=== PATIENT | female | born 1935 | race Caucasian/White ===

== ENCOUNTER 2019-06-29 07:46 | Emergency (ER) | payer MEDICARE, OTHER ==
--- NOTE | 2019-06-29 08:15 | ED Physician Documentation ---
PD HPI ABD PAIN - Stated complaint Stated Complaint: STOMACH PAINS - Chief complaint Chief Complaint: Abd Pain - History obtained from History obtained from: Patient - History of Present Illness Timing - onset: Last night Timing - details: Abrupt onset, Still present (but much lessened over the past few hours.) Quality: Aching, Fullness/distended, Pain Location: Periumbilical (she says she started with abd bloating, diffuse pain, but more intense centrally. Associated with nausea but no vomiting. She says her abd felt firm and hard. Started with diarrhea few hours later and is having less distension, but still cramping. Has had several bouts watery diarrhea without blood.) Radiation: No: Lower back, Left flank, Right flank Improved by: BM. No: Eating Worsened by: Eating, Palpation Associated symptoms: Nausea, Diarrhea, Loss of appetite. No: Fever, Vomiting, Melena, Hematochezia, Dysuria Similar symptoms before: Has not had sx before (remote c. diff caused diarrhea, but had not had abd pain/bloating like this with just the diarrhea. Has history of hernia mid abd, but no prior obstruction episodes. Did have feeling of bloating and diffuse pain with bowel perforation related to c. diff.) Review of Systems Constitutional: reports: Fatigue. denies: Fever, Chills, Myalgias Nose: denies: Rhinorrhea / runny nose, Congestion Throat: denies: Sore throat Respiratory: denies: Cough GI: reports: Abdominal Pain, Abdominal Swelling, Nausea, Diarrhea. denies: Vomiting, Constipation, Bloody / black stool : denies: Dysuria, Frequency Neurologic: denies: Near syncope, Altered mental status PD PAST MEDICAL HISTORY - Past Medical History Cardiovascular: Pulmonary embolism Endocrine/Autoimmune: Type 2 diabetes, HyPOthyroidism Musculoskeletal: Osteoarthritis, Gout Other Past Medical History: Vertigo. Raynauds. 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 Cardiovascular: Valve replacement HEENT: Tonsil/Adenoidectomy Derm: Skin cancer surgery - Present Medications Home Medications: Ambulatory Orders Medication Instructions Recorded Confirmed Acetaminophen with Codeine 1 each PO Q6H PRN #25 tablet 06/29/19 [Tylenol with Codeine #4 Tablet] Allopurinol 100 mg PO 06/29/19 Apixaban [Eliquis] 2.5 mg PO 06/29/19 Dapagliflozin Propanediol [Farxiga] 10 mg PO 06/29/19 Diphenoxylate/Atropine [Lomotil] 1 each PO QID PRN #12 tablet 06/29/19 Dulaglutide [Trulicity] 1.5 mg SQ 06/29/19 Gabapentin [Gralise] 600 mg PO 06/29/19 Glipizide [Glipizide ER] 5 mg PO 06/29/19 Hydrocodone/Acetaminophen 1 each PO 06/29/19 [Hydrocodone-Acetamin 5-325 mg] Levothyroxine [Synthroid] 125 mcg PO QDAC 06/29/19 06/29/19 Ondansetron Odt [Zofran] 4 mg TL Q6H PRN #10 tablet 06/29/19 Pantoprazole [Protonix] 40 mg PO 06/29/19 Rosuvastatin Calcium [Crestor] 40 mg PO 06/29/19 - Allergies Allergies/Adverse Reactions: Allergies Allergy/AdvReac Type Severity Reaction Status Date / Time oxycodone [From OxyContin] Allergy Unknown Verified 06/29/19 08:00 Penicillins Allergy Hives Verified 06/29/19 08:00 sulfamethoxazole Allergy Hives Verified 06/29/19 08:00 [From Bactrim] trimethoprim [From Bactrim] Allergy Hives Verified 06/29/19 08:00 vancomycin Allergy Anxiety Verified 06/29/19 08:00 clindamycin AdvReac Unknown Verified 06/29/19 08:00 doxycycline AdvReac Nausea Verified 06/29/19 08:00 - Social History Does the pt smoke?: No Smoking Status: Never smoker PD ED PE NORMAL - Vitals Vital signs reviewed: Yes - General General: Alert and oriented X 3, No acute distress, Well developed/nourished - HEENT HEENT: PERRL (nonicteric), Ears normal, Pharynx benign - Neck Neck: Supple, no meningeal sign, No adenopathy - Cardiac Cardiac: RRR, No murmur - Respiratory Respiratory: Clear bilaterally - Abdomen Abdomen: Non distended, No organomegaly, Other (tender central abd mostly with some percussion tenderness but no rebound. Left abd with broad ventral hernia that is reducible/soft. ). No: Normal bowel sounds (increased, diffuse) - Female Female : Deferred - Rectal Rectal: Deferred - Back Back: No CVA TTP - Derm Derm: Normal color - Extremities Extremities: No tenderness to palpate, Normal ROM s pain, No edema, No calf tenderness / cord - Neuro Neuro: Alert and oriented X 3, No motor deficit, Normal speech Results - Vitals Vitals: Vital Signs - 24 hr 06/29/19 06/29/19 06/29/19 07:54 09:57 12:04 Temperature 36 C L Heart Rate 93 84 85 Respiratory 20 13 14 Rate Blood Pressure 119/56 L 135/105 H 133/68 H O2 Saturation 96 94 95 Oxygen O2 Source Room air - Labs Labs: Microbiology 06/29/19 11:33 Campylobacter Antigen Assay - Final Stool Laboratory Tests 06/29/19 06/29/19 06/29/19 08:44 08:44 08:44 WBC 10.2 RBC 4.82 Hgb 13.5 Hct 41.8 MCV 86.7 MCH 28.0 MCHC 32.3 RDW 15.2 H Plt Count 150 MPV 9.7 Neut # (Auto) 7.4 H Lymph # (Auto) 1.6 [place] # (Auto) 0.9 Eos # (Auto) 0.2 Baso # (Auto) 0.0 Absolute Nucleated RBC 0.00 Nucleated RBC % 0.0 PT INR APTT Sodium 138 Potassium 4.2 Chloride 103 Carbon Dioxide 23 Anion Gap 12.0 BUN 30 H Creatinine 1.8 H Estimated GFR (MDRD) 27 L Glucose 199 H Lactic Acid 1.4 Calcium 9.6 Magnesium 1.9 Total Bilirubin 0.5 AST 19 ALT 16 Alkaline Phosphatase 104 Total Protein 7.0 Albumin 3.8 Globulin 3.2 Albumin/Globulin Ratio 1.2 Lipase 30 C. difficile Tox B Gene 06/29/19 06/29/19 08:44 11:33 WBC RBC Hgb Hct MCV MCH MCHC RDW Plt Count MPV Neut # (Auto) Lymph # (Auto) [place] # (Auto) Eos # (Auto) Baso # (Auto) Absolute Nucleated RBC Nucleated RBC % PT 12.8 H INR 1.1 APTT 37.6 H Sodium Potassium Chloride Carbon Dioxide Anion Gap BUN Creatinine Estimated GFR (MDRD) Glucose Lactic Acid Calcium Magnesium Total Bilirubin AST ALT Alkaline Phosphatase Total Protein Albumin Globulin Albumin/Globulin Ratio Lipase C. difficile Tox B Gene NEGATIVE - Rads (name of study) abd/pelvic CT Radiology: Prelim report reviewed (hernias noted without signs of incarceration nor obstruction. No free fluid nor free air. ), See rad report PD MEDICAL DECISION MAKING - ED course Complexity details: reviewed results, re-evaluated patient (improved enough and taking PO fluids. Feeling some pain still and given repeat dose meds. Shr is feeling able to try discharge, and I feel she is stable for discharge. ), considered differential (symptoms improved with IV fluids and meds. Symptoms concerning for SBO but with some improvement occurring, I think it might be resolving already and having pain from stretch of intestine/adhesions. Otherwise consider bacterial enteritis, ischemic enteritis, viral GE. ), d/w patient Departure - Departure Disposition: 01 Home, Self Care Clinical Impression: Partial small bowel obstruction Abdominal pain Qualifiers: Abdominal location: generalized Qualified Code(s): R10.84 - Generalized a bdominal pain Diarrhea Qualifiers: Diarrhea type: unspecified type Qualified Code(s): R19.7 - Diarrhea, unspecified Condition: Stable Record reviewed to determine appropriate education?: Yes Instructions: ED Abdominal Pain Adhesions Prescriptions: Acetaminophen with Codeine [Tylenol with Codeine #4 Tablet] 1 each PO Q6H PRN #25 tablet PRN Reason: Pain Diphenoxylate/Atropine [Lomotil] 1 each PO QID PRN #12 tablet PRN Reason: Diarrhea Ondansetron Odt [Zofran] 4 mg TL Q6H PRN #10 tablet PRN Reason: Nausea / Vomiting Comments: At this point I presume possibly a viral illness leading to the diarrhea and cramping. Your description of your abdomen being firm and distended last evening does suggest possibility of a partial obstruction that has improved. Your CT scan does not show any obstruction or other acute process at this time. Small frequent fluids and use ondansetron for nausea as needed. Soft diet today. Pain medicine if needed for pain. Lomotil for diarrhea. Recheck if not improved over the next day to 2 days. Return if worsening again. We will call you if the stool cultures shows a particular bacterial infection that would need treating. Discharge Date/Time: 06/29/19 12:56
[2019-06-29] MEDS ORDERED: SODIUM CHLORIDE 0.9% 1,000 ML IV ONE (08:34)
[2019-06-29] MEDS ORDERED: ONDANSETRON 4 MG/2 ML VIAL IVP STA ×2 (08:34→11:54)
[2019-06-29] MEDS ORDERED: HYDROmorphone 1 MG/ML CARPUJECT IVP STA ×2 (08:35→11:54)
[2019-06-29] MEDS ORDERED: DEXAMETHASONE 10 MG/ML VIAL IVP STA (08:48)
[2019-06-29] MEDS ORDERED: diphenhydrAMINE INJ 50 MG/ML VIAL IVP STA ×2 (08:48→11:15)
[2019-06-29] MEDS ORDERED: IOVERSOL 320 100 ML VIAL IVP ONE (08:49)
[2019-06-29] MEDS ORDERED: IOVERSOL 320 50 ML VIAL ONE ×2 (08:49→09:01)
[2019-06-29 08:55] LABS: BASOPHILS % (AUTO) 0.4 %; EOSINOPHILS # (AUTO) 0.2 10^3/uL (0.0-0.7); EOSINOPHILS % (AUTO) 2.2 %; HGB - HEMOGLOBIN 13.5 g/dL (12.0-16.0); LYMPHOCYTES # (AUTO) 1.6 10^3/uL (1.5-3.5); MEAN CORPUSCULAR HGB CONC 32.3 g/dL (32.0-36.0); MEAN CORPUSCULAR VOLUME 86.7 fL (81.0-99.0); MEAN PLATELET VOLUME 9.7 fL (7.9-10.8); MONOCYTES # (AUTO) 0.9 10^3/uL (0.0-1.0); MONOCYTES % (AUTO) 8.7 %; NEUTROPHILS # (AUTO) 7.4 10^3/uL (1.5-6.6); NEUTROPHILS % (AUTO) 72.2 %; PLT - PLATELET COUNT 150 10^3/uL (130-450); RED BLOOD COUNT 4.82 10^6/uL (4.20-5.40); RED CELL DISTRIBUTION WIDTH 15.2 % (12.0-15.0); WHITE BLOOD COUNT 10.2 x10^3/uL (4.8-10.8)
[2019-06-29 09:00] LABS: INR 1.1 (0.8-1.2); PT - PROTHROMBIN TIME 12.8 secs (9.9-12.6)
[2019-06-29 09:02] LABS: ALBUMIN 3.8 g/dL (3.2-5.5); ALBUMIN/GLOBULIN RATIO 1.2 (1.0-2.2); BILIRUBIN,TOTAL 0.5 mg/dL (0.2-1.0); CALCIUM 9.6 mg/dL (8.5-10.3); CREATININE 1.8 mg/dL (0.4-1.0); MAGNESIUM 1.9 mg/dL (1.7-2.8)
[2019-06-29 09:07] LABS: PARTIAL THROMBOPLASTIN TIME 37.6 secs (24.9-33.3)
--- NOTE | 2019-06-29 11:09 | CT Report ---
Reason: ABD PAIN AND DIARRHEA ? SBO Procedure Date: 06/29/2019 Accession Number: [id number] / [id number] Procedure: CT - Abdomen/Pelvis WO CPT Code: FULL RESULT: EXAM: CT ABDOMEN AND PELVIS EXAM DATE: 06/29/2019 10:40 AM. CLINICAL HISTORY: Abdominal pain and diarrhea. Question of small bowel obstruction. COMPARISONS: None. TECHNIQUE: Routine axial helical CT imaging was performed through the abdomen and pelvis without IV contrast. Reconstructions: Coronal and sagittal. In accordance with CT protocol optimization, one or more of the following dose reduction techniques were utilized for this exam: automated exposure control, adjustment of mA and/or KV based on patient size, or use of iterative reconstructive technique. FINDINGS: Lung Bases: Unremarkable. The liver, spleen, adrenal glands, kidneys, and pancreas appear within normal limits as seen on noncontrast exam. Gallbladder/Bile Ducts: Status post cholecystectomy. Peritoneal Cavity: The patient is status post colectomy with proximal end to side anastomosis which is traversed by contrast. There is a narrow necked right lower quadrant abdominal wall hernia, 1.7 cm width which contains bowel, apparently both bowel hermosillo protruding, not Singh's hernia despite small size and narrow neck with a minuscule amount of contrast seen within the herniated portion and contrast upstream and downstream thereof. Separately, there is a wide midline abdominal wall diastases containing bowel. Contrast is not seen at the distal rectal anastomosis with contrast gradually tapering a few feet proximally, potentially transit time related. Overall appearance of pelvic bowel loops is a configuration suggestive of presence of adhesions. A few prominent mesenteric lymph nodes are noted which do not meet size criteria. No free or free fluid. Pelvic Organs: Postsurgical changes are seen within the pelvis. The patient is status post hysterectomy. Vasculature: Atherosclerotic without abdominal aortic aneurysm. IVC filter is noted in place. Other: Lytic lesions in the L2 and L3 vertebral body demonstrate an appearance which somewhat favors a hemangioma type vascular lesion given persistent internal trabeculations and relatively well-defined border. IMPRESSION: No high-grade bowel obstruction. Narrow necked right lower quadrant abdominal wall hernia containing bowel. Suspect postsurgical adhesions in the pelvic region. RADIA
[2019-06-29] MEDS ORDERED: KETOROLAC 15 MG/ML VIAL IVP STA (11:54)
[2019-06-29 12:04] VITALS: BP 133/68
[2019-06-29] MEDS ORDERED: DIPHENOX/ATROPINE 2.5/0.025 MG TABLET PO STA (12:38)
[2019-06-29] MEDS ORDERED: IOVERSOL 320 50 ML VIAL PO ONE (16:05)
== END 2019-06-29 12:56 | disposition home or self-care (01) ==
LOC: ED 07:46
DX: K56.600 Partial intestinal obstruction, unspecified as to cause (principal); R10.84 Generalized abdominal pain; R19.7 Diarrhea, unspecified; E11.9 Type 2 diabetes mellitus without complications; Z79.84 Long term (current) use of oral hypoglycemic drugs
CPT/HCPCS: 36415; 74176; 80053; 83605; 83690; 83735; 85025; 85610; 85730; 87045; 87046; 87493; 96361; 96374; 96375; 96376; 99284; 99285; A9270; J1170; J1200

== ENCOUNTER 2019-07-02 10:32 | Inpatient (IN) | payer MEDICARE, OTHER ==
[2019-07-02] MEDS ORDERED: SODIUM CHLORIDE 0.9% 1,000 ML IV ONE (10:56)
[2019-07-02] MEDS ORDERED: HYDROmorphone 1 MG/ML CARPUJECT IVP STA (10:56)
[2019-07-02] MEDS ORDERED: ONDANSETRON 4 MG/2 ML VIAL IVP STA (10:56)
--- NOTE | 2019-07-02 11:00 | ED Physician Documentation ---
PD HPI ABD PAIN - Stated complaint Stated Complaint: ABD PX - Chief complaint Chief Complaint: Abd Pain - History obtained from History obtained from: Patient, Family - History of Present Illness Timing - onset: How many days ago (3) Timing - duration: Days (3) Timing - details: Still present (Getting worse) Location: Other (Right mid abdomen.) Radiation: Right flank Associated symptoms: Nausea, Diarrhea Recently seen: Emergency Dept (3 days ago.) - Additional information Additional information: The patient is an 84-year-old female who presents with abdominal pain that started 3 days ago and is worse today. The pain is mostly right-sided, with radiation to the right flank. She has associated watery diarrhea, numerous times over the past 24 hours. She reports nausea, without vomiting. She has had chills, but has not noticed fever. She denies dysuria or lightheadedness. Her past medical history is significant for colectomy for bowel rupture caused by C. difficile. She is also status post cholecystectomy and appendectomy. She is status post aortic valve replacement in November of this year. She has history of DVT and PE, and is status post IVC filter placement, and is currently on Eliquis. She is visiting here from [place], and has no local physician. Review of Systems Constitutional: reports: Chills, Fatigue Ears: denies: Tinnitus/ringing Nose: denies: Congestion Throat: denies: Sore throat Cardiac: denies: Chest pain / pressure Respiratory: denies: Dyspnea, Cough GI: reports: Abdominal Pain, Nausea, Diarrhea. 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 Cardiovascular: Valve replacement HEENT: Tonsil/Adenoidectomy Derm: Skin cancer surgery - Present Medications Home Medications: Ambulatory Orders Medication Instructions Recorded Confirmed Allopurinol 100 mg PO QPM 06/29/19 07/02/19 Apixaban [Eliquis] 2.5 mg PO DAILY 06/29/19 07/02/19 Dapagliflozin Propanediol [Farxiga] 10 mg PO DAILY 06/29/19 07/02/19 Dulaglutide [Trulicity] 1.5 mg SQ LUGO 06/29/19 07/02/19 Gabapentin [Gralise] 600 mg PO QID 06/29/19 07/02/19 Glipizide [Glipizide ER] 5 mg PO BID 06/29/19 07/02/19 Levothyroxine [Synthroid] 125 mcg PO QDAC 06/29/19 07/02/19 Pantoprazole [Protonix] 40 mg PO DAILY 06/29/19 07/02/19 Rosuvastatin Calcium [Crestor] 40 mg PO QPM 06/29/19 07/02/19 Acetaminophen with Codeine 1 tab PO DAILY PRN 07/02/19 07/02/19 [Tylenol with Codeine #4 Tablet] Diphenoxylate/Atropine [Lomotil] 1 tab PO QID PRN 07/02/19 07/02/19 - Allergies Allergies/Adverse Reactions: Allergies Allergy/AdvReac Type Severity Reaction Status Date / Time Penicillins Allergy Hives Verified 06/29/19 08:00 sulfamethoxazole Allergy Hives Verified 06/29/19 08:00 [From Bactrim] trimethoprim [From Bactrim] Allergy Hives Verified 06/29/19 08:00 vancomycin Allergy Anxiety Verified 06/29/19 08:00 oxycodone [From OxyContin] AdvReac Intermediate Hallucinati Verified 07/02/19 18:29 ons clindamycin AdvReac Unknown Verified 06/29/19 08:00 doxycycline AdvReac Nausea Verified 06/29/19 08:00 - Social History Does the pt smoke?: No Smoking Status: Never smoker PD ED PE NORMAL - Vitals Vital signs reviewed: Yes (Borderline systolic hypertension.) - General General: Alert and oriented X 3, Well developed/nourished, Other (Overweight.) - HEENT HEENT: Atraumatic, Other (Dry mucous membranes.). No: Pharynx benign - Neck Neck: Supple, no meningeal sign, No adenopathy - Cardiac Cardiac: RRR, Other (2/6 systolic murmur.) - Respiratory Respiratory: No respiratory distress, Clear bilaterally - Abdomen Abdomen: Soft, Other (Increased bowel tones. Tenderness to palpation across the upper abdomen, without rebound.) - Back Back: No CVA TTP - Derm Derm: No rash - Extremities Extremities: No edema, No calf tenderness / cord - Neuro Neuro: Alert and oriented X 3, No motor deficit, Normal speech Results - Vitals Vitals: Vital Signs - 24 hr 07/02/19 07/02/19 07/02/19 10:35 13:26 15:07 Temperature 36.6 C 36.9 C Heart Rate 98 84 78 Respiratory 18 20 14 Rate Blood Pressure 135/58 H 100/41 L 110/54 L O2 Saturation 98 96 98 Oxygen O2 Source Room air - Labs Labs: Laboratory Tests 07/02/19 07/02/19 07/02/19 10:40 11:45 11:45 WBC 9.8 RBC 4.23 Hgb 11.8 L Hct 37.8 MCV 89.4 MCH 27.9 MCHC 31.2 L RDW 15.4 H Plt Count 143 MPV 10.0 Neut # (Auto) 7.2 H Lymph # (Auto) 1.2 L [place] # (Auto) 0.9 Eos # (Auto) 0.4 Baso # (Auto) 0.0 Absolute Nucleated RBC 0.00 Nucleated RBC % 0.0 Sodium 139 Potassium 4.5 Chloride 105 Carbon Dioxide 21 Anion Gap 13.0 BUN 33 H Creatinine 2.1 H Estimated GFR (MDRD) 23 L Glucose 244 H Glycated Hemoglobin Estim Average Glucose Lactic Acid Calcium 8.9 Total Bilirubin 0.8 AST 31 ALT 21 Alkaline Phosphatase 103 Total Protein 6.4 L Albumin 3.4 Globulin 3.0 Albumin/Globulin Ratio 1.1 Lipase 22 Urine Color YELLOW Urine Clarity CLOUDY Urine pH 5.5 Ur Specific [place] 1.015 Urine Protein 30 H Urine Glucose (UA) >=1000 H Urine Ketones NEGATIVE Urine Occult Blood MODERATE H Urine Nitrite POSITIVE H Urine Bilirubin NEGATIVE Urine Urobilinogen 0.2 (NORMAL) Ur Leukocyte Esterase MODERATE H Urine RBC None Seen Urine WBC >25 H Urine WBC Clumps PRESENT Ur Squamous Epith Cells RARE Squamous Urine Bacteria Few Urine Casts 3-5 Fine Granular Ur Microscopic Review INDICATED Urine Culture Comments INDICATED 07/02/19 07/02/19 11:45 11:45 WBC RBC Hgb Hct MCV MCH MCHC RDW Plt Count MPV Neut # (Auto) Lymph # (Auto) [place] # (Auto) Eos # (Auto) Baso # (Auto) Absolute Nucleated RBC Nucleated RBC % Sodium Potassium Chloride Carbon Dioxide Anion Gap BUN Creatinine Estimated GFR (MDRD) Glucose Glycated Hemoglobin 8.5 H Estim Average Glucose 197 H Lactic Acid 2.3 H Calcium Total Bilirubin AST ALT Alkaline Phosphatase Total Protein Albumin Globulin Albumin/Globulin Ratio Lipase Urine Color Urine Clarity Urine pH Ur Specific [place] Urine Protein Urine Glucose (UA) Urine Ketones Urine Occult Blood Urine Nitrite Urine Bilirubin Urine Urobilinogen Ur Leukocyte Esterase Urine RBC Urine WBC Urine WBC Clumps Ur Squamous Epith Cells Urine Bacteria Urine Casts Ur Microscopic Review Urine Culture Comments - Rads (name of study) CT abd/pelvis Radiology: Prelim report reviewed, EMP read contemporaneously, See rad report (1) No urinary tract obstruction. Nonobstructing right renal stone. 2) Extensive postsurgical changes of bowel with diastatic anterior abdominal wall. Bowel herniates anteriorly through the diastases slightly more dilated and air- filled than on 06/29/2019. 3) Narrow neck right lower quadrant abdominal wall hernia containing bowel, question Singh hernia. 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 Given her right flank pain and tenderness, pyelonephritis is a consideration. In addition to urine culture, blood cultures are pending. CT scan of the abdomen and pelvis reveals no evidence of acute bowel obstruction or abscess. It does reveal ventral hernia, without incarceration. Treatment in the emergency department included administration of normal saline 1 L IV, Zofran 4 mg IV, dilaudid 1 mg IV, followed by fentanyl 50 mcg IV, Phenergan 12.5 mg IV, and ceftriaxone 1 g IV. I discussed her condition with Dr. Woodward, who accepts her for further evaluation and treatment. Departure - Departure Disposition: 66 [facility] DC/Xfer Clinical Impression: Lactic acid increased Urinary tract infection Qualifiers: Urinary tract infection type: acute cystitis Hematuria presence: without hematuria Qualified Code(s): N30.00 - Acute cystitis without hematuria Ventral hernia Qualifiers: Obstruction and gangrene presence: without obstruction or gangrene Qualified Co de(s): K43.9 - Ventral hernia without obstruction or gangrene Condition: Stable Discharge Date/Time: 07/02/19 16:36
[2019-07-02 11:01] LABS: BILIRUBIN,URINE NEGATIVE (NEGATIVE); GLUCOSE, URINE (UA) >=1000 mg/dL (NEGATIVE); KETONES,URINE (UA) NEGATIVE (NEGATIVE); LEUKOCYTE ESTERASE, URINE MODERATE (NEGATIVE); NITRITE,URINE POSITIVE (NEGATIVE); OCCULT BLOOD,URINE MODERATE (NEGATIVE); PH,URINE 5.5 PH (5.0-7.5); PROTEIN,URINE 30 mg/dL (NEGATIVE); UROBILINOGEN,URINE 0.2 (NORMAL) E.U./dL (NORMAL)
[2019-07-02] MEDS ORDERED: IOVERSOL 320 100 ML VIAL IVP ONE (11:11)
[2019-07-02 11:18] LABS: BACTERIA,URINE Few /HPF (None Seen); CLARITY,URINE CLOUDY (CLEAR); RBC,URINE None Seen /HPF (0-5); SQUAMOUS EPITHELIAL CELL,UR RARE Squamous (<= Few); WBC CLUMPS,URINE PRESENT
[2019-07-02 11:19] LABS: CASTS, URINE 3-5 Fine Granular /LPF
[2019-07-02 11:56] LABS: BASOPHILS % (AUTO) 0.4 %; EOSINOPHILS # (AUTO) 0.4 10^3/uL (0.0-0.7); EOSINOPHILS % (AUTO) 3.8 %; HGB - HEMOGLOBIN 11.8 g/dL (12.0-16.0); LYMPHOCYTES # (AUTO) 1.2 10^3/uL (1.5-3.5); LYMPHOCYTES % (AUTO) 12.7 %; MEAN CORPUSCULAR HEMOGLOBIN 27.9 pg (27.0-31.0); MEAN CORPUSCULAR HGB CONC 31.2 g/dL (32.0-36.0); MEAN CORPUSCULAR VOLUME 89.4 fL (81.0-99.0); MONOCYTES # (AUTO) 0.9 10^3/uL (0.0-1.0); MONOCYTES % (AUTO) 9.2 %; NEUTROPHILS # (AUTO) 7.2 10^3/uL (1.5-6.6); NEUTROPHILS % (AUTO) 73.5 %; PLT - PLATELET COUNT 143 10^3/uL (130-450); RED BLOOD COUNT 4.23 10^6/uL (4.20-5.40); RED CELL DISTRIBUTION WIDTH 15.4 % (12.0-15.0); WHITE BLOOD COUNT 9.8 x10^3/uL (4.8-10.8)
[2019-07-02 12:07] LABS: ALBUMIN 3.4 g/dL (3.2-5.5); ALBUMIN/GLOBULIN RATIO 1.1 (1.0-2.2); BILIRUBIN,TOTAL 0.8 mg/dL (0.2-1.0); CALCIUM 8.9 mg/dL (8.5-10.3); CREATININE 2.1 mg/dL (0.4-1.0); TOTAL PROTEIN 6.4 g/dL (6.7-8.2)
[2019-07-02] MEDS ORDERED: cefTRIAXone 1 GM in SODIUM CHLORIDE 0.9% MINIBAG 100 ML IV STA (12:09)
--- NOTE | 2019-07-02 13:45 | CT Report ---
Reason: increasing abdominal pain; S/P colectomy Procedure Date: 07/02/2019 Accession Number: [id number] / [id number] Procedure: CT - Abdomen/Pelvis WO CPT Code: FULL RESULT: EXAM: CT ABDOMEN AND PELVIS (CT KUB) EXAM DATE: 07/02/2019 12:29 PM. CLINICAL HISTORY: Increasing abdominal pain; S/P colectomy. COMPARISONS: ABDOMEN/PELVIS W/O 06/29/2019 10:30 AM. TECHNIQUE: Routine axial helical CT imaging was performed through the abdomen and pelvis without IV contrast. Reconstructions: Coronal and sagittal. In accordance with CT protocol optimization, one or more of the following dose reduction techniques were utilized for this exam: automated exposure control, adjustment of mA and/or KV based on patient size, or use of iterative reconstructive technique. FINDINGS: Lung Bases: Hypoventilatory change lung bases. Prosthetic aortic valve. Right Kidney/Ureter: 5 mm nonobstructing right inferior pole calculus No hydronephrosis, or hydroureter. No perinephric fat stranding. Left Kidney/Ureter: No stones, hydronephrosis, or hydroureter. No perinephric fat stranding. Other Solid Organs: Noncontrast images of the remaining solid organs are grossly unremarkable. Gallbladder/Bile Ducts: Status post cholecystectomy. Peritoneal Cavity: Status post colectomy with suture lines in the pelvis and left mid abdomen. Wide midline abdominal wall diastases containing slightly more distended air-filled bowel than on 06/29/2019. Narrow neck right lower quadrant abdominal wall hernia containing a loop of small bowel , 03/25. Potential second small hernia anterior abdominal wall , . No significant residual bowel contrast . No free fluid, free air or carin adenopathy. Pelvic Organs: No bladder stones or wall thickening. Post hysterectomy. Vasculature: IVC filter present. Atherosclerotic changes and a normal sized aorta. Other: Stable bony structures again noting advanced degenerative disk space narrowing L4-L5 and L5-S1 with associated endplate sclerosis more prominent at the more superior level. IMPRESSION: 1. No urinary tract obstruction. Nonobstructing right renal stone. 2. Extensive postsurgical changes of bowel with diastatic anterior abdominal wall. Bowel herniates anteriorly through the diastases slightly more dilatated and air-filled than on 06/29/2019. 3. Narrow neck right lower quadrant abdominal wall hernia containing bowel, question Singh hernia. 4. No residual bowel contrast from prior CT suggesting passage or dilution of previously administered oral contrast. 5. Other incidental findings as above. RADIA
[2019-07-02] MEDS ORDERED: fentaNYL 100 MCG/2 ML VIAL IVP STA (14:05)
[2019-07-02] MEDS ORDERED: PROMETHAZINE INJ 12.5 MG in SODIUM CHLORIDE 0.9% 50 ML IV STA (14:58)
[2019-07-02] MEDS ORDERED: ZOLPIDEM 5 MG TABLET PO PRN (15:09)
[2019-07-02] MEDS ORDERED: ONDANSETRON 4 MG/2 ML VIAL IVP PRN (15:09)
[2019-07-02] MEDS ORDERED: PROMETHAZINE 25 MG/1 ML VIAL IM PRN (15:09)
--- NOTE | 2019-07-02 15:44 | HISTORY & PHYSICAL EXAMINATION ---
Chief Complaint - Chief Complaint Chief Complaint: abdominal pain History of Present Illness - History of Present Illness HPI Comment/Other: Ms. collado is a 84-year-old female with a PMH significant for DM2, HLD, DVT and PE, and status post IVC filter placement, hypothyroidism, colon resection for bowel rupture caused by C. difficile, chronic diarrhea, status post aortic valve replacement on Eliquis, status post cholecystectomy and appendectomy, who presents ER complains of abdominal pain. Pt report her abdominal pain started 4 days ago and is worse today. The pain was mostly at right-sided, with pain radiation to the right flank and right back. She report since her colon resection, she continued to have chronic diarrhea. But now she had watery diarrhea, and had numerous times over the past 24 hours. she report chill but no fever. She reports nausea without vomiting. She had two daughter living in [facility]. she and her are visiting here from [place]. CT of abdemen reveals 1) no urinary tract obstruction, Nonobstructing right renal stone, 2) Extensive postsurgical changes of bowel with diastatic anterior abdominal wall. Bowel herniates anteriorly through the diastases slightly more dilated and air-filled than, 3) Narrow neck right lower quadrant abdominal wall hernia containing bowel, question Singh hernia, 4) No residual bowel contrast from prior CT suggesting passage or dilution of previously administered oral contrast. UA analysis found pt has positive UTI, lactic acid is 2.3. Pt was afebrile, normative BP. She denies chest pain, fever, shortness of breath, headache, dysuria, hematuia. pt was admitted for above medical reason for further evaluation and treatment. History - Past Medical History Cardiovascular: reports: Pulmonary embolism Endocrine/Autoimmune: reports: Type 2 diabetes, HyPOthyroidism GI: reports: C.difficile Musculoskeletal: reports: Osteoarthritis, Gout - Past Surgical History General: reports: Cholecystectomy, Appendectomy, Bowel surgery, Other Ortho: reports: Knee replacement, Arthroscopic surgery /RECYCLING SORTER: reports: Tubal ligation, Hysterectomy Cardiovascular: reports: Valve replacement HEENT: reports: Tonsil/Adenoidectomy Derm: reports: Skin cancer surgery - Family & Social History Family History: Mother: , Cancer, Father: , Cancer Family History Comment/Other: pt report both her parents from lung cancer because of life long time smoker. she is living at [place] and visiting her two daughter, both daughter is living in [facility]. Living arrangement: At home Living Situation: With spouse/s.o. Social History Notes: she denies cigarett smoking, alcohol and drug issue. - POLST POLST Status: Full Code Meds/Allgy - Home Medications Home Medications: Ambulatory Orders Medication Instructions Recorded Confirmed Acetaminophen with Codeine 1 each PO Q6H PRN #25 tablet 06/29/19 [Tylenol with Codeine #4 Tablet] Allopurinol 100 mg PO 06/29/19 Apixaban [Eliquis] 2.5 mg PO 06/29/19 Dapagliflozin Propanediol [Farxiga] 10 mg PO 06/29/19 Diphenoxylate/Atropine [Lomotil] 1 each PO QID PRN #12 tablet 06/29/19 Dulaglutide [Trulicity] 1.5 mg SQ 06/29/19 Gabapentin [Gralise] 600 mg PO 06/29/19 Glipizide [Glipizide ER] 5 mg PO 06/29/19 Hydrocodone/Acetaminophen 1 each PO 06/29/19 [Hydrocodone-Acetamin 5-325 mg] Levothyroxine [Synthroid] 125 mcg PO QDAC 06/29/19 06/29/19 Ondansetron Odt [Zofran] 4 mg TL Q6H PRN #10 tablet 06/29/19 Pantoprazole [Protonix] 40 mg PO 06/29/19 Rosuvastatin Calcium [Crestor] 40 mg PO 06/29/19 - Allergies Allergies/Adverse Reactions: Allergies Allergy/AdvReac Type Severity Reaction Status Date / Time oxycodone [From OxyContin] Allergy Unknown Verified 06/29/19 08:00 Penicillins Allergy Hives Verified 06/29/19 08:00 sulfamethoxazole Allergy Hives Verified 06/29/19 08:00 [From Bactrim] trimethoprim [From Bactrim] Allergy Hives Verified 06/29/19 08:00 vancomycin Allergy Anxiety Verified 06/29/19 08:00 clindamycin AdvReac Unknown Verified 06/29/19 08:00 doxycycline AdvReac Nausea Verified 06/29/19 08:00 Review of Systems - Constitutional Constitutional: reports: Fatigue, Chills. denies: Fever, Malaise, Weakness, Poor appetite, Diaphoresis, Night sweats - Eyes Eyes: denies: Pain, Irritation, Amaurosis, Blurred vision, Spots in vision, Field loss, Vision loss, Dipolpia - Ears, Nose & Throat Ears, Nose & Throat: denies: Ear pain, Hearing loss, Hearing aids, Vertigo, Nasal pain, Nasal discharge, Nosebleeds, Nasal obstruction, Nasal congestion, Postnasal drainage, Sore throat, Hoarseness, Mouth lesions, Bleeding gums - Cardiovascular Cariovascular: denies: Irregular heart rate, Palpitations, Chest pain, Edema, Lightheadedness, Syncope, Exertional dyspnea, Decr. exercise tolerance - Respiratory Respiratory: denies: Cough, Sputum production, Wheezing, Snoring, Hemoptysis, Orthopnea, SOB at rest, SOB with exertion - Gastrointestinal Gastrointestinal: reports: Abdominal pain, Diarrhea, Nausea. denies: Abdominal distention, Constipation, Change in bowel habits, Rectal bleeding, Black stools, Bloody stools, Vomiting, Bile emesis, Torey blood emesis, Coffee grounds emesis, Reflux/heartburn - Genitourinary Genitourinary: denies: Dysuria, Frequency, Urgency, Hematuria, Incontinence, Flank pain, Nocturia, Urethral discharge - Musculoskeletal Musculoskeletal: denies: Muscle pain, Back pain, Muscle aches, Stiffness, Limited range of motion, Muscle weakness, Gout, Joint pain - Integumentary Integumentary: denies: Rash, Pruritis, Lesions, Dryness, Lumps, Acne, Pigment changes, Nail changes - Neurological Neurological: denies: General weakness, Focal weakness, Headache, Dizziness, Numbness, Memory problems, Pre-existing deficit, Abnormal gait, Seizures, Incoordination, Slurred speech - Psychiatric Psychiatric: denies: Depression, Anxiety, Suicidal, Delusions, Hallucinations, Homicidal - Endocrine Endocrine: denies: Polyuria, Polydypsia, Polyphagia, Intolerance to cold - Hematologic/Lymphatic Hematologic/Lymphatic: denies: Anemia, Bruising, Petechiae, Blood clots, Lymphadenopathy, Bleeding tendencies Prior Level of Functionality: independent Exam - Vital Signs Reviewed Vital Signs: Yes Vital Signs: Vital Signs x48h Temp Pulse Resp BP Pulse Ox 07/02/19 13:26 36.9 C 84 20 100/41 L 96 07/02/19 10:35 36.6 C 98 18 135/58 H 98 - Physical Exam General Appearance: positive: No acute distress, Alert. negative: Lethargic Eyes Bilateral: positive: Normal inspection, PERRL. negative: No lid inflammation, Conjunctivae nml ENT: positive: ENT inspection nml, Pharynx nml, No signs of dehydration. negative: Purulent nasal drainage, Pharyngeal erythema, Oral lesions Neck: positive: Nml inspection, Thyroid nml, No JVD, Trachea midline. negative: Thyromegaly, Lymphadenopathy (R), Lymphadenopathy (L), Stiff neck, Swelling/bruising, Tracheal deviation Respiratory: positive: Chest non-tender, No respiratory distress, Breath sounds nml. negative: Wheezes, Rales, Rhonchi Cardiovascular: positive: Regular rate & rhythm, No murmur, No gallop. negative : Irregularly irregular, Extrasystoles, Tachycardia, Bradycardia, JVD present, Systolic murmur, Diastolic murmur Peripheral Pulses: positive: 2+ Abdomen: positive: Non-tender, No organomegaly, No distention, Abnml bowel sounds (hyperactive bowel sound). negative: Tenderness, Guarding, Rebound Back: positive: Nml inspection. negative: CVA tenderness (R), CVA tenderness (L) Skin: positive: Color nml, No rash, Warm, Dry. negative: Cyanosis, Diaphoresis, Pallor Extremities: positive: Non-tender, Full ROM, Nml appearance. negative: Calf tenderness, Joint swelling, Jorden's sign/cords Neurologic/Psychiatric: positive: Oriented x3, Motor nml, Sensation nml, Mood/affect nml. negative: Weakness, Sensory loss, Facial droop, Slurred/abnml speech, Depressed mood/affect Sepsis Event Note (H) - Evaluation Current Stage of Sepsis: Sepsis Possible source of Sepsis: positive: Genitourinary - Sepsis Criteria Sepsis Criteria: Recorded Heart Rate greater than 90 bpm, Metabolic: lactate > 2 mmol/L Conclusion/Plan - Problem List (1) Abdominal pain Conclusion/Plan: abdominal pain at right then radiation to flank and back. CT reveals no Urinary tract obstruction but reveals bowel herniates, question Singh hernia. Plan: consult with GI surgeon pain control Qualifiers: Abdominal location: generalized Qualified Code(s): R10.84 - Generalized abdominal pain (2) Sepsis Conclusion/Plan: UA reveals UTI and pyuria. pt also had elevated lactic acid treat with antibiotics Rocephin IVF of NS recheck Lactic acid, lab and vital monitor (3) Urinary tract infection Conclusion/Plan: UA reveals positive UTI, pyuria. treat with antibiotics Rocephin followup UA culture and sensitivity study Qualifiers: Urinary tract infection type: acute cystitis Hematuria presence: without hematuria Qualified Code(s): N30.00 - Acute cystitis without hematuria (4) Diarrhea Conclusion/Plan: acute on chronic diarrhea. Pt has hx of C.Diff. will check C.Diff and stool culture Qualifiers: Diarrhea type: unspecified type Qualified Code(s): R19.7 - Diarrhea, unspecified (5) DM2 (diabetes mellitus, type 2) Conclusion/Plan: pt has hx of DM, with medication control, but not on insulin yet. start on slide scale, ACHS, hypoglycemia protocol will check A1C (6) Hypothyroidism Conclusion/Plan: will check TSH, reconcile home meds after verified by pharmacy (7) History of aortic valve replacement Conclusion/Plan: pt has hx of aortic valve replacement. Pt is on Eliquis 2.5 mg daily. continue Eliquis 2.5 mg daily (8) Full code status Conclusion/Plan: pt request full code status - Lab Results Fish Bones: 07/02/19 11:45 07/02/19 11:45 Core Measures - Anticipated LOS I expect patient to be DC'd or transferred within 96 hours.: Yes - DVT/VTE - Prophylaxis VTE/DVT Device ordered at admit?: Yes VTE/DVT Prophylaxis med ordered at admit?: Yes
[2019-07-02 15:52] LABS: HB2 TOTAL 12.3 g/dL; HEMOGLOBIN A1C 0.85 g/dL; HEMOGLOBIN A1C % 8.5 % (4.6-6.2)
[2019-07-02] MEDS: SODIUM CHLORIDE FLUSH 0.9% 10 ML SYRINGE IVP SCH ×2 (17:09→23:42)
[2019-07-02] MEDS: SODIUM CHLORIDE 0.9% 1,000 ML IV SCH (17:10)
[2019-07-02] MEDS: INSULIN ASPART 300 UNIT/3 ML PEN SUBQ SCH ×2 (17:11→21:27)
[2019-07-02] MEDS ORDERED: TRANEXAMIC ACID 1,000 MG in SODIUM CHLORIDE 0.9% 100ML 100 ML IV STA (18:45)
--- NOTE | 2019-07-02 19:45 | CONSULTATION NOTE ---
Referring Provider Name of Referring Provider:: Ricky NORRIS Consult Date: 07/02/19 Chief Complaint - Chief Complaint Chief Complaint: abd pain and diarrhea History of Present Illness - Admitted From Admitted From:: ER - History Obtained From Records Reviewed: yes History obtained from: pt, records Exam Limitations: none - History of Present Illness HPI Comment/Other: 84 yo female with 3 day hx of intermittent sharp periumbilical pain radiating into her back associated with copious nonbloody watery diarrhea, "like ice tea", 12 or more times/day, with nausea but no vomiting, chills but no fever, and no prior recent similar episodes. She is visiting her daughter here on [facility] and no one else in the household has similar sx;she denies any unusual oral intake. 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 She reports gradual wt loss over the past few years. No melena, hematochezia or hematemesis. She was seen in the ER on 06/29 shortly after onset of sx where evaluation includes labs and CT abd/pelvis were non diagnostic; CT showed multiple ventral incisional hernias without evidence of obstruction, no free fluid or air. Stool studies were sent off including C. diff, enteric pathogens, and camplylobacter, all of which have come back negat melina. She was felt to be most likely suffering from an enterocolitis, either viral or bacterial, and sx treatment was advised. She has noted no improvement, or worsening over the past 3 days; she has been able to keep down fluids but the abd pains and diarrhea have persisted prompting her to return to the ER today and to be admitted. She reports that her last bm was this morning, and none for the past 8-10 hours. Her abdominal pains persist along with severe headache which began 3 days ago and has persisted. Repeat ABD/pelvic CT today shows essentially no change from 3 days ago; there are two hernias appreciated: a large periumbilical VIH with a wide neck, and small RLQ VIH with a narrow neck, both containing small bowel but with no evidence of obstruction or strangulation. 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) GEOTECHNICIAL PROPERTIES TECHNICIAN: reports: Endometriosis (s/p hysterectomy) : reports: Renal insuffiency (chronic) Musculoskeletal: reports: Osteoarthritis, Gout MRSA Hx?: Yes - Past Surgical History General: reports: Cholecystectomy, Appendectomy, Bowel surgery (partial colectomy ), Other Ortho: reports: Knee replacement, Arthroscopic surgery /GEOTECHNICIAL PROPERTIES TECHNICIAN: reports: Tubal ligation, Hysterectomy Cardiovascular: reports: Valve replacement (porcine AVR) HEENT: reports: Tonsil/Adenoidectomy Derm: reports: Skin cancer surgery - Family & Social History Family History: Mother: , Cancer, Father: , Cancer Family History Comment/Other: pt report both her parents from lung cancer because of life long time smoker. she is living at [place] and visiting her two daughter, both daughter is living in [facility]. Living arrangement: At home Living Situation: With spouse/s.o. Social History Notes: she denies cigarett smoking, alcohol and drug issue. - Substance History Use: Uses substance without health or social issues: NONE - POLST POLST Status: Full Code Meds/Allgy - Home Medications Home Medications: Ambulatory Orders Medication Instructions Recorded Confirmed Allopurinol 100 mg PO QPM 06/29/19 07/02/19 Apixaban [Eliquis] 2.5 mg PO DAILY 06/29/19 07/02/19 Dapagliflozin Propanediol [Farxiga] 10 mg PO DAILY 06/29/19 07/02/19 Dulaglutide [Trulicity] 1.5 mg SQ LUGO 06/29/19 07/02/19 Gabapentin [Gralise] 600 mg PO QID 06/29/19 07/02/19 Glipizide [Glipizide ER] 5 mg PO BID 06/29/19 07/02/19 Levothyroxine [Synthroid] 125 mcg PO QDAC 06/29/19 07/02/19 Pantoprazole [Protonix] 40 mg PO DAILY 06/29/19 07/02/19 Rosuvastatin Calcium [Crestor] 40 mg PO QPM 06/29/19 07/02/19 Acetaminophen with Codeine 1 tab PO DAILY PRN 07/02/19 07/02/19 [Tylenol with Codeine #4 Tablet] Diphenoxylate/Atropine [Lomotil] 1 tab PO QID PRN 07/02/19 07/02/19 - Allergies Allergies/Adverse Reactions: Allergies Allergy/AdvReac Type Severity Reaction Status Date / Time Penicillins Allergy Hives Verified 06/29/19 08:00 sulfamethoxazole Allergy Hives Verified 06/29/19 08:00 [From Bactrim] trimethoprim [From Bactrim] Allergy Hives Verified 06/29/19 08:00 vancomycin Allergy Anxiety Verified 06/29/19 08:00 oxycodone [From OxyContin] AdvReac Intermediate Hallucinati Verified 07/02/19 18:29 ons clindamycin AdvReac Unknown Verified 06/29/19 08:00 doxycycline AdvReac Nausea Verified 06/29/19 08:00 Review of Systems - Constitutional Constitutional: reports: Chills, Malaise, Weakness, Poor appetite, Diaphoresis, Weight loss - Cardiovascular Cariovascular: reports: Exertional dyspnea - Respiratory Respiratory: reports: SOB with exertion - Gastrointestinal Gastrointestinal: reports: Abdominal pain, Diarrhea, Change in bowel habits, Nausea, Poor appetite. denies: Constipation, Rectal bleeding, Black stools, Bloody stools, Vomiting, Bile emesis, Torey blood emesis, Coffee grounds emesis - Genitourinary Genitourinary: reports: Other (cloudy urine past few days). denies: Dysuria, Frequency, Urgency, Hematuria - Neurological Neurological: reports: Headache - Hematologic/Lymphatic Hematologic/Lymphatic: reports: Blood clots. denies: Bleeding tendencies - All Other Systems All Other Systems: reports: Reviewed and negative (or covered in HPI/PMH) Exam - Vital Signs Reviewed Vital Signs: Yes Vital Signs: Vital Signs x48h Temp Pulse Pulse Resp BP BP Pulse Ox 07/02/19 17:25 37.1 C 80 20 97 07/02/19 16:59 37.1 C 79 20 122/43 L 96 07/02/19 15:07 78 14 110/54 L 98 07/02/19 13:26 36.9 C 84 20 100/41 L 96 - Physical Exam General Appearance: positive: No acute distress, Alert Eyes Bilateral: positive: Normal inspection, Conjunctivae nml, No scleral icterus ENT: positive: ENT inspection nml, Pharynx nml, No signs of dehydration Neck: positive: Nml inspection, Thyroid nml, No JVD, Trachea midline. negative: Thyromegaly, Lymphadenopathy (R), Lymphadenopathy (L) Respiratory: positive: Chest non-tender, No respiratory distress, Breath sounds nml. negative: Wheezes, Rales, Rhonchi Cardiovascular: positive: Regular rate & rhythm, No murmur, No gallop Abdomen: positive: Non-tender, No organomegaly, No distention, Abnml bowel sounds (hyperactive), Other (marked truncal obesity; large wide midline surgical scar; palpable large VIH in periumbilical region with fascial defect approx 8-10 cm diameter; reducible, tender; no other abd wall hernias appreciated but obesity limits accuracy of examination.). negative: Guarding, Rebound, Hepatomegaly, Splenomegaly, Mass Skin: positive: Color nml, No rash, Warm, Dry. negative: Cyanosis Extremities: positive: Non-tender, No pedal edema. negative: Calf tenderness Neurologic/Psychiatric: positive: Oriented x3 Conclusion/Plan - Diagnosis Diagnosis: Abdominal pain and nonbloody diarrhea; findings most consistent with infectious enterocolitis, viral or bacterial; no evidence of bowel obstruction, incarcerated hernia, surgical abdomen at present. She has multiple ventral incisional hernias, which do not appear to be the cause of the patients sx. - Plan Plan: Agree with plans for admission, hydration, IVF, observation. I would be very cautious about instituting antibiotic therapy given her hx of C diff infection; certainly would add a probiotic. Given her multiple medical comorbidities she is a very poor surgical candidate, and surgery should only be considered as a last resort. Thanks for asking me to see this patient. - Lab Results Fish Bones: 07/02/19 11:45 07/02/19 11:45 Other Lab Results: lactate slightly elevated today at 2.4; UA shows greater than 25 WBC, positive nitrite and leukocyte esterase; nl lft's and lipase; A1C 8.7 - Diagnostic Imaging Results Diagnostic Imaging Results: positive: Final report reviewed, Read independently Diagnostic Imaging Results Comments: See HPI
[2019-07-02] MEDS ORDERED: ZINC OXIDE 20% OINT 30 GM TUBE TOP PRN (20:50)
[2019-07-02] MEDS ORDERED: FAMOTIDINE 20 MG TABLET PO SCH (21:00)
[2019-07-02] MEDS ORDERED: GABAPENTIN 400 MG CAPSULE PO SCH (21:00)
[2019-07-02] MEDS: GABAPENTIN 100 MG CAPSULE PO SCH (21:28)
[2019-07-02] MEDS: HYDROcod/ACETAM 5/325 MG TABLET PO PRN (21:28)
[2019-07-02] MEDS: LACTOBACILLUS RHAMNOSUS GG CAPSULE PO SCH (21:28)
[2019-07-02] MEDS: MORPHINE 2 MG/ML CARPUJECT IVP PRN (23:45)
[2019-07-03] MEDS: ACETAMINOPHEN 325 MG TABLET PO PRN ×2 (00:59→17:52)
[2019-07-03] MEDS ORDERED: CYCLOBENZAPRINE 10 MG TABLET PO STA (02:08)
[2019-07-03] MEDS: SODIUM CHLORIDE 0.9% 1,000 ML IV SCH ×2 (03:06→14:50)
[2019-07-03 05:07] LABS: CALCIUM 8.2 mg/dL (8.5-10.3); MAGNESIUM 1.8 mg/dL (1.7-2.8)
[2019-07-03 05:25] LABS: BASOPHILS # (AUTO) 0.1 10^3/uL (0.0-0.1); BASOPHILS % (AUTO) 0.7 %; EOSINOPHILS # (AUTO) 0.3 10^3/uL (0.0-0.7); EOSINOPHILS % (AUTO) 4.5 %; LYMPHOCYTES # (AUTO) 1.8 10^3/uL (1.5-3.5); MEAN CORPUSCULAR HEMOGLOBIN 28.2 pg (27.0-31.0); MEAN CORPUSCULAR HGB CONC 30.4 g/dL (32.0-36.0); MEAN CORPUSCULAR VOLUME 92.7 fL (81.0-99.0); MONOCYTES # (AUTO) 0.9 10^3/uL (0.0-1.0); MONOCYTES % (AUTO) 12.2 %; NEUTROPHILS # (AUTO) 4.5 10^3/uL (1.5-6.6); NEUTROPHILS % (AUTO) 59.2 %; PLT - PLATELET COUNT 126 10^3/uL (130-450); RED BLOOD COUNT 3.55 10^6/uL (4.20-5.40); RED CELL DISTRIBUTION WIDTH 15.4 % (12.0-15.0); WHITE BLOOD COUNT 7.6 x10^3/uL (4.8-10.8)
[2019-07-03] MEDS: GABAPENTIN 100 MG CAPSULE PO SCH ×2 (06:32→13:50)
[2019-07-03] MEDS: PANTOPRAZOLE 40 MG TABLET PO SCH (06:32)
[2019-07-03] MEDS: INSULIN ASPART 300 UNIT/3 ML PEN SUBQ SCH ×4 (08:18→21:37)
[2019-07-03] MEDS: LACTOBACILLUS RHAMNOSUS GG CAPSULE PO SCH (08:18)
[2019-07-03] MEDS: SODIUM CHLORIDE FLUSH 0.9% 10 ML SYRINGE IVP SCH ×2 (08:20→16:50)
[2019-07-03] MEDS: POLYETHYLENE GLYCOL 3350 17 GM PACKET PO SCH (08:20)
[2019-07-03] MEDS ORDERED: LEVOTHYROXINE 125 MCG TABLET PO SCH (09:00)
[2019-07-03] MEDS ORDERED: APIXABAN 2.5 MG TABLET PO SCH (09:00)
[2019-07-03] MEDS ORDERED: cefTRIAXone 1 GM VIAL IVP SCH (09:00)
[2019-07-03] MEDS ORDERED: AZTREONAM 1 GM in SODIUM CHLORIDE 0.9% MINIBAG 100 ML IV SCH ×2 (09:00→19:00)
[2019-07-03] MEDS: INSULIN GLARGINE 300 UNIT/3 ML PEN SUBQ SCH (12:00)
[2019-07-03] MEDS: MORPHINE 2 MG/ML CARPUJECT IVP PRN ×2 (13:10→16:50)
--- NOTE | 2019-07-03 13:27 | PROVIDER PROGRESS NOTE ---
Subjective - Prog Note Date Prog Note Date: 07/03/19 Prog Note Time: 13:24 - Subjective Pt reports feeling: Improved Subjective: Alcira complains of a headache on the top and back of her head, full body aches, and left chest pain. She denies chest pressure, blurred vision, confusion, dizziness, shortness of breath, diaphoresis, a new rash or bleeding. Current Medications - Current Medications Current Medications: Active Medications: Acetaminophen (Tylenol) 650 mg PO Q4HR PRN Hydrocodone Bitart/Acetaminophen ([place] 5/325) 1 tab PO Q4HR PRN Apixaban (Eliquis) 2.5 mg PO BID YANIRA Gabapentin (Neurontin) 300 mg PO QID YANIRA Cefepime 2GM IV Q8H yanira Insulin Aspart (Novolog) 1 - 9 unit SUBQ 0800,1200,1700,2100 AYNIRA; Protocol Insulin Glargine (Lantus Solostar) 5 unit SUBQ QDBREAKFAST [facility] Lactobacillus Rhamnosus (Culturelle) 1 cap PO BID YANIRA Levothyroxine Sodium (Synthroid) 100 mcg PO QDAC [facility] Morphine Sulfate (Morphine (Carpuject)) 2 mg IVP Q2HR PRN Multi-Ingredient Ointment (Zinc Oxide) 1 applic TOP PRN PRN Ondansetron HCl (Zofran Inj) 4 mg IVP Q6HR PRN Pantoprazole Sodium (Protonix) 40 mg PO QDAC [facility] Polyethylene Glycol (Miralax) 17 gm PO DAILY YANIRA Promethazine HCl (Phenergan Inj) 25 mg IM Q6HR PRN HOME meds: Allopurinol 100 mg PO QPM 06/29/19 Apixaban [Eliquis] 2.5 mg PO DAILY 06/29/19 Dapagliflozin Propanediol [Farxiga] 10 mg PO DAILY 06/29/19 Dulaglutide [Trulicity] 1.5 mg SQ LUGO 06/29/19 Gabapentin [Gralise] 600 mg PO QID 06/29/19 Glipizide [Glipizide ER] 5 mg PO BID 06/29/19 Levothyroxine [Synthroid] 125 mcg PO QDAC 06/29/19 Pantoprazole [Protonix] 40 mg PO DAILY 06/29/19 Rosuvastatin Calcium [Crestor] 40 mg PO QPM 06/29/19 Acetaminophen with Codeine [Tylenol with Codeine #4 Tablet] 1 tab PO DAILY PRN 07/02/19 Diphenoxylate/Atropine [Lomotil] 1 tab PO QID PRN 07/02/19 Objective - Vital Signs/Intake & Output Reviewed Vital Signs: Yes Vital Signs: Vital Signs x48h Temp Pulse Resp BP Pulse Ox 07/03/19 11:28 36.9 C 79 16 137/51 H 98 07/03/19 07:59 36.7 C 75 16 132/49 H 94 Intake & Output: Intake & Output 06/30/19 07/01/19 07/02/19 07/03/19 23:59 23:59 23:59 23:59 Intake Total 2328.333 2226.667 Output Total 250 Balance 2078.333 2226.667 - Objective General Appearance: positive: Alert, Moderate distress, Anxious Eyes Bilateral: positive: No lid inflammation Eyes: OU Conjunctivae pale ENT: positive: Pharynx nml, No signs of dehydration Neck: positive: Thyroid nml, No JVD, Trachea midline Respiratory: positive: Chest non-tender, No respiratory distress, Breath sounds nml Cardiovascular: positive: Regular rate & rhythm, No gallop, Systolic murmur, Decreased pulse(s) Peripheral Pulses: 1+ Radial (R), 1+ Radial (L) Abdomen: positive: Tenderness, Guarding, Hepatomegaly, Abnml bowel sounds Back: positive: Nml inspection Skin: positive: Color nml, No rash, Warm, Dry Extremities: positive: Non-tender, Nml appearance, No pedal edema Neurologic/Psychiatric: positive: Oriented x3, CN's nml (2-12), Motor nml, Sensation nml, Sensory loss, Depressed mood/affect Reflexes: Bicep (R): 3+, Bicep (L): 2+ - Lab Results Fish Bones: 07/03/19 04:45 07/03/19 04:45 Other Labs: Lab Results x24hrs 07/03/19 07/03/19 07/03/19 Range/Units 11:15 07:36 04:45 WBC (4.8-10.8) x10^3/uL RBC (4.20-5.40) 10^6/uL Hgb (12.0-16.0) g/dL Hct (37.0-47.0) % MCV (81.0-99.0) fL MCH (27.0-31.0) pg MCHC (32.0-36.0) g/dL RDW (12.0-15.0) % Plt Count (130-450) 10^3/uL MPV (7.9-10.8) fL Neut # (Auto) (1.5-6.6) 10^3/uL Lymph # (Auto) (1.5-3.5) 10^3/uL [place] # (Auto) (0.0-1.0) 10^3/uL Eos # (Auto) (0.0-0.7) 10^3/uL Baso # (Auto) (0.0-0.1) 10^3/uL Absolute Nucleated RBC x10^3/uL Nucleated RBC % /100WBC Sodium 141 (135-145) mmol/L Potassium 3.7 (3.5-5.0) mmol/L Chloride 113 H (101-111) mmol/L Carbon Dioxide 21 (21-32) mmol/L Anion Gap 7.0 (6-13) BUN 25 H (6-20) mg/dL Creatinine 2.0 H (0.4-1.0) mg/dL Estimated GFR (MDRD) 24 L (>89) Glucose 141 H (70-100) mg/dL POC Whole Bld Glucose 195 H 114 H (70 - 100) mg/dL Glycated Hemoglobin (4.6-6.2) % Estim Average Glucose (70-100) Calcium 8.2 L (8.5-10.3) mg/dL Magnesium 1.8 (1.7-2.8) mg/dL TSH (0.34-5.60) uIU/mL 07/03/19 07/03/19 07/02/19 Range/Units 04:45 04:45 21:07 WBC 7.6 (4.8-10.8) x10^3/uL RBC 3.55 L (4.20-5.40) 10^6/uL Hgb 10.0 L (12.0-16.0) g/dL Hct 32.9 L (37.0-47.0) % MCV 92.7 (81.0-99.0) fL MCH 28.2 (27.0-31.0) pg MCHC 30.4 L (32.0-36.0) g/dL RDW 15.4 H (12.0-15.0) % Plt Count 126 L (130-450) 10^3/uL MPV 10.0 (7.9-10.8) fL Neut # (Auto) 4.5 (1.5-6.6) 10^3/uL Lymph # (Auto) 1.8 (1.5-3.5) 10^3/uL [place] # (Auto) 0.9 (0.0-1.0) 10^3/uL Eos # (Auto) 0.3 (0.0-0.7) 10^3/uL Baso # (Auto) 0.1 (0.0-0.1) 10^3/uL Absolute Nucleated RBC 0.00 x10^3/uL Nucleated RBC % 0.0 /100WBC Sodium (135-145) mmol/L Potassium (3.5-5.0) mmol/L Chloride (101-111) mmol/L Carbon Dioxide (21-32) mmol/L Anion Gap (6-13) BUN (6-20) mg/dL Creatinine (0.4-1.0) mg/dL Estimated GFR (MDRD) (>89) Glucose (70-100) mg/dL POC Whole Bld Glucose 135 H (70 - 100) mg/dL Glycated Hemoglobin (4.6-6.2) % Estim Average Glucose (70-100) Calcium (8.5-10.3) mg/dL Magnesium (1.7-2.8) mg/dL TSH < 0.08 L (0.34-5.60) uIU/mL 07/02/19 07/02/19 Range/Units 16:51 11:45 WBC (4.8-10.8) x10^3/uL RBC (4.20-5.40) 10^6/uL Hgb (12.0-16.0) g/dL Hct (37.0-47.0) % MCV (81.0-99.0) fL MCH (27.0-31.0) pg MCHC (32.0-36.0) g/dL RDW (12.0-15.0) % Plt Count (130-450) 10^3/uL MPV (7.9-10.8) fL Neut # (Auto) (1.5-6.6) 10^3/uL Lymph # (Auto) (1.5-3.5) 10^3/uL [place] # (Auto) (0.0-1.0) 10^3/uL Eos # (Auto) (0.0-0.7) 10^3/uL Baso # (Auto) (0.0-0.1) 10^3/uL Absolute Nucleated RBC x10^3/uL Nucleated RBC % /100WBC Sodium (135-145) mmol/L Potassium (3.5-5.0) mmol/L Chloride (101-111) mmol/L Carbon Dioxide (21-32) mmol/L Anion Gap (6-13) BUN (6-20) mg/dL Creatinine (0.4-1.0) mg/dL Estimated GFR (MDRD) (>89) Glucose (70-100) mg/dL POC Whole Bld Glucose 94 (70 - 100) mg/dL Glycated Hemoglobin 8.5 H (4.6-6.2) % Estim Average Glucose 197 H (70-100) Calcium (8.5-10.3) mg/dL Magnesium (1.7-2.8) mg/dL TSH (0.34-5.60) uIU/mL - Diagnostic Imaging Diagnostic Imaging Results: positive: Final report reviewed Diagnostic Imaging Comments: EXAM: CT ABDOMEN AND PELVIS (CT KUB) EXAM DATE: 07/02/2019 12:29 PM IMPRESSION: 1. No urinary tract obstruction. Nonobstructing right renal stone. 2. Extensive postsurgical changes of bowel with diastatic anterior abdominal wall. Bowel herniates anteriorly through the diastases slightly more dilatated and air-filled than on 06/29/2019. 3. Narrow neck right lower quadrant abdominal wall hernia containing bowel, question Singh hernia. 4. No residual bowel contrast from prior CT suggesting passage or dilution of previously administered oral contrast. 5. Other incidental findings as above. ABX Reporting Has patient been on IV antibiotics over the past 48 hours?: Yes Sepsis Event Note (H) - Evaluation Current Stage of Sepsis: Ruled out Assessment/Plan - Problem List (1) Sepsis Impression: -Considered to be ruled out/resolved -Elevated lactic acid at the time of admission was likely due to her chronic anti-diabetic home medications -No charted fevers, no WBC count, no hypotension on admission Plan: continue to monitor, routine labs, holding DM meds, treat infection Pyelonephritis -Right flank and back pain -+ diarrhea, nausea, body aches -UTI based on urinalysis, final urine culture shows beta hemolytic strep B -Started on Aztreonam, now changed to Cefepime Plan: continue antibiotic, insert indwelling cornell for urinary retention, I/O Right renal stone -Noted on abdominal CT, patient has been informed -No prior history of kidney stones -Patient complains of ongoing flank pain, N/V/diarrhea on admission -Exquisitely tender on exam in the right low back, flank region -Urinary retention as an exacerbating factor Plan: continue to treat acute infection, no Flomax at this time due to underlying CKD, maintain indwelling cornell Urinary retention -Patient admits to a full feeling today after urinating -Inaccurate I/Os, also patient does not make it into the measuring hat -Cornell ordered, and after insertion, clear yellow urine (large amounts) were appreciated Plan: Continue indwelling cornell, evaluate for removal after 1-2 days of IV antibiotics Acute kidney injury superimposed on CKD stage 3 -Baseline creatinine is unknown, 1.8 on 06/29 -Since admission, creatinine has had little improvement, now 2.0 -Poor urine output, 1 voids, no volume -Requesting an indwelling cornell for more accurate I/Os Plan: Routine labs, continue IV hydration, avoid nephrotoxins, avoid NSAIDs, avoid hypotension, cornell cath for accurate I/Os Abdominal pain -Right lower quadrant that radiates to the flank, back -Right renal stone and Singh hernia is shown on CT -Surgery has signed off since her hernia has stable Plan: Monitor for improvement, continue to treat acute infection Chest pain -Risk factors are; age, post-menopausal age, female, DM type 2, and hyperlipidemia -Described as sub-sternal in the left chest, non-radiating -No associated symptoms including; SOB, diaphoresis, dizziness, confusion, jaw/shoulder pain, no N/T to extremities, no blurred vision Plan: Continue ACS work up with EKG, chest x-ray and troponin x2, telemetry, echo, senior wind energy consultant technologist will come in Saturday Headache -Noted to be severe, which started 3 days prior to admission -Primarily at the posterior (occipital region) -Otherwise neuro-intact and not concerning for acute stroke Plan: Continue to monitor, IV morphine if needed, frequent nursing care Infectious enterocolitis -Abdominal pain and non-bloody diarrhea; findings most consistent with infectious enterocolitis, viral or bacterial; no evidence of bowel obstruction, incarcerated hernia, surgical abdomen at present -Complicating factor of a history of multiple ventral incisional hernias, which do not appear to be the cause of the patients current symptoms -History of C diff, testing was cancelled as she will likely test + for chronic colonization Plan: Continue with symptom management, IV fluids, add Florastor, and monitor for improvement. Monitor for fevers, WBC count, increased abdominal pain and lack of improvement, contact surgery if needed, for now they have signed off Ventral hernia -Abdominal CT shows multiple ventral hernias without evidence of obstruction, no free fluid or air. -Repeat ABD/pelvic CT shows essentially no change from 3 days ago; there are two hernias appreciated: a large periumbilical VIH with a wide neck, and small RLQ VIH with a narrow neck, both containing small bowel but with no evidence of obstruction or strangulation. 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 -Surgery has signed off Plan: Continue to monitor, routine labs, continue home med Hypothyroidism -TSH was low at 0.08 -Home dose of Synthroid is 125 mcg, now adjusted to 100 mcg daily Plan: continue Synthroid daily @ 100 mcg, adjust home medication list Gout -Patient takes allopurinol at home, continues here -Complains of whole body aches, including joint pain on exam Plan: Continue to monitor, and home med Glaucoma -Patient admits to recent surgical eye procedures as to why her Eliquis dose was reduced, although later states maybe it was due to her CKD -Poor overall vision for several years, worse in right eye, no eye gtts -Likely caused by longstanding DM Plan: Continue to monitor Chronic anticoagulation -History of pulmonary emboli, and aortic valve replacement (tissue) -Eliquis is under-dosed as it should be BID, patient claims just daily Plan; continue home dosing, encourage patient for BID dosing, monitor for S/S of PE or TIA DM2 (diabetes mellitus type 2) -Patient takes Glipizide ER, dapagliflozin, and Trulicity at home -Hemoglobin A1C is found to be 8.5% on this hospital stay -Blood sugars today have ranged from 94-195 -Patient is eating well -Refused her Lantus, holding home meds Plan: Continue BS checks, offer Lantus, SSI, and encourage meals History of aortic valve replacement -Status post TAVR in November 2018 in the state of [place] -No known complications -Having chest pain, but suspected from acute illness, work up is pending Plan: Continue CP work up, monitor on telemetry
[2019-07-03] MEDS ORDERED: DIPHENOX/ATROPINE 2.5/0.025 MG TABLET PO PRN (13:59)
[2019-07-03] MEDS ORDERED: CEFEPIME 2 GM in SODIUM CHLORIDE 0.9% MINIBAG 100 ML IV SCH (14:00)
--- NOTE | 2019-07-03 16:04 | XRAY Report ---
Reason: chest pain Procedure Date: 07/03/2019 Accession Number: [id number] / [id number] Procedure: XR - Chest 1 View X-Ray CPT Code: 33087 FULL RESULT: EXAM: CHEST RADIOGRAPHY EXAM DATE: 07/03/2019 03:51 PM. CLINICAL HISTORY: Chest pain. COMPARISON: None. TECHNIQUE: 1 view. FINDINGS: Lungs/Pleura: Bilateral small pleural effusions left likely greater than right. No pneumothorax. Lung bases demonstrate hazy opacification, likely component of compressive atelectasis. No lobar consolidation. Mediastinum: Prominent size of the cardiomediastinal silhouette is possibly a result of AP technique. Post TAVR changes as well as a tortuous aorta with calcified arch are noted. Other: None. IMPRESSION: Small pleural effusions and likely post TAVR changes. RADIA
[2019-07-03] MEDS ORDERED: VANCOMYCIN 125 MG CAPSULE PO SCH (17:00)
[2019-07-03] MEDS ORDERED: GABAPENTIN 300 MG CAPSULE PO SCH (17:00)
[2019-07-03] MEDS: GABAPENTIN 300 MG CAPSULE PO SCH ×2 (17:02→21:35)
[2019-07-03] MEDS: MAGNESIUM OXIDE 400 MG TABLET PO SCH (17:02)
[2019-07-03] MEDS: SACCHAROMYCES BOULARDII 250 MG CAPSULE PO SCH (17:03)
[2019-07-03] MEDS: HYDROcod/ACETAM 5/325 MG TABLET PO PRN (20:17)
[2019-07-03] MEDS: NYSTATIN POWDER 15 GM TOP SCH (20:21)
[2019-07-03] MEDS: ALLOPURINOL 100 MG TABLET PO SCH (20:21)
[2019-07-03] MEDS: APIXABAN 2.5 MG TABLET PO SCH (21:36)
[2019-07-04] MEDS: MORPHINE 2 MG/ML CARPUJECT IVP PRN ×3 (00:13→22:02)
[2019-07-04] MEDS: HYDROcod/ACETAM 5/325 MG TABLET PO PRN ×4 (01:21→22:53)
[2019-07-04] MEDS: SODIUM CHLORIDE 0.9% 1,000 ML IV SCH ×2 (02:18→14:17)
[2019-07-04] MEDS: SODIUM CHLORIDE FLUSH 0.9% 10 ML SYRINGE IVP SCH ×3 (03:34→16:37)
[2019-07-04 05:34] LABS: BASOPHILS % (AUTO) 0.5 %; EOSINOPHILS # (AUTO) 0.4 10^3/uL (0.0-0.7); EOSINOPHILS % (AUTO) 5.7 %; HGB - HEMOGLOBIN 9.9 g/dL (12.0-16.0); LYMPHOCYTES # (AUTO) 1.5 10^3/uL (1.5-3.5); LYMPHOCYTES % (AUTO) 25.2 %; MEAN CORPUSCULAR HEMOGLOBIN 26.8 pg (27.0-31.0); MEAN CORPUSCULAR HGB CONC 30.4 g/dL (32.0-36.0); MEAN CORPUSCULAR VOLUME 88.3 fL (81.0-99.0); MEAN PLATELET VOLUME 9.5 fL (7.9-10.8); MONOCYTES # (AUTO) 0.6 10^3/uL (0.0-1.0); NEUTROPHILS # (AUTO) 3.6 10^3/uL (1.5-6.6); NEUTROPHILS % (AUTO) 58.1 %; PLT - PLATELET COUNT 125 10^3/uL (130-450); RED BLOOD COUNT 3.69 10^6/uL (4.20-5.40); RED CELL DISTRIBUTION WIDTH 15.1 % (12.0-15.0); WHITE BLOOD COUNT 6.1 x10^3/uL (4.8-10.8)
[2019-07-04 05:37] LABS: CALCIUM 7.9 mg/dL (8.5-10.3); CREATININE 1.7 mg/dL (0.4-1.0); URIC ACID 4.1 mg/dL (2.6-7.2)
[2019-07-04] MEDS: PANTOPRAZOLE 40 MG TABLET PO SCH (06:08)
[2019-07-04] MEDS: LEVOTHYROXINE 100 MCG TABLET PO SCH (06:08)
[2019-07-04] MEDS: CYCLOBENZAPRINE 10 MG TABLET PO PRN ×4 (06:42→22:52)
[2019-07-04] MEDS ORDERED: LEVOTHYROXINE 125 MCG TABLET PO SCH (07:00)
--- NOTE | 2019-07-04 08:01 | PROVIDER PROGRESS NOTE ---
Subjective - Prog Note Date Prog Note Date: 07/04/19 Prog Note Time: 07:55 - Subjective Pt reports feeling: Improved Subjective: Alcira has had overall improvement, but still has right low back pain, and had become itchy from the Cefepime which was given yesterday after no improvement for her UTI/sepsis. She has not hand any further chest pain, and results of her echo were explained to both her and her who was at the bedside. Current Medications - Current Medications Current Medications: Active Medications: Acetaminophen (Tylenol) 650 mg PO Q4HR PRN Hydrocodone Bitart/Acetaminophen (Ransom 5/325) 1 tab PO Q4HR PRN Apixaban (Eliquis) 2.5 mg PO BID JUNE Gabapentin (Neurontin) 300 mg PO QID JUNE Meropenem 500mg IV Q8H Insulin Aspart (Novolog) 1 - 9 unit SUBQ 0800,1200,1700,2100 JUNE; Protocol Insulin Glargine (Lantus Solostar) 5 unit SUBQ QDBREAKFAST JUNE Lactobacillus Rhamnosus (Culturelle) 1 cap PO BID JUNE Levothyroxine Sodium (Synthroid) 100 mcg PO QDAC JUNE Morphine Sulfate (Morphine (Carpuject) 2 mg IVP Q2HR PRN Multi-Ingredient Ointment (Zinc Oxide) 1 applic TOP PRN PRN Ondansetron HCl (Zofran Inj) 4 mg IVP Q6HR PRN Pantoprazole Sodium (Protonix) 40 mg PO QDAC JUNE Polyethylene Glycol (Miralax) 17 gm PO DAILY JUNE Promethazine HCl (Phenergan Inj) 25 mg IM Q6HR PRN HOME meds: Allopurinol 100 mg PO QPM 06/29/19 Apixaban [Eliquis] 2.5 mg PO DAILY 06/29/19 Dapagliflozin Propanediol [Farxiga] 10 mg PO DAILY 06/29/19 Dulaglutide [Trulicity] 1.5 mg SQ LUGO 06/29/19 Gabapentin [Gralise] 600 mg PO QID 06/29/19 Glipizide [Glipizide ER] 5 mg PO BID 06/29/19 Levothyroxine [Synthroid] 125 mcg PO QDAC 06/29/19 Pantoprazole [Protonix] 40 mg PO DAILY 06/29/19 Rosuvastatin Calcium [Crestor] 40 mg PO QPM 06/29/19 Acetaminophen with Codeine [Tylenol with Codeine #4 Tablet] 1 tab PO DAILY PRN 07/02/19 Diphenoxylate/Atropine [Lomotil] 1 tab PO QID PRN 07/02/19 Objective - Vital Signs/Intake & Output Reviewed Vital Signs: Yes Vital Signs: Vital Signs x48h Temp Pulse Resp BP Pulse Ox 07/04/19 07:54 36.7 C 75 16 151/69 H 97 07/04/19 00:01 36.8 C 75 16 129/57 L 97 Intake & Output: Intake & Output 07/01/19 07/02/19 07/03/19 07/04/19 23:59 23:59 23:59 23:59 Intake Total 2328.333 2706.667 1283.332 Output Total 250 1350 750 Balance 2078.333 1356.667 533.332 - Objective General Appearance: positive: No acute distress, Alert Eyes Bilateral: positive: PERRL Eyes: OU Conjunctivae pale ENT: positive: Pharynx nml, No signs of dehydration Neck: positive: Thyroid nml, No JVD, Trachea midline, Stiff neck Respiratory: positive: Chest non-tender, No respiratory distress, Breath sounds nml Cardiovascular: positive: Regular rate & rhythm, No gallop, Systolic murmur Peripheral Pulses: 1+ Radial (R), 1+ Radial (L) Abdomen: positive: Non-tender, Nml bowel sounds, Hepatomegaly, Other (obese, soft) Back: positive: Nml inspection, CVA tenderness (R) Skin: positive: Color nml, No rash, Warm, Dry, Other (yeasty folds) Extremities: positive: Non-tender, Pedal edema, Joint swelling Neurologic/Psychiatric: positive: Oriented x3, CN's nml (2-12), Motor nml, Sensation nml, Mood/affect nml Reflexes: Bicep (R): 3+, Bicep (L): 3+ - Lab Results Fish Bones: 07/04/19 05:10 07/04/19 05:10 Other Labs: Lab Results x24hrs 07/04/19 07/04/19 07/04/19 Range/Units 07:42 05:10 05:10 WBC (4.8-10.8) x10^3/uL RBC (4.20-5.40) 10^6/uL Hgb (12.0-16.0) g/dL Hct (37.0-47.0) % MCV (81.0-99.0) fL MCH (27.0-31.0) pg MCHC (32.0-36.0) g/dL RDW (12.0-15.0) % Plt Count (130-450) 10^3/uL MPV (7.9-10.8) fL Neut # (Auto) (1.5-6.6) 10^3/uL Lymph # (Auto) (1.5-3.5) 10^3/uL Becker # (Auto) (0.0-1.0) 10^3/uL Eos # (Auto) (0.0-0.7) 10^3/uL Baso # (Auto) (0.0-0.1) 10^3/uL Absolute Nucleated RBC x10^3/uL Nucleated RBC % /100WBC Sodium 137 (135-145) mmol/L Potassium 3.5 (3.5-5.0) mmol/L Chloride 111 (101-111) mmol/L Carbon Dioxide 21 (21-32) mmol/L Anion Gap 5.0 L (6-13) BUN 20 (6-20) mg/dL Creatinine 1.7 H (0.4-1.0) mg/dL Estimated GFR (MDRD) 29 L (>89) Glucose 208 H (70-100) mg/dL POC Whole Bld Glucose 155 H (70 - 100) mg/dL Lactic Acid 0.7 (0.5-2.2) mmol/L Uric Acid 4.1 (2.6-7.2) mg/dL Calcium 7.9 L (8.5-10.3) mg/dL Total Creatine Kinase 16 L (22-269) IU/L Troponin I High Sens (2.3-14.8) pg/mL C-Reactive Protein (0-1.0) mg/dL 07/04/19 07/03/19 07/03/19 Range/Units 05:10 20:49 16:57 WBC 6.1 (4.8-10.8) x10^3/uL RBC 3.69 L (4.20-5.40) 10^6/uL Hgb 9.9 L (12.0-16.0) g/dL Hct 32.6 L (37.0-47.0) % MCV 88.3 (81.0-99.0) fL MCH 26.8 L (27.0-31.0) pg MCHC 30.4 L (32.0-36.0) g/dL RDW 15.1 H (12.0-15.0) % Plt Count 125 L (130-450) 10^3/uL MPV 9.5 (7.9-10.8) fL Neut # (Auto) 3.6 (1.5-6.6) 10^3/uL Lymph # (Auto) 1.5 (1.5-3.5) 10^3/uL Becker # (Auto) 0.6 (0.0-1.0) 10^3/uL Eos # (Auto) 0.4 (0.0-0.7) 10^3/uL Baso # (Auto) 0.0 (0.0-0.1) 10^3/uL Absolute Nucleated RBC 0.00 x10^3/uL Nucleated RBC % 0.0 /100WBC Sodium (135-145) mmol/L Potassium (3.5-5.0) mmol/L Chloride (101-111) mmol/L Carbon Dioxide (21-32) mmol/L Anion Gap (6-13) BUN (6-20) mg/dL Creatinine (0.4-1.0) mg/dL Estimated GFR (MDRD) (>89) Glucose (70-100) mg/dL POC Whole Bld Glucose 211 H 142 H (70 - 100) mg/dL Lactic Acid (0.5-2.2) mmol/L Uric Acid (2.6-7.2) mg/dL Calcium (8.5-10.3) mg/dL Total Creatine Kinase (22-269) IU/L Troponin I High Sens (2.3-14.8) pg/mL C-Reactive Protein (0-1.0) mg/dL 07/03/19 07/03/19 07/03/19 Range/Units 15:40 15:40 15:40 WBC (4.8-10.8) x10^3/uL RBC (4.20-5.40) 10^6/uL Hgb (12.0-16.0) g/dL Hct (37.0-47.0) % MCV (81.0-99.0) fL MCH (27.0-31.0) pg MCHC (32.0-36.0) g/dL RDW (12.0-15.0) % Plt Count (130-450) 10^3/uL MPV (7.9-10.8) fL Neut # (Auto) (1.5-6.6) 10^3/uL Lymph # (Auto) (1.5-3.5) 10^3/uL Becker # (Auto) (0.0-1.0) 10^3/uL Eos # (Auto) (0.0-0.7) 10^3/uL Baso # (Auto) (0.0-0.1) 10^3/uL Absolute Nucleated RBC x10^3/uL Nucleated RBC % /100WBC Sodium (135-145) mmol/L Potassium (3.5-5.0) mmol/L Chloride (101-111) mmol/L Carbon Dioxide (21-32) mmol/L Anion Gap (6-13) BUN (6-20) mg/dL Creatinine (0.4-1.0) mg/dL Estimated GFR (MDRD) (>89) Glucose (70-100) mg/dL POC Whole Bld Glucose (70 - 100) mg/dL Lactic Acid 0.7 (0.5-2.2) mmol/L Uric Acid (2.6-7.2) mg/dL Calcium (8.5-10.3) mg/dL Total Creatine Kinase 18 L (22-269) IU/L Troponin I High Sens (2.3-14.8) pg/mL C-Reactive Protein 3.9 H (0-1.0) mg/dL 07/03/19 07/03/19 07/03/19 Range/Units 15:40 11:15 07:36 WBC (4.8-10.8) x10^3/uL RBC (4.20-5.40) 10^6/uL Hgb (12.0-16.0) g/dL Hct (37.0-47.0) % MCV (81.0-99.0) fL MCH (27.0-31.0) pg MCHC (32.0-36.0) g/dL RDW (12.0-15.0) % Plt Count (130-450) 10^3/uL MPV (7.9-10.8) fL Neut # (Auto) (1.5-6.6) 10^3/uL Lymph # (Auto) (1.5-3.5) 10^3/uL Becker # (Auto) (0.0-1.0) 10^3/uL Eos # (Auto) (0.0-0.7) 10^3/uL Baso # (Auto) (0.0-0.1) 10^3/uL Absolute Nucleated RBC x10^3/uL Nucleated RBC % /100WBC Sodium (135-145) mmol/L Potassium (3.5-5.0) mmol/L Chloride (101-111) mmol/L Carbon Dioxide (21-32) mmol/L Anion Gap (6-13) BUN (6-20) mg/dL Creatinine (0.4-1.0) mg/dL Estimated GFR (MDRD) (>89) Glucose (70-100) mg/dL POC Whole Bld Glucose 195 H 114 H (70 - 100) mg/dL Lactic Acid (0.5-2.2) mmol/L Uric Acid (2.6-7.2) mg/dL Calcium (8.5-10.3) mg/dL Total Creatine Kinase (22-269) IU/L Troponin I High Sens 9.3 (2.3-14.8) pg/mL C-Reactive Protein (0-1.0) mg/dL ABX Reporting Has patient been on IV antibiotics over the past 48 hours?: Yes Sepsis Event Note (H) - Evaluation Current Stage of Sepsis: Ruled out Assessment/Plan - Problem List (1) Sepsis Impression: -Considered to be ruled out/resolved -Elevated lactic acid at the time of admission was likely due to her chronic anti-diabetic home medications -No charted fevers, no WBC count, no hypotension on admission Plan: continue to monitor, routine labs, holding DM meds, treat infection E coli (ESBL) Pyelonephritis -Right flank and back pain -+ diarrhea, nausea, body aches -UTI based on urinalysis, final urine culture shows beta hemolytic strep B -Started on Aztreonam, then changed to Cefepime- caused itching -Now changed to Meropenem based on sensitivities Plan: continue antibiotic, insert indwelling cornell for urinary retention, I/O, contact isolation for ESBL Right renal stone -Noted on abdominal CT, patient has been informed -No prior history of kidney stones -Patient complains of ongoing flank pain, N/V/diarrhea on admission -Exquisitely tender on exam in the right low back, flank region- improved today -Urinary retention as an exacerbating factor Plan: continue to treat acute infection, no Flomax at this time due to underlying CKD, maintain indwelling cornell Urinary retention -Cornell ordered, and after insertion, clear yellow urine (large amounts) were appreciated -Likely cornell will be removed tomorrow to ensure good voiding prior to discharge Plan: Continue indwelling cornell, evaluate for removal tomorrow Acute kidney injury superimposed on CKD stage 3 -Baseline creatinine is unknown, 1.8 on 06/29 -Since admission, creatinine has had little improvement, now 1.7 -Indwelling cornell was placed for urinary retention Plan: Routine labs, avoid nephrotoxins, avoid NSAIDs, avoid hypotension, cornell cath for accurate I/Os Abdominal pain-IMPROVED -Right lower quadrant that radiates to the flank, back -Right renal stone and Singh hernia is shown on CT -Surgery has signed off since her hernia has stable -Heating pad has offered some improvement Plan: Monitor for improvement, continue to treat acute infection Chest pain- RESOLVED -Risk factors are; age, post-menopausal age, female, DM type 2, and hyperlipidemia -Described as sub-sternal in the left chest, non-radiating -No associated symptoms including; SOB, diaphoresis, dizziness, confusion, jaw/shoulder pain, no N/T to extremities, no blurred vision Plan: Continue ACS work up with EKG, chest x-ray and troponin x2, telemetry, echo, production line technician technologist will come in Saturday Headache-IMPROVED -Noted to be severe, which started 3 days prior to admission -Primarily at the posterior (occipital region), improved today -Otherwise neuro-intact and not concerning for acute stroke Plan: Continue to monitor, IV morphine if needed, frequent nursing care Infectious colitis, enteritis and gastroenteritis -Abdominal pain and non-bloody diarrhea; findings most consistent with infectious enterocolitis, viral or bacterial; no evidence of bowel obstruction, incarcerated hernia, surgical abdomen at present -Complicating factor of a history of multiple ventral incisional hernias, which do not appear to be the cause of the patients current symptoms -History of C diff, testing was cancelled as she will likely test + for chronic colonization Plan: Continue with symptom management, IV fluids, add Florastor, and monitor for improvement. Monitor for fevers, WBC count, increased abdominal pain and lack of improvement, contact surgery if needed, for now they have signed off Ventral hernia-CHRONIC -Abdominal CT shows multiple ventral hernias without evidence of obstruction, no free fluid or air. -Repeat ABD/pelvic CT shows essentially no change from 3 days ago; there are two hernias appreciated: a large periumbilical VIH with a wide neck, and small RLQ VIH with a narrow neck, both containing small bowel but with no evidence of obstruction or strangulation. 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 -Surgery has signed off Plan: Continue to monitor, routine labs, continue home med, continue prophylactic vanco PO BID doses for up to 1 week past antibiotics Hypothyroidism -TSH was low at 0.08 -Home dose of Synthroid is 125 mcg, now adjusted to 100 mcg daily Plan: continue Synthroid daily @ 100 mcg, adjust home medication list Gout-CHRONIC -Patient takes allopurinol at home, continues here -Complains of whole body aches, including joint pain on exam Plan: Continue to monitor, and home med Glaucoma-CHRONIC -Patient admits to recent surgical eye procedures as to why her Eliquis dose was reduced -Poor overall vision for several years -Likely caused by longstanding DM Plan: Continue to monitor, allow home eye drops Chronic anticoagulation -History of pulmonary emboli, and aortic valve replacement (tissue) -Continues on Eliquis BID Plan; continue BID dosing, monitor for side effects DM2 (diabetes mellitus type 2) -Patient takes Glipizide ER, dapagliflozin, and Trulicity at home -Hemoglobin A1C is found to be 8.5% on this hospital stay -Blood sugars today have ranged from 155-191 -Patient is eating well -Continues on Lantus, holding home meds Plan: Continue BS checks, offer Lantus, SSI, and encourage meals Pulmonary hypertension -Shown on echo from 07/03 in which there was a RVSP at rest calculated at 57 mmHg -Exam findings of enlarged abdominal girth, chronic BLE edema also appreciated -Patient has a history of pulmonary emboli- now with an IVC filter -Denies any tobacco dependence or ZIYAD, although may have decreased airway clearance given her body habitus Plan: Continue to monitor, stop IVFs, consider spironolactone if indicated prior to discharge HFpEF Diastolic dysfunction -Shown on echo from 07/03 with a grade II diastolic dysfunction -Also with mild concentric left ventricular hypertrophy Plan: Avoid calcium channel blockers, ideal treatment with a beta [place], stop telemetry History of aortic valve replacement -Status post [place]AVR in November 2018 in the state of [place] -Echo during this stay shows no problems, well-functioning -No known complications -No further chest pain, but suspected from acute illness -No changes in EKG, negative troponin, resolved CP today Plan: Continue to monitor VS, stop telemetry
[2019-07-04] MEDS: INSULIN ASPART 300 UNIT/3 ML PEN SUBQ SCH ×4 (08:14→20:48)
[2019-07-04] MEDS: INSULIN GLARGINE 300 UNIT/3 ML PEN SUBQ SCH (08:16)
[2019-07-04] MEDS: SACCHAROMYCES BOULARDII 250 MG CAPSULE PO SCH ×2 (08:20→16:38)
[2019-07-04] MEDS: diphenhydrAMINE 25 MG CAPSULE PO PRN (08:21)
[2019-07-04] MEDS: APIXABAN 2.5 MG TABLET PO SCH ×2 (08:21→20:47)
[2019-07-04] MEDS: MAGNESIUM OXIDE 400 MG TABLET PO SCH ×2 (08:21→16:38)
[2019-07-04] MEDS: GABAPENTIN 300 MG CAPSULE PO SCH ×4 (08:21→20:47)
[2019-07-04] MEDS: NYSTATIN POWDER 15 GM TOP SCH ×2 (08:21→20:35)
[2019-07-04] MEDS: POLYETHYLENE GLYCOL 3350 17 GM PACKET PO SCH (08:22)
[2019-07-04] MEDS: MEROPENEM 500 MG in SODIUM CHLORIDE 0.9% MINIBAG 100 ML IV SCH ×2 (09:44→16:37)
[2019-07-04] MEDS: ALLOPURINOL 100 MG TABLET PO SCH (20:34)
[2019-07-04] MEDS: LATANOPROST 0.005% OPHTH DROPS LEFTEYE SCH (20:43)
[2019-07-04] MEDS: ACETAMINOPHEN 325 MG TABLET PO PRN (22:01)
[2019-07-04] MEDS: SODIUM CHLORIDE FLUSH 0.9% 10 ML SYRINGE IVP PRN (22:02)
[2019-07-05] MEDS: MEROPENEM 500 MG in SODIUM CHLORIDE 0.9% MINIBAG 100 ML IV SCH ×3 (01:09→17:31)
[2019-07-05] MEDS: SODIUM CHLORIDE FLUSH 0.9% 10 ML SYRINGE IVP SCH ×3 (01:09→17:21)
[2019-07-05] MEDS: PANTOPRAZOLE 40 MG TABLET PO SCH (05:53)
[2019-07-05] MEDS: LEVOTHYROXINE 100 MCG TABLET PO SCH (05:53)
[2019-07-05] MEDS: HYDROcod/ACETAM 5/325 MG TABLET PO PRN ×4 (05:54→23:44)
[2019-07-05] MEDS: INSULIN ASPART 300 UNIT/3 ML PEN SUBQ SCH ×5 (07:47→21:11)
[2019-07-05] MEDS: SACCHAROMYCES BOULARDII 250 MG CAPSULE PO SCH ×2 (08:19→17:20)
[2019-07-05] MEDS: MAGNESIUM OXIDE 400 MG TABLET PO SCH ×2 (08:19→17:20)
[2019-07-05] MEDS: GABAPENTIN 300 MG CAPSULE PO SCH ×4 (08:19→21:31)
[2019-07-05] MEDS: APIXABAN 2.5 MG TABLET PO SCH ×2 (08:19→21:31)
[2019-07-05] MEDS: NYSTATIN POWDER 15 GM TOP SCH ×2 (08:19→21:09)
[2019-07-05] MEDS: CYCLOBENZAPRINE 10 MG TABLET PO PRN ×3 (08:20→23:43)
[2019-07-05] MEDS: POLYETHYLENE GLYCOL 3350 17 GM PACKET PO SCH (08:22)
[2019-07-05] MEDS: INSULIN GLARGINE 300 UNIT/3 ML PEN SUBQ SCH (08:22)
--- NOTE | 2019-07-05 15:46 | PROVIDER PROGRESS NOTE ---
Subjective - Prog Note Date Prog Note Date: 07/05/19 Prog Note Time: 15:46 - Subjective Pt reports feeling: Improved Subjective: Alcira feels improved each day and states that her back pain has also improved. She states that her sleep could be better than it has been and is agreeable to getting up to the chair more often. She is happy to be getting her cornell out today. Her is at the bedside and states that he has been having diarrhea, so encouraged to go home. Current Medications - Current Medications Current Medications: Active Medications: Acetaminophen (Tylenol) 650 mg PO Q4HR PRN Hydrocodone Bitart/Acetaminophen ([place] 5/325) 1 tab PO Q4HR PRN Apixaban (Eliquis) 2.5 mg PO BID JUNE Gabapentin (Neurontin) 300 mg PO QID JUNE Meropenem IV Insulin Aspart (Novolog) 1 - 9 unit SUBQ 0800,1200,1700,2100 JUNE; Protocol Aspart SQ meal time insulin 5 units TID with meals Insulin Glargine (Lantus Solostar) 8 unit SUBQ QDBREAKFAST JUNE Lactobacillus Rhamnosus (Culturelle) 1 cap PO BID JUNE Levothyroxine Sodium (Synthroid) 100 mcg PO QDAC JUNE Morphine Sulfate (Morphine (Carpuject) 2 mg IVP Q2HR PRN Multi-Ingredient Ointment (Zinc Oxide) 1 applic TOP PRN PRN Ondansetron HCl (Zofran Inj) 4 mg IVP Q6HR PRN Pantoprazole Sodium (Protonix) 40 mg PO QDAC [facility] Polyethylene Glycol (Miralax) 17 gm PO DAILY JUNE Promethazine HCl (Phenergan Inj) 25 mg IM Q6HR PRN HOME meds: Allopurinol 100 mg PO QPM 06/29/19 Apixaban [Eliquis] 2.5 mg PO DAILY 06/29/19 Dapagliflozin Propanediol [Farxiga] 10 mg PO DAILY 06/29/19 Dulaglutide [Trulicity] 1.5 mg SQ LUGO 06/29/19 Gabapentin [Gralise] 600 mg PO QID 06/29/19 Glipizide [Glipizide ER] 5 mg PO BID 06/29/19 Levothyroxine [Synthroid] 125 mcg PO QDAC 06/29/19 Pantoprazole [Protonix] 40 mg PO DAILY 06/29/19 Rosuvastatin Calcium [Crestor] 40 mg PO QPM 06/29/19 Acetaminophen with Codeine [Tylenol with Codeine #4 Tablet] 1 tab PO DAILY PRN 07/02/19 Diphenoxylate/Atropine [Lomotil] 1 tab PO QID PRN 07/02/19 Objective - Vital Signs/Intake & Output Reviewed Vital Signs: Yes Vital Signs: Vital Signs x48h Temp Pulse Resp BP Pulse Ox 07/05/19 15:36 37.0 C 75 16 151/64 H 98 Intake & Output: Intake & Output 07/02/19 07/03/19 07/04/19 07/05/19 23:59 23:59 23:59 23:59 Intake Total 2328.333 2706.667 4297.607 1590 Output Total 250 1350 2650 3050 Balance 2078.333 7425.535 4775.607 -1460 - Objective General Appearance: positive: No acute distress, Alert Eyes Bilateral: positive: PERRL, No lid inflammation ENT: positive: Pharynx nml, No signs of dehydration Neck: positive: Thyroid nml, No JVD, Trachea midline, Stiff neck Respiratory: positive: Chest non-tender, No respiratory distress, Other (diminished) Cardiovascular: positive: Regular rate & rhythm, No gallop, Systolic murmur, Decreased pulse(s) Peripheral Pulses: 1+ Radial (R), 1+ Radial (L) Abdomen: positive: Non-tender, Nml bowel sounds, Hepatomegaly, Other (obese) Back: positive: Nml inspection Skin: positive: No rash, Warm, Dry, Other (yeasty folds-pannis) Extremities: positive: Non-tender, Pedal edema, Joint swelling Neurologic/Psychiatric: positive: Oriented x3, CN's nml (2-12), Motor nml, Sensation nml, Mood/affect nml, Weakness, Sensory loss, Depressed mood/affect Reflexes: Bicep (R): 3+, Bicep (L): 3+ - Lab Results Fish Bones: 07/04/19 05:10 07/04/19 05:10 Other Labs: Lab Results x24hrs 07/05/19 07/05/19 07/04/19 Range/Units 11:33 07:39 20:47 POC Whole Bld Glucose 201 H 126 H 212 H (70 - 100) mg/dL 07/04/19 Range/Units 16:45 POC Whole Bld Glucose 139 H (70 - 100) mg/dL ABX Reporting Has patient been on IV antibiotics over the past 48 hours?: Yes Assessment/Plan - Problem List (1) Sepsis Impression: -Considered to be ruled out/resolved -Elevated lactic acid at the time of admission was likely due to her chronic anti-diabetic home medications -No charted fevers, no WBC count, no hypotension on admission, afebrile overnight Plan: continue to monitor, routine labs, holding DM meds, treat infection E coli (ESBL) Pyelonephritis -Right flank and back pain -+ diarrhea, nausea, body aches -UTI based on urinalysis, final urine culture shows beta hemolytic strep B- final culture grew ESBL -Started on Aztreonam, then changed to Cefepime- caused itching -Now changed to Meropenem based on sensitivities Plan: continue antibiotic, ok to remove cornell per nursing, I/O, contact isolation for ESBL Right renal stone -Noted on abdominal CT, patient has been informed -No prior history of kidney stones -Patient complains of ongoing flank pain, N/V/diarrhea on admission- improved each day -Exquisitely tender on exam in the right low back, flank region- improved again today -Urinary retention as an exacerbating factor - Flomax is the drug of choice to help treat kidney stones, but contraindicated for this patient Plan: continue to treat acute infection, no Flomax at this time due to underlying CKD Urinary retention -Cornell ordered, and after insertion, clear yellow urine (large amounts) were appreciated -Likely cornell will be removed tomorrow to ensure good voiding prior to discharge Plan: Ok to remove indwelling cornell per nursing, I/Os Acute kidney injury superimposed on CKD stage 3 -Baseline creatinine is unknown, 1.8 on 06/29 -Since admission, creatinine has had little improvement, now 1.7 -Indwelling cornell was placed for urinary retention Plan: Routine labs, avoid nephrotoxins, avoid NSAIDs, avoid hypotension, I/Os Abdominal pain-IMPROVED -Right lower quadrant that radiates to the flank, back -Right renal stone and Singh hernia is shown on CT -Surgery has signed off since her hernia has stable -Heating pad has offered some improvement Plan: Monitor for improvement, continue to treat acute infection Chest pain- RESOLVED -Risk factors are; age, post-menopausal age, female, DM type 2, and hyperlipidemia -Described as sub-sternal in the left chest, non-radiating -No associated symptoms including; SOB, diaphoresis, dizziness, confusion, jaw/shoulder pain, no N/T to extremities, no blurred vision Plan: Continue ACS work up with EKG, chest x-ray and troponin x2, telemetry Headache-IMPROVED -Noted to be severe, which started 3 days prior to admission -Primarily at the posterior (occipital region), improved today -Otherwise neuro-intact and not concerning for acute stroke Plan: Continue to monitor, IV morphine if needed, frequent nursing care Infectious colitis, enteritis and gastroenteritis -Abdominal pain and non-bloody diarrhea; findings most consistent with infectious enterocolitis, viral or bacterial; no evidence of bowel obstruction, incarcerated hernia, surgical abdomen at present -Complicating factor of a history of multiple ventral incisional hernias, which do not appear to be the cause of the patients current symptoms -History of C diff, testing was cancelled as she will likely test + for chronic colonization Plan: Continue with symptom management, IV fluids, add Florastor, and monitor for improvement. Monitor for fevers, WBC count, increased abdominal pain and lack of improvement, contact surgery if needed, for now they have signed off Ventral hernia-CHRONIC -Abdominal CT shows multiple ventral hernias without evidence of obstruction, no free fluid or air. -Repeat ABD/pelvic CT shows essentially no change from 3 days ago; there are two hernias appreciated: a large periumbilical VIH with a wide neck, and small RLQ VIH with a narrow neck, both containing small bowel but with no evidence of obstruction or strangulation. 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 -Surgery has signed off Plan: Continue to monitor, routine labs, continue Florastor Hypothyroidism -TSH was low at 0.08 -Home dose of Synthroid is 125 mcg, now adjusted to 100 mcg daily Plan: continue Synthroid daily @ 100 mcg, adjust home medication list Gout-CHRONIC -Patient takes allopurinol at home, continues here -Complains of whole body aches, including joint pain on exam Plan: Continue to monitor, and home med Glaucoma-CHRONIC -Patient admits to recent surgical eye procedures as to why her Eliquis dose was reduced -Poor overall vision for several years -Likely caused by longstanding DM Plan: Continue to monitor, allow home eye drops Chronic anticoagulation -History of pulmonary emboli, and aortic valve replacement (tissue) -Continues on Eliquis BID Plan; continue BID dosing, monitor for side effects DM2 (diabetes mellitus type 2) -Patient takes Glipizide ER, dapagliflozin, and Trulicity at home -Hemoglobin A1C is found to be 8.5% on this hospital stay -Blood sugars today have ranged from 126-201 -Patient is eating well -Continues on Lantus, holding home meds - Added scheduled Aspart for daytime blood sugars that are high Plan: Continue BS checks, offer Lantus, SSI, and encourage meals Pulmonary hypertension -Shown on echo from 07/03 in which there was a RVSP at rest calculated at 57 mmHg -Exam findings of enlarged abdominal girth, chronic BLE edema also appreciated -Patient has a history of pulmonary emboli- now with an IVC filter -Denies any tobacco dependence or ZIYAD, although may have decreased airway clearance given her body habitus Plan: Continue to monitor, stop IVFs, consider spironolactone if indicated prior to discharge HFpEF Diastolic dysfunction -Shown on echo from 07/03 with a grade II diastolic dysfunction -Also with mild concentric left ventricular hypertrophy Plan: Avoid calcium channel blockers, ideal treatment with a beta [place], stop telemetry History of aortic valve replacement -Status post [place]AVR in November 2018 in the [place] of [place] -Echo during this stay shows no problems, well-functioning -No known complications -No further chest pain, but suspected from acute illness -No changes in EKG, negative troponin, resolved CP today Plan: Continue to monitor VS, stop telemetry
[2019-07-05] MEDS: ALLOPURINOL 100 MG TABLET PO SCH (21:09)
[2019-07-05] MEDS: LATANOPROST 0.005% OPHTH DROPS LEFTEYE SCH (21:10)
[2019-07-05] MEDS: BENZOCAINE/MENTHOL LOZENGE MM PRN (21:59)
[2019-07-06] MEDS: BENZOCAINE/MENTHOL LOZENGE MM PRN ×3 (00:49→21:15)
[2019-07-06] MEDS: MEROPENEM 500 MG in SODIUM CHLORIDE 0.9% MINIBAG 100 ML IV SCH ×3 (00:50→17:22)
[2019-07-06] MEDS: SODIUM CHLORIDE FLUSH 0.9% 10 ML SYRINGE IVP SCH ×4 (00:50→17:21)
[2019-07-06] MEDS: PANTOPRAZOLE 40 MG TABLET PO SCH (06:05)
[2019-07-06] MEDS: LEVOTHYROXINE 100 MCG TABLET PO SCH (06:05)
[2019-07-06] MEDS: INSULIN ASPART 300 UNIT/3 ML PEN SUBQ SCH ×5 (07:45→21:16)
[2019-07-06 08:03] LABS: BASOPHILS # (AUTO) 0.1 10^3/uL (0.0-0.1); BASOPHILS % (AUTO) 0.8 %; EOSINOPHILS # (AUTO) 0.4 10^3/uL (0.0-0.7); EOSINOPHILS % (AUTO) 6.2 %; HGB - HEMOGLOBIN 12.1 g/dL (12.0-16.0); LYMPHOCYTES # (AUTO) 1.7 10^3/uL (1.5-3.5); LYMPHOCYTES % (AUTO) 26.3 %; MEAN CORPUSCULAR HEMOGLOBIN 27.8 pg (27.0-31.0); MEAN CORPUSCULAR HGB CONC 32.4 g/dL (32.0-36.0); MEAN CORPUSCULAR VOLUME 85.6 fL (81.0-99.0); MEAN PLATELET VOLUME 8.9 fL (7.9-10.8); MONOCYTES # (AUTO) 0.7 10^3/uL (0.0-1.0); MONOCYTES % (AUTO) 9.9 %; NEUTROPHILS # (AUTO) 3.7 10^3/uL (1.5-6.6); PLT - PLATELET COUNT 147 10^3/uL (130-450); RED BLOOD COUNT 4.36 10^6/uL (4.20-5.40); WHITE BLOOD COUNT 6.6 x10^3/uL (4.8-10.8)
[2019-07-06 08:17] LABS: ALBUMIN 2.9 g/dL (3.2-5.5); BILIRUBIN,TOTAL 0.5 mg/dL (0.2-1.0); CALCIUM 8.4 mg/dL (8.5-10.3); CREATININE 1.3 mg/dL (0.4-1.0); MAGNESIUM 1.7 mg/dL (1.7-2.8); TOTAL PROTEIN 5.9 g/dL (6.7-8.2)
[2019-07-06] MEDS: POLYETHYLENE GLYCOL 3350 17 GM PACKET PO SCH (08:24)
[2019-07-06] MEDS: INSULIN GLARGINE 300 UNIT/3 ML PEN SUBQ SCH (08:30)
[2019-07-06] MEDS: NYSTATIN POWDER 15 GM TOP SCH ×2 (08:45→21:13)
[2019-07-06] MEDS: SACCHAROMYCES BOULARDII 250 MG CAPSULE PO SCH ×2 (08:45→17:20)
[2019-07-06] MEDS: MAGNESIUM OXIDE 400 MG TABLET PO SCH ×2 (08:45→17:20)
[2019-07-06] MEDS: FAMOTIDINE 20 MG TABLET PO SCH (08:45)
[2019-07-06] MEDS: GABAPENTIN 300 MG CAPSULE PO SCH ×4 (08:45→21:15)
[2019-07-06] MEDS: APIXABAN 2.5 MG TABLET PO SCH ×2 (08:45→21:15)
[2019-07-06] MEDS ORDERED: POTASSIUM CHLORIDE 20 MEQ TABLET PO SCH (08:50)
[2019-07-06] MEDS ORDERED: MAGNESIUM SULFATE 2 GRAM 2 GM/50 ML BAG IV ONE (09:00)
[2019-07-06] MEDS: HYDROcod/ACETAM 5/325 MG TABLET PO PRN (09:48)
[2019-07-06] MEDS: CYCLOBENZAPRINE 10 MG TABLET PO PRN ×2 (09:48→21:53)
[2019-07-06] MEDS ORDERED: SODIUM CHLORIDE FLUSH 0.9% 10 ML SYRINGE IVP PRN ×2 (10:01→11:27)
--- NOTE | 2019-07-06 10:06 | PROVIDER PROGRESS NOTE ---
Subjective - Prog Note Date Prog Note Date: 07/06/19 Prog Note Time: 10:02 - Subjective Pt reports feeling: No change Subjective: Alcira complains of a sore throat that started yesterday along with body aches and increased bilateral knee pain. She denies chest pain, shortness of breath, nausea, vomiting, abdominal pain, or a new rash. She continues to have intermittent headaches and believes that she is urinating well. She is worried about her who has been brought to our ED this morning for body aches, and a sore throat similar to what she is having, except he is also having diarrhea. Current Medications - Current Medications Current Medications: Active Medications: Acetaminophen (Tylenol) 650 mg PO Q4HR PRN Hydrocodone Bitart/Acetaminophen ([place] 5/325) 1 tab PO Q4HR PRN Apixaban (Eliquis) 2.5 mg PO BID JUNE Gabapentin (Neurontin) 300 mg PO QID JUNE Meropenem IV 500 mg Q8H Insulin Aspart (Novolog) 1 - 9 unit SUBQ 0800,1200,1700,2100 JUNE Lactobacillus Rhamnosus (Culturelle) 1 cap PO BID JUNE Levothyroxine Sodium (Synthroid) 100 mcg PO QDAC JUNE Morphine Sulfate (Morphine (Carpuject) 2 mg IVP Q2HR PRN Multi-Ingredient Ointment (Zinc Oxide) 1 applic TOP PRN PRN Ondansetron HCl (Zofran Inj) 4 mg IVP Q6HR PRN Pantoprazole Sodium (Protonix) 40 mg PO QDAC JUNE Polyethylene Glycol (Miralax) 17 gm PO DAILY JUNE Promethazine HCl (Phenergan Inj) 25 mg IM Q6HR PRN HOME meds: Allopurinol 100 mg PO QPM 06/29/19 Apixaban [Eliquis] 2.5 mg PO DAILY 06/29/19 Dapagliflozin Propanediol [Farxiga] 10 mg PO DAILY 06/29/19 Dulaglutide [Trulicity] 1.5 mg SQ LUGO 06/29/19 Gabapentin [Gralise] 600 mg PO QID 06/29/19 Glipizide [Glipizide ER] 5 mg PO BID 06/29/19 Levothyroxine [Synthroid] 125 mcg PO QDAC 06/29/19 Pantoprazole [Protonix] 40 mg PO DAILY 06/29/19 Rosuvastatin Calcium [Crestor] 40 mg PO QPM 06/29/19 Acetaminophen with Codeine [Tylenol with Codeine #4 Tablet] 1 tab PO DAILY PRN 07/02/19 Diphenoxylate/Atropine [Lomotil] 1 tab PO QID PRN 07/02/19 Objective - Vital Signs/Intake & Output Reviewed Vital Signs: Yes Vital Signs: Vital Signs x48h Temp Pulse Resp BP Pulse Ox 07/06/19 07:35 36.5 C 79 17 139/63 H 94 Intake & Output: Intake & Output 07/03/19 07/04/19 07/05/19 07/06/19 23:59 23:59 23:59 23:59 Intake Total 2706.667 4297.607 1690 460 Output Total 1350 2650 3401 1925 Balance 0276.401 0810.606 -8260 -1803 - Objective General Appearance: positive: Alert, Mild distress, Anxious Eyes Bilateral: positive: PERRL Eyes: OU Conjunctivae pale ENT: positive: Pharynx nml, No signs of dehydration Neck: positive: Thyroid nml, No JVD, Trachea midline, Stiff neck Respiratory: positive: Chest non-tender, No respiratory distress, Breath sounds nml Cardiovascular: positive: Regular rate & rhythm, No gallop, Systolic murmur, Decreased pulse(s) Peripheral Pulses: 1+ Radial (R), 1+ Radial (L) Abdomen: positive: Non-tender, Nml bowel sounds, Hepatomegaly Back: positive: Nml inspection Skin: positive: Color nml, No rash, Warm, Dry Extremities: positive: Non-tender, Pedal edema, Joint swelling (bilateral knees) Neurologic/Psychiatric: positive: Oriented x3, CN's nml (2-12), Motor nml, Sensation nml, Weakness, Depressed mood/affect Reflexes: Bicep (R): 3+, Bicep (L): 3+ - Lab Results Fish Bones: 07/06/19 07:54 07/06/19 07:33 Other Labs: Lab Results x24hrs 07/06/19 07/06/19 07/06/19 Range/Units 07:54 07:36 07:33 WBC 6.6 (4.8-10.8) x10^3/uL RBC 4.36 (4.20-5.40) 10^6/uL Hgb 12.1 (12.0-16.0) g/dL Hct 37.3 (37.0-47.0) % MCV 85.6 (81.0-99.0) fL MCH 27.8 (27.0-31.0) pg MCHC 32.4 (32.0-36.0) g/dL RDW 15.0 (12.0-15.0) % Plt Count 147 (130-450) 10^3/uL MPV 8.9 (7.9-10.8) fL Neut # (Auto) 3.7 (1.5-6.6) 10^3/uL Lymph # (Auto) 1.7 (1.5-3.5) 10^3/uL [place] # (Auto) 0.7 (0.0-1.0) 10^3/uL Eos # (Auto) 0.4 (0.0-0.7) 10^3/uL Baso # (Auto) 0.1 (0.0-0.1) 10^3/uL Absolute Nucleated RBC 0.00 x10^3/uL Nucleated RBC % 0.0 /100WBC Sodium 141 (135-145) mmol/L Potassium 3.1 L (3.5-5.0) mmol/L Chloride 105 (101-111) mmol/L Carbon Dioxide 28 (21-32) mmol/L Anion Gap 8.0 (6-13) BUN 17 (6-20) mg/dL Creatinine 1.3 H (0.4-1.0) mg/dL Estimated GFR (MDRD) 39 L (>89) Glucose 122 H (70-100) mg/dL POC Whole Bld Glucose 103 H (70 - 100) mg/dL Calcium 8.4 L (8.5-10.3) mg/dL Magnesium 1.7 (1.7-2.8) mg/dL Total Bilirubin 0.5 (0.2-1.0) mg/dL AST 18 (10-42) IU/L ALT 14 (10-60) IU/L Alkaline Phosphatase 90 (42-121) IU/L Total Protein 5.9 L (6.7-8.2) g/dL Albumin 2.9 L (3.2-5.5) g/dL Globulin 3.0 (2.1-4.2) g/dL Albumin/Globulin Ratio 1.0 (1.0-2.2) 07/05/19 07/05/19 07/05/19 Range/Units 20:34 16:27 11:33 WBC (4.8-10.8) x10^3/uL RBC (4.20-5.40) 10^6/uL Hgb (12.0-16.0) g/dL Hct (37.0-47.0) % MCV (81.0-99.0) fL MCH (27.0-31.0) pg MCHC (32.0-36.0) g/dL RDW (12.0-15.0) % Plt Count (130-450) 10^3/uL MPV (7.9-10.8) fL Neut # (Auto) (1.5-6.6) 10^3/uL Lymph # (Auto) (1.5-3.5) 10^3/uL [place] # (Auto) (0.0-1.0) 10^3/uL Eos # (Auto) (0.0-0.7) 10^3/uL Baso # (Auto) (0.0-0.1) 10^3/uL Absolute Nucleated RBC x10^3/uL Nucleated RBC % /100WBC Sodium (135-145) mmol/L Potassium (3.5-5.0) mmol/L Chloride (101-111) mmol/L Carbon Dioxide (21-32) mmol/L Anion Gap (6-13) BUN (6-20) mg/dL Creatinine (0.4-1.0) mg/dL Estimated GFR (MDRD) (>89) Glucose (70-100) mg/dL POC Whole Bld Glucose 134 H 211 H 201 H (70 - 100) mg/dL Calcium (8.5-10.3) mg/dL Magnesium (1.7-2.8) mg/dL Total Bilirubin (0.2-1.0) mg/dL AST (10-42) IU/L ALT (10-60) IU/L Alkaline Phosphatase (42-121) IU/L Total Protein (6.7-8.2) g/dL Albumin (3.2-5.5) g/dL Globulin (2.1-4.2) g/dL Albumin/Globulin Ratio (1.0-2.2) ABX Reporting Has patient been on IV antibiotics over the past 48 hours?: Yes Sepsis Event Note (H) - Evaluation Current Stage of Sepsis: Resolved Assessment/Plan - Problem List (1) Sepsis Impression: -Considered to be ruled out/resolved -Elevated lactic acid at the time of admission was likely due to her chronic anti-diabetic home medications -No charted fevers, no WBC count, no hypotension on admission, afebrile overnight - Now with a sore throat, no cough, body aches and intermittent headaches Plan: continue to monitor, routine labs, holding DM meds, treat infection E coli (ESBL) Pyelonephritis -Right flank and back pain -+ diarrhea, nausea, body aches -UTI based on urinalysis, final urine culture shows beta hemolytic strep B- final culture grew ESBL -Started on Aztreonam, then changed to Cefepime- caused itching -Now changed to Meropenem based on sensitivities - Will need 10-14 days of IV treatment based on this infection having involved the kidney (right) - Orders to place a PICC line per anesthesia today - Needs SNF for prolonged IV treatments, verses home infusions Plan: continue antibiotic, I/O, contact isolation for ESBL Right renal stone -Noted on abdominal CT, patient has been informed -No prior history of kidney stones -Patient complains of ongoing flank pain, N/V/diarrhea on admission- improved each day -Exquisitely tender on exam in the right low back, flank region- improved again today -Urinary retention as an exacerbating factor - Flomax is the drug of choice to help treat kidney stones, but contraindicated for this patient Plan: continue to treat acute infection, no Flomax at this time due to underlying CKD Urinary retention -Cornell ordered, and after insertion, clear yellow urine (large amounts) were appreciated -Likely cornell will be removed tomorrow to ensure good voiding prior to discharge - Bladder scans ordered to evaluate for retention given body aches and headaches - Cornell was taken out 07/05, patient claims that she is urinating well Plan: Ok to remove indwelling cornell per nursing, I/Os Acute kidney injury superimposed on CKD stage 3 -Baseline creatinine is unknown, 1.8 on 06/29 -Since admission, creatinine has had little improvement, now 1.3 -Indwelling cornell was placed for urinary retention Plan: Routine labs, avoid nephrotoxins, avoid NSAIDs, avoid hypotension, I/Os Abdominal pain-RESOLVED -Right lower quadrant that radiates to the flank, back -Right renal stone and Singh hernia is shown on CT -Surgery has signed off since her hernia has stable -Heating pad has offered some improvement Plan: Monitor for improvement, continue to treat acute infection Chest pain- RESOLVED -Risk factors are; age, post-menopausal age, female, DM type 2, and hyperlipidemia -Described as sub-sternal in the left chest, non-radiating -No associated symptoms including; SOB, diaphoresis, dizziness, confusion, jaw/shoulder pain, no N/T to extremities, no blurred vision Plan: Continue ACS work up with EKG, chest x-ray and troponin x2, telemetry Headache-INTERMITTENT -Noted to be severe, which started 3 days prior to admission -Primarily at the posterior (occipital region), improved today -Otherwise neuro-intact and not concerning for acute stroke Plan: Continue to monitor, IV morphine if needed, frequent nursing care Infectious colitis, enteritis and gastroenteritis -Abdominal pain and non-bloody diarrhea; findings most consistent with infectious enterocolitis, viral or bacterial; no evidence of bowel obstruction, incarcerated hernia, surgical abdomen at present -Complicating factor of a history of multiple ventral incisional hernias, which do not appear to be the cause of the patients current symptoms -History of C diff, testing was cancelled as she will likely test + for chronic colonization Plan: Continue with symptom management, IV fluids, add Florastor, and monitor for improvement. Monitor for fevers, WBC count, increased abdominal pain and lack of improvement, contact surgery if needed, for now they have signed off Ventral hernia-CHRONIC -Abdominal CT shows multiple ventral hernias without evidence of obstruction, no free fluid or air. -Repeat ABD/pelvic CT shows essentially no change from 3 days ago; there are two hernias appreciated: a large periumbilical VIH with a wide neck, and small RLQ VIH with a narrow neck, both containing small bowel but with no evidence of obstruction or strangulation. 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 -Surgery has signed off Plan: Continue to monitor, routine labs, continue Florastor Hypothyroidism -TSH was low at 0.08 -Home dose of Synthroid is 125 mcg, now adjusted to 100 mcg daily Plan: continue Synthroid daily @ 100 mcg, adjust home medication list Gout-CHRONIC -Patient takes allopurinol at home, continues here -Complains of whole body aches, including joint pain (primarily knees) on exam Plan: Continue to monitor, and home med Glaucoma-CHRONIC -Patient admits to recent surgical eye procedures as to why her Eliquis dose was reduced -Poor overall vision for several years -Likely caused by longstanding DM Plan: Continue to monitor, allow home eye drops Chronic anticoagulation -History of pulmonary emboli, and aortic valve replacement (tissue) -Continues on Eliquis BID Plan; continue BID dosing, monitor for side effects DM2 (diabetes mellitus type 2) -Patient takes Glipizide ER, dapagliflozin, and Trulicity at home -Hemoglobin A1C is found to be 8.5% on this hospital stay -Blood sugars today have ranged from 103-134 -Patient is eating well -Continues on Lantus, holding home meds - Added scheduled Aspart for daytime blood sugars that are high- now stopped - Lantus stopped for low early AM sugars Plan: Continue BS checks, SSI, and encourage meals Pulmonary hypertension -Shown on echo from 07/03 in which there was a RVSP at rest calculated at 57 mmHg -Exam findings of enlarged abdominal girth, chronic BLE edema also appreciated -Patient has a history of pulmonary emboli- now with an IVC filter -Denies any tobacco dependence or ZIYAD, although may have decreased airway clearance given her body habitus Plan: Continue to monitor, consider spironolactone if indicated prior to discharge HFpEF Diastolic dysfunction -Shown on echo from 07/03 with a grade II diastolic dysfunction -Also with mild concentric left ventricular hypertrophy Plan: Avoid calcium channel blockers, ideal treatment with a beta [place] History of aortic valve replacement -Status post [place]AVR in November 2018 [place] of [place] -Echo during this stay shows no problems, well-functioning -No known complications -No further chest pain, but suspected from acute illness -No changes in EKG, negative troponin, resolved CP Plan: Continue to monitor VS
[2019-07-06] MEDS: MORPHINE 2 MG/ML CARPUJECT IVP PRN ×2 (10:29→17:45)
--- NOTE | 2019-07-06 11:22 | ANESTHESIA PROCEDURE NOTE ---
Diagnosis: Right pyelonephritis ESBL Procedure: Placement of PICC line Consent for Procedure(s) Verified and Reviewed: Yes Height and Weight: Height 5 ft 2 in Weight (kg) 81.5 kg Body Mass Index 31.1 Vital Signs: Temp Pulse Resp BP Pulse Ox 36.5 C 79 17 139/63 H 94 07/06/19 07:35 07/06/19 07:35 07/06/19 07:35 07/06/19 07:35 07/06/19 07:35 Allergies Penicillins Allergy (Severe, Verified 07/03/19 15:05) Hives vancomycin Allergy (Severe, Verified 07/03/19 15:05) chest pain anxiety sulfamethoxazole [From Bactrim] Allergy (Verified 06/29/19 08:00) Hives trimethoprim [From Bactrim] Allergy (Verified 06/29/19 08:00) Hives oxycodone [From OxyContin] Adverse Reaction (Intermediate, Verified 07/02/19 18:29) Hallucinations per patient reaction was "psychosis" - hallucinations aspartame Adverse Reaction (Verified 07/03/19 11:30) Diarrhea cefepime Adverse Reaction (Verified 07/05/19 16:13) Itching clindamycin Adverse Reaction (Verified 06/29/19 08:00) Unknown doxycycline Adverse Reaction (Verified 07/03/19 11:30) Nausea saccharin Adverse Reaction (Verified 07/03/19 11:30) Diarrhea stevioside [From Stevia] Adverse Reaction (Verified 07/03/19 11:30) Diarrhea sucralose Adverse Reaction (Verified 07/03/19 11:30) Diarrhea Requesting Provider: Collette Flores. Procedure Start Time: 10:32 [place]. Procedure Stop Time: 11:10 Procedure Notes: After informed consent obtained, Patient's left arm was prepped with chlorohexadine. Timeout procedure completed. Full sterile gown, gloves drape and mask used. Left arm skin was localized with 5ml of 1% lidocaine. The left basilic vein was accessed under ultrasound guidance with a 20G needle. Wire advanced with ease. A Sheath was placed over the wire and wire was removed. A 5FR dual lumen PICC was trimmed to 43cm and inserted. Teleflex wire guidance indicated the tip towards the heart and placement was confirmed with p-wave. Catheter was placed at 0cm at the skin and secured with stat lock and opsite. Both ports aspirated blood and flushed with ease. Patient tolerated the procedure well.
[2019-07-06] MEDS: SODIUM CHLORIDE FLUSH 0.9% 10 ML SYRINGE IVP PRN ×2 (12:54→17:46)
[2019-07-06] MEDS ORDERED: ZINC OXIDE 20% OINT 30 GM TUBE TOP PRN (15:22)
[2019-07-06] MEDS: LATANOPROST 0.005% OPHTH DROPS LEFTEYE SCH (21:13)
[2019-07-06] MEDS: ALLOPURINOL 100 MG TABLET PO SCH (21:15)
[2019-07-06] MEDS: diphenhydrAMINE 25 MG CAPSULE PO PRN (21:53)
[2019-07-06] MEDS: ACETAMINOPHEN 325 MG TABLET PO PRN (22:01)
[2019-07-07] MEDS: HYDROcod/ACETAM 5/325 MG TABLET PO PRN ×3 (00:13→12:30)
[2019-07-07] MEDS: BENZOCAINE/MENTHOL LOZENGE MM PRN ×2 (00:13→09:15)
[2019-07-07] MEDS: MEROPENEM 500 MG in SODIUM CHLORIDE 0.9% MINIBAG 100 ML IV SCH ×3 (00:26→17:03)
[2019-07-07] MEDS: SODIUM CHLORIDE FLUSH 0.9% 10 ML SYRINGE IVP PRN (00:27)
[2019-07-07] MEDS: SODIUM CHLORIDE FLUSH 0.9% 10 ML SYRINGE IVP SCH ×2 (00:27→09:00)
[2019-07-07] MEDS: LEVOTHYROXINE 100 MCG TABLET PO SCH (06:01)
[2019-07-07 08:24] LABS: BASOPHILS # (AUTO) 0.1 10^3/uL (0.0-0.1); EOSINOPHILS # (AUTO) 0.4 10^3/uL (0.0-0.7); MEAN CORPUSCULAR VOLUME 88.2 fL (81.0-99.0); NEUTROPHILS # (AUTO) 3.8 10^3/uL (1.5-6.6); RED CELL DISTRIBUTION WIDTH 15.6 % (12.0-15.0)
[2019-07-07] MEDS: INSULIN ASPART 300 UNIT/3 ML PEN SUBQ SCH ×4 (08:25→21:39)
[2019-07-07 08:38] LABS: CALCIUM 8.5 mg/dL (8.5-10.3); CREATININE 1.1 mg/dL (0.4-1.0)
[2019-07-07] MEDS: SACCHAROMYCES BOULARDII 250 MG CAPSULE PO SCH ×2 (08:59→17:17)
[2019-07-07] MEDS: MAGNESIUM OXIDE 400 MG TABLET PO SCH ×2 (08:59→17:01)
[2019-07-07] MEDS: FAMOTIDINE 20 MG TABLET PO SCH (08:59)
[2019-07-07] MEDS: APIXABAN 2.5 MG TABLET PO SCH ×2 (08:59→21:32)
[2019-07-07] MEDS: GABAPENTIN 300 MG CAPSULE PO SCH ×4 (08:59→21:32)
[2019-07-07] MEDS: POLYETHYLENE GLYCOL 3350 17 GM PACKET PO SCH ×2 (09:00→09:29)
[2019-07-07] MEDS: NYSTATIN POWDER 15 GM TOP SCH ×2 (09:01→21:39)
[2019-07-07] MEDS: BENZOCAINE/MENTHOL LOZENGE MM SCH ×5 (09:30→21:31)
[2019-07-07 09:44] LABS: BASOPHILS % (AUTO) 0.9 %; EOSINOPHILS % (AUTO) 6.1 %; LYMPHOCYTES # (AUTO) 1.9 10^3/uL (1.5-3.5); LYMPHOCYTES % (AUTO) 28.3 %; MEAN CORPUSCULAR HEMOGLOBIN 27.9 pg (27.0-31.0); MEAN CORPUSCULAR HGB CONC 31.6 g/dL (32.0-36.0); MEAN PLATELET VOLUME 9.2 fL (7.9-10.8); MONOCYTES # (AUTO) 0.5 10^3/uL (0.0-1.0); NEUTROPHILS % (AUTO) 56.1 %; PLT - PLATELET COUNT 151 10^3/uL (130-450); RED BLOOD COUNT 4.66 10^6/uL (4.20-5.40); WHITE BLOOD COUNT 6.7 x10^3/uL (4.8-10.8)
--- NOTE | 2019-07-07 12:18 | PROVIDER PROGRESS NOTE ---
Subjective - Subjective Pt reports feeling: No change Subjective: pt complains of very nausea today, and still has a sore throat that started two days ago, along with body aches and increased bilateral knee pain. discussed with pt about d/c plan, and discussed with pt about benefit and risk of insulin usage at the home. But pt refused to start insulin at home. Current Medications - Current Medications Current Medications: Active Medications Acetaminophen (Tylenol) 650 mg PO Q4HR PRN PRN Reason: Pain 1 to 4 Last Admin: 07/06/19 22:01 Dose: 650 mg Hydrocodone Bitart/Acetaminophen ([place] 5/325) 1 tab PO Q4HR PRN PRN Reason: PAIN Last Admin: 07/07/19 05:13 Dose: 1 tab Allopurinol (Zyloprim) 100 mg PO QPM [facility] Last Admin: 07/06/19 21:15 Dose: 100 mg Apixaban (Eliquis) 2.5 mg PO BID [facility] Last Admin: 07/07/19 08:59 Dose: 2.5 mg Cyclobenzaprine HCl (Flexeril) 5 mg PO TID PRN PRN Reason: Spasms Last Admin: 07/06/19 21:53 Dose: 5 mg Diphenhydramine HCl (Benadryl) 25 mg PO Q6HR PRN PRN Reason: Allergy Symptoms Last Admin: 07/06/19 21:53 Dose: 25 mg Diphenoxylate HCl/Atropine (Lomotil) 1 tab PO QID PRN PRN Reason: Diarrhea Famotidine (Pepcid) 20 mg PO DAILY [facility] Last Admin: 07/07/19 08:59 Dose: 20 mg Gabapentin (Neurontin) 300 mg PO QID [facility] Last Admin: 07/07/19 08:59 Dose: 300 mg Meropenem 500 mg/ Sodium (Chloride) 100 mls @ 200 mls/hr IV Q8H [facility] Last Infusion: 07/07/19 09:30 Dose: Infused Insulin Aspart (Novolog) 3 - 11 unit SUBQ 0800,1200,1700,2100 [facility]; Protocol Last Admin: 07/07/19 11:54 Dose: 5 unit Levothyroxine Sodium (Synthroid) 100 mcg PO QDAC [facility] Last Admin: 07/07/19 06:01 Dose: 100 mcg Magnesium Oxide (Mag Ox) 400 mg PO BIDWM [facility] Last Admin: 07/07/19 08:59 Dose: 400 mg Morphine Sulfate (Morphine (Carpuject)) 2 mg IVP Q2HR PRN PRN Reason: Pain 8 to 10 Last Admin: 07/06/19 17:45 Dose: 2 mg Multi-Ingredient Ointment (Zinc Oxide) 1 applic TOP PRN PRN PRN Reason: Skin Care Nystatin (Nystop) 1 applic TOP BID [facility] Last Admin: 07/07/19 09:01 Dose: 1 applic Ondansetron HCl (Zofran Inj) 4 mg IVP Q6HR PRN PRN Reason: Nausea / Vomiting Latanoprost 0.005% (Ophth Drops) 1 each LEFTEYE QPM [facility] Last Admin: 07/06/19 21:13 Dose: 1 each Polyethylene Glycol (Miralax) 17 gm PO DAILY [facility] Last Admin: 07/07/19 09:29 Dose: Not Given Promethazine HCl (Phenergan Inj) 25 mg IM Q6HR PRN PRN Reason: Nausea / Vomiting Saccharomyces Boulardii (Florastor) 250 mg PO BIDWM [facility] Last Admin: 07/07/19 08:59 Dose: 250 mg Sodium Chloride (Normal Saline Flush 0.9%) 10 ml IVP PRN PRN PRN Reason: NEEDED PER PROVIDER ORDERS Sodium Chloride (Normal Saline Flush 0.9%) 20 ml IVP PRN PRN PRN Reason: After TPN or Blood Draw Sodium Chloride (Normal Saline Flush 0.9%) 10 ml IVP PRN PRN PRN Reason: NEEDED PER PROVIDER ORDERS Throat Lozenges (Cepacol) 1 lozenge MM Q3HR [facility] Stop: 07/08/19 09:00 Last Admin: 07/07/19 11:54 Dose: 1 lozenge Allopurinol 100 mg PO QPM 06/29/19 Apixaban [Eliquis] 2.5 mg PO DAILY 06/29/19 Dapagliflozin Propanediol [Farxiga] 10 mg PO DAILY 06/29/19 Dulaglutide [Trulicity] 1.5 mg SQ LUGO 06/29/19 Gabapentin [Gralise] 1,200 mg PO TID 06/29/19 Glipizide [Glipizide ER] 5 mg PO QID 06/29/19 Levothyroxine [Synthroid] 125 mcg PO QDAC 06/29/19 Pantoprazole [Protonix] 40 mg PO QDAC 06/29/19 Rosuvastatin Calcium [Crestor] 40 mg PO QPM 06/29/19 Acetaminophen with Codeine [Tylenol with Codeine #4 Tablet] 1 tab PO DAILY PRN 07/02/19 Diphenoxylate/Atropine [Lomotil] 1 tab PO QID PRN 07/02/19 Latanoprost 0.005% Ophth Drops [Xalatan Ophth Drops] 1 drops LEFTEYE QPM 07/04/19 Objective - Vital Signs/Intake & Output Vital Signs: Vital Signs x48h Temp Pulse Resp BP Pulse Ox 07/07/19 09:40 36.6 C 76 16 140/70 H 99 Intake & Output: Intake & Output 07/04/19 07/05/19 07/06/19 07/07/19 23:59 23:59 23:59 23:59 Intake Total 4297.607 1690 1660 1020 Output Total 2650 3401 2725 2050 Balance 1647.607 -1711 -1065 -1030 - Objective General Appearance: positive: No acute distress, Alert. negative: Lethargic Eyes Bilateral: positive: Normal inspection, PERRL, No lid inflammation, Conjunctivae nml ENT: positive: ENT inspection nml, Pharynx nml, No signs of dehydration. negative: Purulent nasal drainage, Pharyngeal erythema, Oral lesions Neck: positive: Nml inspection, Thyroid nml, No JVD, Trachea midline. negative: Thyromegaly, Lymphadenopathy (R), Lymphadenopathy (L), Stiff neck, Swelling/bruising, Tracheal deviation Respiratory: positive: Chest non-tender, No respiratory distress, Breath sounds nml. negative: Wheezes, Rales, Rhonchi Cardiovascular: positive: Regular rate & rhythm, No murmur, No gallop. negative: Irregularly irregular, Extrasystoles, Tachycardia, Bradycardia, JVD present, Systolic murmur, Diastolic murmur Peripheral Pulses: 2+ Radial (R), 2+ Radial (L), 2+ Dorsalis pedis (R), 2+ Dorsalis pedis (L) Abdomen: positive: Non-tender, No organomegaly, Nml bowel sounds, No distention. negative: Tenderness, Guarding, Rebound Back: positive: Nml inspection. negative: CVA tenderness (R), CVA tenderness (L) Skin: positive: Color nml, No rash, Warm, Dry. negative: Cyanosis, Diaphoresis, Pallor Extremities: positive: Non-tender, Full ROM, Nml appearance. negative: Calf tenderness, Joint swelling, Jorden's sign/cords Neurologic/Psychiatric: positive: Oriented x3, Motor nml, Sensation nml, Mood/affect nml. negative: Weakness, Sensory loss, Facial droop, Slurred/abnml speech, Depressed mood/affect - Lab Results Fish Bones: 07/07/19 08:16 07/07/19 08:16 Other Labs: Lab Results x24hrs 07/07/19 07/07/19 07/07/19 Range/Units 11:23 08:16 08:16 WBC 6.7 (4.8-10.8) x10^3/uL RBC 4.66 (4.20-5.40) 10^6/uL Hgb 13.0 (12.0-16.0) g/dL Hct 41.1 (37.0-47.0) % MCV 88.2 (81.0-99.0) fL MCH 27.9 (27.0-31.0) pg MCHC 31.6 L (32.0-36.0) g/dL RDW 15.6 H (12.0-15.0) % Plt Count 151 (130-450) 10^3/uL MPV 9.2 (7.9-10.8) fL Neut # (Auto) 3.8 (1.5-6.6) 10^3/uL Lymph # (Auto) 1.9 (1.5-3.5) 10^3/uL [place] # (Auto) 0.5 (0.0-1.0) 10^3/uL Eos # (Auto) 0.4 (0.0-0.7) 10^3/uL Baso # (Auto) 0.1 (0.0-0.1) 10^3/uL Absolute Nucleated RBC 0.00 x10^3/uL Nucleated RBC % 0.0 /100WBC Sodium 139 (135-145) mmol/L Potassium 3.5 (3.5-5.0) mmol/L Chloride 103 (101-111) mmol/L Carbon Dioxide 27 (21-32) mmol/L Anion Gap 9.0 (6-13) BUN 18 (6-20) mg/dL Creatinine 1.1 H (0.4-1.0) mg/dL Estimated GFR (MDRD) 48 L (>89) Glucose 147 H (70-100) mg/dL POC Whole Bld Glucose 221 H (70 - 100) mg/dL Calcium 8.5 (8.5-10.3) mg/dL Free T4 (0.58-1.64) ng/dL 07/07/19 07/07/19 07/06/19 Range/Units 08:16 07:48 20:47 WBC (4.8-10.8) x10^3/uL RBC (4.20-5.40) 10^6/uL Hgb (12.0-16.0) g/dL Hct (37.0-47.0) % MCV (81.0-99.0) fL MCH (27.0-31.0) pg MCHC (32.0-36.0) g/dL RDW (12.0-15.0) % Plt Count (130-450) 10^3/uL MPV (7.9-10.8) fL Neut # (Auto) (1.5-6.6) 10^3/uL Lymph # (Auto) (1.5-3.5) 10^3/uL [place] # (Auto) (0.0-1.0) 10^3/uL Eos # (Auto) (0.0-0.7) 10^3/uL Baso # (Auto) (0.0-0.1) 10^3/uL Absolute Nucleated RBC x10^3/uL Nucleated RBC % /100WBC Sodium (135-145) mmol/L Potassium (3.5-5.0) mmol/L Chloride (101-111) mmol/L Carbon Dioxide (21-32) mmol/L Anion Gap (6-13) BUN (6-20) mg/dL Creatinine (0.4-1.0) mg/dL Estimated GFR (MDRD) (>89) Glucose (70-100) mg/dL POC Whole Bld Glucose 130 H 150 H (70 - 100) mg/dL Calcium (8.5-10.3) mg/dL Free T4 1.12 (0.58-1.64) ng/dL 07/06/19 Range/Units 17:01 WBC (4.8-10.8) x10^3/uL RBC (4.20-5.40) 10^6/uL Hgb (12.0-16.0) g/dL Hct (37.0-47.0) % MCV (81.0-99.0) fL MCH (27.0-31.0) pg MCHC (32.0-36.0) g/dL RDW (12.0-15.0) % Plt Count (130-450) 10^3/uL MPV (7.9-10.8) fL Neut # (Auto) (1.5-6.6) 10^3/uL Lymph # (Auto) (1.5-3.5) 10^3/uL [place] # (Auto) (0.0-1.0) 10^3/uL Eos # (Auto) (0.0-0.7) 10^3/uL Baso # (Auto) (0.0-0.1) 10^3/uL Absolute Nucleated RBC x10^3/uL Nucleated RBC % /100WBC Sodium (135-145) mmol/L Potassium (3.5-5.0) mmol/L Chloride (101-111) mmol/L Carbon Dioxide (21-32) mmol/L Anion Gap (6-13) BUN (6-20) mg/dL Creatinine (0.4-1.0) mg/dL Estimated GFR (MDRD) (>89) Glucose (70-100) mg/dL POC Whole Bld Glucose 172 H (70 - 100) mg/dL Calcium (8.5-10.3) mg/dL Free T4 (0.58-1.64) ng/dL ABX Reporting Has patient been on IV antibiotics over the past 48 hours?: Yes Sepsis Event Note (H) - Evaluation Current Stage of Sepsis: Resolved Possible source of Sepsis: positive: Genitourinary - Sepsis Criteria Sepsis Criteria: Recorded Heart Rate greater than 90 bpm, Metabolic: lactate > 2 mmol/L Assessment/Plan - Problem List (1) Sepsis Impression: stable after treatment. It was likely caused by ESBL UTI infection. blood culture was negative. UA culture revealed ESBL infection. pt agreed to have home infusion of two weeks antibiotics meropenem. social welfare clerk is arranging home infusion for pt throat sore pt had throat score for three days. It was likely caused by virus infection. pt had PRN Q2H Cepacol but pt was given only 2-3 times per day, now scheduled Cepacol continue hydration and pain control for pt E coli (ESBL) Pyelonephritis discussed with pt about the care plan. pt had PICC now, pt like to have home infusion for continuing IV of antibiotics meropenem for her ESBL UTI Right renal stone stable, no complaints. Urinary retention resolved. pt can urinate normally. Acute kidney injury superimposed on CKD stage 3 significantly improved and stable. Creatinine is 1.1 today continue hydration, lab monitor Abdominal pain-RESOLVED hernia was concerned before. now pt has no abdominal pain. surgeon was signed off Chest pain- RESOLVED Headache-resolved no complaint today, resolved Ventral hernia-CHRONIC stable, surgeon was signed off Diarrhea-IMPROVED chronic, and improved. Continue to monitor, routine labs, continue Florastor Hypothyroidism TSH was low at 0.08. Home dose of Synthroid was 125 mcg, now adjusted to 100 mcg daily Plan: continue Synthroid daily at 100 mcg, followup PCP continue manage after d/c Gout-CHRONIC stable Glaucoma-CHRONIC stable. Chronic anticoagulation stable, continue Eliquis DM2 (diabetes mellitus type 2) -stable. pt refused starting insulin at her home. will resume her home DM2 three meds and followup her PCP management continue slide scale at hospital Pulmonary hypertension -Shown on echo from 07/03 in which there was a RVSP at rest calculated at 57 mmHg stable, followup PCP management as d/c a beta [place] History of aortic valve replacement Stable, status post [place]AVR in November 2018 in the state of [place], continue Eliquis (2) Urinary tract infection Qualifiers: Urinary tract infection type: acute cystitis Hematuria presence: without hematuria Qualified Code(s): N30.00 - Acute cystitis without hematuria (3) Diarrhea Qualifiers: Diarrhea type: unspecified type Qualified Code(s): R19.7 - Diarrhea, unspecified
[2019-07-07] MEDS: CYCLOBENZAPRINE 10 MG TABLET PO PRN (12:30)
[2019-07-07] MEDS: ALLOPURINOL 100 MG TABLET PO SCH (21:31)
[2019-07-07] MEDS: MORPHINE 2 MG/ML CARPUJECT IVP PRN (21:32)
[2019-07-07] MEDS: LATANOPROST 0.005% OPHTH DROPS LEFTEYE SCH (21:39)
[2019-07-08] MEDS: SODIUM CHLORIDE FLUSH 0.9% 10 ML SYRINGE IVP PRN ×2 (00:12→04:59)
[2019-07-08] MEDS: BENZOCAINE/MENTHOL LOZENGE MM SCH ×3 (00:12→08:49)
[2019-07-08] MEDS: HYDROcod/ACETAM 5/325 MG TABLET PO PRN ×2 (00:12→08:53)
[2019-07-08] MEDS: MEROPENEM 500 MG in SODIUM CHLORIDE 0.9% MINIBAG 100 ML IV SCH ×2 (00:13→08:48)
[2019-07-08] MEDS: LEVOTHYROXINE 100 MCG TABLET PO SCH (04:58)
[2019-07-08 05:22] LABS: BASOPHILS % (AUTO) 0.6 %; EOSINOPHILS # (AUTO) 0.4 10^3/uL (0.0-0.7); EOSINOPHILS % (AUTO) 5.5 %; HGB - HEMOGLOBIN 10.8 g/dL (12.0-16.0); LYMPHOCYTES # (AUTO) 1.8 10^3/uL (1.5-3.5); LYMPHOCYTES % (AUTO) 26.8 %; MEAN CORPUSCULAR HEMOGLOBIN 27.3 pg (27.0-31.0); MEAN CORPUSCULAR HGB CONC 31.3 g/dL (32.0-36.0); MEAN CORPUSCULAR VOLUME 87.1 fL (81.0-99.0); MEAN PLATELET VOLUME 9.1 fL (7.9-10.8); MONOCYTES # (AUTO) 0.7 10^3/uL (0.0-1.0); MONOCYTES % (AUTO) 10.3 %; NEUTROPHILS # (AUTO) 3.8 10^3/uL (1.5-6.6); NEUTROPHILS % (AUTO) 55.8 %; PLT - PLATELET COUNT 122 10^3/uL (130-450); RED BLOOD COUNT 3.96 10^6/uL (4.20-5.40); RED CELL DISTRIBUTION WIDTH 15.2 % (12.0-15.0); WHITE BLOOD COUNT 6.9 x10^3/uL (4.8-10.8)
[2019-07-08] MEDS: CYCLOBENZAPRINE 10 MG TABLET PO PRN (05:26)
[2019-07-08 05:32] LABS: CALCIUM 8.3 mg/dL (8.5-10.3)
[2019-07-08] MEDS: POLYETHYLENE GLYCOL 3350 17 GM PACKET PO SCH (07:23)
[2019-07-08] MEDS: INSULIN ASPART 300 UNIT/3 ML PEN SUBQ SCH ×2 (08:05→12:12)
[2019-07-08] MEDS: APIXABAN 2.5 MG TABLET PO SCH (08:48)
[2019-07-08] MEDS: GABAPENTIN 300 MG CAPSULE PO SCH ×2 (08:48→12:12)
[2019-07-08] MEDS: SACCHAROMYCES BOULARDII 250 MG CAPSULE PO SCH (08:48)
[2019-07-08] MEDS: FAMOTIDINE 20 MG TABLET PO SCH (08:48)
[2019-07-08] MEDS: NYSTATIN POWDER 15 GM TOP SCH (08:49)
[2019-07-08] MEDS: MAGNESIUM OXIDE 400 MG TABLET PO SCH (08:49)
[2019-07-08 08:50] VITALS: BP 155/60
--- NOTE | 2019-07-08 10:17 | Discharge Plan ---
Discharge Plan Problem Reviewed?: Yes Disposition: 06 Home Health Service Condition: Poor Prescriptions: Levothyroxine [Synthroid] 100 mcg PO QDAC #15 tablet Meropenem [Merrem] 500 mg IV Q8H #30 vial Saccharomyces Boulardii [Florastor] 250 mg PO BID #20 capsule Diet: Diabetic Activity Restrictions: Activity as Tolerated Shower Restrictions: No (fall precaution) Instruction Topics: Meropenem injection, ED Hypothyroidism, Levothyroxine tablets Health Concerns: ESBL UTI infection, hypothyroidism, diabetes Plan of Treatment: You were found to have ESBL UTI infection. Home infusion of Meropenem is arranged for you to finish the treatment course. You were found to have significant lower TSH, but has normal Free T4. Your Levothyroxine dosage is slight reduced now, from 125 mcg to 100 mcg. Please followup your PCP continue management. Your A1C was 8.5 and had glucose 244 at the admission. You do not want initiate insulin therapy, and want keep your home diabetes treatment regimen, please followup your PCP continue management. Care Goals: stabilization and improvement of your medical conditions Assessment: assessment as the above. Additional Instructions or Follow Up instructions: you may followup your PCP in one week, continue infusion antibiotics treatment for your UTI. Should your symptoms return or worsen, you may present ER or call 911 for help. No Smoking: If you smoke, Please STOP! Call for help.
--- NOTE | 2019-07-08 10:42 | DISCHARGE SUMMARY ---
"Discharge Summary Discharge Date: 07/08/19 Discharging Provider: ARCHER Condition at Discharge: Poor Discharge Disposition: Home Health Service Discharge Facility Name: home - DIAGNOSES Admission Diagnoses: (1) Abdominal pain (2) Sepsis (3) Urinary tract infection (4) Diarrhea (5) DM2 (diabetes mellitus, type 2) (6) Hypothyroidism (7) History of aortic valve replacement Discharge Diagnoses with Status of Each Condition: Sepsis resolved throat sore resolved E coli (ESBL) and beta hemolytic strep Group B UTI pt had PICC now, home infusion of meropenem, total 2 weeks Right renal stone stable, no complaints. Urinary retention resolved. pt is prescribed Flomax Acute kidney injury superimposed on CKD stage 3 resolved and stable Abdominal pain stable, no more pain Chest pain resolved Headache resolved Ventral hernia stable Diarrhea improved and stable Hypothyroidism TSH was low at 0.08. Home dose of Synthroid was adjusted to 100 mcg daily Gout stable Glaucoma stable. Chronic anticoagulation stable, continue Eliquis DM2 (diabetes mellitus type 2) stable. pt refused initiating insulin therapy at her home. Pulmonary hypertension stable History of aortic valve replacement Stable, continue Eliquis - HPI History of Present Illness: Ms. collado is a 84-year-old female with a PMH significant for DM2, HLD, DVT and PE, and status post IVC filter placement, hypothyroidism, colon resection for bowel rupture caused by C. difficile, chronic diarrhea, status post aortic valve replacement on Eliquis, status post cholecystectomy and appendectomy, who presents ER complains of abdominal pain. Pt report her abdominal pain started 4 days ago and is worse today. The pain was mostly at right-sided, with pain radiation to the right flank and right back. She report since her colon resection, she continued to have chronic diarrhea. But now she had watery diarrhea, and had numerous times over the past 24 hours. she report chill but no fever. She reports nausea without vomiting. She had two daughter living in [facility]. she and her are visiting here from [place]. CT of [facility] reveals 1) no urinary tract obstruction, Nonobstructing right renal stone, 2) Extensive postsurgical changes of bowel with diastatic anterior abdominal wall. Bowel herniates anteriorly through the diastases slightly more dilated and air-filled than, 3) Narrow neck right lower quadrant abdominal wall hernia containing bowel, question Singh hernia, 4) No residual bowel contrast from prior CT suggesting passage or dilution of previously administered oral contrast. UA analysis found pt has positive UTI, lactic acid is 2.3. Pt was afebrile, normative BP. She denies chest pain, fever, shortness of breath, headache, dysuria, hematuia. pt was admitted for above medical reason for further evaluation and treatment. - CONSULTS | PROCEDURES Consultations: Dr. Darek Laguerre Procedures: no procedure required. - HOSPITAL COURSE Hospital Course: pt was admitted for abdominal pain. pt was found to have ventral hernia and UTI. Dr. Darek Laguerre was consulted for abdominal pain and hernia. Then pt's abdominal pain was resolved. No procedure was required per surgeon's recommendation. ESBL E coli and beta hemolytic strep Group B was found in pt's UA culture. According pt's UA sensitivity study, Meropenem was selected for pt's treatment, and two weeks IV infusion was required. pt had PICC, and home infusion was arranged for pt. pt also developed urinary retention, pt was treated with Flomax, then pt's urinary retention was resolved. pt was prescribed FLomax. pt also was found to have significant lower TSH but with normal Free T4. pt's home levothyroxine dosage was reduced to 100mcg daily and advised to followup her PCP. pt's other symptoms headache, chest pain, throat sore were resolved after treatment. the detail hospital course is as the below Sepsis resolved. pt was treated with Meropenem. after treatment, was hemodynamic stable. pt was prescribed meropenem for infusion with PICC IV for total two weeks. throat sore resolved E coli (ESBL) and beta hemolytic strep Group B UTI pt had PICC now, home infusion of meropenem, total 2 weeks. ESBL E coli and beta hemolytic strep Group B was found in pt's UA culture. Right renal stone stable, no complaints. Urinary retention resolved. pt is prescribed Flomax. Nurse did bladder scan which showed about 50 ml urine at bladder. Acute kidney injury superimposed on CKD stage 3 resolved and stable Abdominal pain stable, no more pain Chest pain resolved Headache resolved Ventral hernia stable Diarrhea improved and stable Hypothyroidism TSH was low at 0.08. Home dose of Synthroid was adjusted to 100 mcg daily, followup PCP continue management Gout stable Glaucoma stable. Chronic anticoagulation stable, continue Eliquis DM2 (diabetes mellitus type 2) stable. pt refused initiating insulin therapy at her home. Pulmonary hypertension stable History of aortic valve replacement Stable, continue Eliquis - ALLERGIES Allergies/Adverse Reactions: Allergies Allergy/AdvReac Type Severity Reaction Status Date / Time Penicillins Allergy Severe Hives Verified 07/03/19 15:05 vancomycin Allergy Severe chest pain Verified 07/03/19 15:05 sulfamethoxazole Allergy Hives Verified 06/29/19 08:00 [From Bactrim] trimethoprim [From Bactrim] Allergy Hives Verified 06/29/19 08:00 oxycodone [From OxyContin] AdvReac Intermediate Hallucinati Verified 07/02/19 18:29 ons aspartame AdvReac Diarrhea Verified 07/03/19 11:30 cefepime AdvReac Itching Verified 07/05/19 16:13 clindamycin AdvReac Unknown Verified 06/29/19 08:00 doxycycline AdvReac Nausea Verified 07/03/19 11:30 saccharin AdvReac Diarrhea Verified 07/03/19 11:30 stevioside [From Stevia] AdvReac Diarrhea Verified 07/03/19 11:30 sucralose AdvReac Diarrhea Verified 07/03/19 11:30 - MEDICATIONS Home Medications: Ambulatory Orders Medication Instructions Recorded Confirmed Allopurinol 100 mg PO QPM 06/29/19 07/02/19 Apixaban [Eliquis] 2.5 mg PO DAILY 06/29/19 07/02/19 Dapagliflozin Propanediol [Farxiga] 10 mg PO DAILY 06/29/19 07/02/19 Dulaglutide [Trulicity] 1.5 mg SQ LUGO 06/29/19 07/02/19 Gabapentin [Gralise] 1,200 mg PO TID 06/29/19 07/03/19 Glipizide [Glipizide ER] 5 mg PO QID 06/29/19 07/03/19 Pantoprazole [Protonix] 40 mg PO QDAC 06/29/19 07/03/19 Rosuvastatin Calcium [Crestor] 40 mg PO QPM 06/29/19 07/02/19 Acetaminophen with Codeine 1 tab PO DAILY PRN 07/02/19 07/02/19 [Tylenol with Codeine #4 Tablet] Diphenoxylate/Atropine [Lomotil] 1 tab PO QID PRN 07/02/19 07/02/19 Latanoprost 0.005% Ophth Drops 1 drops LEFTEYE QPM 07/04/19 07/04/19 [Xalatan Ophth Drops] HYDROcod/ACETAM 5/325 [[place] 5/325] 1 ea PO Q6H PRN #15 tablet 07/08/19 Levothyroxine [Synthroid] 100 mcg PO QDAC #15 tablet 07/08/19 Meropenem [Merrem] 500 mg IV Q8H #30 vial 07/08/19 Saccharomyces Boulardii [Florastor] 250 mg PO BID #20 capsule 07/08/19 Tamsulosin HCl [Flomax] 0.4 mg PO DAILY #15 cap.er.24h 07/08/19 - PHYSICAL EXAM AT DISCHARGE General Appearance: positive: No acute distress, Alert. negative: Lethargic Eyes Bilateral: positive: Normal inspection, PERRL, No lid inflammation, Conjunctivae nml, No scleral icterus ENT: positive: ENT inspection nml, Pharynx nml, No signs of dehydration. negative: Purulent nasal drainage, Pharyngeal erythema, Oral lesions Neck: positive: Nml inspection, Thyroid nml, No JVD, Trachea midline. negative: Thyromegaly, Lymphadenopathy (R), Lymphadenopathy (L), Stiff neck, Swelling/bruising, Tracheal deviation Respiratory: positive: Chest non-tender, No respiratory distress, Breath sounds nml. negative: Wheezes, Rales, Rhonchi Cardiovascular: positive: Regular rate & rhythm, No murmur, No gallop. negati ve: Irregularly irregular, Extrasystoles, Tachycardia, Bradycardia, JVD present, Systolic murmur, Diastolic murmur Peripheral Pulses: positive: 2+ Abdomen: positive: Non-tender, No organomegaly, Nml bowel sounds, No distention. negative: Tenderness, Guarding, Rebound Back: positive: Nml inspection. negative: CVA tenderness (R), CVA tenderness (L) Skin: positive: Color nml, No rash, Warm, Dry. negative: Cyanosis, Diaphoresis, Pallor Extremities: positive: Non-tender, Full ROM, Nml appearance. negative: Calf tenderness, Joint swelling, Jorden's sign/cords Neurologic/Psychiatric: positive: Oriented x3, Motor nml, Sensation nml, Mood/affect nml. negative: Weakness, Sensory loss, Facial droop, Slurred/abnml speech, Depressed mood/affect - LABS Result Diagrams: 07/08/19 05:00 07/08/19 05:00 - SEPSIS Current Stage of Sepsis: Resolved Possible source of Sepsis: Genitourinary Sepsis Criteria: Recorded Heart Rate greater than 90 bpm, Metabolic: lactate > 2 mmol/L - FOLLOW UP Follow Up: You were found to have ESBL UTI infection. Home infusion of Meropenem is arranged for you to finish the treatment course. You were found to have significant lower TSH, but has normal Free T4. Your Levothyroxine dosage is slight reduced now, from 125 mcg to 100 mcg. Please followup your PCP continue management. Your A1C was 8.5 and had glucose 244 at the admission. You do not want initiate insulin therapy, and want keep your home diabetes treatment regimen, please followup your PCP continue management. you may followup your PCP in one week, continue infusion antibiotics treatment for your UTI. Should your symptoms return or worsen, you may present ER or call 911 for help. - TIME SPENT Time Spent in Discharge (Minutes): 60"
[2019-07-08] MEDS ORDERED: TAMSULOSIN 0.4 MG CAPSULE PO SCH (11:41)
== END 2019-07-08 13:49 | disposition home health service (06) | DRG 690 ==
LOC: ED 10:32 → MS2 15:09
PROVIDERS: ADMIT Nurse Practitioner Gerontology; ATTEND Nurse Practitioner Gerontology
PROC: 02HV33Z Insertion of Infusion Device into Superior Vena Cava, Percutaneous Approach (ICD-10-PCS; principal; 2019-07-06)
DX: N30.00 Acute cystitis without hematuria (principal); K43.9 Ventral hernia without obstruction or gangrene; R79.89 Other specified abnormal findings of blood chemistry; E11.9 Type 2 diabetes mellitus without complications; N17.9 Acute kidney failure, unspecified; A09 Infectious gastroenteritis and colitis, unspecified; Z95.2 Presence of prosthetic heart valve; I50.30 Unspecified diastolic (congestive) heart failure; N20.0 Calculus of kidney; B96.20 Unspecified Escherichia coli [E. coli] as the cause of diseases classified elsewhere; B95.1 Streptococcus, group B, as the cause of diseases classified elsewhere; Z90.710 Acquired absence of both cervix and uterus; E11.22 Type 2 diabetes mellitus with diabetic chronic kidney disease; N18.3 Chronic kidney disease, stage 3 (moderate); E03.9 Hypothyroidism, unspecified; J02.9 Acute pharyngitis, unspecified; R33.9 Retention of urine, unspecified; R07.2 Precordial pain; R51 Headache; K43.2 Incisional hernia without obstruction or gangrene; M10.9 Gout, unspecified; H40.9 Unspecified glaucoma; I27.20 Pulmonary hypertension, unspecified; E78.5 Hyperlipidemia, unspecified; E66.9 Obesity, unspecified; L29.9 Pruritus, unspecified; T36.1X5A Adverse effect of cephalosporins and other beta-lactam antibiotics, initial encounter; Y92.230 Patient room in hospital as the place of occurrence of the external cause; Z16.12 Extended spectrum beta lactamase (ESBL) resistance; Z79.899 Other long term (current) drug therapy; Z86.718 Personal history of other venous thrombosis and embolism; Z86.711 Personal history of pulmonary embolism; Z95.828 Presence of other vascular implants and grafts; Z90.49 Acquired absence of other specified parts of digestive tract; Z86.19 Personal history of other infectious and parasitic diseases; Z79.01 Long term (current) use of anticoagulants; Z79.84 Long term (current) use of oral hypoglycemic drugs; Z86.14 Personal history of Methicillin resistant Staphylococcus aureus infection; Z95.3 Presence of xenogenic heart valve; Z68.31 Body mass index [BMI] 31.0-31.9, adult; Z78.0 Asymptomatic menopausal state
CPT/HCPCS: 36415; 71045; 74176; 80048; 80053; 81001; 82550; 83036; 83605; 83690; 83735; 84439; 84443; 84484; 84550; 85025; 86140; 87040; 87045; 87046; 87077; 87086; 87181; 93005; 93306; 96361; 96365; 96375; 99284; 99285; A9270; C1751; J1170; J1815; J2185; J3490; 81003

== ENCOUNTER 2019-07-13 13:58 | Emergency (ER) | payer MEDICARE ==
[2019-07-13] MEDS ORDERED: SODIUM CHLORIDE 0.9% 1,000 ML IV ONE ×2 (17:22)
[2019-07-13 17:23] LABS: BASOPHILS # (AUTO) 0.1 10^3/uL (0.0-0.1); BASOPHILS % (AUTO) 0.5 %; EOSINOPHILS # (AUTO) 0.5 10^3/uL (0.0-0.7); EOSINOPHILS % (AUTO) 4.9 %; HGB - HEMOGLOBIN 11.9 g/dL (12.0-16.0); LYMPHOCYTES # (AUTO) 1.5 10^3/uL (1.5-3.5); LYMPHOCYTES % (AUTO) 15.8 %; MEAN CORPUSCULAR HEMOGLOBIN 26.9 pg (27.0-31.0); MEAN CORPUSCULAR HGB CONC 31.2 g/dL (32.0-36.0); MEAN CORPUSCULAR VOLUME 86.2 fL (81.0-99.0); MONOCYTES # (AUTO) 0.7 10^3/uL (0.0-1.0); MONOCYTES % (AUTO) 6.9 %; NEUTROPHILS # (AUTO) 6.8 10^3/uL (1.5-6.6); NEUTROPHILS % (AUTO) 71.5 %; PLT - PLATELET COUNT 142 10^3/uL (130-450); RED BLOOD COUNT 4.43 10^6/uL (4.20-5.40); RED CELL DISTRIBUTION WIDTH 14.5 % (12.0-15.0); WHITE BLOOD COUNT 9.5 x10^3/uL (4.8-10.8)
[2019-07-13 17:37] LABS: ALBUMIN 3.3 g/dL (3.2-5.5); ALBUMIN/GLOBULIN RATIO 1.1 (1.0-2.2); BILIRUBIN,TOTAL 0.7 mg/dL (0.2-1.0); CALCIUM 9.1 mg/dL (8.5-10.3); CREATININE 0.8 mg/dL (0.4-1.0); TOTAL PROTEIN 6.4 g/dL (6.7-8.2)
--- NOTE | 2019-07-13 17:40 | ED Physician Documentation ---
History of Present Illness - Stated complaint Stated Complaint: BODY ACHES/FEMALE - Chief complaint Chief Complaint: General - History obtained from History obtained from: Patient, Family - History of Present Illness Timing: How many days ago Pain level max: 0 Pain level now: 0 - Additonal information Additional information: 84-year-old female presents to the emergency department stating that she just does not feel well. She states she is on home infusions via PICC line for sepsis. Has chronic diarrhea, but states that is worse than usual. She states that she feels tired and weak. Feels like she is still having fevers. No vomiting. Occasional nausea. Intermittent headaches as well. She is being treated with meropenem for urosepsis. Review of Systems Ten Systems: 10 systems reviewed and negative Constitutional: reports: Fever (subjective), Chills Eyes: denies: Decreased vision Ears: denies: Ear pain Nose: denies: Rhinorrhea / runny nose, Congestion Cardiac: denies: Chest pain / pressure, Palpitations Respiratory: denies: Cough GI: reports: Abdominal Pain (chronic), Nausea. denies: Vomiting, Diarrhea Skin: denies: Rash Musculoskeletal: denies: Neck pain, Back pain Neurologic: reports: Generalized weakness, Headache (intermittent). denies: Focal weakness, Numbness, Confused, Altered mental status PD PAST MEDICAL HISTORY - Past Medical History Past Medical History: Yes Cardiovascular: Pulmonary embolism, Valve disorder Neuro: Headaches Endocrine/Autoimmune: Type 2 diabetes, HyPOthyroidism GI: C.difficile [employer]: Endometriosis : Renal insuffiency Musculoskeletal: Osteoarthritis, Gout - Past Surgical History Past Surgical History: Yes General: Cholecystectomy, Appendectomy, Bowel surgery, Other Ortho: Knee replacement, Arthroscopic surgery /[employer] ESC[employer]IVER: Tubal ligation, Hysterectomy Cardiovascular: Valve replacement HEENT: Tonsil/Adenoidectomy Derm: Skin cancer surgery - Present Medications Home Medications: Ambulatory Orders Medication Instructions Recorded Confirmed Allopurinol 100 mg PO QPM 06/29/19 07/02/19 Apixaban [Eliquis] 2.5 mg PO DAILY 06/29/19 07/02/19 Dapagliflozin Propanediol [Farxiga] 10 mg PO DAILY 06/29/19 07/02/19 Dulaglutide [Trulicity] 1.5 mg SQ LUGO 06/29/19 07/02/19 Gabapentin [Gralise] 1,200 mg PO TID 06/29/19 07/03/19 Glipizide [Glipizide ER] 5 mg PO QID 06/29/19 07/03/19 Pantoprazole [Protonix] 40 mg PO QDAC 06/29/19 07/03/19 Rosuvastatin Calcium [Crestor] 40 mg PO QPM 06/29/19 07/02/19 Acetaminophen with Codeine 1 tab PO DAILY PRN 07/02/19 07/02/19 [Tylenol with Codeine #4 Tablet] Diphenoxylate/Atropine [Lomotil] 1 tab PO QID PRN 07/02/19 07/02/19 Latanoprost 0.005% Ophth Drops 1 drops LEFTEYE QPM 07/04/19 07/04/19 [Xalatan Ophth Drops] HYDROcod/ACETAM 5/325 [[place] 5/325] 1 ea PO Q6H PRN #15 tablet 07/08/19 Levothyroxine [Synthroid] 100 mcg PO QDAC #15 tablet 07/08/19 Meropenem [Merrem] 500 mg IV Q8H #30 vial 07/08/19 Saccharomyces Boulardii [Florastor] 250 mg PO BID #20 capsule 07/08/19 Tamsulosin HCl [Flomax] 0.4 mg PO DAILY #15 cap.er.24h 07/08/19 - Allergies Allergies/Adverse Reactions: Allergies Allergy/AdvReac Type Severity Reaction Status Date / Time Penicillins Allergy Severe Hives Verified 07/03/19 15:05 vancomycin Allergy Severe chest pain Verified 07/03/19 15:05 sulfamethoxazole Allergy Hives Verified 06/29/19 08:00 [From Bactrim] trimethoprim [From Bactrim] Allergy Hives Verified 06/29/19 08:00 oxycodone [From OxyContin] AdvReac Intermediate Hallucinati Verified 07/02/19 18:29 ons aspartame AdvReac Diarrhea Verified 07/03/19 11:30 cefepime AdvReac Itching Verified 07/05/19 16:13 clindamycin AdvReac Unknown Verified 06/29/19 08:00 doxycycline AdvReac Nausea Verified 07/03/19 11:30 saccharin AdvReac Diarrhea Verified 07/03/19 11:30 stevioside [From Stevia] AdvReac Diarrhea Verified 07/03/19 11:30 sucralose AdvReac Diarrhea Verified 07/03/19 11:30 - Social History Does the pt smoke?: No Smoking Status: Never smoker Does the pt drink ETOH?: No Does the pt have substance abuse?: No - POLST POLST Status: Full Code PD ED PE NORMAL - Vitals Vital signs reviewed: Yes - General General: Alert and oriented X 3, No acute distress - HEENT HEENT: PERRL, Other (dry lips) - Neck Neck: Supple, no meningeal sign - Cardiac Cardiac: RRR, Strong equal pulses - Respiratory Respiratory: No respiratory distress, Clear bilaterally - Abdomen Abdomen: Soft, Non tender, Non distended - Back Back: No CVA TTP, No spinal TTP - Derm Derm: Warm and dry - Extremities Extremities: No calf tenderness / cord - Neuro Neuro: Alert and oriented X 3 - Psych Psych: Normal mood, Normal affect Results - Vitals Vitals: Vital Signs - 24 hr 07/13/19 07/13/19 07/13/19 14:08 17:00 19:00 Temperature 37 C Heart Rate 77 76 77 Respiratory 18 153 H 18 Rate Blood Pressure 161/70 H 180/78 H 195/82 H O2 Saturation 97 94 95 07/13/19 07/13/19 21:00 22:41 Temperature 36.6 C Heart Rate 85 82 Respiratory 23 25 H Rate Blood Pressure 165/90 H 167/92 H O2 Saturation 98 96 Oxygen O2 Source Room air - Labs Labs: Laboratory Tests 07/13/19 07/13/19 07/13/19 17:14 17:14 17:14 WBC 9.5 RBC 4.43 Hgb 11.9 L Hct 38.2 MCV 86.2 MCH 26.9 L MCHC 31.2 L RDW 14.5 Plt Count 142 MPV 10.0 Neut # (Auto) 6.8 H Lymph # (Auto) 1.5 [place] # (Auto) 0.7 Eos # (Auto) 0.5 Baso # (Auto) 0.1 Absolute Nucleated RBC 0.00 Nucleated RBC % 0.0 Sodium 136 Potassium 4.1 Chloride 100 L Carbon Dioxide 27 Anion Gap 9.0 BUN 20 Creatinine 0.8 Estimated GFR (MDRD) 69 L Glucose 136 H Lactic Acid 1.2 Calcium 9.1 Phosphorus Magnesium Total Bilirubin 0.7 AST 31 ALT 20 Alkaline Phosphatase 98 Total Protein 6.4 L Albumin 3.3 Globulin 3.1 Albumin/Globulin Ratio 1.1 Lipase 28 TSH Free T4 Urine Color Urine Clarity Urine pH Ur Specific [place] Urine Protein Urine Glucose (UA) Urine Ketones Urine Occult Blood Urine Nitrite Urine Bilirubin Urine Urobilinogen Ur Leukocyte Esterase Urine RBC Urine WBC Ur Squamous Epith Cells Urine Bacteria Ur Microscopic Review Urine Culture Comments 07/13/19 07/13/19 07/13/19 17:14 18:16 19:21 WBC RBC Hgb Hct MCV MCH MCHC RDW Plt Count MPV Neut # (Auto) Lymph # (Auto) [place] # (Auto) Eos # (Auto) Baso # (Auto) Absolute Nucleated RBC Nucleated RBC % Sodium Potassium Chloride Carbon Dioxide Anion Gap BUN Creatinine Estimated GFR (MDRD) Glucose Lactic Acid Calcium Phosphorus 3.1 Magnesium 1.7 Total Bilirubin AST ALT Alkaline Phosphatase Total Protein Albumin Globulin Albumin/Globulin Ratio Lipase TSH 0.28 L Free T4 1.07 Urine Color YELLOW Urine Clarity CLEAR Urine pH 7.5 Ur Specific [place] 1.010 Urine Protein 30 H Urine Glucose (UA) 500 H Urine Ketones NEGATIVE Urine Occult Blood TRACE-INTA Urine Nitrite NEGATIVE Urine Bilirubin NEGATIVE Urine Urobilinogen 0.2 (NORMAL) Ur Leukocyte Esterase TRACE H Urine RBC 0-5 Urine WBC 11-25 H Ur Squamous Epith Cells FEW Squamous Urine Bacteria None Seen Ur Microscopic Review INDICATED Urine Culture Comments INDICATED 07/13/19 23:42 WBC 9.4 RBC 4.20 Hgb 11.7 L Hct 35.8 L MCV 85.2 MCH 27.9 MCHC 32.7 RDW 14.5 Plt Count 128 L MPV 9.7 Neut # (Auto) 6.7 H Lymph # (Auto) 1.5 [place] # (Auto) 0.6 Eos # (Auto) 0.5 Baso # (Auto) 0.1 Absolute Nucleated RBC 0.00 Nucleated RBC % 0.0 Sodium Potassium Chloride Carbon Dioxide Anion Gap BUN Creatinine Estimated GFR (MDRD) Glucose Lactic Acid Calcium Phosphorus Magnesium Total Bilirubin AST ALT Alkaline Phosphatase Total Protein Albumin Globulin Albumin/Globulin Ratio Lipase TSH Free T4 Urine Color Urine Clarity Urine pH Ur Specific [place] Urine Protein Urine Glucose (UA) Urine Ketones Urine Occult Blood Urine Nitrite Urine Bilirubin Urine Urobilinogen Ur Leukocyte Esterase Urine RBC Urine WBC Ur Squamous Epith Cells Urine Bacteria Ur Microscopic Review Urine Culture Comments - Rads (name of study) CT abd/pelvis Radiology: Prelim report reviewed, EMP read contemporaneously, See rad report (No acute abnormalities) PD MEDICAL DECISION MAKING - ED course Complexity details: reviewed results, re-evaluated patient, considered differential, d/w patient, d/w family, d/w custom decorating consultant ED course: 84-year-old female presents to the emergency department with vague symptoms. No acute laboratory abnormalities or CT scan abnormalities. Given IV fluids, pain medication and labs repeated. No significant changes. I consulted Dr. Briggs, the hospitalist who came and evaluated the patient as well. We are concerned that she may become more ill, but there is no indication for hospitalization at this time. Therefore she would like to go home with her at this time and they will return if she worsens. She has been on IV antibiotics for over 10 days now, therefore we will stop the meropenem, this was discussed with Dr. Briggs as well. We will see if this is contributing to her symptoms. Patient and family counseled regarding signs and symptoms for which I believe and urgent re-evaluation would be necessary. Patient with good understanding of and agreement to plan and is comfortable going home at this time This document was made in part using voice recognition software. While efforts a re made to proofread this document, sound alike and grammatical errors may occur. Departure - Departure Disposition: 01 Home, Self Care Clinical Impression: Dehydration, Medication side effect Condition: Good Instructions: ED Dehydration Follow-Up: Bright Evans MD [Primary Care Provider] - Within 3 Days Comments: The cause of your symptoms is unclear today, but may be related to the meropenem. We will have you stop this at home. Return if you worsen.
[2019-07-13 18:36] LABS: BILIRUBIN,URINE NEGATIVE (NEGATIVE); GLUCOSE, URINE (UA) 500 mg/dL (NEGATIVE); KETONES,URINE (UA) NEGATIVE (NEGATIVE); LEUKOCYTE ESTERASE, URINE TRACE (NEGATIVE); NITRITE,URINE NEGATIVE (NEGATIVE); OCCULT BLOOD,URINE TRACE-INTA (NEGATIVE); PH,URINE 7.5 PH (5.0-7.5); PROTEIN,URINE 30 mg/dL (NEGATIVE); UROBILINOGEN,URINE 0.2 (NORMAL) E.U./dL (NORMAL)
[2019-07-13 18:52] LABS: CLARITY,URINE CLEAR (CLEAR)
[2019-07-13 19:02] LABS: RBC,URINE 0-5 /HPF (0-5); SQUAMOUS EPITHELIAL CELL,UR FEW Squamous (<= Few)
[2019-07-13 19:03] LABS: BACTERIA,URINE None Seen /HPF (None Seen)
[2019-07-13] MEDS ORDERED: HYOSCYAMINE SL 0.125 MG TABLET SL STA (19:19)
[2019-07-13 19:56] LABS: THYROID STIMULATING HORMONE 0.28 uIU/mL (0.34-5.60)
[2019-07-13 19:58] LABS: FREE T4 (FREE THYROXINE) 1.07 ng/dL (0.58-1.64)
[2019-07-13] MEDS ORDERED: IOVERSOL 320 100 ML VIAL IVP ONE ×2 (20:51→21:44)
[2019-07-13] MEDS ORDERED: diphenhydrAMINE INJ 50 MG/ML VIAL IVP STA (20:56)
[2019-07-13] MEDS ORDERED: ONDANSETRON 4 MG/2 ML VIAL IVP STA (21:10)
--- NOTE | 2019-07-13 22:27 | CT Report ---
Reason: abd pain Procedure Date: 07/13/2019 Accession Number: [id number] / [id number] Procedure: CT - Abdomen/Pelvis W CPT Code: FULL RESULT: EXAM: CT ABDOMEN AND PELVIS EXAM DATE: 07/13/2019 09:41 PM. CLINICAL HISTORY: Abd pain. COMPARISONS: ABDOMEN/PELVIS W/O 07/02/2019 12:24 PM. TECHNIQUE: Routine helical CT imaging was performed through the abdomen and pelvis. IV contrast: OPTI 320 100ML. Enteric contrast: No. Reconstructions: Coronal and sagittal. In accordance with CT protocol optimization, one or more of the following dose reduction techniques were utilized for this exam: automated exposure control, adjustment of mA and/or KV based on patient size, or use of iterative reconstructive technique. FINDINGS: ABDOMEN: Lung Bases: Incompletely included lower lungs atelectasis /scarring. Heart size is within normal limits. 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 No basilar effusions. Liver: Unremarkable. Spleen: Unremarkable. Pancreas: Unremarkable aside from atrophy. Gallbladder/Bile Ducts: Mild biliary ductal dilatation can be seen status post cholecystectomy. Adrenal Glands: Unremarkable. Kidneys: No mass, calculi, or hydronephrosis. Peritoneum/Mesentery/Bowel: No free fluid, free air, or collection. Status post partial colectomy. No intestinal obstruction. Lymph nodes: No mesenteric, periportal, or retroperitoneal lymphadenopathy. Vasculature: Abdominal aorta is nonaneurysmal. Portal vein is patent. Hepatic veins are patent. IVC filter is present. PELVIS: Small amount of gas present within the bladder. Uterus is absent. No pelvic lymphadenopathy. Bones: No suspicious osseous lesions. Severe degenerative disk disease from L4-S1. Redemonstration of right lower anterior abdominal hernia containing an otherwise unremarkable loop of small bowel measuring 4.1 cm. Broad-based anterior abdominal wall hernia with diastasis of the musculature, containing otherwise unremarkable bowel. IMPRESSION: No acute abnormalities. No interval change in appearance of anterior abdominal wall hernias and diastasis of the abdominal wall. RADIA
[2019-07-13 22:31] LABS: MAGNESIUM 1.7 mg/dL (1.7-2.8); PHOSPHORUS 3.1 mg/dL (2.5-4.6)
[2019-07-13] MEDS ORDERED: fentaNYL 100 MCG/2 ML VIAL IVP STA ×2 (22:41→23:59)
[2019-07-13 23:50] LABS: BASOPHILS # (AUTO) 0.1 10^3/uL (0.0-0.1); BASOPHILS % (AUTO) 0.6 %; EOSINOPHILS # (AUTO) 0.5 10^3/uL (0.0-0.7); EOSINOPHILS % (AUTO) 5.2 %; HGB - HEMOGLOBIN 11.7 g/dL (12.0-16.0); LYMPHOCYTES # (AUTO) 1.5 10^3/uL (1.5-3.5); LYMPHOCYTES % (AUTO) 16.1 %; MEAN CORPUSCULAR HEMOGLOBIN 27.9 pg (27.0-31.0); MEAN CORPUSCULAR HGB CONC 32.7 g/dL (32.0-36.0); MEAN CORPUSCULAR VOLUME 85.2 fL (81.0-99.0); MEAN PLATELET VOLUME 9.7 fL (7.9-10.8); MONOCYTES # (AUTO) 0.6 10^3/uL (0.0-1.0); MONOCYTES % (AUTO) 6.7 %; NEUTROPHILS # (AUTO) 6.7 10^3/uL (1.5-6.6); PLT - PLATELET COUNT 128 10^3/uL (130-450); RED CELL DISTRIBUTION WIDTH 14.5 % (12.0-15.0); WHITE BLOOD COUNT 9.4 x10^3/uL (4.8-10.8)
--- NOTE | 2019-07-14 00:39 | CONSULTATION NOTE ---
Referring Provider Name of Referring Provider:: Dr. Dominic Cavazos Consult Date: 07/13/19 Chief Complaint - Chief Complaint Chief Complaint: I just don't feel well History of Present Illness - Admitted From Admitted From:: Home - History Obtained From Records Reviewed: Yes History obtained from: Patient, Spouse, ER Physician - History of Present Illness HPI Comment/Other: This is a pleasant 84 year old female with a past medical history significant for diabetes, hypothyroidism, and chronic diarrhea who presents from home with complaints of not feeling well. She was discharged on the 08 of July after being hospitalized for nearly a week for sepsis secondary to a UTI. Cultures grew ESBL E. Coli and she was discharged on Meropenem to complete a two week course. She reports she has not felt well since that initial hospitalization but that she felt OK over this past weekend. She states that yesterday she began to feel unwell and that her diarrhea was worse than usual. Her diarrhea woke her up a couple of times overnight. She does not report fevers or chills but complains of general malaise. She has been tolerating a diet without difficulty although she reports nausea and an episode of vomiting today. She has been able to ambulate without difficulties and reports no falls at home. She denies chest pain and dyspnea. She does complain of mild abdominal discomfort. In the ER, she was afebrile, hypertensive but without tachycardia. Labs were unremarkable as she had no leukocytosis, normal lactic acid and renal function was at baseline. Urinalysis revealed pyuria with WBC of 11-25 but no bacteria. A CT of the abdomen/pelvis was completed with IV contrast that did not show an acute process. 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 Living arrangement: At home Living Situation: With spouse/s.o. Social History Notes: She lives in [place] but visits [facility] frequently as she has family here. She denies smoking but does drink alcohol at times. - Substance History Use: Uses substance without health or social issues: NONE Meds/Allgy - Home Medications Home Medications: Ambulatory Orders Medication Instructions Recorded Confirmed Allopurinol 100 mg PO QPM 06/29/19 07/02/19 Apixaban [Eliquis] 2.5 mg PO DAILY 06/29/19 07/02/19 Dapagliflozin Propanediol [Farxiga] 10 mg PO DAILY 06/29/19 07/02/19 Dulaglutide [Trulicity] 1.5 mg SQ LUGO 06/29/19 07/02/19 Gabapentin [Gralise] 1,200 mg PO TID 06/29/19 07/03/19 Glipizide [Glipizide ER] 5 mg PO QID 06/29/19 07/03/19 Pantoprazole [Protonix] 40 mg PO QDAC 06/29/19 07/03/19 Rosuvastatin Calcium [Crestor] 40 mg PO QPM 06/29/19 07/02/19 Acetaminophen with Codeine 1 tab PO DAILY PRN 07/02/19 07/02/19 [Tylenol with Codeine #4 Tablet] Diphenoxylate/Atropine [Lomotil] 1 tab PO QID PRN 07/02/19 07/02/19 Latanoprost 0.005% Ophth Drops 1 drops LEFTEYE QPM 07/04/19 07/04/19 [Xalatan Ophth Drops] HYDROcod/ACETAM 5/325 [[place] 5/325] 1 ea PO Q6H PRN #15 tablet 07/08/19 Levothyroxine [Synthroid] 100 mcg PO QDAC #15 tablet 07/08/19 Meropenem [Merrem] 500 mg IV Q8H #30 vial 07/08/19 Saccharomyces Boulardii [Florastor] 250 mg PO BID #20 capsule 07/08/19 Tamsulosin HCl [Flomax] 0.4 mg PO DAILY #15 cap.er.24h 07/08/19 - Allergies Allergies/Adverse Reactions: Allergies Allergy/AdvReac Type Severity Reaction Status Date / Time Penicillins Allergy Severe Hives Verified 07/03/19 15:05 vancomycin Allergy Severe chest pain Verified 07/03/19 15:05 sulfamethoxazole Allergy Hives Verified 06/29/19 08:00 [From Bactrim] trimethoprim [From Bactrim] Allergy Hives Verified 06/29/19 08:00 oxycodone [From OxyContin] AdvReac Intermediate Hallucinati Verified 07/02/19 18:29 ons aspartame AdvReac Diarrhea Verified 07/03/19 11:30 cefepime AdvReac Itching Verified 07/05/19 16:13 clindamycin AdvReac Unknown Verified 06/29/19 08:00 doxycycline AdvReac Nausea Verified 07/03/19 11:30 saccharin AdvReac Diarrhea Verified 07/03/19 11:30 stevioside [From Stevia] AdvReac Diarrhea Verified 07/03/19 11:30 sucralose AdvReac Diarrhea Verified 07/03/19 11:30 Review of Systems - Constitutional Constitutional: reports: Fatigue, Weakness. denies: Fever, Chills, Poor appeti te - Cardiovascular Cariovascular: denies: Chest pain, Exertional dyspnea, Decr. exercise tolerance - Respiratory Respiratory: denies: Cough, SOB at rest, SOB with exertion - Gastrointestinal Gastrointestinal: reports: Abdominal pain, Diarrhea, Nausea, Vomiting. denies: Bloody stools - Genitourinary Genitourinary: denies: Dysuria, Frequency - Integumentary Integumentary: denies: Rash - Neurological Neurological: reports: General weakness, Headache - All Other Systems All Other Systems: reports: Reviewed and negative Exam - Vital Signs Reviewed Vital Signs: Yes Vital Signs: Vital Signs x48h Temp Pulse Resp BP Pulse Ox 07/14/19 00:00 86 17 166/86 H 94 07/13/19 22:41 36.6 C 82 25 H 167/92 H 96 07/13/19 21:00 85 23 165/90 H 98 07/13/19 19:00 77 18 195/82 H 95 07/13/19 17:00 76 153 H 180/78 H 94 - Physical Exam General Appearance: positive: Alert, Mild distress Eyes Bilateral: positive: Normal inspection ENT: positive: ENT inspection nml, Dry mucous membranes Neck: positive: Nml inspection Respiratory: positive: No respiratory distress, Breath sounds nml. negative: Wheezes, Rales, Rhonchi Cardiovascular: positive: Regular rate & rhythm, No murmur. negative: Tachycardia, Bradycardia, Systolic murmur, Diastolic murmur Abdomen: positive: No distention, Tenderness (Mild discomfort in right lower quadrant). negative: Guarding, Rebound Back: positive: CVA tenderness (R). negative: CVA tenderness (L) Skin: positive: No rash, Warm, Dry Extremities: positive: No pedal edema Neurologic/Psychiatric: positive: Oriented x3, Motor nml, Sensation nml. negative: Disoriented to person, Disoriented to place, Disoriented to time, Slurred/abnml speech Conclusion/Plan - Diagnosis Diagnosis: 1) Gastroenteritis. 2) History of ESBL E.Coli UTI - Plan Plan: She does appear to be in mild distress and does appear ill on examination but her labs and vitals are unremarkable. Her labs were repeated approximately 6 hours later without any decline. Her urinalysis still reveals pyuria but there is no longer bacteria. The CT of the abdomen/pelvis did not reveal an acute process and was unchanged compared to her prior CT. Blood cultures were drawn in the ER. Although she does appear ill, she does not meet admission criteria given her unremarkable hemodynamics and lab work. She has not had further diarrhea since arrival to the ER. She was able to tolerate PO without difficulty. The patient would like to go home given there is no indication for hospitalization. She has been on Meropenem for over a week now and I am concerned that this may be contributing to her symptoms of diarrhea and headache. Given that one week of treatment is sufficient for ESBL E. Coli UTI, I have recommended that her antibiotics be discontinued. Her PICC line may also be removed. I discussed with the patient and her spouse that if she develops a temperature of 100.4 Fahrenhei t or develops worsening symptoms and is unable to tolerate oral intake, she should immediately return to the ER. Both the patient and her spouse were agreeable to this plan and voiced understanding. - Lab Results Lab results reviewed: Yes Fish Bones: 07/13/19 23:42 07/13/19 17:14 - Diagnostic Imaging Results Diagnostic Imaging Results: positive: Final report reviewed
[2019-07-14 00:42] VITALS: BP 172/84
== END 2019-07-14 00:46 | disposition home or self-care (01) ==
LOC: ED 13:58
DX: E86.0 Dehydration (principal); K52.9 Noninfective gastroenteritis and colitis, unspecified; T36.1X5A Adverse effect of cephalosporins and other beta-lactam antibiotics, initial encounter; Z86.19 Personal history of other infectious and parasitic diseases; Z87.440 Personal history of urinary (tract) infections; E11.9 Type 2 diabetes mellitus without complications; Z79.84 Long term (current) use of oral hypoglycemic drugs; E03.9 Hypothyroidism, unspecified; Z86.711 Personal history of pulmonary embolism; Z79.01 Long term (current) use of anticoagulants
CPT/HCPCS: 36415; 74177; 81001; 83605; 83690; 83735; 84100; 84439; 87040; 87086; 96361; 96374; 96375; 96376; 99283; 99285; A9270; J1200; Q9967; 80048; 80053; 81003; 84443; 85025

== ENCOUNTER 2023-05-10 15:17 | Outpatient (CLI) | payer MEDICARE ==
--- NOTE | 2023-05-10 17:29 | XRAY Report ---
PROCEDURE: Chest 2 View X-Ray INDICATIONS: CHEST CONGESTION/COUGH TECHNIQUE: 2 views of the chest were acquired. COMPARISON: 07/03/2019 FINDINGS: Surgical changes and devices: Partially seen left humeral device. Aortic valve device. Lungs and pleura: No dense consolidation or pleural effusion. Mild chronic opacities in the lower joão ngs, seen previously, probably scarring. Mediastinum: Aortic calcifications. Cardiomediastinal contours are unchanged. Bones and chest wall: Right humeral deformity. Minimal wedging of multiple thoracic vertebral bodies , possibly degenerative. IMPRESSION: No acute radiographic abnormality. No new consolidation or pleural effusion compared to prior imaging . Reviewed by: Ousmane Mercado MD on 05/10/2023 5:28 PM PDT Approved by: Ousmane Mercado MD on 05/10/2023 5:28 PM PDT Station ID: [id number]
== END 2023-05-10 23:59 | disposition home or self-care (01) ==
LOC: DI.S 15:17
PROVIDERS: ATTEND Physician Assistant Medical
DX: R05.8 Other specified cough (principal); R06.02 Shortness of breath

== ENCOUNTER 2023-06-04 11:38 | Outpatient (CLI) | payer MEDICARE | END 2023-06-04 11:39 | disposition home or self-care (01) | LOC: LAB.S 11:38 | PROVIDERS: ATTEND Physician Assistant Medical | DX: E11.9 Type 2 diabetes mellitus without complications (principal); N39.0 Urinary tract infection, site not specified; R53.83 Other fatigue; E03.9 Hypothyroidism, unspecified; Z79.4 Long term (current) use of insulin | CPT/HCPCS: 36415; 80053; 80061; 82962; 83036; 83721; 84443; 85025 ==

== ENCOUNTER 2023-06-05 09:03 | Outpatient (CLI) | payer MEDICARE ==
[2023-06-04 15:59] LABS: CREATININE,URINE 49.6 mg/dL; MICROALBUM/CREATININE RATIO,UR 318.5 ug/mg (<30.0); MICROALBUMIN,URINE 15.8 mg/dL
== END 2023-06-05 09:04 | disposition home or self-care (01) ==
LOC: LAB.S 09:03
PROVIDERS: ATTEND Physician Assistant Medical
DX: N39.0 Urinary tract infection, site not specified (principal); E11.9 Type 2 diabetes mellitus without complications; Z79.4 Long term (current) use of insulin
CPT/HCPCS: 82043; 82570; 87077; 87086; 87181

== ENCOUNTER 2023-06-05 09:10 | Outpatient (CLI) | payer MEDICARE ==
[2023-06-05 14:54] LABS: BASOPHILS # (AUTO) 0.1 10^3/uL (0.0-0.1); BASOPHILS % (AUTO) 0.6 %; EOSINOPHILS # (AUTO) 0.3 10^3/uL (0.0-0.7); EOSINOPHILS % (AUTO) 4.1 %; HCT - HEMATOCRIT 36.8 % (37.0-47.0); HGB - HEMOGLOBIN 11.2 g/dL (12.0-16.0); LYMPHOCYTES # (AUTO) 1.6 10^3/uL (1.5-3.5); LYMPHOCYTES % (AUTO) 19.9 %; MEAN CORPUSCULAR HEMOGLOBIN 28.1 pg (27.0-31.0); MEAN CORPUSCULAR HGB CONC 30.4 g/dL (32.0-36.0); MEAN CORPUSCULAR VOLUME 92.5 fL (81.0-99.0); MEAN PLATELET VOLUME 10.2 fL (7.9-10.8); MONOCYTES # (AUTO) 0.6 10^3/uL (0.0-1.0); MONOCYTES % (AUTO) 8.1 %; NEUTROPHILS # (AUTO) 5.2 10^3/uL (1.5-6.6); NEUTROPHILS % (AUTO) 66.8 %; PLT - PLATELET COUNT 170 10^3/uL (130-450); RED BLOOD COUNT 3.98 10^6/uL (4.20-5.40); WHITE BLOOD COUNT 7.8 x10^3/uL (4.8-10.8)
[2023-06-05 15:33] LABS: ALBUMIN 3.5 g/dL (3.2-5.5); ALBUMIN/GLOBULIN RATIO 1.2 (1.0-2.2); ALKALINE PHOSPHATASE 102 IU/L (42-121); ALT ALANINE AMINOTRANSFERASE 8 IU/L (10-60); AST ASPARTATE AMINOTRANSFERASE 13 IU/L (10-42); BILIRUBIN,TOTAL 0.5 mg/dL (0.2-1.0); BUN - BLOOD UREA NITROGEN 22 mg/dL (6-20); CALCIUM 8.5 mg/dL (8.5-10.3); CARBON DIOXIDE - CO2 27 mmol/L (21-32); CHLORIDE 105 mmol/L (101-111); CHOL/HDL RATIO 2.7 (<4.4); CHOLESTEROL 126 mg/dL; CREATININE 1.6 mg/dL (0.6-1.3); GFR - MDRD 31 (>89); GLUCOSE 166 mg/dL (74-104); HDL CHOLESTEROL 46 mg/dL; LDL CHOLESTEROL,CALCULATED 50 mg/dL; LDL/HDL RATIO 1.1 (<4.4); POTASSIUM 3.8 mmol/L (3.5-4.5); SODIUM 139 mmol/L (135-145); TOTAL PROTEIN 6.4 g/dL (6.4-8.9); TRIGLYCERIDES 152 mg/dL (48-352); VLDL CHOLESTEROL 30 mg/dL
[2023-06-05 17:37] LABS: THYROID STIMULATING HORMONE 3.76 uIU/mL (0.34-5.60)
[2023-06-05 20:06] LABS: ESTIMATED AVERAGE GLUCOSE 192 mg/dL (70-100); HEMOGLOBIN A1c% 8.3 % (4.27-6.07)
== END 2023-06-05 09:11 | disposition home or self-care (01) ==
LOC: LAB.S 09:10
PROVIDERS: ATTEND Physician Assistant Medical
DX: N39.0 Urinary tract infection, site not specified (principal); E11.9 Type 2 diabetes mellitus without complications; R53.83 Other fatigue; Z79.4 Long term (current) use of insulin; E03.9 Hypothyroidism, unspecified
CPT/HCPCS: 36415; 80053; 80061; 82043; 82570; 83036; 83721; 84443; 85025; 87077; 87086; 87181

== ENCOUNTER 2023-07-11 11:51 | Outpatient (CLI) | payer MEDICARE | END 2023-07-11 11:52 | disposition EMS.NT | LOC: EMS 11:51 | DX: E11.649 Type 2 diabetes mellitus with hypoglycemia without coma (principal) ==

== ENCOUNTER 2023-07-12 08:00 | Outpatient (CLI) | payer MEDICARE | END 2023-07-12 23:59 | disposition home or self-care (01) | LOC: LAB.S 08:00 | PROVIDERS: ATTEND Registered Nurse | DX: R30.0 Dysuria (principal) | CPT/HCPCS: 87077; 87086; 87181 ==

== ENCOUNTER 2023-09-30 11:32 | Outpatient (CLI) | payer MEDICARE ==
[2023-09-30 15:38] LABS: BASOPHILS % (AUTO) 0.3 %; EOSINOPHILS # (AUTO) 0.2 10^3/uL (0.0-0.7); EOSINOPHILS % (AUTO) 1.7 %; HGB - HEMOGLOBIN 11.9 g/dL (12.0-16.0); LYMPHOCYTES % (AUTO) 22.7 %; MEAN CORPUSCULAR HEMOGLOBIN 28.4 pg (27.0-31.0); MEAN CORPUSCULAR HGB CONC 30.5 g/dL (32.0-36.0); MEAN CORPUSCULAR VOLUME 93.1 fL (81.0-99.0); MEAN PLATELET VOLUME 10.5 fL (7.9-10.8); MONOCYTES # (AUTO) 0.8 10^3/uL (0.0-1.0); MONOCYTES % (AUTO) 8.8 %; NEUTROPHILS # (AUTO) 5.7 10^3/uL (1.5-6.6); PLT - PLATELET COUNT 177 10^3/uL (130-450); RED BLOOD COUNT 4.19 10^6/uL (4.20-5.40); RED CELL DISTRIBUTION WIDTH 14.6 % (12.0-15.0); WHITE BLOOD COUNT 8.7 x10^3/uL (4.8-10.8)
[2023-09-30 16:07] LABS: CHOL/HDL RATIO 2.2 (<4.4); CHOLESTEROL 174 mg/dL; HDL CHOLESTEROL 78 mg/dL; LDL CHOLESTEROL,CALCULATED 74 mg/dL; LDL/HDL RATIO 0.9 (<4.4); TRIGLYCERIDES 109 mg/dL (48-352); VLDL CHOLESTEROL 22 mg/dL
[2023-09-30 16:27] LABS: THYROID STIMULATING HORMONE 0.86 uIU/mL (0.34-5.60)
== END 2023-09-30 11:33 | disposition home or self-care (01) ==
LOC: LAB.S 11:32
PROVIDERS: ATTEND Physician Assistant Medical
DX: E11.649 Type 2 diabetes mellitus with hypoglycemia without coma (principal); E03.9 Hypothyroidism, unspecified
CPT/HCPCS: 36415; 80061; 83721; 84443; 85025

== ENCOUNTER 2024-03-05 13:16 | Outpatient (CLI) | payer MEDICARE ==
[2024-03-05 19:40] LABS: BASOPHILS # (AUTO) 0.1 10^3/uL (0.0-0.1); BASOPHILS % (AUTO) 0.5 %; EOSINOPHILS # (AUTO) 0.2 10^3/uL (0.0-0.7); HCT - HEMATOCRIT 38.5 % (37.0-47.0); HGB - HEMOGLOBIN 11.3 g/dL (12.0-16.0); LYMPHOCYTES # (AUTO) 1.8 10^3/uL (1.5-3.5); LYMPHOCYTES % (AUTO) 15.4 %; MEAN CORPUSCULAR HEMOGLOBIN 28.2 pg (27.0-31.0); MEAN CORPUSCULAR HGB CONC 29.4 g/dL (32.0-36.0); MEAN PLATELET VOLUME 10.2 fL (7.9-10.8); MONOCYTES # (AUTO) 0.8 10^3/uL (0.0-1.0); MONOCYTES % (AUTO) 7.1 %; NEUTROPHILS # (AUTO) 8.8 10^3/uL (1.5-6.6); NEUTROPHILS % (AUTO) 74.7 %; PLT - PLATELET COUNT 182 10^3/uL (130-450); RED BLOOD COUNT 4.01 10^6/uL (4.20-5.40); RED CELL DISTRIBUTION WIDTH 14.6 % (12.0-15.0); WHITE BLOOD COUNT 11.7 x10^3/uL (4.8-10.8)
[2024-03-05 20:31] LABS: ALBUMIN 3.8 g/dL (3.2-5.5); ALBUMIN/GLOBULIN RATIO 1.4 (1.0-2.2); BILIRUBIN,TOTAL 0.5 mg/dL (0.2-1.0); CALCIUM 9.4 mg/dL (8.5-10.3); CREATININE 1.6 mg/dL (0.6-1.3); POTASSIUM 4.1 mmol/L (3.5-4.5); TOTAL PROTEIN 6.5 g/dL (6.4-8.9)
[2024-03-05 20:33] LABS: THYROID STIMULATING HORMONE 1.96 uIU/mL (0.34-5.60)
[2024-03-05 21:15] LABS: ESTIMATED AVERAGE GLUCOSE 148 mg/dL (70-100); HEMOGLOBIN A1c% 6.8 % (4.27-6.07)
== END 2024-03-05 13:17 | disposition home or self-care (01) ==
LOC: LAB.S 13:16
PROVIDERS: ATTEND Physician Assistant Medical
DX: E11.649 Type 2 diabetes mellitus with hypoglycemia without coma (principal); E03.9 Hypothyroidism, unspecified
CPT/HCPCS: 36415; 80053; 83036; 84443; 85025

== ENCOUNTER 2024-03-05 15:50 | Emergency (ER) | payer MEDICARE ==
--- NOTE | 2024-03-05 16:26 | ED Physician Documentation ---
PD HPI ABD PAIN - Stated complaint Stated Complaint: DIARRHEA - Chief complaint Chief Complaint: Abd Pain - History obtained from History obtained from: Patient - Additional information Additional information: Patient is an 88-year-old female with a history of perforated bowel due to past C. difficile infection Resulting in colectomy presenting for evaluation of diarrhea for the past 3 weeks.She states that she has had on and off issues with diarrhea in the past but that this is the longest that she has had this. She went to the walk-in clinic today. She reports they checked a hemoglobin and n oticed that it was lower than her usual at 8.4. I spoke with Dr. Bingham who examined the patient and he states that the stool was normal in color and not melena or carin blood and that it was faintly positive for blood on a Hemoccult.Patient states that she feels quite weak. She has been having 5-6 episodes of loose stools daily. She reports associated nausea. No fever, chest pain, difficulty breathing.Patient denies noticing bloody stools or black stools. She states that this morning her stool looked oatmeal colored. She is on Eliquis. Review of Systems Constitutional: denies: Fever Cardiac: denies: Chest pain / pressure Respiratory: denies: Dyspnea GI: reports: Abdominal Pain, Nausea, Vomiting, Diarrhea. denies: Bloody / black stool : denies: Dysuria PD PAST MEDICAL HISTORY - Past Medical History Cardiovascular: Pulmonary embolism, Valve disorder Neuro: Headaches Endocrine/Autoimmune: Type 2 diabetes, HyPOthyroidism GI: C.difficile ACADEMIC SUPPORT SPECIALIST: Endometriosis : Renal insuffiency Musculoskeletal: Osteoarthritis, Gout - Past Surgical History Past Surgical History: Yes General: Cholecystectomy, Appendectomy, Bowel surgery, Other Ortho: Knee replacement, Arthroscopic surgery /ACADEMIC SUPPORT SPECIALIST: Tubal ligation, Hysterectomy Cardiovascular: Valve replacement HEENT: Tonsil/Adenoidectomy Derm: Skin cancer surgery - Present Medications Home Medications: Ambulatory Orders Medication Instructions Recorded Confirmed Apixaban [Eliquis] 2.5 mg PO DAILY 06/29/19 03/05/24 Dapagliflozin Propanediol [Farxiga] 10 mg PO DAILY 06/29/19 03/05/24 Dulaglutide [Trulicity] 1.5 mg SQ LUGO 06/29/19 03/05/24 Gabapentin [Gralise] 1,200 mg PO TID 06/29/19 03/05/24 Glipizide [Glipizide ER] 5 mg PO QID 06/29/19 03/05/24 Pantoprazole [Protonix] 40 mg PO QDAC 06/29/19 03/05/24 Rosuvastatin Calcium [Crestor] 40 mg PO QPM 06/29/19 03/05/24 allopurinoL [Allopurinol] 100 mg PO QPM 06/29/19 03/05/24 Acetaminophen with Codeine 1 tab PO DAILY PRN 07/02/19 03/05/24 [Tylenol with Codeine #4 Tablet] Diphenoxylate/Atropine [Lomotil] 1 tab PO QID PRN 07/02/19 03/05/24 Latanoprost 0.005% Ophth Drops 1 drops LEFTEYE QPM 07/04/19 03/05/24 [Xalatan Ophth Drops] Levothyroxine [Synthroid] 100 mcg PO QDAC #15 tablet 07/08/19 03/05/24 Saccharomyces Boulardii [Florastor] 250 mg PO BID #20 capsule 07/08/19 03/05/24 Acetaminophen/Cod 300/30 [Tylenol 1 tab PO TID 03/05/24 03/05/24 #3] traZODone [Desyrel] 50 mg PO HS 03/05/24 03/05/24 - Allergies Allergies/Adverse Reactions: Allergies Allergy/AdvReac Type Severity Reaction Status Date / Time Penicillins Allergy Severe Hives Verified 03/05/24 16:00 vancomycin Allergy Severe chest pain Verified 03/05/24 16:00 sulfamethoxazole Allergy Hives Verified 03/05/24 16:00 [From Bactrim] trimethoprim [From Bactrim] Allergy Hives Verified 03/05/24 16:00 oxycodone [From OxyContin] AdvReac Intermediate Hallucinati Verified 03/05/24 16:00 ons aspartame AdvReac Diarrhea Verified 03/05/24 16:00 cefepime AdvReac Itching Verified 03/05/24 16:00 clindamycin AdvReac Unknown Verified 03/05/24 16:00 doxycycline AdvReac Nausea Verified 03/05/24 16:00 saccharin AdvReac Diarrhea Verified 03/05/24 16:00 stevioside [From Stevia] AdvReac Diarrhea Verified 03/05/24 16:00 sucralose AdvReac Diarrhea Verified 03/05/24 16:00 - Social History Does the pt smoke?: No Smoking Status: Never smoker Does the pt drink ETOH?: No Does the pt have substance abuse?: No - POLST POLST Status: Full Code PD ED PE NORMAL - General General: Alert and oriented X 3, No acute distress, Well developed/nourished - HEENT HEENT: Atraumatic, Moist mucous membranes, Pharynx benign - Neck Neck: Supple, no meningeal sign - Cardiac Cardiac: RRR, Strong equal pulses - Respiratory Respiratory: No respiratory distress, Clear bilaterally - Abdomen Abdomen: Normal bowel sounds, Soft, Non distended, Other (Mild lower abdominal tenderness, ventral wall hernia which is easily reducible, large abdominal incision which is well-healed) - Derm Derm: Warm and dry - Neuro Neuro: Normal speech Results - Vitals Vitals: Vital Signs - 24 hr 03/05/24 03/05/24 15:52 16:46 Temperature 36.3 C L Heart Rate 74 76 Respiratory 20 17 Rate Blood Pressure 161/66 H 150/69 H O2 Saturation 96 98 Oxygen O2 Source Room air - Labs Labs: Laboratory Tests 03/05/24 03/05/24 16:25 16:25 WBC 10.0 RBC 4.12 L Hgb 11.7 L Hct 38.7 MCV 93.9 MCH 28.4 MCHC 30.2 L RDW 14.6 Plt Count 170 MPV 9.5 Neut # (Auto) 7.3 H Lymph # (Auto) 1.5 [place] # (Auto) 0.9 Eos # (Auto) 0.2 Baso # (Auto) 0.0 Absolute Nucleated RBC 0.00 Nucleated RBC % 0.0 Sodium 136 Potassium 4.2 Chloride 107 Carbon Dioxide 21 Anion Gap 8.0 BUN 26 H Creatinine 1.6 H Estimated GFR (MDRD) 31 L Glucose 144 H Calcium 9.5 Total Bilirubin 0.4 AST 18 ALT 9 L Alkaline Phosphatase 113 Total Protein 6.8 Albumin 3.9 Globulin 2.9 Albumin/Globulin Ratio 1.3 Lipase 24 PD Medical Decision Making - ED course Complexity details: reviewed results, re-evaluated patient, d/w patient ED course: Patient is an 88-year-old female with a prior colectomy related to perforated bowel from C. difficile infection presenting with 3 weeks of diarrhea. Initially seen at the walk-in clinic with concerns for GI bleed as hemoglobin there was several grams lower than prior labs. However she denies any symptoms of a GI bleed such as melena or hematochezia and there was another of these noted on exam by physician who saw her. She does have lower abdominal tenderness. She has a easily reducible ventral wall hernia. CBC and chemistries were obtained and reviewed and hemoglobin is 11.7 which is similar to prior labs of 11.9 in September 2023. Creatinine is the same at 1.6. Patient was given IV fluids, Zofran. She reported having headache for the last 3 days. She does take Eliquis. She was given a small dose of IV fentanyl for abdominal pain. CT head and abdomen pelvis Were ordered. Patient signed out to Dr. Kaiser at shift change pending results of CT scans. Patient has not yet been able to give a stool sample. Departure - Departure Clinical Impression: Diarrhea Forms: PCP List
[2024-03-05] MEDS: SODIUM CHLORIDE 0.9% 1,000 ML IV STA (16:29)
[2024-03-05] MEDS: ONDANSETRON 4 MG/2 ML VIAL IVP STA (16:29)
[2024-03-05 16:39] LABS: BASOPHILS % (AUTO) 0.4 %; EOSINOPHILS # (AUTO) 0.2 10^3/uL (0.0-0.7); HCT - HEMATOCRIT 38.7 % (37.0-47.0); HGB - HEMOGLOBIN 11.7 g/dL (12.0-16.0); LYMPHOCYTES # (AUTO) 1.5 10^3/uL (1.5-3.5); LYMPHOCYTES % (AUTO) 14.9 %; MEAN CORPUSCULAR HEMOGLOBIN 28.4 pg (27.0-31.0); MEAN CORPUSCULAR HGB CONC 30.2 g/dL (32.0-36.0); MEAN CORPUSCULAR VOLUME 93.9 fL (81.0-99.0); MEAN PLATELET VOLUME 9.5 fL (7.9-10.8); MONOCYTES # (AUTO) 0.9 10^3/uL (0.0-1.0); MONOCYTES % (AUTO) 9.1 %; NEUTROPHILS # (AUTO) 7.3 10^3/uL (1.5-6.6); NEUTROPHILS % (AUTO) 73.3 %; PLT - PLATELET COUNT 170 10^3/uL (130-450); RED BLOOD COUNT 4.12 10^6/uL (4.20-5.40); RED CELL DISTRIBUTION WIDTH 14.6 % (12.0-15.0)
[2024-03-05 16:58] LABS: ALBUMIN 3.9 g/dL (3.2-5.5); ALBUMIN/GLOBULIN RATIO 1.3 (1.0-2.2); BILIRUBIN,TOTAL 0.4 mg/dL (0.2-1.0); CALCIUM 9.5 mg/dL (8.5-10.3); CREATININE 1.6 mg/dL (0.6-1.3); POTASSIUM 4.2 mmol/L (3.5-4.5); TOTAL PROTEIN 6.8 g/dL (6.4-8.9)
[2024-03-05] MEDS ORDERED: iohexoL-300 100 ML VIAL ONE (17:03)
[2024-03-05] MEDS: fentaNYL 100 MCG/2 ML VIAL IVP STA (17:06)
[2024-03-05] MEDS: iohexoL-300 100 ML VIAL IVP ONE (17:33)
--- NOTE | 2024-03-05 17:39 | CT Report ---
PROCEDURE: Head WO INDICATIONS: headache on eliquis TECHNIQUE: Noncontrast 4.5 mm thick angled axial sections acquired from the foramen magnum to the vertex. For r adiation dose reduction, the following was used: automated exposure control, adjustment of mA and/or kV according to patient size. COMPARISON: None FINDINGS: Image quality: Excellent. CSF spaces: Basal cisterns are patent. No extra-axial fluid collections. The ventricles are symmet linda in size and shape. 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 Benign-appear ing calcifications are noted in the region of bilateral basal ganglia. There is cerebral volume loss for age, with resultant ventricular and sulcal prominence. There are periventricular and deep white matter chronic small vessel ischemic changes. There is intracranial internal carotid artery atherosc lerosis. Skull and face: Calvarium and visualized facial bones appear intact, without suspicious lesions. Sinuses: Visualized sinuses and mastoids are clear. IMPRESSION: 1. No acute intracranial abnormality. 2. Age-related volume loss. 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 Benign-appearing calcification s in bilateral basal ganglia. Reviewed by: Joni Donaldson MD on 03/05/2024 5:38 PM PDT Approved by: Joni Donaldson MD on 03/05/2024 5:38 PM PDT Station ID: [id number]
--- NOTE | 2024-03-05 17:57 | CT Report ---
PROCEDURE: Abdomen/Pelvis W INDICATIONS: lower abd pain/diarrhea CONTRAST: Omni 300 100ml TECHNIQUE: After the administration of intravenous contrast, a CT scan of the abdomen and pelvis was performed. Images were recorded and evaluated at appropriate window settings. Reformats: coronal and sagittal. F or radiation dose reduction, the following was used: automated exposure control, adjustment of mA and /or kV according to patient size. COMPARISON: CT of abdomen and pelvis dated and 07/02/2019. FINDINGS: Image quality: Diagnostic. Lower chest: Bibasilar dependent atelectasis is seen. Heart size is enlarged, no pericardial effusion . Prosthetic aortic valve is seen. Liver: No solid mass. Gallbladder and biliary tree: Gallbladder is surgically absent. There is mild intrahepatic biliary du ctal dilatation and dilatation of common bile that unchanged from prior study. No gross choledocholit hiasis. Spleen: No splenomegaly. Pancreas: No pancreatic ductal dilation. Adrenals: No adrenal nodule. Kidneys and ureters: No hydronephrosis. No renal cystic lesion which requires follow up. No solid mas s. Stomach, bowel and peritoneum: There is no bowel obstruction. Postsurgical changes are noted in lower abdomen from prior partial colectomy. No abnormal bowel wall thickening or mesenteric fat stranding. No abscess collection. No free fluid of free air. Lymph nodes: No central or retroperitoneal adenopathy. Vessels: No infrarenal aortic aneurysm. IVC filter is seen. PELVIS Reproductive organs: There is prior hysterectomy.. Bladder: No abnormal wall thickening, accounting for underdistention. Pelvic lymph nodes: No pelvic adenopathy by size criteria. Bones: No aggressive osseous abnormality. Other: Moderate to large ventral hernia is seen containing multiple segments of small bowel loops. No evidence of incarceration. IMPRESSION: 1. Stable postsurgical changes in abdomen from prior partial colectomy. No bowel obstruction or abnor mal bowel wall thickening. Moderate size ventral hernia containing small bowel loops. No evidence of incarceration. No bowel obstruction. No free fluid. 2. Prior cholecystectomy. Mild chronic intrahepatic and extrahepatic biliary ductal dilatation unchan ged from prior studies. Reviewed by: Joni Donaldson MD on 03/05/2024 5:56 PM PDT Approved by: Joni Donaldson MD on 03/05/2024 5:56 PM PDT Station ID: [id number]
--- NOTE | 2024-03-05 19:25 | ED Physician Documentation ---
ED Addendum - Addendum Addendum: 03/05/24 19:26 Patient was signed out to me by Dr. Vásquez, please see her note for full H&P on this patient. She was signed out to me awaiting CT scans. CT scans did not show any acute abnormalities on the head CT or abdomen pelvis CT. Patient states that she only has diarrhea when she eats and drinks, therefore she ate and drink in the emergency department. Still did not have any diarrhea here. Unlikely that the C. difficile colitis with a normal CT and no diarrhea in the emergency department over a nearly 4-hour period. Patient will follow-up with her doctor for stool studies. She is well-appearing, nontoxic. Afebrile. Tolerating p.o. without difficulty. Abdomen is soft, nontender nondistended on serial exam. Patient counseled regarding signs and symptoms for which I believe and urgent re-evaluation would be necessary. Patient with good understanding of and agreement to plan and is comfortable going home at this time This document was made in part using voice recognition software. While efforts are made to proofread this document, sound alike and grammatical errors may occur. Departure - Departure Disposition: 01 Home, Self Care Clinical Impression: Diarrhea Qualifiers: Diarrhea type: unspecified type Qualified Code(s): R19.7 - Diarrhea, unspecified Condition: Good Instructions: ED Diet Vomiting Diarrhea Follow-Up: Preeti Hancock PA [Primary Care Provider] - Tomorrow Comments: As we were unable to collect a stool sample here today, I would recommend that you follow-up with your doctor tomorrow and request an order for a stool sample be sent to the lab. Please follow-up with your doctor for further care and return if you worsen. EXAM: [id number] CT/ABPEW ([id number]) PROCEDURE: Abdomen/Pelvis W INDICATIONS: lower abd pain/diarrhea CONTRAST: Omni 300 100ml TECHNIQUE: After the administration of intravenous contrast, a CT scan of the abdomen and pelvis was performed. Images were recorded and evaluated at appropriate window settings. Reformats: coronal and sagittal. For radiation dose reduction, the following was used: automated exposure control, adjustment of mA and/or kV according to patient size. COMPARISON: CT of abdomen and pelvis dated and 07/02/2019. FINDINGS: Image quality: Diagnostic. Lower chest: Bibasilar dependent atelectasis is seen. Heart size is enlarged, no pericardial effusion. Prosthetic aortic valve is seen. Liver: No solid mass. Gallbladder and biliary tree: Gallbladder is surgically absent. There is mild intrahepatic biliary ductal dilatation and dilatation of common bile that unchanged from prior study. No gross choledocholithiasis. Spleen: No splenomegaly. Pancreas: No pancreatic ductal dilation. Adrenals: No adrenal nodule. Kidneys and ureters: No hydronephrosis. No renal cystic lesion which requires follow up. No solid mass. Stomach, bowel and peritoneum: There is no bowel obstruction. Postsurgical changes are noted in lower abdomen from prior partial colectomy. No abnormal bowel wall thickening or mesenteric fat stranding. No abscess collection. No free fluid of free air. Lymph nodes: No central or retroperitoneal adenopathy. Vessels: No infrarenal aortic aneurysm. IVC filter is seen. PELVIS Reproductive organs: There is prior hysterectomy.. Bladder: No abnormal wall thickening, accounting for underdistention. Pelvic lymph nodes: No pelvic adenopathy by size criteria. Bones: No aggressive osseous abnormality. Other: Moderate to large ventral hernia is seen containing multiple segments of small bowel loops. No evidence of incarceration. IMPRESSION: 1. Stable postsurgical changes in abdomen from prior partial colectomy. No bowel obstruction or abnormal bowel wall thickening. Moderate size ventral hernia containing small bowel loops. No evidence of incarceration. No bowel obstruction. No free fluid. 2. Prior cholecystectomy. Mild chronic intrahepatic and extrahepatic biliary ductal dilatation unchanged from prior studies. EXAM: [id number] CT/HEADWO ([id number]) PROCEDURE: Head WO INDICATIONS: headache on eliquis TECHNIQUE: Noncontrast 4.5 mm thick angled axial sections acquired from the foramen magnum to the vertex. For radiation dose reduction, the following was used: automated exposure control, adjustment of mA and/or kV according to patient size. COMPARISON: None FINDINGS: Image quality: Excellent. CSF spaces: Basal cisterns are patent. No extra-axial fluid collections. The ventricles are symmetric in size and shape. 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 Benign- appearing calcifications are noted in the region of bilateral basal ganglia. There is cerebral v olume loss for age, with resultant ventricular and sulcal prominence. There are periventricular and deep white matter chronic small vessel ischemic changes. There is intracranial internal carotid artery atherosclerosis. Skull and face: Calvarium and visualized facial bones appear intact, without suspicious lesions. Sinuses: Visualized sinuses and mastoids are clear. IMPRESSION: 1. No acute intracranial abnormality. 2. Age-related volume loss. 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 Benign- appearing calcifications in bilateral basal ganglia. Forms: PCP List
[2024-03-05] MEDS: ACETAMINOPHEN/CODEINE 300 MG/30 MG TABLET PO STA (19:36)
[2024-03-05 19:58] VITALS: BP 95/64; O2SAT 98
== END 2024-03-05 19:52 | disposition home or self-care (01) ==
LOC: ED 15:50
DX: R19.7 Diarrhea, unspecified (principal); R10.30 Lower abdominal pain, unspecified; R11.0 Nausea; K43.9 Ventral hernia without obstruction or gangrene; E11.649 Type 2 diabetes mellitus with hypoglycemia without coma; E03.9 Hypothyroidism, unspecified
CPT/HCPCS: 36415; 70450; 74177; 80053; 83036; 83690; 84443; 85025; 96361; 96374; 96375; 99284; A9270; Q9967

== ENCOUNTER 2024-04-13 08:00 | Outpatient (CLI) | payer MEDICARE ==
--- NOTE | 2024-04-13 17:35 | XRAY Report ---
PROCEDURE: Chest 2V INDICATIONS: ACUTE BRONCHITIS TECHNIQUE: 2 views of the chest were acquired. COMPARISON: None. FINDINGS: Surgical changes and devices: Prosthetic aortic valve is seen. Postsurgical changes also noted in le ft proximal humerus. Lungs and pleura: Blunting of left costophrenic angle is noted suggestive of trace left pleural effu robbie. No definite focal infiltrate. No pneumothorax. Mediastinum: Mildly tortuous thoracic aorta with aortic arch calcification is seen. Heart size is en larged. Bones and chest wall: No suspicious bony lesions. Overlying soft tissues appear unremarkable. IMPRESSION: Trace left pleural effusion versus thickening. No focal infiltrate or pneumothorax. Reviewed by: Joni Donaldson MD on 04/13/2024 5:33 PM PDT Approved by: Joni Donaldson MD on 04/13/2024 5:33 PM PDT Station ID: [id number]
--- NOTE | 2024-04-14 08:38 | XRAY Report ---
PROCEDURE: Hand 3+V RT INDICATIONS: OSTEOARTHRITIS OF RIGHT HAND TECHNIQUE: 3 views of the hand(s) acquired. COMPARISON: None. FINDINGS: Bones: No fractures or dislocations. No suspicious bony lesions. [id number] arthritic changes with joint space narrowing and periarticular osteophytes. Periarticular bony erosion is present, mos t prominent at the fifth carpometacarpal joint. There is triangular fibrocartilage calcification. Gen eralized osteopenia. Soft tissues: No suspicious soft tissue calcifications or masses. IMPRESSION: 1. Periarticular bony erosion is present, suggesting inflammatory arthritis such as erosive OA. Recom mend clinical correlation. 2. Triangular fibrocartilage calcification. Reviewed by: Emelia Cruz MD on 04/14/2024 7:36 AM PHILIP Approved by: Emelia Cruz MD on 04/14/2024 7:36 AM PHILIP Station ID: [id number]
== END 2024-04-13 23:59 | disposition home or self-care (01) ==
LOC: DI.S 08:00
PROVIDERS: ATTEND Emergency Medicine
DX: J90 Pleural effusion, not elsewhere classified (principal); M19.041 Primary osteoarthritis, right hand; M85.841 Other specified disorders of bone density and structure, right hand; M25.841 Other specified joint disorders, right hand

== ENCOUNTER 2024-04-13 08:00 | Outpatient (CLI) | payer MEDICARE | END 2024-04-13 23:59 | disposition home or self-care (01) | LOC: LAB.S 08:00 | PROVIDERS: ATTEND Emergency Medicine | DX: R06.00 Dyspnea, unspecified (principal) ==

== ENCOUNTER 2024-04-23 08:20 | Outpatient (CLI) | payer MEDICARE ==
--- NOTE | 2024-04-23 15:52 | XRAY Report ---
PROCEDURE: Foot 3+V RT INDICATIONS: PAIN IN RIGHT HALLUX TECHNIQUE: 3 views of the foot were obtained. COMPARISON: None FINDINGS: Bones: Generalized decreased osseous mineralization present. First MTP joint space narrowing and mar ginal osteophytes Soft tissues: Unremarkable. No radiopaque foreign body. IMPRESSION: Moderate first MTP joint osteoarthritis Reviewed by: Jamar Arnold MD on 04/23/2024 2:51 PM AKDT Approved by: Jamar Arnold MD on 04/23/2024 2:51 PM AKDT Station ID: [id number]
== END 2024-04-23 08:21 | disposition home or self-care (01) ==
LOC: DI 08:20
PROVIDERS: ATTEND Emergency Medicine
DX: M19.071 Primary osteoarthritis, right ankle and foot (principal)

== ENCOUNTER 2024-04-29 16:19 | Emergency (ER) | payer MEDICARE ==
--- NOTE | 2024-04-29 16:55 | ED Physician Documentation ---
History of Present Illness - Stated complaint Stated Complaint: GOUT - Chief complaint Chief Complaint: General - History obtained from History obtained from: Patient - Additonal information Additional information: 89-year-old female with a history of gout and type 2 diabetes presents with a gout attack in her hands. She states she saw her PCP for this about 8 to 10 days ago and was started on colchicine which she has been taking, her last dose is today but she has not noted any improvement. She has pain in both hands but it is particularly bad in the right index finger. This feels similar to prior gout attacks for her. She has not had any injuries to these areas, no erythema, mild swelling. She does have underlying osteoarthritis in both hands but feels as though this is a gout attack. She is on allopurinol though she stopped taking this at the start of her attack per her PCP instructions. She is not a fever, no other areas of joint pain or swelling. She is on as needed Tylenol #4 for pain but has not had much relief with that. 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: Endometriosis : Renal insuffiency Musculoskeletal: Osteoarthritis, Gout - Past Surgical History Past Surgical History: Yes General: Cholecystectomy, Appendectomy, Bowel surgery, Other Ortho: Knee replacement, Arthroscopic surgery /EPOXY FABRICATION SUPERVISOR: Tubal ligation, Hysterectomy Cardiovascular: Valve replacement HEENT: Tonsil/Adenoidectomy Derm: Skin cancer surgery - Present Medications Home Medications: Ambulatory Orders Medication Instructions Recorded Confirmed Apixaban [Eliquis] 2.5 mg PO DAILY 06/29/19 03/05/24 Dapagliflozin Propanediol [Farxiga] 10 mg PO DAILY 06/29/19 03/05/24 Dulaglutide [Trulicity] 1.5 mg SQ LUGO 06/29/19 03/05/24 Gabapentin [Gralise] 1,200 mg PO TID 06/29/19 03/05/24 Glipizide [Glipizide ER] 5 mg PO QID 06/29/19 03/05/24 Pantoprazole [Protonix] 40 mg PO QDAC 06/29/19 03/05/24 Rosuvastatin Calcium [Crestor] 40 mg PO QPM 06/29/19 03/05/24 allopurinoL [Allopurinol] 100 mg PO QPM 06/29/19 03/05/24 Acetaminophen with Codeine 1 tab PO DAILY PRN 07/02/19 03/05/24 [Tylenol with Codeine #4 Tablet] Diphenoxylate/Atropine [Lomotil] 1 tab PO QID PRN 07/02/19 03/05/24 Latanoprost 0.005% Ophth Drops 1 drops LEFTEYE QPM 07/04/19 03/05/24 [Xalatan Ophth Drops] Levothyroxine [Synthroid] 100 mcg PO QDAC #15 tablet 07/08/19 03/05/24 Saccharomyces Boulardii [Florastor] 250 mg PO BID #20 capsule 07/08/19 03/05/24 Acetaminophen/Cod 300/30 [Tylenol 1 tab PO TID 03/05/24 03/05/24 #3] traZODone [Desyrel] 50 mg PO HS 03/05/24 03/05/24 predniSONE [Deltasone] 10 mg PO [id number] #42 tab 04/29/24 - Allergies Allergies/Adverse Reactions: Allergies Allergy/AdvReac Type Severity Reaction Status Date / Time Penicillins Allergy Severe Hives Verified 04/29/24 16:38 vancomycin Allergy Severe chest pain Verified 04/29/24 16:38 sulfamethoxazole Allergy Hives Verified 04/29/24 16:38 [From Bactrim] trimethoprim [From Bactrim] Allergy Hives Verified 04/29/24 16:38 oxycodone [From OxyContin] AdvReac Intermediate Hallucinati Verified 04/29/24 16:38 ons aspartame AdvReac Diarrhea Verified 04/29/24 16:38 cefepime AdvReac Itching Verified 04/29/24 16:38 clindamycin AdvReac Unknown Verified 04/29/24 16:38 doxycycline AdvReac Nausea Verified 04/29/24 16:38 saccharin AdvReac Diarrhea Verified 04/29/24 16:38 stevioside [From Stevia] AdvReac Diarrhea Verified 04/29/24 16:38 sucralose AdvReac Diarrhea Verified 04/29/24 16:38 - Social History Does the pt smoke?: No Smoking Status: Never smoker Does the pt drink ETOH?: No Does the pt have substance abuse?: No - Immunizations Immunizations are current?: Yes - POLST Patient has POLST: No POLST Status: Full Code PD ED PE NORMAL - Vitals Vital signs reviewed: Yes - General General: Alert and oriented X 3, No acute distress, Well developed/nourished - HEENT HEENT: Atraumatic, Moist mucous membranes - Derm Derm: Normal color, Warm and dry - Extremities Extremities: No: Other (Arthritic changes of this both hands with significant tenderness of the right mcp. no erythema, trace swelling, no other joint swelling) Results - Vitals Vitals: Vital Signs - 24 hr 04/29/24 16:32 Temperature 36.4 C L Heart Rate 79 Respiratory 20 Rate Blood Pressure 136/72 H O2 Saturation 99 Oxygen O2 Source Room air PD Medical Decision Making - ED course Complexity details: reviewed results, re-evaluated patient, d/w patient ED course: 89-year-old female who presents with L hand pain, right more so than left with particular pain at the right MCP joint. She is well-appearing though appears very uncomfortable when she moves or touches the right MCP. She has a history of gout. Colchicine has not been effective for her therefore we will try course of prednisone, 10-day taper. She was cautioned that this could increase her blood sugar and she will need to monitor this closely. Discussed gout diet and other supportive measures. Patient declined any adjustment in her chronic pain medication but will continue to take Tylenol No. 4 as needed. Departure - Departure Disposition: Home, Self Care Clinical Impression: Gout attack Qualifiers: Gout site: hand Gout etiology: unspecified cause Laterality: right Qualified Code(s): M10.9 - Gout, unspecified Condition: Good Instructions: ED Arthritis Gout, ED Diet Gout Prescriptions: predniSONE [Deltasone] 10 mg PO [id number] #42 tab Comments: Stop taking the colchicine and start taking the prednisone. You can also resume your allopurinol. As we discussed, this can make your blood sugar go up so you will want to monitor your blood sugar closely while you are on the prednisone. Please keep taking the pain medication, and you can take 3 times a day. If this is not effective, please return or follow-up with your primary doctor. Medication sent to [facility] Forms: PCP List
--- NOTE | 2024-04-29 17:40 | XRAY Report ---
PROCEDURE: Hand 3+V LT INDICATIONS: pain TECHNIQUE: 3 views of the hand(s) acquired. COMPARISON: None. FINDINGS: Bones: No fractures or dislocations. Mild degenerative changes of the first CMC joint. Mild diffuse interphalangeal joint degeneration. No suspicious bony lesions. Soft tissues: No suspicious soft tissue calcifications or masses. IMPRESSION: No acute bony abnormality. Mild degenerative changes of the hand. Reviewed by: Johnnie Murillo MD on 04/29/2024 5:39 PM PDT Approved by: Johnnie Murillo MD on 04/29/2024 5:39 PM PDT Station ID: [id number]
[2024-04-29 17:43] VITALS: BP 132/72; O2SAT 100
== END 2024-04-29 17:42 | disposition home or self-care (01) ==
LOC: ED 16:19
DX: M10.9 Gout, unspecified (principal); M19.042 Primary osteoarthritis, left hand; M19.041 Primary osteoarthritis, right hand; E11.9 Type 2 diabetes mellitus without complications; Z79.84 Long term (current) use of oral hypoglycemic drugs; Z79.85 Long-term (current) use of injectable non-insulin antidiabetic drugs
CPT/HCPCS: 99283

== ENCOUNTER 2024-05-05 12:38 | Outpatient (CLI) | payer MEDICARE | END 2024-05-05 12:39 | disposition home or self-care (01) | LOC: DI 12:38 | PROVIDERS: ATTEND Internal Medicine Cardiovascular Disease | DX: I34.0 Nonrheumatic mitral (valve) insufficiency (principal); I34.81 Nonrheumatic mitral (valve) annulus calcification; Z95.3 Presence of xenogenic heart valve | CPT/HCPCS: 93307 ==

== ENCOUNTER 2024-05-20 17:46 | Emergency (ER) | payer MEDICARE ==
--- NOTE | 2024-05-20 18:36 | ED Physician Documentation ---
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 About a week ago she was sitting in her chair and fell out of the chair. She ended up on the ground and was unconscious for quite some length of time, probably several hours she estimates. Initially did not feel any pain but now has some severe back pain and also neck pain. No headache per se. She has chronic left knee pain from an arthritic knee which is hurting more than usual. Today her knees were giving out on her and her caregiver told her she preferably should come in and get evaluated. She does take Tylenol No. 4 kind of chronically for musculoskeletal pains. 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: Endometriosis : Renal insuffiency Musculoskeletal: Osteoarthritis, Gout - Past Surgical History Past Surgical History: Yes General: Cholecystectomy, Appendectomy, Bowel surgery, Other Ortho: Knee replacement, Arthroscopic surgery /TAX MANAGER CPA: Tubal ligation, Hysterectomy Cardiovascular: Valve replacement HEENT: Tonsil/Adenoidectomy Derm: Skin cancer surgery - Present Medications Home Medications: Ambulatory Orders Medication Instructions Recorded Confirmed Apixaban [Eliquis] 2.5 mg PO DAILY 06/29/19 04/29/24 Dapagliflozin Propanediol [Farxiga] 10 mg PO DAILY 06/29/19 04/29/24 Dulaglutide [Trulicity] 1.5 mg SQ LGUO 06/29/19 04/29/24 Gabapentin [Gralise] 1,200 mg PO TID 06/29/19 04/29/24 Glipizide [Glipizide ER] 5 mg PO QID 06/29/19 04/29/24 Pantoprazole [Protonix] 40 mg PO QDAC 06/29/19 04/29/24 Rosuvastatin Calcium [Crestor] 40 mg PO QPM 06/29/19 04/29/24 allopurinoL [Allopurinol] 100 mg PO QPM 06/29/19 04/29/24 Diphenoxylate/Atropine [Lomotil] 1 tab PO QID PRN 07/02/19 04/29/24 Latanoprost 0.005% Ophth Drops 1 drops LEFTEYE QPM 07/04/19 04/29/24 [Xalatan Ophth Drops] Levothyroxine [Synthroid] 100 mcg PO QDAC #15 tablet 07/08/19 04/29/24 Saccharomyces Boulardii [Florastor] 250 mg PO BID #20 capsule 07/08/19 04/29/24 Acetaminophen/Cod 300/30 [Tylenol 1 tab PO TID 03/05/24 04/29/24 #3] traZODone [Desyrel] 50 mg PO HS 03/05/24 04/29/24 predniSONE [Deltasone] 10 mg PO [id number] #42 tab 04/29/24 HYDROmorphone [Dilaudid] 1 - 2 tab PO Q4H PRN #20 tablet 05/20/24 - Allergies Allergies/Adverse Reactions: Allergies Allergy/AdvReac Type Severity Reaction Status Date / Time Penicillins Allergy Severe Hives Verified 05/20/24 18:35 vancomycin Allergy Severe chest pain Verified 05/20/24 18:35 sulfamethoxazole Allergy Hives Verified 05/20/24 18:35 [From Bactrim] trimethoprim [From Bactrim] Allergy Hives Verified 05/20/24 18:35 oxycodone [From OxyContin] AdvReac Intermediate Hallucinati Verified 05/20/24 18:35 ons aspartame AdvReac Diarrhea Verified 05/20/24 18:35 cefepime AdvReac Itching Verified 05/20/24 18:35 clindamycin AdvReac Unknown Verified 05/20/24 18:35 doxycycline AdvReac Nausea Verified 05/20/24 18:35 saccharin AdvReac Diarrhea Verified 05/20/24 18:35 stevioside [From Stevia] AdvReac Diarrhea Verified 05/20/24 18:35 sucralose AdvReac Diarrhea Verified 05/20/24 18:35 - Social History Does the pt smoke?: No Smoking Status: Never smoker Does the pt drink ETOH?: No Does the pt have substance abuse?: No - Immunizations Immunizations are current?: Yes - POLST Patient has POLST: No POLST Status: Full Code PD ED PE NORMAL - Vitals Vital signs reviewed: Yes - General General: Alert and oriented X 3, No acute distress - HEENT HEENT: PERRL, EOMI - Cardiac Cardiac: RRR, No murmur - Respiratory Respiratory: No respiratory distress, Clear bilaterally - Abdomen Abdomen: Non tender - Back Back: Other (She is tender to the low C-spine, mid thoracic and low T spines.) - Derm Derm: Normal color, Warm and dry - Extremities Extremities: Other (The left knee is tender and swollen with what looks like probably a chronic arthritic deformity. No hip tenderness or limited range of motion of the hips on either side.) - Neuro Neuro: Alert and oriented X 3, Normal speech Results - Vitals Vitals: Vital Signs - 24 hr 05/20/24 05/20/24 17:50 20:27 Temperature 36.8 C Heart Rate 81 83 Respiratory 16 18 Rate Blood Pressure 119/60 153/78 H O2 Saturation 100 98 Oxygen O2 Source Room air - Rads (name of study) CT of the head and entirety of the spine: Relevant Findings:: Final report received (CT of the head and entirety of the spine: Chronic maxillary sinusitis. No intracranial injury. Multilevel generative changes in the cervical spine, thoracic spine, and lumbar spine without trauma), EMP independent interpretation of test Left knee x-ray demonstrates severe degenerative changes without obvious trauma. Relevant Findings:: Final report received, EMP independent interpretation of test PD Medical Decision Making - ED course ED course: She fell a week ago and has a lot of spinal pain and headache and she is anticoagulated. Relevant imaging was negative for acute findings. She was administered hydrocodone which was not very helpful and received a milligram of hydromorphone IM prior to discharge with a prescription for same. She is already somewhat narcotic tolerant. Departure - Departure Disposition: 01 Home, Self Care Clinical Impression: Anticoagulated Head injury Qualifiers: Encounter type: initial encounter Qualified Code(s): S09.90XA - Unspecified injury of head, initial encounter Neck injury Qualifiers: Encounter type: initial encounter Qualified Code(s): S19.9XXA - Unspecified injury of neck, initial encounter Back injury Qualifiers: Encounter type: initial encounter Qualified Code(s): S39.92XA - Unspecified injury of lower back, initial encounter Fall from chair Qualifiers: Encounter type: initial encounter Qualified Code(s): W07.XXXA - Fall from chair, initial encounter Condition: Good Instructions: ED Low Back Pain Injury, ED Head Injury Closed Follow-Up: Dorene Lisa MD [Primary Care Provider] - Prescriptions: HYDROmorphone [Dilaudid] 1 - 2 tab PO Q4H PRN #20 tablet PRN Reason: pain Comments: I sent your prescription electronically to the [facility] pharmacy at the corner of [address] [address] [address] [facility] here in [place] since they will have shorter weights we think then [facility] in [place] even though it is a little farther for you. Follow-up with Dr. Lisa, with consideration for referral to restart physical therapy for your multiple injuries. I am prescribing a short course of narcotic pain medication for you. These are potentially dangerous and addictive medications that should be used carefully. These medications may constipate you. Take an jjyi-khl-yahdsft stool softener (docusate) twice daily with plenty of water while taking these medications. If you go 24 hours without a bowel movement, take [id number] miralax, per package instructions. Do not drink or drive while taking these medications. If you received narcotic or sedating medications while in the emergency department, do not drive for 24 hours. Store this medication in a safe, secure place and out of reach of children. It is a violation of federal law to give or sell this medication to another person or to use in a manner other than prescribed. The ED will not refill narcotic prescriptions, including prescriptions lost or stolen. To dispose of unwanted medications: 1. [facility] provides a drop box for medication in pill form only (no liquids) 8:00 am to 4:30 p.m. Saturday-Saturday in the lobby of the [facility], [address] [place] [address]. Empty pills into ziplock bag before disposal. Call [phone] for information. 2.[employer] is a free service available to all [facility] residents. Go to [email or web address] Note that many narcotic pain relievers also contain Tylenol/acetaminophen. Please ensure that your total dose of acetaminophen from all sources does not exceed 3 g (3000 mg) per day. Forms: PCP List Discharge Date/Time: 05/20/24 20:35
[2024-05-20] MEDS: HYDROcod/ACETAM 5/325 MG TABLET PO STA (18:56)
--- NOTE | 2024-05-20 19:53 | CT Report ---
PROCEDURE: Head WO INDICATIONS: head/spine inj TECHNIQUE: Noncontrast 4.5 mm thick angled axial sections acquired from the foramen magnum to the vertex. For r adiation dose reduction, the following was used: automated exposure control, adjustment of mA and/or kV according to patient size. COMPARISON: 03/05/2024 FINDINGS: Image quality: Excellent. CSF spaces: Basal cisterns are patent. No extra-axial fluid collections. Ventricles are normal in size and shape. 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 No midline shift. No intracranial masses or hemorrhage. Age-related global volume loss and chronic microvascular ischemic changes. Intracranial atherosclerotic vascular calcifications. [place]child- white matter interface is normal. Skull and face: Calvarium and visualized facial bones are intact, without suspicious lesions. Bilate ral lens replacements. The orbits are otherwise normal in appearance. Sinuses: Chronic maxillary sinus with mild mucosal thickening. The mastoids are clear. IMPRESSION: No acute intracranial pathology. Reviewed by: Johnnie Murillo MD on 05/20/2024 7:51 PM PDT Approved by: Johnnie Murillo MD on 05/20/2024 7:51 PM PDT Station ID: [id number]
--- NOTE | 2024-05-20 19:55 | CT Report ---
PROCEDURE: Cervical Spine WO INDICATIONS: head/spine inj TECHNIQUE: Noncontrast 3 mm thick sections acquired from the skull base to the T4 level. Sagittal and coronal r eformats were then constructed. For radiation dose reduction, the following was used: automated exp osure control, adjustment of mA and/or kV according to patient size. COMPARISON: None. FINDINGS: Image quality: Excellent. Bones: No fractures or dislocations. Straightening of the normal cervical lordosis. Mild anterolisth esis of C4 on C5. Multilevel degenerative changes, most severe at C5-C6 and C6-C7. Visualized superi or ribs are intact. Soft tissues: Prevertebral soft tissues are normal in thickness. No paravertebral hematomas. No ap ical pneumothoraces. IMPRESSION: 1.No acute, displaced fracture or traumatic subluxation. 2.Multilevel degenerative changes of the cervical spine. Reviewed by: Johnnie Murillo MD on 05/20/2024 7:53 PM PDT Approved by: Johnnie Murillo MD on 05/20/2024 7:53 PM PDT Station ID: [id number]
--- NOTE | 2024-05-20 20:01 | CT Report ---
PROCEDURE: Thoracic Spine WO INDICATIONS: head/spine inj TECHNIQUE: Noncontrast 3 mm thick sections acquired through the region of interest in the thoracic spine. Sagit reynold and coronal reformats were then constructed. For radiation dose reduction, the following was used : automated exposure control, adjustment of mA and/or kV according to patient size. COMPARISON: None. FINDINGS: Image quality: Mild motion degradation. Bones: There is normal overall bony alignment. No acute vertebral body compression fractures. No s uspicious sclerotic or lytic bony lesions. Central spinal canal is of normal overall caliber. Multil evel degenerative changes of the thoracic spine. Mild dextrocurvature. Diffusely decreased osseous mi neralization. Sclerotic focus in T12, likely a bone island. Soft tissues: No paravertebral masses or hematomas. Visualized posteromedial lungs appear clear. Mi ld bilateral dependent atelectasis. Atherosclerotic vascular calcifications. Aortic valvuloplasty. IV C filter in place. IMPRESSION: 1.No acute fracture or traumatic listhesis. 2.Multilevel degenerative changes of the spine. Reviewed by: Johnnie Murillo MD on 05/20/2024 8:00 PM PDT Approved by: Johnnie Murillo MD on 05/20/2024 8:00 PM PDT Station ID: [id number]
--- NOTE | 2024-05-20 20:04 | XRAY Report ---
PROCEDURE: Knee 4+V LT INDICATIONS: head/spine inj TECHNIQUE: 4 views of the knee(s) were acquired. COMPARISON: None. FINDINGS: Bones: Moderate to severe degenerative changes. No acute displaced fracture or dislocation. Soft tissues: Moderate joint effusion. Intra-articular and ossified bodies patellar enthesopathy. IMPRESSION: There is no acute displaced fracture identified. Moderate joint effusion and intra-articular debris. Moderate to severe degenerative changes. If there is high concern for further derangement, consider MRI evaluation. Reviewed by: Ousmane Mercado MD on 05/20/2024 8:03 PM PDT Approved by: Ousmane Mercado MD on 05/20/2024 8:03 PM PDT Station ID: [id number]
--- NOTE | 2024-05-20 20:04 | CT Report ---
PROCEDURE: Lumbar Spine WO INDICATIONS: head/spine inj TECHNIQUE: Noncontrast 3 mm thick sections acquired from the T12 level to the sacrum. Sagittal and coronal refo rmats were constructed. For radiation dose reduction, the following was used: automated exposure co ntrol, adjustment of mA and/or kV according to patient size. COMPARISON: CT abdomen pelvis 03/05/2024 FINDINGS: Image quality: Excellent. Bones: Mild levocurvature. No spondylolisthesis. No acute vertebral body compression fractures. Pro minent Schmorl's nodes at L2-L3. Vertebral body hemangioma at L3. Diffusely decreased osseous mineral ization. Multilevel degenerative changes with disc height loss, vacuum disc phenomenon and degenerati ve endplate changes, this is severe at L4-L5 and L5-S1. Facet arthropathy, most pronounced at the low er lumbar spine. No suspicious lytic or blastic bony lesions. Central spinal caliber is of normal ov erall caliber. No pars defects. Soft tissues: No retroperitoneal masses or hematomas. Visualized aorta is normal in caliber. Athero sclerotic vascular opacifications. IVC filter in place. IMPRESSION: 1.No acute fracture or traumatic listhesis. 2.Multilevel degenerative changes of the lumbar spine. Reviewed by: Johnnie Murillo MD on 05/20/2024 8:03 PM PDT Approved by: Johnnie Murillo MD on 05/20/2024 8:03 PM PDT Station ID: [id number]
[2024-05-20] MEDS: ONDANSETRON ODT 4 MG TABLET TL STA (20:22)
[2024-05-20] MEDS: HYDROmorphone 1 MG/ML CARPUJECT IM STA (20:22)
[2024-05-20 20:33] VITALS: BP 153/78; O2SAT 98
== END 2024-05-20 20:35 | disposition home or self-care (01) ==
LOC: ED 17:46
DX: S09.90XA Unspecified injury of head, initial encounter (principal); S19.9XXA Unspecified injury of neck, initial encounter; S39.92XA Unspecified injury of lower back, initial encounter; W07.XXXA Fall from chair, initial encounter; Y93.89 Activity, other specified
CPT/HCPCS: 70450; 72125; 72128; 72131; 73564; 96372; 99284; A9270; J1170; Q0162

== ENCOUNTER 2024-06-16 08:00 | Outpatient (CLI) | payer MEDICARE | END 2024-06-16 23:59 | disposition home or self-care (01) | LOC: LAB.R 08:00 | PROVIDERS: ATTEND Internal Medicine | DX: R19.7 Diarrhea, unspecified (principal) | CPT/HCPCS: 87493 ==

== ENCOUNTER 2024-06-17 12:24 | Outpatient (CLI) | payer MEDICARE | END 2024-06-17 23:59 | disposition critical access hospital (66) | LOC: EMS 12:24 | DX: R06.09 Other forms of dyspnea (principal); R42 Dizziness and giddiness | CPT/HCPCS: A0425; A0427 ==

== ENCOUNTER 2024-06-17 12:45 | Emergency (ER) | payer MEDICARE ==
[2024-06-17 13:13] LABS: BASOPHILS % (AUTO) 0.2 %; EOSINOPHILS % (AUTO) 0.2 %; HGB - HEMOGLOBIN 11.8 g/dL (12.0-16.0); LYMPHOCYTES # (AUTO) 0.8 10^3/uL (1.5-3.5); LYMPHOCYTES % (AUTO) 4.2 %; MEAN CORPUSCULAR HEMOGLOBIN 27.3 pg (27.0-31.0); MEAN CORPUSCULAR HGB CONC 31.1 g/dL (32.0-36.0); MEAN CORPUSCULAR VOLUME 87.8 fL (81.0-99.0); MEAN PLATELET VOLUME 10.2 fL (7.9-10.8); MONOCYTES # (AUTO) 0.8 10^3/uL (0.0-1.0); MONOCYTES % (AUTO) 4.1 %; NEUTROPHILS # (AUTO) 17.9 10^3/uL (1.5-6.6); NEUTROPHILS % (AUTO) 90.4 %; PLT - PLATELET COUNT 155 10^3/uL (130-450); RED BLOOD COUNT 4.33 10^6/uL (4.20-5.40); RED CELL DISTRIBUTION WIDTH 14.7 % (12.0-15.0); WHITE BLOOD COUNT 19.8 x10^3/uL (4.8-10.8)
--- NOTE | 2024-06-17 13:17 | ED Physician Documentation ---
History of Present Illness - Stated complaint Stated Complaint: DIZZINESS - Chief complaint Chief Complaint: Cardiac - History obtained from History obtained from: Patient - Additonal information Additional information: Patient is an 89-year-old female with past medical history of DVT/PE, history of TAVR replacement presents to the emergency department with multiple symptoms. Patient notes for the past few days she has been developing feelings of lightheadedness, dizziness, shortness of breath and intermittent chest pain. Patient notes symptoms have been persistent. She notes generalized fatigue but no recent falls. She has not taking anything for her symptoms. She denies any fevers or chills. She notes she has been urinating more and drinking and eating less due to the symptoms. Patient concerned as she has also developed a cough but denies any recent sick contacts. She denies any lower leg swelling. She has not seen anyone else for the symptoms.Patient was seen here few weeks ago for a fall at home but denies any other new falls or trauma. 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: Endometriosis : Renal insuffiency Musculoskeletal: Osteoarthritis, Gout - Past Surgical History Past Surgical History: Yes General: Cholecystectomy, Appendectomy, Bowel surgery, Other Ortho: Knee replacement, Arthroscopic surgery /MORTGAGE PROCESSING CLERK: Tubal ligation, Hysterectomy Cardiovascular: Valve replacement HEENT: Tonsil/Adenoidectomy Derm: Skin cancer surgery - Present Medications Home Medications: Ambulatory Orders Medication Instructions Recorded Confirmed Apixaban [Eliquis] 2.5 mg PO DAILY 06/29/19 06/17/24 Dulaglutide [Trulicity] 1.5 mg SQ LUGO 06/29/19 06/17/24 Gabapentin [Gralise] 1,200 mg PO TID 06/29/19 06/17/24 Glipizide [Glipizide ER] 5 mg PO QID 06/29/19 06/17/24 Rosuvastatin Calcium [Crestor] 40 mg PO QPM 06/29/19 06/17/24 allopurinoL [Allopurinol] 100 mg PO QPM 06/29/19 06/17/24 Latanoprost 0.005% Ophth Drops 1 drops LEFTEYE QPM 07/04/19 06/17/24 [Xalatan Ophth Drops] Levothyroxine [Synthroid] 100 mcg PO QDAC #15 tablet 07/08/19 06/17/24 Dm/Pseudoephed/Acetaminoph/Cpm 1 each PO DAILY PRN #10 tab 06/17/24 [Tylenol Cold-Flu Mult D-N Cplt] - Allergies Allergies/Adverse Reactions: Allergies Allergy/AdvReac Type Severity Reaction Status Date / Time Penicillins Allergy Severe Hives Verified 06/17/24 12:52 vancomycin Allergy Severe chest pain Verified 06/17/24 12:52 sulfamethoxazole Allergy Hives Verified 06/17/24 12:52 [From Bactrim] trimethoprim [From Bactrim] Allergy Hives Verified 06/17/24 12:52 oxycodone [From OxyContin] AdvReac Intermediate Hallucinati Verified 06/17/24 12:52 ons aspartame AdvReac Diarrhea Verified 06/17/24 12:52 cefepime AdvReac Itching Verified 06/17/24 12:52 clindamycin AdvReac Unknown Verified 06/17/24 12:52 doxycycline AdvReac Nausea Verified 06/17/24 12:52 saccharin AdvReac Diarrhea Verified 06/17/24 12:52 stevioside [From Stevia] AdvReac Diarrhea Verified 06/17/24 12:52 sucralose AdvReac Diarrhea Verified 06/17/24 12:52 - Social History Does the pt smoke?: No Smoking Status: Never smoker Does the pt drink ETOH?: No Does the pt have substance abuse?: No - Immunizations Immunizations are current?: Yes - POLST Patient has POLST: No POLST Status: Full Code Results - Vitals Vitals: Vital Signs - 24 hr 06/17/24 06/17/24 06/17/24 12:52 13:51 15:00 Temperature 36.5 C Heart Rate 78 76 79 Respiratory 18 26 H 18 Rate Blood Pressure 171/70 H 168/80 H 147/72 H O2 Saturation 99 99 97 06/17/24 06/17/24 17:29 18:33 Temperature 36.3 C L Heart Rate 78 72 Respiratory 22 18 Rate Blood Pressure 162/70 H 200/90 H O2 Saturation 98 100 Oxygen O2 Source Room air - EKG (time done) 1305 EKG releavant findings:: EKG personally interpreted by author of this note. Relevant findings are: Rate: Rate (enter#) (74 bpm), [place], Tachy, Other Rhythm: NSR [place]: Normal Intervals: Prolonged IN Ischemia: Normal ST segments Compare to prior EKG: Unchanged from prior EKG Computer interpretation: Agree with computer 1504 EKG releavant findings:: EKG personally interpreted by author of this note. Relevant findings are: Rate: Rate (enter#) Rhythm: NSR [place]: Normal Intervals: Prolonged IN QRS: Normal Ischemia: Normal ST segments Compare to prior EKG: Unchanged from prior EKG Computer interpretation: Agree with computer - Labs Labs: Laboratory Tests 06/17/24 06/17/24 06/17/24 13:09 13:09 13:09 WBC 19.8 H RBC 4.33 Hgb 11.8 L Hct 38.0 MCV 87.8 MCH 27.3 MCHC 31.1 L RDW 14.7 Plt Count 155 MPV 10.2 Neut # (Auto) 17.9 H Lymph # (Auto) 0.8 L [place] # (Auto) 0.8 Eos # (Auto) 0.0 Baso # (Auto) 0.0 Absolute Nucleated RBC 0.00 Nucleated RBC % 0.0 PT 14.8 H INR 1.4 H Sodium 131 L Potassium 4.1 Chloride 100 L Carbon Dioxide 18 L Anion Gap 13.0 BUN 49 H Creatinine 1.5 H Estimated GFR (MDRD) 33 L Glucose 317 H Calcium 8.8 Total Bilirubin 0.6 AST 16 ALT 22 Alkaline Phosphatase 101 Troponin I High Sens 16.2 H* B-Natriuretic Peptide Total Protein 5.6 L Albumin 3.2 Globulin 2.4 Albumin/Globulin Ratio 1.3 Lipase 47 Urine Color Urine Clarity Urine pH Ur Specific [place] Urine Protein Urine Glucose (UA) Urine Ketones Urine Occult Blood Urine Nitrite Urine Bilirubin Urine Urobilinogen Ur Leukocyte Esterase Urine RBC Urine WBC Ur Squamous Epith Cells Urine Bacteria Urine Yeast Ur Microscopic Review Urine Culture Comments Nasal Adenovirus (PCR) Nasal B. parapertussis DNA (PCR) Nasal Coronavir 229E PCR Nasal Coronavir HKU1 PCR Nasal Coronavir NL63 PCR Nasal Coronavir OC43 PCR Nasal Enterovir/Rhinovir PCR Nasal Influenza B PCR Nasal Influenza A PCR Nasal Parainfluen 1 PCR Nasal Parainfluen 2 PCR Nasal Parainfluen 3 PCR Nasal Parainfluen 4 PCR Nasal RSV (PCR) Nasal B.pertussis DNA PCR Nasal C.pneumoniae (PCR) Wojciech Human Metapneumo PCR Nasal M.pneumoniae (PCR) Nasal SARS-CoV-2 (PCR) 06/17/24 06/17/24 06/17/24 13:09 14:59 15:15 WBC RBC Hgb Hct MCV MCH MCHC RDW Plt Count MPV Neut # (Auto) Lymph # (Auto) [place] # (Auto) Eos # (Auto) Baso # (Auto) Absolute Nucleated RBC Nucleated RBC % PT INR Sodium Potassium Chloride Carbon Dioxide Anion Gap BUN Creatinine Estimated GFR (MDRD) Glucose Calcium Total Bilirubin AST ALT Alkaline Phosphatase Troponin I High Sens 15.6 H* B-Natriuretic Peptide 312 H Total Protein Albumin Globulin Albumin/Globulin Ratio Lipase Urine Color Urine Clarity Urine pH Ur Specific [place] Urine Protein Urine Glucose (UA) Urine Ketones Urine Occult Blood Urine Nitrite Urine Bilirubin Urine Urobilinogen Ur Leukocyte Esterase Urine RBC Urine WBC Ur Squamous Epith Cells Urine Bacteria Urine Yeast Ur Microscopic Review Urine Culture Comments Nasal Adenovirus (PCR) NOT DETECTED Nasal B. parapertussis DNA (PCR) NOT DETECTED Nasal Coronavir 229E PCR NOT DETECTED Nasal Coronavir HKU1 PCR NOT DETECTED Nasal Coronavir NL63 PCR NOT DETECTED Nasal Coronavir OC43 PCR NOT DETECTED Nasal Enterovir/Rhinovir PCR DETECTED A Nasal Influenza B PCR NOT DETECTED Nasal Influenza A PCR NOT DETECTED Nasal Parainfluen 1 PCR NOT DETECTED Nasal Parainfluen 2 PCR NOT DETECTED Nasal Parainfluen 3 PCR NOT DETECTED Nasal Parainfluen 4 PCR NOT DETECTED Nasal RSV (PCR) NOT DETECTED Nasal B.pertussis DNA PCR NOT DETECTED Nasal C.pneumoniae (PCR) NOT DETECTED W[place] Human Metapneumo PCR NOT DETECTED Nasal M.pneumoniae (PCR) NOT DETECTED Nasal SARS-CoV-2 (PCR) NOT DETECTED 06/17/24 17:50 WBC RBC Hgb Hct MCV MCH MCHC RDW Plt Count MPV Neut # (Auto) Lymph # (Auto) [place] # (Auto) Eos # (Auto) Baso # (Auto) Absolute Nucleated RBC Nucleated RBC % PT INR Sodium Potassium Chloride Carbon Dioxide Anion Gap BUN Creatinine Estimated GFR (MDRD) Glucose Calcium Total Bilirubin AST ALT Alkaline Phosphatase Troponin I High Sens B-Natriuretic Peptide Total Protein Albumin Globulin Albumin/Globulin Ratio Lipase Urine Color LIGHT YELLOW Urine Clarity CLEAR Urine pH 6.0 Ur Specific [place] 1.015 Urine Protein 30 H Urine Glucose (UA) 500 H Urine Ketones NEGATIVE Urine Occult Blood SMALL H Urine Nitrite NEGATIVE Urine Bilirubin NEGATIVE Urine Urobilinogen 0.2 (NORMAL) Ur Leukocyte Esterase NEGATIVE Urine RBC 0-5 Urine WBC 0-3 Ur Squamous Epith Cells RARE Squamous Urine Bacteria Rare Urine Yeast PRESENT Ur Microscopic Review INDICATED Urine Culture Comments NOT INDICATED Nasal Adenovirus (PCR) Nasal B. parapertussis DNA (PCR) Nasal Coronavir 229E PCR Nasal Coronavir HKU1 PCR Nasal Coronavir NL63 PCR Nasal Coronavir OC43 PCR Nasal Enterovir/Rhinovir PCR Nasal Influenza B PCR Nasal Influenza A PCR Nasal Parainfluen 1 PCR Nasal Parainfluen 2 PCR Nasal Parainfluen 3 PCR Nasal Parainfluen 4 PCR Nasal RSV (PCR) Nasal B.pertussis DNA PCR Nasal C.pneumoniae (PCR) [place] Human Metapneumo PCR Nasal M.pneumoniae (PCR) Nasal SARS-CoV-2 (PCR) - Rads (name of study) Chest X-ray Relevant Findings:: EMP independent interpretation of test (No acute findings) PD Medical Decision Making - ED course Complexity details: reviewed old records, reviewed results ED course: Patient is an 89-year-old female with past medical history of DVT/PE is on apixaban presents with generalized weakness shortness of breath and chest pain. Patient notes symptoms have been persistent for the past week. She she reports dizziness lightheadedness with her symptoms and some chest pain that she experienced earlier today when walking up the stairs. She notes this is associated with her shortness of breath as well. She notes persistent cough as well as urinary symptoms with excessive urination at home with decreased eating and drinking. Vitals on arrival are reassuring afebrile nontachycardic normotensive. Initial labs obtained here in the emergency department show slightly elevated troponin at 15. Patient is not reporting any chest pain at this time but given symptoms going on this week will repeat here in the emergency department. Patient chest x-ray was obtained does show small but persistent pleural effusion no acute changes from previous. Patient additionally tested positive for rhinovirus on nasal swab. She was given a liter of fluids for creatinine of 1.5 but no significant JOHNATHON or electrolyte abnormalities compared to previous labs. Repeat troponin and EKG here in the emergency department showed downtrending troponin and EKG showing no signs of ACS. Discussed case with patient and symptoms of rhinovirus most likely causing her symptoms. Patient did require straight cath as 2 episodes of urine analysis were disposed of in the bathroom when she tried to give a urine sample. Straight cath here did not show any overt concerns for UTI at this time. Pending urine cultures at this time. Patient is on antibiotics for recent tooth pull with Keflex. Given this we will hold off on any antibiotics at this time. Discussed with patient symptoms most likely secondary to rhinovirus. She was instructed to follow-up with her PCP was given medications at home to help with cold-like symptoms. Patient instructed to return with any leg swelling worsening chest pain severe shortness of breath persistent dizziness or lightheadedness. On discharge patient's symptoms had resolved no persistent li ghtheadedness no chest pain or shortness of breath. Departure - Departure Disposition: Home, Self Care Clinical Impression: Rhinovirus infection, Elevated troponin, Dyspnea Condition: Good Instructions: ED Viral Syndrome Prescriptions: Dm/Pseudoephed/Acetaminoph/Cpm [Tylenol Cold-Flu Mult D-N Cplt] 1 each PO DAILY PRN #10 tab PRN Reason: Fatigue Comments: You were seen here in the emergency department for your shortness of breath generalized fatigue and weakness cough your workup here in the emergency department did show you have rhinovirus. Please follow-up with your PCP in the outpatient setting to ensure resolution of symptoms. Return with any worsening symptoms. Please follow-up with your PCP to ensure resolution of symptoms Forms: PCP List
[2024-06-17 13:52] LABS: TROPONIN I HIGH SENSITIVITY 16.2 ng/L (2.3-14.8)
[2024-06-17 13:59] LABS: ALBUMIN 3.2 g/dL (3.2-5.5); ALBUMIN/GLOBULIN RATIO 1.3 (1.0-2.2); BILIRUBIN,TOTAL 0.6 mg/dL (0.2-1.0); CALCIUM 8.8 mg/dL (8.5-10.3); CREATININE 1.5 mg/dL (0.6-1.3); POTASSIUM 4.1 mmol/L (3.5-4.5); TOTAL PROTEIN 5.6 g/dL (6.4-8.9)
--- NOTE | 2024-06-17 15:12 | XRAY Report ---
PROCEDURE: Chest 1V INDICATIONS: Chest pain TECHNIQUE: One view of the chest was acquired. COMPARISON: 04/13/2024 FINDINGS: Surgical changes and devices: Aortic valve prosthesis. Atherosclerotic vascular calcification noted in the aortic arch. Lungs and pleura: No pleural effusions or pneumothorax. Lungs are clear. Persistent blunting the left costophrenic angle Mediastinum: Mediastinal contours appear normal. Heart size is normal. Bones and chest wall: No suspicious bony lesions. Overlying soft tissues appear unremarkable. Lef t healed instrumented proximal humeral fracture IMPRESSION: Persistent small left pleural effusion Reviewed by: Jamar Arnold MD on 06/17/2024 2:10 PM [facility]DT Approved by: Jamar Arnold MD on 06/17/2024 2:10 PM AKDT Station ID: [id number]
[2024-06-17] MEDS: SODIUM CHLORIDE 0.9% 1,000 ML IV STA (15:16)
[2024-06-17 15:47] LABS: INR 1.4 (0.8-1.2); PT - PROTHROMBIN TIME 14.8 secs (9.9-12.6)
[2024-06-17 17:37] LABS: B. PARAPERTUSSIS- RESP PCR PAN NOT DETECTED; B. PERTUSSIS- RESP PCR PANEL NOT DETECTED; C. PNEUMONIAE- RESP PCR PANEL NOT DETECTED; CORONAVIRUS 229E-RESP PCR NOT DETECTED; CORONAVIRUS HKU1-RESP PCR NOT DETECTED; CORONAVIRUS NL63-RESP PCR NOT DETECTED; CORONAVIRUS OC43-RESP PCR NOT DETECTED; HUMAN METAPNEUMOVIRUS NOT DETECTED; INFLUENZA A- RESP PCR PANEL NOT DETECTED; INFLUENZA B - RESP PCR PANEL NOT DETECTED; M. PNEUMONIAE- RESP PCR PANEL NOT DETECTED; PARAINFLUENZA VIRUS 1 NOT DETECTED; PARAINFLUENZA VIRUS 2 NOT DETECTED; PARAINFLUENZA VIRUS 3 NOT DETECTED; PARAINFLUENZA VIRUS 4 NOT DETECTED; RHINOVIRUS/ENTEROVIRUS DETECTED; RSV- RESP PCR PANEL NOT DETECTED; SARS-CoV-2 -RESP PCR PANEL NOT DETECTED
[2024-06-17 18:05] LABS: BILIRUBIN,URINE NEGATIVE (NEGATIVE); GLUCOSE, URINE (UA) 500 mg/dL (NEGATIVE); KETONES,URINE (UA) NEGATIVE (NEGATIVE); LEUKOCYTE ESTERASE, URINE NEGATIVE (NEGATIVE); NITRITE,URINE NEGATIVE (NEGATIVE); OCCULT BLOOD,URINE SMALL (NEGATIVE); PROTEIN,URINE 30 mg/dL (NEGATIVE); UROBILINOGEN,URINE 0.2 (NORMAL) E.U./dL (NORMAL)
[2024-06-17 18:21] LABS: CLARITY,URINE CLEAR (CLEAR)
[2024-06-17 18:37] LABS: BACTERIA,URINE Rare /HPF (None Seen); RBC,URINE 0-5 /HPF (0-5); SQUAMOUS EPITHELIAL CELL,UR RARE Squamous (<= Few); WBC,URINE 0-3 /HPF (0-5); YEAST,URINE PRESENT
[2024-06-17 18:38] VITALS: BP 200/90; O2SAT 100
== END 2024-06-17 19:22 | disposition home or self-care (01) ==
LOC: EDUNIT# → ED 12:45
DX: B34.8 Other viral infections of unspecified site (principal); R79.89 Other specified abnormal findings of blood chemistry; R06.00 Dyspnea, unspecified; E11.9 Type 2 diabetes mellitus without complications; E03.9 Hypothyroidism, unspecified; Z86.711 Personal history of pulmonary embolism; Z95.4 Presence of other heart-valve replacement; M10.9 Gout, unspecified; Z79.01 Long term (current) use of anticoagulants; Z79.4 Long term (current) use of insulin; Z79.899 Other long term (current) drug therapy
CPT/HCPCS: 36415; 80053; 81001; 81003; 83690; 83880; 84484; 85025; 85610; 87086; 87633; 93005; 96360; 96361; 99284

== ENCOUNTER 2024-06-19 10:59 | Outpatient (CLI) | payer MEDICARE | END 2024-06-19 11:00 | disposition critical access hospital (66) | LOC: EMS 10:59 | DX: S99.911A Unspecified injury of right ankle, initial encounter (principal); W18.39XA Other fall on same level, initial encounter; Y93.01 Activity, walking, marching and hiking; Y92.022 Bathroom in mobile home as the place of occurrence of the external cause | CPT/HCPCS: A0425; A0427 ==

== ENCOUNTER 2024-06-19 11:22 | Observation (INO) | payer MEDICARE ==
--- NOTE | 2024-06-19 11:29 | ED Physician Documentation ---
History of Present Illness - Stated complaint Stated Complaint: GLF - History obtained from History obtained from: Patient - Additonal information Additional information: Patient is an 89-year-old female presenting to the emergency department with fall at home. Patient was walking down the stairs and tripped and fell on her right leg. Patient sustained obvious deformity and was brought in by EMS. Patient has past medical history remarkable for hypertension, hyperlipidemia, history of PEs is on blood thinners at baseline, patient denies hitting her head or losing consciousness. Patient blood sugar on arrival was 110. She received fentanyl 50 mcg on arrival by EMS.Patient incidentally was seen here 2 days ago for symptoms of lightheadedness and diagnosed with rhinovirus at that time. Patient was slightly dehydrated as well. She notes she has not been feeling better since then but fell going down the stairs after sustaining a cramp to her lower back and leg. PD PAST MEDICAL HISTORY - Present Medications Home Medications: Ambulatory Orders Medication Instructions Recorded Confirmed Apixaban [Eliquis] 2.5 mg PO BID 06/29/19 06/19/24 Gabapentin [Gralise] 600 mg PO BID 06/29/19 06/19/24 Glipizide [Glipizide ER] 10 mg PO DAILY 06/29/19 06/19/24 Rosuvastatin Calcium [Crestor] 20 mg PO QPM 06/29/19 06/19/24 allopurinoL [Allopurinol] 100 mg PO DAILY 06/29/19 06/19/24 Latanoprost 0.005% Ophth Drops 1 drops LEFTEYE QPM 07/04/19 06/19/24 [Xalatan Ophth Drops] Levothyroxine [Synthroid] 100 mcg PO QDAC #15 tablet 07/08/19 06/19/24 Acetaminophen with Codeine 1 tab PO TID 06/19/24 06/19/24 [Acetaminophen-Cod #4 Tablet] Albuterol Sulf [Ventolin Hfa 2 puffs INH Q4HR PRN 06/19/24 06/19/24 Inhaler] Cholecalciferol (Vitamin D3) 1 cap PO DAILY 06/19/24 06/19/24 [Vitamin D3] Colestipol HCl [Colestid] 2 tab PO QPM 06/19/24 06/19/24 Cyanocobalamin (Vitamin B-12) 1 cap PO DAILY 06/19/24 06/19/24 [Vitamin B-12] Diphenoxylate/Atropine [Lomotil] 1 tab PO TID PRN 06/19/24 06/19/24 Diphenoxylate/Atropine [Lomotil] 2 tab PO BID 06/19/24 06/19/24 Latanoprost 0.005% Ophth Drops 1 drops EACHEYE QPM 06/19/24 06/19/24 [Xalatan Ophth Drops] Nystatin [Klayesta] 1 appful TOP BID 06/19/24 06/19/24 Pantoprazole [Protonix] 40 mg PO DAILY 06/19/24 06/19/24 Timolol Maleate/Pf [Timoptic 0.5% 1 drops EACHEYE DAILY 06/19/24 06/19/24 Ocudose Drop] methocarbamoL [Methocarbamol] 1 tab PO QID PRN 06/19/24 06/19/24 traZODone [Desyrel] 100 mg PO HS 06/19/24 06/19/24 - Allergies Allergies/Adverse Reactions: Allergies Allergy/AdvReac Type Severity Reaction Status Date / Time Penicillins Allergy Severe Hives Verified 06/19/24 11:34 vancomycin Allergy Severe chest pain Verified 06/19/24 11:34 sulfamethoxazole Allergy Hives Verified 06/19/24 11:34 [From Bactrim] trimethoprim [From Bactrim] Allergy Hives Verified 06/19/24 11:34 oxycodone [From OxyContin] AdvReac Intermediate Hallucinati Verified 06/19/24 11:34 ons aspartame AdvReac Diarrhea Verified 06/19/24 11:34 cefepime AdvReac Itching Verified 06/19/24 11:34 clindamycin AdvReac Unknown Verified 06/19/24 11:34 doxycycline AdvReac Nausea Verified 06/19/24 11:34 saccharin AdvReac Diarrhea Verified 06/19/24 11:34 stevioside [From Stevia] AdvReac Diarrhea Verified 06/19/24 11:34 sucralose AdvReac Diarrhea Verified 06/19/24 11:34 PD ED PE NORMAL - Vitals Vital signs reviewed: Yes - General General: Alert and oriented X 3 - HEENT HEENT: Atraumatic - Neck Neck: No bony TTP, Other (C-spine cannot be cleared due to obvious distracting injury of right ankle.) - Cardiac Cardiac: RRR, No murmur, No gallop, No rub - Respiratory Respiratory: No respiratory distress, Clear bilaterally - Abdomen Abdomen: Normal bowel sounds, Soft, Non tender, Non distended - Female Female : Deferred, Pt declined - Rectal Rectal: Deferred - Back Back: No spinal TTP - Derm Derm: Normal color, Warm and dry, Other (Abrasion noted to medial portion of right ankle.) - Extremities Extremities: Other (Obvious deformity on arrival to right ankle with tenting noted to skin of medial right ankle. Patient's foot held in eversion due to deformity. Palpable pulses DP and PT intact. Capillary refill intact. Digits 1 through 5 on right leg patient able to move. No other obvious deformity on physical) - Neuro Neuro: Alert and oriented X 3 Eye Opening: Spontaneous Motor: Obeys Commands Verbal: Oriented GCS Score: 15 Results - Vitals Vitals: Vital Signs - 24 hr 06/19/24 06/19/24 06/19/24 11:28 12:32 12:37 Temperature 36.4 C L 36.0 C L 36.0 C L Heart Rate 74 69 71 Heart Rate [ Brachial] Respiratory 20 12 14 Rate Blood Pressure 156/65 H 147/88 H 132/86 H Blood Pressure [Right Brachial artery] O2 Saturation 100 98 100 If not protocol 2 2 : Oxygen Flow, liters/minute 06/19/24 06/19/24 06/19/24 12:42 12:47 13:02 Temperature 36.1 C L 36.0 C L Heart Rate 69 72 67 Heart Rate [ Brachial] Respiratory 11 L 15 20 Rate Blood Pressure 132/86 H 142/71 H 157/67 H Blood Pressure [Right Brachial artery] O2 Saturation 98 100 100 If not protocol 2 2 2 : Oxygen Flow, liters/minute 06/19/24 06/19/24 06/19/24 13:07 13:37 14:07 Temperature 36.2 C L 36.4 C L 36.6 C Heart Rate 70 74 81 Heart Rate [ Brachial] Respiratory 9 L 16 26 H Rate Blood Pressure 152/69 H 133/62 H 143/81 H Blood Pressure [Right Brachial artery] O2 Saturation 97 100 99 If not protocol 2 : Oxygen Flow, liters/minute 06/19/24 06/19/24 06/19/24 14:34 16:49 16:55 Temperature 36.8 C Heart Rate 70 84 81 Heart Rate [ Brachial] Respiratory 20 18 19 Rate Blood Pressure 124/110 H 103/46 L 123/69 Blood Pressure [Right Brachial artery] O2 Saturation 99 100 99 If not protocol : Oxygen Flow, liters/minute 06/19/24 06/19/24 06/19/24 17:00 17:05 17:10 Temperature 36.4 C L Heart Rate 80 80 80 Heart Rate [ Brachial] Respiratory 15 21 17 Rate Blood Pressure 93/35 L 102/38 L 108/36 L Blood Pressure [Right Brachial artery] O2 Saturation 97 99 99 If not protocol : Oxygen Flow, liters/minute 06/19/24 06/19/24 06/19/24 17:15 17:20 17:27 Temperature 36.4 C L Heart Rate 74 74 Heart Rate [ 72 Brachial] Respiratory 16 16 16 Rate Blood Pressure 90/62 111/79 Blood Pressure 122/50 L [Right Brachial artery] O2 Saturation 98 99 97 If not protocol : Oxygen Flow, liters/minute 06/19/24 06/19/24 06/19/24 17:39 17:55 18:34 Temperature 36.4 C L 36.4 C L Heart Rate Heart Rate [ 73 78 75 Brachial] Respiratory 16 16 18 Rate Blood Pressure Blood Pressure 121/50 L 135/49 H 163/67 H [Right Brachial artery] O2 Saturation 98 98 99 If not protocol : Oxygen Flow, liters/minute Oxygen O2 Source Room air - Labs Labs: Laboratory Tests 06/19/24 06/19/24 06/19/24 11:29 11:29 11:29 WBC 10.2 RBC 4.19 L Hgb 11.4 L Hct 35.4 L MCV 84.5 MCH 27.2 MCHC 32.2 RDW 14.9 Plt Count 140 MPV 9.8 Neut # (Auto) 7.1 H Lymph # (Auto) 2.2 [place] # (Auto) 0.7 Eos # (Auto) 0.1 Baso # (Auto) 0.0 Absolute Nucleated RBC 0.00 Nucleated RBC % 0.0 PT 13.9 H INR 1.3 H Sodium 133 L Potassium 3.7 Chloride 100 L Carbon Dioxide 24 Anion Gap 9.0 BUN 33 H Creatinine 1.2 Estimated GFR (MDRD) 42 L Glucose 108 H POC Whole Bld Glucose Calcium 8.9 Total Bilirubin 0.7 AST 14 ALT 24 Alkaline Phosphatase 87 Total Protein 5.6 L Albumin 3.2 Globulin 2.4 Albumin/Globulin Ratio 1.3 06/19/24 16:53 WBC RBC Hgb Hct MCV MCH MCHC RDW Plt Count MPV Neut # (Auto) Lymph # (Auto) [place] # (Auto) Eos # (Auto) Baso # (Auto) Absolute Nucleated RBC Nucleated RBC % PT INR Sodium Potassium Chloride Carbon Dioxide Anion Gap BUN Creatinine Estimated GFR (MDRD) Glucose POC Whole Bld Glucose 145 H Calcium Total Bilirubin AST ALT Alkaline Phosphatase Total Protein Albumin Globulin Albumin/Globulin Ratio PD Medical Decision Making - ED course Complexity details: reviewed old records, reviewed results, re-evaluated patient, considered differential, d/w patient, d/w family ED course: Patient is an 89-year-old female presenting to the emergency department after a ground-level fall after sustaining a cramp to her lower back and falling on the stairs. Patient does not recall hitting her head but is on blood thinners for history of PEs. Modified trauma was called on patient's arrival and patient sent for CT scan of head. Patient sustained obvious deformity to right ankle. Tenting noted to skin of right medial portion of ankle. She remains neurovascularly intact and is able to move digits 1 through 5. Patient has previous arthroplasty to right knee. No fibular head tenderness. Minimal abrasion noted to medial portion of right ankle. 1206: Discussed case with Dr. Ramirez from orthopedics.He will come evaluate patient given concerning factors for patient being on Eliquis and significant displaceme nt of fracture. He was made aware concern for possible open fracture given abrasion to medial malleolus. Patient already received 2 g of Ancef here in the emergency department. Sedation performed starting at 1234 and ended at 1245. Patient did desat to 50 during sedation however after bag breathing for 30 seconds she came to and oxygen improved to 98%. Patient was A&O x 3 and pain improved after treatment. 1324:Dr. Ramirez evaluated patient here in emergency department plan for surgery today given concern for open fracture and last dose of Eliquis was yesterday. Patient consented by Dr. Ramirez for surgery. CT scan of head and neck returned negative for acute fracture or acute intracranial pathology. Departure - Departure Disposition: ED Transfer to [facility] Discharge Date/Time: 06/19/24 14:35
[2024-06-19 11:37] LABS: BASOPHILS % (AUTO) 0.1 %; EOSINOPHILS # (AUTO) 0.1 10^3/uL (0.0-0.7); EOSINOPHILS % (AUTO) 1.1 %; HCT - HEMATOCRIT 35.4 % (37.0-47.0); HGB - HEMOGLOBIN 11.4 g/dL (12.0-16.0); LYMPHOCYTES # (AUTO) 2.2 10^3/uL (1.5-3.5); LYMPHOCYTES % (AUTO) 21.3 %; MEAN CORPUSCULAR HEMOGLOBIN 27.2 pg (27.0-31.0); MEAN CORPUSCULAR HGB CONC 32.2 g/dL (32.0-36.0); MEAN CORPUSCULAR VOLUME 84.5 fL (81.0-99.0); MEAN PLATELET VOLUME 9.8 fL (7.9-10.8); MONOCYTES # (AUTO) 0.7 10^3/uL (0.0-1.0); NEUTROPHILS # (AUTO) 7.1 10^3/uL (1.5-6.6); NEUTROPHILS % (AUTO) 68.8 %; PLT - PLATELET COUNT 140 10^3/uL (130-450); RED BLOOD COUNT 4.19 10^6/uL (4.20-5.40); RED CELL DISTRIBUTION WIDTH 14.9 % (12.0-15.0); WHITE BLOOD COUNT 10.2 x10^3/uL (4.8-10.8)
[2024-06-19 11:42] LABS: INR 1.3 (0.8-1.2); PT - PROTHROMBIN TIME 13.9 secs (9.9-12.6)
[2024-06-19] MEDS: MORPHINE 2 MG/ML CARPUJECT IVP STA (11:47)
[2024-06-19] MEDS: SODIUM CHLORIDE 0.9% 1,000 ML IV STA (11:48)
[2024-06-19 11:49] LABS: ALBUMIN 3.2 g/dL (3.2-5.5); ALBUMIN/GLOBULIN RATIO 1.3 (1.0-2.2); BILIRUBIN,TOTAL 0.7 mg/dL (0.2-1.0); CALCIUM 8.9 mg/dL (8.5-10.3); CREATININE 1.2 mg/dL (0.6-1.3); POTASSIUM 3.7 mmol/L (3.5-4.5); TOTAL PROTEIN 5.6 g/dL (6.4-8.9)
[2024-06-19] MEDS: ceFAZolin (2G) 2 GM in SODIUM CHLORIDE 0.9% 100ML 100 ML IV STA (12:00)
[2024-06-19] MEDS: fentaNYL 100 MCG/2 ML VIAL IVP STA (12:17)
[2024-06-19] MEDS: PROPOFOL 200 MG/20 ML VIAL IVP STA (12:34)
--- NOTE | 2024-06-19 12:38 | ED Physician Documentation ---
History of Present Illness - Stated complaint Stated Complaint: GLF - Chief complaint Chief Complaint: Trauma Ext - Additonal information Additional information: See the PAs note for full H&P. I was involved for sedation for reduction. 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: Endometriosis : Renal insuffiency Musculoskeletal: Osteoarthritis, Gout - Past Surgical History Past Surgical History: Yes General: Cholecystectomy, Appendectomy, Bowel surgery, Other Ortho: Knee replacement, Arthroscopic surgery /BILLING COORDINATOR: Tubal ligation, Hysterectomy Cardiovascular: Valve replacement HEENT: Tonsil/Adenoidectomy Derm: Skin cancer surgery - Present Medications Home Medications: Ambulatory Orders Medication Instructions Recorded Confirmed Apixaban [Eliquis] 2.5 mg PO DAILY 06/29/19 06/17/24 Dulaglutide [Trulicity] 1.5 mg SQ LUGO 06/29/19 06/17/24 Gabapentin [Gralise] 1,200 mg PO TID 06/29/19 06/17/24 Glipizide [Glipizide ER] 5 mg PO QID 06/29/19 06/17/24 Rosuvastatin Calcium [Crestor] 40 mg PO QPM 06/29/19 06/17/24 allopurinoL [Allopurinol] 100 mg PO QPM 06/29/19 06/17/24 Latanoprost 0.005% Ophth Drops 1 drops LEFTEYE QPM 07/04/19 06/17/24 [Xalatan Ophth Drops] Levothyroxine [Synthroid] 100 mcg PO QDAC #15 tablet 07/08/19 06/17/24 Dm/Pseudoephed/Acetaminoph/Cpm 1 each PO DAILY PRN #10 tab 06/17/24 [Tylenol Cold-Flu Mult D-N Cplt] - Allergies Allergies/Adverse Reactions: Allergies Allergy/AdvReac Type Severity Reaction Status Date / Time Penicillins Allergy Severe Hives Verified 06/19/24 11:34 vancomycin Allergy Severe chest pain Verified 06/19/24 11:34 sulfamethoxazole Allergy Hives Verified 06/19/24 11:34 [From Bactrim] trimethoprim [From Bactrim] Allergy Hives Verified 06/19/24 11:34 oxycodone [From OxyContin] AdvReac Intermediate Hallucinati Verified 06/19/24 11:34 ons aspartame AdvReac Diarrhea Verified 06/19/24 11:34 cefepime AdvReac Itching Verified 06/19/24 11:34 clindamycin AdvReac Unknown Verified 06/19/24 11:34 doxycycline AdvReac Nausea Verified 06/19/24 11:34 saccharin AdvReac Diarrhea Verified 06/19/24 11:34 stevioside [From Stevia] AdvReac Diarrhea Verified 06/19/24 11:34 sucralose AdvReac Diarrhea Verified 06/19/24 11:34 - Social History Does the pt smoke?: No Smoking Status: Never smoker Does the pt drink ETOH?: No Does the pt have substance abuse?: No - Immunizations Immunizations are current?: Yes - POLST Patient has POLST: No POLST Status: Full Code Results - Vitals Vitals: Vital Signs - 24 hr 06/19/24 11:28 Temperature 36.4 C L Heart Rate 74 Respiratory 20 Rate Blood Pressure 156/65 H O2 Saturation 100 Oxygen O2 Source Room air - Labs Labs: Laboratory Tests 06/19/24 06/19/24 06/19/24 11:29 11:29 11:29 WBC 10.2 RBC 4.19 L Hgb 11.4 L Hct 35.4 L MCV 84.5 MCH 27.2 MCHC 32.2 RDW 14.9 Plt Count 140 MPV 9.8 Neut # (Auto) 7.1 H Lymph # (Auto) 2.2 [place] # (Auto) 0.7 Eos # (Auto) 0.1 Baso # (Auto) 0.0 Absolute Nucleated RBC 0.00 Nucleated RBC % 0.0 PT 13.9 H INR 1.3 H Sodium 133 L Potassium 3.7 Chloride 100 L Carbon Dioxide 24 Anion Gap 9.0 BUN 33 H Creatinine 1.2 Estimated GFR (MDRD) 42 L Glucose 108 H Calcium 8.9 Total Bilirubin 0.7 AST 14 ALT 24 Alkaline Phosphatase 87 Total Protein 5.6 L Albumin 3.2 Globulin 2.4 Albumin/Globulin Ratio 1.3 Procedures - Procedural sedation Sedation prep: Informed consent, PE performed, ASA 2 - mild disease Sedation Medications: propofol (50 then 25mg IVP total 75mg) Mallampati classification: II Patient status during sedation: Unresponsive Sedation recovery: Recovered uneventfully Time in sedation (Minutes): 15 Departure - Departure
[2024-06-19] MEDS ORDERED: ceFAZolin 1 GM in SODIUM CHLORIDE 0.9% MINIBAG 100 ML IV SCH ×2 (13:00→21:30)
--- NOTE | 2024-06-19 13:07 | XRAY Report ---
PROCEDURE: Tib/Fib RT INDICATIONS: right leg injury TECHNIQUE: 2 views of the tibia and fibula were acquired. COMPARISON: None. FINDINGS: Bones: Total knee prosthesis in good position. Proximal tib-fib unremarkable. The small vessel ather osclerotic vascular calcification. fracture or dislocation noted distally Soft tissues: No suspicious soft tissue calcifications or masses. IMPRESSION: Comminuted fracture dislocation distal tib-fib with anterior medial dislocation at the tibiotalar hien nt Reviewed by: Jamar Arnold MD on 06/19/2024 12:06 PM AKEYAD Approved by: Jamar Arnold MD on 06/19/2024 12:06 PM AKDT Station ID: [id number]
--- NOTE | 2024-06-19 13:44 | XRAY Report ---
PROCEDURE: Ankle 1-2V RT INDICATIONS: right ankle fracture TECHNIQUE: 3 views of the ankle were acquired. COMPARISON: None FINDINGS: Bones: Distal fibular fracture and medial malleolus fracture has been significantly reduced. Appropr iate tibiotalar articulation. Minimal persistent medial subluxation of the distal tibia over the talu s. Overlying fiberglass splint. Soft tissues: Unremarkable without significant soft tissue swelling. No radiopaque foreign body. IMPRESSION: Tibiotalar fracture dislocation now in near anatomic alignment now in overlying fiberglass cast Reviewed by: Jamar Arnold MD on 06/19/2024 12:43 PM AKDT Approved by: Jamar Arnold MD on 06/19/2024 12:43 PM AKDT Station ID: [id number]
[2024-06-19] MEDS ORDERED: ATROPINE ABBOJECT 1 MG/10 ML SYRINGE IVP PRN (13:53)
[2024-06-19] MEDS ORDERED: ONDANSETRON 4 MG/2 ML VIAL IVP PRN (13:53)
[2024-06-19] MEDS ORDERED: ePHEDrine 50 MG/ML VIAL IVP PRN (13:53)
[2024-06-19] MEDS ORDERED: METOCLOPRAMIDE 10 MG/2 ML VIAL IVP PRN (13:53)
[2024-06-19] MEDS ORDERED: NALOXONE 0.4 MG/ML VIAL IVP PRN (13:53)
[2024-06-19] MEDS ORDERED: MORPHINE 2 MG/ML CARPUJECT IVP PRN (13:53)
[2024-06-19] MEDS ORDERED: HYDROmorphone 0.5 MG/0.5 ML SYRINGE IVP PRN (13:53)
[2024-06-19] MEDS ORDERED: fentaNYL 100 MCG/2 ML VIAL IVP PRN (13:53)
--- NOTE | 2024-06-19 13:53 | ANESTHESIA ---
Pre-Anesthesia VS, & Labs - Diagnosis Right ankle fracture - Procedure ORIF right ankle fracture Vital Signs: Temp Pulse Resp BP Pulse Ox O2 Flow Rate 36.2 C L 70 9 L 152/69 H 97 2 06/19/24 13:07 06/19/24 13:07 06/19/24 13:07 06/19/24 13:07 06/19/24 13:07 06/19/24 13:07 Height: 5 ft 2 in Weight (kg): 70.307 kg Body Mass Index: 28.3 BMI Classification: Overweight - NPO >8 hours - Is Patient ?: No - Lab Results Current Lab Results: Laboratory Tests 06/19/24 11:29: Sodium 133 L, Potassium 3.7, Chloride 100 L, Carbon Dioxide 24, Anion Gap 9.0, BUN 33 H, Creatinine 1.2, Estimated GFR (MDRD) 42 L, Glucose 108 H, Calcium 8.9, Total Bilirubin 0.7, AST 14, ALT 24, Alkaline Phosphatase 87, Total Protein 5.6 L, Albumin 3.2, Globulin 2.4, Albumin/Globulin Ratio 1.3 06/19/24 11:29: PT 13.9 H, INR 1.3 H 06/19/24 11:29: WBC 10.2, RBC 4.19 L, Hgb 11.4 L, Hct 35.4 L, MCV 84.5, MCH 27.2, MCHC 32.2, RDW 14.9, Plt Count 140, MPV 9.8, Neut # (Auto) 7.1 H, Lymph # (Auto) 2.2, [place] # (Auto) 0.7, Eos # (Auto) 0.1, Baso # (Auto) 0.0, Absolute Nucleated RBC 0.00, Nucleated RBC % 0.0 Fish Bones: 06/19/24 11:29 06/19/24 11:29 Home Medications and Allergies Active Medications Cefazolin Sodium 1 gm/ Sodium (Chloride) 100 mls @ 200 mls/hr IV Q12H JUNE Apixaban [Eliquis] 2.5 mg PO DAILY 06/29/19 Dulaglutide [Trulicity] 1.5 mg SQ LUGO 06/29/19 Gabapentin [Gralise] 1,200 mg PO TID 06/29/19 Glipizide [Glipizide ER] 5 mg PO QID 06/29/19 Rosuvastatin Calcium [Crestor] 40 mg PO QPM 06/29/19 allopurinoL [Allopurinol] 100 mg PO QPM 06/29/19 Latanoprost 0.005% Ophth Drops [Xalatan Ophth Drops] 1 drops LEFTEYE QPM 07/04/19 Allergies/Adverse Reactions: Allergies Allergy/AdvReac Type Severity Reaction Status Date / Time Penicillins Allergy Severe Hives Verified 06/19/24 11:34 vancomycin Allergy Severe chest pain Verified 06/19/24 11:34 sulfamethoxazole Allergy Hives Verified 06/19/24 11:34 [From Bactrim] trimethoprim [From Bactrim] Allergy Hives Verified 06/19/24 11:34 oxycodone [From OxyContin] AdvReac Intermediate Hallucinati Verified 06/19/24 11:34 ons aspartame AdvReac Diarrhea Verified 06/19/24 11:34 cefepime AdvReac Itching Verified 06/19/24 11:34 clindamycin AdvReac Unknown Verified 06/19/24 11:34 doxycycline AdvReac Nausea Verified 06/19/24 11:34 saccharin AdvReac Diarrhea Verified 06/19/24 11:34 stevioside [From Stevia] AdvReac Diarrhea Verified 06/19/24 11:34 sucralose AdvReac Diarrhea Verified 06/19/24 11:34 Anes History & Medical History - Anesthetic History Anesthesia Complications: reports: No previous complications - Medical History Cardiovascular: reports: Pulmonary embolism, Valve disorder Gastrointestinal: reports: C.difficile Urinary: reports: Renal insuffiency Neuro: reports: Headaches Musculoskeletal: reports: Osteoarthritis, Gout Endocrine/Autoimmune: reports: Type 2 diabetes, HyPOthyroidism Smoking Status: Never smoker - Surgical History General: reports: Cholecystectomy, Appendectomy, Bowel surgery, Other Eyes Ears Nose Throat (EENT): reports: Tonsil/Adenoidectomy Cardiothoracic: reports: Valve replacement Gynecologic: reports: Tubal ligation, Hysterectomy Orthopedic: reports: Knee replacement, Arthroscopic surgery Dermatologic: reports: Skin cancer surgery Exam General: Alert, Oriented x3, Cooperative Dental: WNL Mouth Opening: Greater than 4 Fingerbreadths Neck Mobility: Normal Mallampati classification: II Thyromental Distance: greater than 6 cm Respiratory: Lungs clear, Decreased breath sounds Cardiovascular: Regular rate Plan Anesthesia Type: General Consent for Procedure(s) Verified and Reviewed: Yes Code Status: Attempt Resuscitation ASA classification: 3-Severe systemic disease Is this case an emergency?: Yes (open fracture)
--- NOTE | 2024-06-19 13:54 | HISTORY & PHYSICAL EXAMINATION ---
HPI - History of Present Illness HPI Comment/Other: Alcira Griffin is a 89-year-old woman who apparently fell backwards as she attempted to enter her recreational vehicle and twisted her right ankle. Also bumped her head with this fall. She had obvious deformity and pain in her ankle. Was taken to the emergency room here at [facility] where x-rays showed a displaced grade 1 open right bimalleolar ankle fracture. Patient currently is on Eliquis for prophylaxis due to her mechanical aortic valve replacement. 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 Diff; status post colon resection in the past; hx of hypothyroidism. Current medications: Eliquis 2.5 mg a day; allopurinol 100 mg a day; Crestor 25 mg p.o. daily; Synthroid 100 mcg daily. Allergies: Penicillin vancomycin oxycodone sulfa drug Social & Family Hx - Social History Does the pt smoke?: No Smoking Status: Never smoker Does the pt drink ETOH?: No Does the pt have substance abuse?: No - POLST Patient has POLST: No POLST Status: Full Code Meds/Allgy - Home Medications Home Medications: Ambulatory Orders Medication Instructions Recorded Confirmed Apixaban [Eliquis] 2.5 mg PO DAILY 06/29/19 06/17/24 Dulaglutide [Trulicity] 1.5 mg SQ LUGO 06/29/19 06/17/24 Gabapentin [Gralise] 1,200 mg PO TID 06/29/19 06/17/24 Glipizide [Glipizide ER] 5 mg PO QID 06/29/19 06/17/24 Rosuvastatin Calcium [Crestor] 40 mg PO QPM 06/29/19 06/17/24 allopurinoL [Allopurinol] 100 mg PO QPM 06/29/19 06/17/24 Latanoprost 0.005% Ophth Drops 1 drops LEFTEYE QPM 07/04/19 06/17/24 [Xalatan Ophth Drops] Levothyroxine [Synthroid] 100 mcg PO QDAC #15 tablet 07/08/19 06/17/24 Dm/Pseudoephed/Acetaminoph/Cpm 1 each PO DAILY PRN #10 tab 06/17/24 [Tylenol Cold-Flu Mult D-N Cplt] - Allergies Allergies/Adverse Reactions: Allergies Allergy/AdvReac Type Severity Reaction Status Date / Time Penicillins Allergy Severe Hives Verified 06/19/24 11:34 vancomycin Allergy Severe chest pain Verified 06/19/24 11:34 sulfamethoxazole Allergy Hives Verified 06/19/24 11:34 [From Bactrim] trimethoprim [From Bactrim] Allergy Hives Verified 06/19/24 11:34 oxycodone [From OxyContin] AdvReac Intermediate Hallucinati Verified 06/19/24 11:34 ons aspartame AdvReac Diarrhea Verified 06/19/24 11:34 cefepime AdvReac Itching Verified 06/19/24 11:34 clindamycin AdvReac Unknown Verified 06/19/24 11:34 doxycycline AdvReac Nausea Verified 06/19/24 11:34 saccharin AdvReac Diarrhea Verified 06/19/24 11:34 stevioside [From Stevia] AdvReac Diarrhea Verified 06/19/24 11:34 sucralose AdvReac Diarrhea Verified 06/19/24 11:34 Exam - Vital Signs Vital Signs: Vital Signs x48h Temp Pulse Resp BP Pulse Ox O2 Flow Rate 06/19/24 13:07 36.2 C L 70 9 L 152/69 H 97 2 06/19/24 13:02 67 20 157/67 H 100 2 06/19/24 12:47 36.0 C L 72 15 142/71 H 100 2 06/19/24 12:42 36.1 C L 69 11 L 132/86 H 98 2 06/19/24 12:37 36.0 C L 71 14 132/86 H 100 2 06/19/24 12:32 36.0 C L 69 12 147/88 H 98 2 06/19/24 11:28 36.4 C L 74 20 156/65 H 100 - Physical Exam General Appearance: positive: Alert, Moderate distress Eyes Bilateral: positive: Normal inspection ENT: positive: ENT inspection nml Neck: positive: Nml inspection Respiratory: positive: Breath sounds nml Abdomen: positive: Non-tender Neurologic/Psychiatric: positive: Oriented x3 (Examination: Left leg is in the short leg posterior splint. Patient's sensation is intact on the dorsum of her foot. Moves her toes on command. Good capillary filling noted at the digits. X-rays that were taken recently reviewed. Initial set of films show the ang ulated and displaced bimalleol) Results - Lab Results Fish Bones: 06/19/24 11:29 06/19/24 11:29 Other Lab Results: Lab Results x24hrs 06/19/24 06/19/24 06/19/24 Range/Units 11:29 11:29 11:29 WBC 10.2 (4.8-10.8) x10^3/uL RBC 4.19 L (4.20-5.40) 10^6/uL Hgb 11.4 L (12.0-16.0) g/dL Hct 35.4 L (37.0-47.0) % MCV 84.5 (81.0-99.0) fL MCH 27.2 (27.0-31.0) pg MCHC 32.2 (32.0-36.0) g/dL RDW 14.9 (12.0-15.0) % Plt Count 140 (130-450) 10^3/uL MPV 9.8 (7.9-10.8) fL Neut # (Auto) 7.1 H (1.5-6.6) 10^3/uL Lymph # (Auto) 2.2 (1.5-3.5) 10^3/uL [place] # (Auto) 0.7 (0.0-1.0) 10^3/uL Eos # (Auto) 0.1 (0.0-0.7) 10^3/uL Baso # (Auto) 0.0 (0.0-0.1) 10^3/uL Absolute Nucleated RBC 0.00 x10^3/uL Nucleated RBC % 0.0 /100WBC PT 13.9 H (9.9-12.6) secs INR 1.3 H (0.8-1.2) Sodium 133 L (135-145) mmol/L Potassium 3.7 (3.5-4.5) mmol/L Chloride 100 L (101-111) mmol/L Carbon Dioxide 24 (21-32) mmol/L Anion Gap 9.0 (6-13) BUN 33 H (6-20) mg/dL Creatinine 1.2 (0.6-1.3) mg/dL Estimated GFR (MDRD) 42 L (>89) Glucose 108 H (74-104) mg/dL Calcium 8.9 (8.5-10.3) mg/dL Total Bilirubin 0.7 (0.2-1.0) mg/dL AST 14 (10-42) IU/L ALT 24 (10-60) IU/L Alkaline Phosphatase 87 (42-121) IU/L Total Protein 5.6 L (6.4-8.9) g/dL Albumin 3.2 (3.2-5.5) g/dL Globulin 2.4 (2.1-4.2) g/dL Albumin/Globulin Ratio 1.3 (1.0-2.2) Impression/Plan - Problem List Problem List: Problem list: #1 grade 1 open right bimalleolar ankle fracture 2. Chronic diarrhea with C.DIF 3. Status post colon resection in the past 4. History of mechanical aortic valve replacement 5. Anticoagulation with Eliquis secondary to #4 6. History of gout 7. History of hypothyroidism 8. History of hypercholesterolemia Plan: After patient has been cleared in the emergency room (a CT scan of the head is pending) we will plan on taking her to the operating room to do a irrigation debridement of her open right ankle An open reduction internal fixation of her right ankle fracture. Treatment options were explained to the patient and her daughter. The risk and benefits of surgery were also explained some of these risks include blood clot pulmonary embolus infection blood loss nerve damage malunion nonunion or hardware failure. All their questions were answered. They wish to proceed with surgery. Consents been signed. Leg marked.
[2024-06-19] MEDS ORDERED: BUPIVACAINE 0.25% PF 10 ML VIAL ONE (13:57)
[2024-06-19] MEDS ORDERED: LACTATED RINGERS 1,000 ML IV SCH (14:00)
[2024-06-19] MEDS ORDERED: LIDOCAINE-PF 2% 10 ML AMP SUBQ ONE (14:04)
[2024-06-19] MEDS ORDERED: PROPOFOL 200 MG/20 ML VIAL IVP ONE (14:04)
[2024-06-19] MEDS ORDERED: ROCURONIUM 50 MG/5 ML VIAL ONE (14:04)
[2024-06-19] MEDS ORDERED: fentaNYL 100 MCG/2 ML VIAL ONE (14:05)
--- NOTE | 2024-06-19 14:19 | CT Report ---
PROCEDURE: Head WO INDICATIONS: fall on eliquis TECHNIQUE: Noncontrast 4.5 mm thick angled axial sections acquired from the foramen magnum to the vertex. For r adiation dose reduction, the following was used: automated exposure control, adjustment of mA and/or kV according to patient size. COMPARISON: 05/20/2024. FINDINGS: Image quality: Excellent. CSF spaces: Basal cisterns are patent. No extra-axial fluid collections. Ventricles are normal in size and shape. Brain: No midline shift. No intracranial masses or hemorrhage. Fairchild-white matter interface is norm al. 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 Intrac ranial carotid calcifications. Age-related volume loss and small vessel ischemic change. Skull and face: Calvarium and visualized facial bones are intact, without suspicious lesions. Sinuses: Visualized sinuses and mastoids are clear. IMPRESSION: No acute intracranial pathology. Reviewed by: Randy Henderson MD on 06/19/2024 2:18 PM PDT Approved by: Randy Henderson MD on 06/19/2024 2:18 PM PDT Station ID: [id number]
--- NOTE | 2024-06-19 14:25 | CT Report ---
PROCEDURE: Cervical Spine WO INDICATIONS: distracting injury plus fall TECHNIQUE: Noncontrast 3 mm thick sections acquired from the skull base to the T4 level. Sagittal and coronal r eformats were then constructed. For radiation dose reduction, the following was used: automated exp osure control, adjustment of mA and/or kV according to patient size. COMPARISON: None. FINDINGS: Image quality: Excellent. Bones: No fractures or dislocations. Cervical spondylosis. Multilevel disc height loss. Multilevel facet hypertrophy. Question canal stenosis at C3-C4. Bilateral multilevel facet arthropathy, right gr eater than left. Visualized superior ribs are intact. Soft tissues: Prevertebral soft tissues are normal in thickness. No paravertebral hematomas. No ap ical pneumothoraces. Extensive carotid calcifications. IMPRESSION: 1. No acute cervical fracture or dislocation. 2. Cervical spondylosis. 3. ASCVD. Reviewed by: Randy Henderson MD on 06/19/2024 2:23 PM PDT Approved by: Randy Henderson MD on 06/19/2024 2:23 PM PDT Station ID: [id number]
[2024-06-19] MEDS ORDERED: ePHEDrine 50 MG/ML VIAL IVP ONE (14:47)
--- NOTE | 2024-06-19 14:50 | PHARMACY PROGRESS NOTE ---
- Best Possible Medication History Admit Date and Time: Processed by: Pharmacy Medication History completed: Yes Patient Interview: Pt unable to participate Secondary Source(s): Written medication list, Insurance records (CURRENT MEDICATIONS LIST PROVIDED BY [facility]OX[facility]) As the person ultimately responsible for medication therapy, providers are able to order a medication from an existing home medication list in [facility] via the "Reconcile Routine" prior to Confirmation of that medication by application support manager. Such practice is discouraged except when the physician, in their clinical judgment, deems that a medical need exists for a medication without regard to previous use.
[2024-06-19] MEDS ORDERED: DEXAMETHASONE 4 MG/ML VIAL ONE ×2 (15:50→15:56)
[2024-06-19] MEDS ORDERED: ONDANSETRON 4 MG/2 ML VIAL ONE (15:50)
[2024-06-19] MEDS ORDERED: ACETAMINOPHEN 1,000 MG/100 ML 1,000 MG/100 ML BAG IV ONE (15:51)
[2024-06-19] MEDS ORDERED: ROPIVACAINE 0.5% PF 20 ML VIAL ONE (15:54)
[2024-06-19] MEDS ORDERED: SUGAMMADEX 200 MG/2 ML VIAL IVP ONE (16:15)
[2024-06-19] MEDS ORDERED: DOCUSATE SODIUM 100 MG CAPSULE PO PRN (16:33)
[2024-06-19] MEDS ORDERED: DIPHENOX/ATROPINE 2.5/0.025 MG TABLET PO PRN (16:42)
[2024-06-19] MEDS: LACTATED RINGERS 100 ML IV ONE (16:49)
--- NOTE | 2024-06-19 17:00 | OPERATIVE REPORT ---
Operative Report - General Procedure Date: 06/19/24 Planned Procedure: Irrigation debridement of open wound; open reduction and internal fixation of right bimalleolar ankle fracture Pre-Op Diagnosis: Grade 1 open right bimalleolar ankle fracture Procedure Performed: Irrigation debridement of open wound; open duction internal fixation of right bimalleolar ankle fracture Post Op Diagnosis: Same - Procedure Note Primary Surgeon: Shirin Ramirez MD Anesthesia Provider: Radha Gipson CRNA Anesthesia Technique: General ET tube IV Fluids (mL): 1,000 Estimated Blood Loss (mL): 200 Complications: None - Other Other Information/Narrative: Description of procedure: Patient is taken the operating room from the emergency room on the day of her admission where she was placed under general anesthetic in supine position without complications. We then placed the thigh pneumatic tourniquet on the right thigh but it was not inflated during the case. A bump was placed under the right hip as well. We then removed her short leg posterior splint. Prepped and draped the leg free in usual fashion for our procedure. We opened up the medial ankle wound and copiously irrigated the wound which communicated to the medial malleolar ankle fracture. We displaced medial malleolar fragment and had access to the joint. We irrigated out the joint as well. We then directed our attention laterally. Dual longitudinal lateral skin i ncision we dissected to the from the mid fibular shaft down to the tip of the lateral malleolus. Periosteal elevator used to remove the periosteum on the edges of the fracture. Curette used to remove the fracture hematoma. Fracture was essentially out to length after we have exposed that. We then applied an appropriate length periarticular fibular plate spanning our fracture. We then proceeded to fill in standard technique the appropriate length 3 to 5 mm cortical screws into the proximal 4 holes of our plate. Distally the most distal 4 holes at the distal end of the plate were then anchored into place using 3 to 5 mm locking screws of the appropriate length. Finally in the mid section of the plate we inserted to 3.5 millimeter cortical screws the appropriate length. Fluoroscopic view show good fixation of our fracture to the plate as well as a good alignment of the fracture. We then directed again to our attention medially. Exposing the fracture again we distracted it and removed a small amount of fracture hematoma with a small curette. We then reduced the fracture under direct vision using a towel clip reduction clamp. Satisfied with the reduction we then proceeded to insert 2 threaded tip to the 5 mm guidepins across the fracture. We then perforated the cortical border of the medial malleolar fragment with a cannulated 2 that 7 mm cannulated drill. Next we proceeded to insert 2-4.0 millimeter cancellous cannulated short threaded screws over the inserted guidepins. We obtained good purchase of the screws. We removed the guidepins. Permanent plain films were then taken of the ankle and the fracture in both AP mortise and lateral views. We were satisfied to reduction of the fractures and satisfactory placement of the hardware. We then irrigated the wounds out thoroughly with saline. We then closed the wounds in layers using buried simple stitches of 3-0 Vicryl approximate the subcutaneous tissues finally skin yogesh used approximate the skin edge. We then washed the leg and dressed the wounds with Xeroform gauze 4 x 4 sterile Webril and a short leg posterior splint was then applied to the extremity. Patient was awoken from anesthesia and taken recovery room in satisfactory condition. Estimated blood loss: 200 mL Replacement: 1000 mL crystalloid Intraoperative complications: None Plan: Patient will be seen by physical therapist in the morning and if is independent we will plan on her discharge to home.
--- NOTE | 2024-06-19 17:29 | ANESTHESIA POST OP EVALUATION ---
Anesthesia Post Eval - Post Anesthesia Eval Vitals: Last Vital Signs Temp 36.4 C L 06/19/24 17:05 Pulse 74 06/19/24 17:20 Resp 16 06/19/24 17:20 BP 111/79 06/19/24 17:20 Pulse Ox 99 06/19/24 17:20 O2 Flow Rate 2 06/19/24 13:07 CV Function Including HR & BP: Stable Pain Control: Satisfactory Nausea & Vomiting: Negative Mental Status: Baseline Respiratory Status: Airway Patent Hydration Status: Satisfactory Anesthesia Complications: None
--- NOTE | 2024-06-19 17:39 | XRAY Report ---
PROCEDURE: OR C-Arm Procedure INDICATIONS: ANKLE FX TECHNIQUE: Intraoperative fluoroscopic guidance was provided and low-resolution fluoroscopic spot baldo ms were obtained. COMPARISON: None. FINDINGS: Low-resolution intraoperative spot films show distal fibular and medial malleolar fixation hardware in appropriate position IMPRESSION: Fluoroscopic guidance. Reviewed by: Jamar Arnold MD on 06/19/2024 4:38 PM PHILIP Approved by: Jamar Arnold MD on 06/19/2024 4:38 PM PHILIP Station ID: [id number]
[2024-06-19] MEDS: ACETAMINOPHEN 500 MG TABLET PO SCH (18:15)
[2024-06-19] MEDS: LACTATED RINGERS 1,000 ML IV SCH (18:15)
[2024-06-19] MEDS: SODIUM CHLORIDE FLUSH 0.9% 10 ML SYRINGE IVP SCH (18:16)
[2024-06-19] MEDS: methocarbamoL 500 MG TABLET PO PRN (18:16)
[2024-06-19] MEDS ORDERED: CELECOXIB 100 MG CAPSULE PO SCH (21:00)
[2024-06-19] MEDS: APIXABAN 2.5 MG TABLET PO SCH (23:18)
[2024-06-19] MEDS: ethyl alcohoL 62% SWAB AMPULE NAS SCH (23:18)
[2024-06-19] MEDS: ASPIRIN EC 81 MG TABLET PO SCH (23:18)
[2024-06-19] MEDS: ceFAZolin (2G) 2 GM in SODIUM CHLORIDE 0.9% MINIBAG 100 ML IV SCH (23:18)
[2024-06-19] MEDS: ATORVASTATIN 40 MG TABLET PO SCH (23:50)
[2024-06-20] MEDS: LATANOPROST 0.005% OPHTH DROPS EACHEYE SCH (00:19)
[2024-06-20] MEDS: TIMOLOL 0.5% OPHTH DROPS EACHEYE SCH (00:19)
[2024-06-20] MEDS: MORPHINE 2 MG/ML CARPUJECT IVP PRN (03:06)
[2024-06-20] MEDS: LEVOTHYROXINE 100 MCG TABLET PO SCH (06:30)
[2024-06-20] MEDS: allopurinoL 100 MG TABLET PO SCH (08:40)
[2024-06-20] MEDS: PANTOPRAZOLE 40 MG TABLET PO SCH (08:40)
--- NOTE | 2024-06-20 10:42 | Discharge Plan ---
Discharge Plan Problem Reviewed?: Yes Disposition: Home, Self Care Condition: Good Prescriptions: HYDROcod/ACETAM 5/325 [[place] 5/325] 1 - 2 tablet PO Q6H PRN #30 tablet PRN Reason: Pain Diet: Regular Activity Restrictions: Additional Comments (No weightbearing on splinted right leg Wheelchair or walker ambulation) Shower Restrictions: Yes (plastic wrap over splint) Driving Restrictions: No Assistance Devices: Wheelchair Weight Bearing: No Weight Plan of Treatment: Home nursing evaluation Home physical therapy and Occupational therapy for transfers and walker ambulation - nonweightbearing on splinted right leg Follow-Up Care: Home Health - RN, Home Health - PT, Home Health - OT No Smoking: If you smoke, Please STOP! Call for help. Follow-up with: ULYSSES GONZALEZ MD [Physician No Access] - 2 Weeks
--- NOTE | 2024-06-20 10:52 | DISCHARGE SUMMARY ---
Discharge Summary Admit Date: 06/19/24 Discharge Date: 06/20/24 Discharging Provider: Vitor Ramirez MD Code Status: Attempt Resuscitation Condition at Discharge: Good Discharge Disposition: 01 Home, Self Care - DIAGNOSES Admission Diagnoses: Open right ankle fracture Discharge Diagnoses with Status of Each Condition: Right ankle fracture - stable post op - HPI History of Present Illness: See dictated H&P - HOSPITAL COURSE Hospital Course: After ED evaluation, patient taken to OR for irrigation and debridement of ankle wound and open reduction and internal fixation of right ankle fracture. Benign post op course. By discharge, splint was ok, neurovascular intact in s plint. Home evaluation for PT/OT ordered. Transfers from bed to chair - NWB on right. Wheelchair and beside commode rental. Discharge transportation arrangements made - ALLERGIES Allergies/Adverse Reactions: Allergies Allergy/AdvReac Type Severity Reaction Status Date / Time Penicillins Allergy Severe Hives Verified 06/19/24 11:34 vancomycin Allergy Severe chest pain Verified 06/19/24 11:34 sulfamethoxazole Allergy Hives Verified 06/19/24 11:34 [From Bactrim] trimethoprim [From Bactrim] Allergy Hives Verified 06/19/24 11:34 oxycodone [From OxyContin] AdvReac Intermediate Hallucinati Verified 06/19/24 11:34 ons aspartame AdvReac Diarrhea Verified 06/19/24 11:34 cefepime AdvReac Itching Verified 06/19/24 11:34 clindamycin AdvReac Unknown Verified 06/19/24 11:34 doxycycline AdvReac Nausea Verified 06/19/24 11:34 saccharin AdvReac Diarrhea Verified 06/19/24 11:34 stevioside [From Stevia] AdvReac Diarrhea Verified 06/19/24 11:34 sucralose AdvReac Diarrhea Verified 06/19/24 11:34 - MEDICATIONS Home Medications: Ambulatory Orders Medication Instructions Recorded Confirmed Apixaban [Eliquis] 2.5 mg PO BID 06/29/19 06/19/24 Gabapentin [Gralise] 600 mg PO BID 06/29/19 06/19/24 Glipizide [Glipizide ER] 10 mg PO DAILY 06/29/19 06/19/24 Rosuvastatin Calcium [Crestor] 20 mg PO QPM 06/29/19 06/19/24 allopurinoL [Allopurinol] 100 mg PO DAILY 06/29/19 06/19/24 Latanoprost 0.005% Ophth Drops 1 drops LEFTEYE QPM 07/04/19 06/19/24 [Xalatan Ophth Drops] Levothyroxine [Synthroid] 100 mcg PO QDAC #15 tablet 07/08/19 06/19/24 Acetaminophen with Codeine 1 tab PO TID 06/19/24 06/19/24 [Acetaminophen-Cod #4 Tablet] Albuterol Sulf [Ventolin Hfa 2 puffs INH Q4HR PRN 06/19/24 06/19/24 Inhaler] Cholecalciferol (Vitamin D3) 1 cap PO DAILY 06/19/24 06/19/24 [Vitamin D3] Colestipol HCl [Colestid] 2 tab PO QPM 06/19/24 06/19/24 Cyanocobalamin (Vitamin B-12) 1 cap PO DAILY 06/19/24 06/19/24 [Vitamin B-12] Diphenoxylate/Atropine [Lomotil] 1 tab PO TID PRN 06/19/24 06/19/24 Diphenoxylate/Atropine [Lomotil] 2 tab PO BID 06/19/24 06/19/24 Latanoprost 0.005% Ophth Drops 1 drops EACHEYE QPM 06/19/24 06/19/24 [Xalatan Ophth Drops] Nystatin [Klayesta] 1 appful TOP BID 06/19/24 06/19/24 Pantoprazole [Protonix] 40 mg PO DAILY 06/19/24 06/19/24 Timolol Maleate/Pf [Timoptic 0.5% 1 drops EACHEYE DAILY 06/19/24 06/19/24 Ocudose Drop] methocarbamoL [Methocarbamol] 1 tab PO QID PRN 06/19/24 06/19/24 traZODone [Desyrel] 100 mg PO HS 06/19/24 06/19/24 Acetaminophen [Tylenol] 1,000 mg PO Q6H tab 06/20/24 Apixaban [Eliquis] 2.5 mg PO BID tab 06/20/24 Aspirin EC [Ecotrin] 81 mg PO BID tab 06/20/24 Docusate Sodium 100Mg Capsule 100 mg PO BID PRN cap 06/20/24 [Colace 100Mg Capsule] HYDROcod/ACETAM 5/325 [[place] 5/325] 1 - 2 tablet PO Q6H PRN #30 tablet 06/20/24 Levothyroxine [Synthroid] 100 mcg PO QDAC tab 06/20/24 allopurinoL [Zyloprim] 100 mg PO DAILY tab 06/20/24 - PHYSICAL EXAM AT DISCHARGE General Appearance: positive: No acute distress Physical Exam Other/Comments: Back to preop exam except for right lower extremity in short leg splint - LABS Result Diagrams: 06/19/24 11:29 06/19/24 11:29 - FOLLOW UP Follow Up: Orthopedic clinic in 2 weeks - TIME SPENT Time Spent in Discharge (Minutes): 45
--- NOTE | 2024-06-20 18:24 | Discharge Plan ---
"Discharge Plan for SNF / [facility] - Discharge Plan And Transition Orders Problem Reviewed?: Yes Disposition: 03 SNF DC/Xfer Condition: Good Allergies and Adverse Reactions: Allergies Allergy/AdvReac Type Severity Reaction Status Date / Time Penicillins Allergy Severe Hives Verified 06/19/24 11:34 vancomycin Allergy Severe chest pain Verified 06/19/24 11:34 sulfamethoxazole Allergy Hives Verified 06/19/24 11:34 [From Bactrim] trimethoprim [From Bactrim] Allergy Hives Verified 06/19/24 11:34 oxycodone [From OxyContin] AdvReac Intermediate Hallucinati Verified 06/19/24 11:34 ons aspartame AdvReac Diarrhea Verified 06/19/24 11:34 cefepime AdvReac Itching Verified 06/19/24 11:34 clindamycin AdvReac Unknown Verified 06/19/24 11:34 doxycycline AdvReac Nausea Verified 06/19/24 11:34 saccharin AdvReac Diarrhea Verified 06/19/24 11:34 stevioside [From Stevia] AdvReac Diarrhea Verified 06/19/24 11:34 sucralose AdvReac Diarrhea Verified 06/19/24 11:34 Health Concerns: fter ED evaluation, patient taken to OR for irrigation and debridement of ankle wound and open reduction and internal fixation of right ankle fracture. Benign post op course. By discharge, splint was ok, neurovascular intact in splint. Home evaluation for PT/OT ordered. Transfers from bed to chair - NWB on right. Wheelchair and beside commode rental. Discharge transportation arrangements made Plan of Treatment: Home nursing evaluation Home physical therapy and Occupational therapy for transfers and walker ambulation - nonweightbearing on splinted right leg Care Goals: To return to baseline functioning Assessment: S/P ORIF of acute right ankle fracture - SNF / LONG-TERM Transition Orders Admit to (Facility): [facility] Discharge Diagnosis: S/P ORIF of right ankle fracture Medicare Certification Statement: I certify that Post Hospital correction care is medically necessary on a continuing basis for any of the conditions for which she/he is receiving care during hospitalization. Notify PCP of admission and forward orders to primary provider for signature. Weight on admission and: Daily Other Notification Orders: Call PCP immediately if patient develops dyspnea, chest pain/tightness or edema. House Bowel Program: Yes Additional Bowel Program Orders: If no BM after 2 days, nurse may give M.O.M. 30ml PO PRN and/or ducolax Supp 1 MI and/or MACARIO 250mg P.O., and/or senna 1-2 tabs PO. On day 3 nurse may give repeat above order until residents constipation is resolved. Annual Influenza Vaccine (between Jul 05 and February 01): Yes Two-step PPD per [facility] [id number] or approved exception documents: Yes Orthopedic Orders: Physical and occupational therpy: Walker ambualtion - nonweightbearing on splinted right leg Medication Orders: PLEASE REFER TO THE DISCHARGE MEDICATION LIST. Insulin Orders?: No - Medications New Prescriptions: predniSONE [Deltasone] 20 mg PO DAILY #5 tab Gabapentin [Neurontin] 600 mg PO BID #60 cap HYDROcod/ACETAM 5/325 [[place] 5/325] 1 - 2 tablet PO Q6H PRN #14 tablet PRN Reason: Pain - Diet Type: Geriatric Texture: Regular Liquids: Thin May have monthly special meal: Yes - Therapies | Activity Therapy: Evaluation | Treat if indicated: PT, OT Rehabilitation Potential: Maximize functional status Activity: Non weight bearing right Weight Bearing: No Weight Extremities: NWBRLE Assistance Devices: Wheelchair, Walker Follow Up: Return to Orthopedic clinic (Dr. Mills) in 2 weeks"
[2024-06-20] MEDS: GABAPENTIN 300 MG CAPSULE PO SCH (20:54)
[2024-06-20] MEDS: predniSONE 20 MG TABLET PO SCH (20:55)
[2024-06-21] MEDS: ZINC OXIDE 20% OINT 30 GM TUBE TOP PRN (06:26)
[2024-06-21] MEDS: HYDROcod/ACETAM 5/325 MG TABLET PO PRN (10:07)
[2024-06-21] MEDS: HYDROcod/ACETAM 10 MG/325 MG TABLET PO PRN (17:02)
[2024-06-21] MEDS: SODIUM CHLORIDE FLUSH 0.9% 10 ML SYRINGE IVP PRN (18:08)
[2024-06-21] MEDS: HYDROmorphone 2 MG/ML VIAL IVP ONE (19:37)
--- NOTE | 2024-06-22 02:21 | PROVIDER PROGRESS NOTE ---
Subjective - Prog Note Date Prog Note Date: 06/22/24 Prog Note Time: 02:19 - Subjective Pt reports feeling: Worse (Splint is pinching) Objective - Vital Signs/Intake & Output Vital Signs: Vital Signs x48h Temp Pulse Resp BP Pulse Ox 06/22/24 00:40 36.6 C 75 16 152/72 H 96 06/21/24 21:00 36.7 C 71 16 133/61 H 96 Intake & Output: Intake & Output 06/19/24 06/20/24 06/21/24 06/22/24 23:59 23:59 23:59 23:59 Intake Total 1188.384 4629 Output Total 1825 1100 Balance 1603. - Lab Results Fish Bones: 06/19/24 11:29 06/19/24 11:29 - Other Results/Comments Other Results/Comments: EXAM: Splint changed. Skin inspected in medial heel where pain was. No skin break or discoloration or bruising seen Wound ok. Calf is soft After new splint applied. Pain much improved. Moving toes sensation ok. Good cap filling Assessment/Plan - Problem List (1) Open right ankle fracture Impression: improved after splint changed PLAN: Adjust pain meds as needed Sath cath due to bladder retention Dsicharge home in AM as planned Qualifiers: Encounter type: initial encounter
[2024-06-22] MEDS: HYDROmorphone 2 MG/ML VIAL IVP PRN (04:19)
[2024-06-22] MEDS: ACETAMINOPHEN 500 MG TABLET PO SCH (06:27)
--- NOTE | 2024-06-22 11:11 | CONSULTATION NOTE ---
Referring Provider Name of Referring Provider:: Dr. Jorge Mills Consult Date: 06/22/24 Chief Complaint - Chief Complaint Chief Complaint: Chest Pain History of Present Illness - Admitted From Admitted From:: Emergency Room - History Obtained From Records Reviewed: Yes History obtained from: Patient and Records - History of Present Illness HPI Comment/Other: Alcira Boss is an 89-year-old woman admitted on June 19, 2024 after a fall at home that resulted in a twisted right ankle. Patient was taken to the [facility] emergency room and x-ray revealed a displaced grade 1 open right bimalleolar ankle fracture. The patient takes Eliquis because she is status post mechanical aortic valve replacement. She was taken to the operating room on June 19, 2024 and underwent irrigation and debridement of open wound with open reduction internal fixation of right bimalleolar ankle fracture. I was requested to see the patient today because of chest pain. Patient reports she developed chest pain this morning and it has been ongoing for approximately 1 hour. She complains of sharp chest pain with inspiration and expiration. There are no relieving factors at this time. She denies nausea and vomiting and has no significant change in shortness of breath. She denies fevers and chills, arm pain and jaw pain. Alcira Boss recently had a transthoracic echocardiogram performed on May 05, 2024 which revealed normal LV wall thickness. The left ventricular ejection fraction is 60%. There is an impaired relaxation consistent with diastolic dysfunction. The right ventricle is normal in size and function. The RVSP at rest is 36 mmHg. There was a normally function bioprosthetic valve in the aortic position. There was no other significant valvular abnormalities noted. 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 Diff; status post colon resection in the past; hx of hypothyroidism. Current medications: Eliquis 2.5 mg a day; allopurinol 100 mg a day; Crestor 25 mg p.o. daily; Synthroid 100 mcg daily. Allergies: Penicillin vancomycin oxycodone sulfa drug - Family & Social History Family History: Mother: , Cancer, Father: , Cancer Family History Comment/Other: Patient report both of her parents had lung cancer but they were both smokers. Social History Notes: She lives in [place] but visits [facility] frequently as she has family here. She denies smoking but does drink alcohol at times. - Substance History Use: Uses substance without health or social issues: NONE - POLST Patient has POLST: No POLST Status: Full Code Meds/Allgy - Home Medications Home Medications: Ambulatory Orders Medication Instructions Recorded Confirmed Apixaban [Eliquis] 2.5 mg PO BID 06/29/19 06/19/24 Gabapentin [Gralise] 600 mg PO BID 06/29/19 06/19/24 Glipizide [Glipizide ER] 10 mg PO DAILY 06/29/19 06/19/24 Rosuvastatin Calcium [Crestor] 20 mg PO QPM 06/29/19 06/19/24 allopurinoL [Allopurinol] 100 mg PO DAILY 06/29/19 06/19/24 Latanoprost 0.005% Ophth Drops 1 drops LEFTEYE QPM 07/04/19 06/19/24 [Xalatan Ophth Drops] Levothyroxine [Synthroid] 100 mcg PO QDAC #15 tablet 07/08/19 06/19/24 Acetaminophen with Codeine 1 tab PO TID 06/19/24 06/19/24 [Acetaminophen-Cod #4 Tablet] Albuterol Sulf [Ventolin Hfa 2 puffs INH Q4HR PRN 06/19/24 06/19/24 Inhaler] Cholecalciferol (Vitamin D3) 1 cap PO DAILY 06/19/24 06/19/24 [Vitamin D3] Colestipol HCl [Colestid] 2 tab PO QPM 06/19/24 06/19/24 Cyanocobalamin (Vitamin B-12) 1 cap PO DAILY 06/19/24 06/19/24 [Vitamin B-12] Diphenoxylate/Atropine [Lomotil] 1 tab PO TID PRN 06/19/24 06/19/24 Diphenoxylate/Atropine [Lomotil] 2 tab PO BID 06/19/24 06/19/24 Latanoprost 0.005% Ophth Drops 1 drops EACHEYE QPM 06/19/24 06/19/24 [Xalatan Ophth Drops] Nystatin [Klayesta] 1 appful TOP BID 06/19/24 06/19/24 Pantoprazole [Protonix] 40 mg PO DAILY 06/19/24 06/19/24 Timolol Maleate/Pf [Timoptic 0.5% 1 drops EACHEYE DAILY 06/19/24 06/19/24 Ocudose Drop] methocarbamoL [Methocarbamol] 1 tab PO QID PRN 06/19/24 06/19/24 traZODone [Desyrel] 100 mg PO HS 06/19/24 06/19/24 Acetaminophen [Tylenol] 1,000 mg PO Q6H tab 06/20/24 Apixaban [Eliquis] 2.5 mg PO BID tab 06/20/24 Aspirin EC [Ecotrin] 81 mg PO BID tab 06/20/24 Docusate Sodium 100Mg Capsule 100 mg PO BID PRN cap 06/20/24 [Colace 100Mg Capsule] Gabapentin [Neurontin] 600 mg PO BID #60 cap 06/20/24 HYDROcod/ACETAM 5/325 [[place] 5/325] 1 - 2 tablet PO Q6H PRN #14 tablet 06/20/24 Levothyroxine [Synthroid] 100 mcg PO QDAC tab 06/20/24 allopurinoL [Zyloprim] 100 mg PO DAILY tab 06/20/24 predniSONE [Deltasone] 20 mg PO DAILY #5 tab 06/20/24 - Allergies Allergies/Adverse Reactions: Allergies Allergy/AdvReac Type Severity Reaction Status Date / Time Penicillins Allergy Severe Hives Verified 06/19/24 11:34 vancomycin Allergy Severe chest pain Verified 06/19/24 11:34 sulfamethoxazole Allergy Hives Verified 06/19/24 11:34 [From Bactrim] trimethoprim [From Bactrim] Allergy Hives Verified 06/19/24 11:34 oxycodone [From OxyContin] AdvReac Intermediate Hallucinati Verified 06/19/24 11:34 ons aspartame AdvReac Diarrhea Verified 06/19/24 11:34 cefepime AdvReac Itching Verified 06/19/24 11:34 clindamycin AdvReac Unknown Verified 06/19/24 11:34 doxycycline AdvReac Nausea Verified 06/19/24 11:34 saccharin AdvReac Diarrhea Verified 06/19/24 11:34 stevioside [From Stevia] AdvReac Diarrhea Verified 06/19/24 11:34 sucralose AdvReac Diarrhea Verified 06/19/24 11:34 Review of Systems - Constitutional Constitutional: denies: Fever, Chills, Weakness, Diaphoresis - Cardiovascular Cariovascular: reports: Chest pain - Respiratory Respiratory: denies: SOB at rest - Psychiatric Psychiatric: denies: Depression Exam - Vital Signs Vital Signs: Vital Signs x48h Temp Pulse Resp BP Pulse Ox 06/22/24 04:18 36.9 C 77 16 154/60 H 97 Conclusion/Plan - Problem List (1) Non-cardiac chest pain Conclusion/Plan: Etiology of chest pain is not clear but highly unlikely to be related to cardiac chest pain. EKG performed today reveals no change from the one done on admission and although there are nonspecific ST wave changes there are no changes that are concerning for ischemia. High sensitivy troponins performed today revealed initial troponin of 36.4 and repeat troponin performed approximately 2 hours later is 34. Clinical risk of pulmonary embolism is very low. Patient is on room air and appears to be in no acute distress. Oxygen saturation on room air is 98%. Recent vital signs reveal a heart rate of 71 with a blood pressure of 144/69. The patient is also continued on her apixaban throughout her hospitalization. Etiology of chest pain is not clear but may be related to pleuritic pain. Risk of cardiac or pulmonary etiology is low. Patient is stable for transfer to group home facility. - Lab Results Fish Bones: 06/19/24 11:29 06/19/24 11:29
[2024-06-22 16:44] VITALS: BP 157/73; O2SAT 97
== END 2024-06-22 17:00 ==
LOC: EDUNIT# → ED 11:22 → SDS 14:42 → MS3 15:50 → SDS 06-21 10:19 → MS3 06-21 10:20 → MS2 06-21 13:46
PROVIDERS: ADMIT Orthopaedic Surgery; ATTEND Orthopaedic Surgery
DX: S82.841B Displaced bimalleolar fracture of right lower leg, initial encounter for open fracture type I or II (principal); W10.9XXA Fall (on) (from) unspecified stairs and steps, initial encounter; Y92.008 Other place in unspecified non-institutional (private) residence as the place of occurrence of the external cause; I10 Essential (primary) hypertension; E11.9 Type 2 diabetes mellitus without complications; E03.9 Hypothyroidism, unspecified; M10.9 Gout, unspecified; A04.72 Enterocolitis due to Clostridium difficile, not specified as recurrent; E78.00 Pure hypercholesterolemia, unspecified; R07.89 Other chest pain; Z79.01 Long term (current) use of anticoagulants; Z79.84 Long term (current) use of oral hypoglycemic drugs; Z79.85 Long-term (current) use of injectable non-insulin antidiabetic drugs; Z79.890 Hormone replacement therapy; Z79.899 Other long term (current) drug therapy; Z86.711 Personal history of pulmonary embolism; Z95.2 Presence of prosthetic heart valve
CPT/HCPCS: 27810; 27814; 36415; 51701; 70450; 72125; 73590; 73600; 80053; 84484; 85025; 85610; 93005; 96365; 96366; 96375; 96376; 99152; 99284; 99285; A9270; C1713; G0378; J0131; J1170; J2795; J7120; J7512

== ENCOUNTER 2024-07-20 13:40 | Emergency (ER) | payer MEDICARE ==
[2024-07-20 13:55] VITALS: BP 133/68; O2SAT 99
--- NOTE | 2024-07-20 14:05 | ED Physician Documentation ---
History of Present Illness - Stated complaint Stated Complaint: RT FOOT PX/SWELLING - Chief complaint Chief Complaint: Ext Problem - History obtained from History obtained from: Patient - Additonal information Additional information: This is an 89-year-old female who presents with right ankle swelling and redness. She is about 2 and half weeks status post ORIF of the right ankle and a visiting nurse today was concerned that she may be developing infection with some blistering and redness of the right ankle. The patient has not had any increased pain, no fever or chills. She has been wearing a boot at all times, and has been nonweightbearing as instructed. She has a follow-up appoint with her orthopedist on 07/31. Review of Systems Constitutional: reports: Reviewed and negative Skin: reports: Rash, Lesions Musculoskeletal: reports: Extremity pain Neurologic: reports: Reviewed and negative Psychiatric: reports: Reviewed and negative Endocrine: reports: Reviewed and negative PD PAST MEDICAL HISTORY - Past Medical History Past Medical History: Yes Cardiovascular: Pulmonary embolism, Valve disorder Neuro: Headaches Endocrine/Autoimmune: Type 2 diabetes, HyPOthyroidism GI: C.difficile ON [employer] TECHNICIAN: Endometriosis : Renal insuffiency Musculoskeletal: Osteoarthritis, Gout - Past Surgical History Past Surgical History: Yes General: Cholecystectomy, Appendectomy, Bowel surgery, Other Ortho: Knee replacement, Arthroscopic surgery, Carpal Tunnel surgery /[employer] TECHNICIAN: Tubal ligation, Hysterectomy Cardiovascular: Valve replacement HEENT: Tonsil/Adenoidectomy Derm: Skin cancer surgery - Present Medications Home Medications: Ambulatory Orders Medication Instructions Recorded Confirmed Glipizide [Glipizide ER] 10 mg PO DAILY 06/29/19 07/20/24 Rosuvastatin Calcium [Crestor] 20 mg PO QPM 06/29/19 07/20/24 Latanoprost 0.005% Ophth Drops 1 drops LEFTEYE QPM 07/04/19 07/20/24 [Xalatan Ophth Drops] Acetaminophen with Codeine 1 tab PO TID 06/19/24 07/20/24 [Acetaminophen-Cod #4 Tablet] Cholecalciferol (Vitamin D3) 1 cap PO DAILY 06/19/24 07/20/24 [Vitamin D3] Cyanocobalamin (Vitamin B-12) 1 cap PO DAILY 06/19/24 07/20/24 [Vitamin B-12] Latanoprost 0.005% Ophth Drops 1 drops EACHEYE QPM 06/19/24 07/20/24 [Xalatan Ophth Drops] Nystatin [Klayesta] 1 appful TOP BID 06/19/24 07/20/24 Timolol Maleate/Pf [Timoptic 0.5% 1 drops EACHEYE DAILY 06/19/24 07/20/24 Ocudose Drop] methocarbamoL [Methocarbamol] 1 tab PO QID PRN 06/19/24 07/20/24 traZODone [Desyrel] 100 mg PO HS 06/19/24 07/20/24 Acetaminophen [Tylenol] 1,000 mg PO Q6H tab 06/20/24 07/20/24 Apixaban [Eliquis] 2.5 mg PO BID tab 06/20/24 07/20/24 Gabapentin [Neurontin] 600 mg PO BID #60 cap 06/20/24 07/20/24 Levothyroxine [Synthroid] 100 mcg PO QDAC tab 06/20/24 07/20/24 allopurinoL [Zyloprim] 100 mg PO DAILY tab 06/20/24 07/20/24 Clotrimazole [3-Day Vaginal Cream] 1 applic VG QPM #21 gm 07/20/24 Dulaglutide [Trulicity] 3 mg SQ OAW 07/20/24 07/20/24 Vancomycin [Vancocin] 125 mg PO QID 10 Days #40 cap 07/20/24 cephALEXin [Keflex] 500 mg PO Q6H #28 07/20/24 cephALEXin [Keflex] 500 mg PO Q6H #28 cap 07/20/24 - Allergies Allergies/Adverse Reactions: Allergies Allergy/AdvReac Type Severity Reaction Status Date / Time Penicillins Allergy Severe Hives Verified 07/20/24 13:44 vancomycin Allergy Severe chest pain Verified 07/20/24 13:44 sulfamethoxazole Allergy Hives Verified 07/20/24 13:44 [From Bactrim] trimethoprim [From Bactrim] Allergy Hives Verified 07/20/24 13:44 oxycodone [From OxyContin] AdvReac Intermediate Hallucinati Verified 07/20/24 13:44 ons aspartame AdvReac Diarrhea Verified 07/20/24 13:44 cefepime AdvReac Itching Verified 07/20/24 13:44 clindamycin AdvReac Unknown Verified 07/20/24 13:44 doxycycline AdvReac Nausea Verified 07/20/24 13:44 saccharin AdvReac Diarrhea Verified 07/20/24 13:44 stevioside [From Stevia] AdvReac Diarrhea Verified 07/20/24 13:44 sucralose AdvReac Diarrhea Verified 07/20/24 13:44 - Social History Does the pt smoke?: No Smoking Status: Never smoker Does the pt drink ETOH?: Yes Does the pt have substance abuse?: No Substance Use and Type: CBD oil / Products - Immunizations Immunizations are current?: Yes - POLST Patient has POLST: No POLST Status: Full Code PD ED PE NORMAL - Vitals Vital signs reviewed: Yes - General General: Alert and oriented X 3, No acute distress, Well developed/nourished - HEENT HEENT: Atraumatic, Moist mucous membranes - Derm Derm: Normal color, Warm and dry, Other (dry and erythematous skin medial right ankle w/ some small blisters proximal medial right ankle. Mildly tender to touch. No drainage. ) - Extremities Extremities: No calf tenderness / cord, Other (right ankle mild swelling s/p ORIF, 2+ pedal pulses. Limited ROM due to ORIF. ) Results - Vitals Vitals: Vital Signs - 24 hr 07/20/24 13:46 Temperature 36.7 C Heart Rate 79 Respiratory 18 Rate Blood Pressure 133/68 H O2 Saturation 99 Oxygen O2 Source Room air PD Medical Decision Making - ED course Complexity details: reviewed results, considered differential, d/w patient, d/w family ED course: 89-year-old female presents with right ankle redness and blistering. She is about 2 and half weeks status post ORIF of the right ankle and there is concern for possible wound infection. She has not had any systemic symptoms and otherwi se feels well. Ankle is reddened, only mildly tender, and there is some blistering with concern for possible skin infection. X-ray shows no sign of osteomyelitis and normal hardware positioning. I discussed with patient I recommend that we treat with antibiotics today and that she follow-up with Ortho as soon as possible for reevaluation. Patient unfortunately just finished antibiotic treatment for C. difficile yesterday and is very reluctant to be on antibiotics due to Multiple antibiotic sensitivities and adverse effects. She has tolerated Keflex in the past okay therefore I am going to start on Keflex for the next 7 days and we will resume her vancomycin 125 mg orally 4 times a day for the next 10 days to reduce her recurrence of C. difficile given that we need to start antibiotics again. Patient also requesting something for vaginal pruritus which she gets with antibiotics. Have prescribed clotrimazole for this. The patient was advised to return if she develops a fever, increasing erythema or no improvement in her symptoms. I did recommend that she allow for some boot to free time during the day with her leg elevated but do not bear any weight on it and so I suspect there is some sensitivity to the boot or cushioning that is causing some of her skin issue. She should continue to wear the boot at nighttime as instructed and she would continue to be completely nonweightbearing until follow-up with orthopedics. Departure - Departure Disposition: 01 Home, Self Care Clinical Impression: Cellulitis of right ankle Condition: Good Instructions: ED Infec Skin Cellulitis Follow-Up: [facility] [Provider Group] Prescriptions: Clotrimazole [3-Day Vaginal Cream] 1 applic VG QPM #21 gm cephALEXin [Keflex] 500 mg PO Q6H #28 cephALEXin [Keflex] 500 mg PO Q6H #28 cap Vancomycin [Vancocin] 125 mg PO QID 10 Days #40 cap Comments: Please follow up with orthopedics as soon as possible to monitor wound site. Call today/tomorrow to see if there are any appointments in the next week. If you develop a fever or worsening symptoms, please return. Please leave open to air whenever possible. I have ordered a vaginal cream for your itchiness We will need to extend the vancomycin for another 10 days to reduce the change of recurrence of cdiff. Forms: PCP List Discharge Date/Time: 07/20/24 15:25
--- NOTE | 2024-07-20 14:59 | XRAY Report ---
PROCEDURE: Ankle 3+V RT INDICATIONS: possible post op infection TECHNIQUE: 3 views of the ankle were acquired. COMPARISON: 06/19/2024 FINDINGS: Bones: Interval surgical fusion of the distal fibula and medial malleolus. Ankle mortise is maintain ed. Improved alignment of the fracture fragments. Soft tissues: Small tibiotalar joint effusion. Achilles tendon appears normal. IMPRESSION: Interval ankle ORIF without hardware complication. Improved alignment of the fracture fragments. Reviewed by: Aguila Bangura MD on 07/20/2024 2:58 PM PDT Approved by: Aguila Bangura MD on 07/20/2024 2:58 PM PDT Station ID: [id number]
== END 2024-07-20 15:25 | disposition home or self-care (01) ==
LOC: ED 13:40
DX: L03.115 Cellulitis of right lower limb (principal); Z96.7 Presence of other bone and tendon implants
CPT/HCPCS: 99283

== ENCOUNTER 2024-08-15 10:42 | Inpatient (IN) ==
--- NOTE | 2024-08-15 10:37 | ED Physician Documentation ---
History of Present Illness Stated complaint Stated Complaint: BACK PX/NV Chief complaint Chief Complaint: Abd Pain Additonal information Additional information: 89-year-old female presents with back pain, nausea vomiting diarrhea, and subjective fever. She states her back pain has worsened since she was seen here 1 week ago, with bilateral lower back pain, and frequent non bloody N/V/D. She also notes her R ankle surgery now as of 2d ago has a screw showing; no rash or bleeding or discharge. She thinks she finished her recent Keflex course. Spouse at bedside corroborating. She denies chest pain, abdominal pain, trauma or syncope, though she does note dysuria and chills. No other changes. She was seen here recently on August 08, diagnosed with UTI and prescribed Keflex. 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 She is on Eliquis. Per notes, she did not have fever or abdominal pain on August 08. She also had an ankle surgery in July, and she reports her orthopedist is Dr. Mills. Per chart review, she also had a CT abdomen pelvis on August 04 that showed right-sided ureterectasis, with the potential for send urinary tract infection. She has chronic diastases recti as well. Review of Systems ROS Constitutional: +fever, chills Eyes: no visual disturbance, no discharge Ears, Nose, Mouth, Throat: no rhinorrhea, no sore throat Cardiovascular: no chest pain, no palpitations Respiratory: no cough, no shortness of breath Gastrointestinal: no abdominal pain, +vomiting, +diarrhea Genitourinary: +dysuria, no hematuria Musculoskeletal: +back pain, no neck stiffness Skin: no rash, +ankle wound Neurological: no focal weakness, no focal numbness Meds/Allgy Home Medications Ambulatory Orders Medication Instructions Recorded Confirmed glipizide 5 mg tablet, extended 10 mg PO DAILY 06/29/19 07/20/24 release 24 hr rosuvastatin 40 mg tablet (Crestor) 20 mg PO QPM 06/29/19 07/20/24 latanoprost 0.005 % eye drops 1 drp LEFTEYE QPM 07/04/19 07/20/24 Nystatin [Klayesta] 1 appful topical BID 06/19/24 07/20/24 acetaminophen 300 mg-codeine 60 mg 1 tab PO TID 06/19/24 07/20/24 tablet cholecalciferol (vitamin D3) 50 1 cap PO DAILY 06/19/24 07/20/24 mcg (2,000 unit) capsule cyanocobalamin (vitamin B-12) 1 cap PO DAILY 06/19/24 07/20/24 1,000 mcg capsule latanoprost 0.005 % eye drops 1 drp EACHEYE QPM 06/19/24 07/20/24 methocarbamol 500 mg tablet 1 tab PO QID PRN Moderate Pain 06/19/24 07/20/24 (Level 4-6) timolol maleate (PF) 0.5 % eye 1 drp EACHEYE DAILY 06/19/24 07/20/24 drops in a dropperette (Timoptic Ocudose (PF)) trazodone 50 mg tablet 100 mg PO HS 06/19/24 07/20/24 acetaminophen 500 mg tablet 1,000 mg (2 x 500 mg) PO Q6H 06/20/24 07/20/24 allopurinol 100 mg tablet 100 mg PO DAILY 06/20/24 07/20/24 apixaban 2.5 mg tablet (Eliquis) 2.5 mg PO BID 06/20/24 07/20/24 gabapentin 300 mg capsule 600 mg (2 x 300 mg) PO BID #60 caps 06/20/24 07/20/24 levothyroxine 100 mcg tablet 100 mcg PO QDAC 06/20/24 07/20/24 cephalexin 500 mg capsule 500 mg PO Q6H ##28 07/20/24 cephalexin 500 mg capsule 500 mg PO Q6H #28 caps 07/20/24 clotrimazole 2 % vaginal cream 1 applic vaginal QPM #21 grams 07/20/24 (3-Day Vaginal) dulaglutide 3 mg/0.5 mL 3 mg SQ OAW 07/20/24 07/20/24 subcutaneous pen injector (Trulicity) vancomycin 125 mg capsule 125 mg PO QID 10 days #40 caps 07/20/24 vancomycin 125 mg capsule 125 mg PO QID 14 days #56 caps 08/11/24 Allergies Allergies Allergy/AdvReac Type Severity Reaction Status Date / Time Penicillins Allergy Severe Hives Verified 08/15/24 10:53 vancomycin Allergy Severe chest pain Verified 08/15/24 10:53 sulfamethoxazole (From Allergy Hives Verified 08/15/24 10:53 Bactrim) trimethoprim (From Bactrim) Allergy Hives Verified 08/15/24 10:53 oxycodone (From OxyContin) AdvReac Intermediate Hallucinati Verified 08/15/24 10:53 ons aspartame AdvReac Diarrhea Verified 08/15/24 10:53 cefepime AdvReac Itching Verified 08/15/24 10:53 clindamycin AdvReac Unknown Verified 08/15/24 10:53 doxycycline AdvReac Nausea Verified 08/15/24 10:53 saccharin AdvReac Diarrhea Verified 08/15/24 10:53 stevioside (From Stevia) AdvReac Diarrhea Verified 08/15/24 10:53 sucralose AdvReac Diarrhea Verified 08/15/24 10:53 [facility] Social History Social History Smoking Status: Never smoker Do you dip or chew tobacco?: No Do you vape?: No Patient requests smoking cessation consult: No Initiate information on smoking cessation: No Living arrangement: At home Living Condition: With spouse/s.o. Relationship: Home Mobility Equipment: Walker Do you feel safe in your home environment?: Yes Suffered physical, verbal, emotional, or financial abuse?: No History of Abuse: No Frequency: Occasional Exam Exam Const: no acute distress, +toxic appearing; remains calm, conversant, pleasant Eyes: PERRLA, EOMI ENT: mucous membranes moist Neck: supple, non-tender Resp: no respiratory distress, crackles bilaterally with good aeration Card: regular rate and rhythm, no murmurs Abd: non tender diffusely, no rigidity or rebound or guarding Back: no T or L spine tenderness, +CVA tenderness bilaterally Extrem: no deformities, no swelling bilateral lower extremities; on medial R ankle, there is visible screw protruding slightly from skin opening with tenderness though no rash or discharge; movement of ankle does cause pain, though inconsistently; 2+ distal pulses Neuro: ANOx4, level glass vial filler grossly intact, grossly intact sensation and strength all extremities Skin: no rash, warm and dry Results Vitals Vitals: Vital Signs - 24 hr 08/15/24 10:50 08/15/24 12:44 08/15/24 13:00 Temperature 37.7 C 37.5 C Temperature Source Oral Oral Pulse Rate 89 94 H 93 H Respiratory Rate 24 18 25 H Blood Pressure 127/59 L 149/87 H 131/93 H O2 Saturation 95 98 97 O2 Source Room air Room air If not protocol: Oxygen Flow, liters/minute Pain Intensity 7 8 9 08/15/24 13:02 08/15/24 13:30 08/15/24 14:23 Temperature 37.6 C Temperature Source Oral Pulse Rate 94 H 93 H Respiratory Rate 20 18 Blood Pressure 132/66 H 146/76 H O2 Saturation 88 L 98 O2 Source Room air Nasal cannula If not protocol: Oxygen Flow, liters/minute 2 Pain Intensity 8 0 0 08/15/24 16:16 08/15/24 16:16 Temperature 37.3 C Temperature Source Temporal Artery Scan Pulse Rate 80 Respiratory Rate 13 Blood Pressure 104/42 L O2 Saturation 99 O2 Source Nasal cannula If not protocol: Oxygen Flow, liters/minute 2 Pain Intensity 7 7 Oxygen O2 Source Nasal cannula Labs Labs: Laboratory Tests 08/15/24 08/15/24 08/15/24 11:00 12:15 12:18 WBC 16.1 H RBC 3.63 L Hgb 9.3 L Hct 32.0 L MCV 88.2 MCH 25.6 L MCHC 29.1 L RDW 15.8 H Plt Count 245 MPV 9.5 Neut # (Auto) 14.1 H Lymph # (Auto) 0.9 L [place] # (Auto) 1.0 Eos # (Auto) 0.1 Baso # (Auto) 0.0 Absolute Nucleated RBC 0.00 Nucleated RBC % 0.0 ESR 78 H Sodium 135 Potassium 4.7 H Chloride 104 Carbon Dioxide 22 Anion Gap 9.0 BUN 33 H Creatinine 1.7 H Estimated GFR (MDRD) 28 L Glucose 189 H Lactic Acid Calcium 9.5 Total Bilirubin 0.5 AST 32 ALT 18 Alkaline Phosphatase 125 H Troponin I High Sens 103.1 H* C-Reactive Protein 18.7 H Total Protein 6.3 L Albumin 3.1 L Globulin 3.2 Albumin/Globulin Ratio 1.0 Lipase 37 Urine Color YELLOW Urine Clarity SL. CLOUDY Urine pH 7.0 Ur Specific [place] 1.015 Urine Protein 100 H Urine Glucose (UA) NEGATIVE Urine Ketones NEGATIVE Urine Occult Blood TRACE-INTA Urine Nitrite NEGATIVE Urine Bilirubin NEGATIVE Urine Urobilinogen 0.2 (NORMAL) Ur Leukocyte Esterase MODERATE H Urine RBC 6-10 H Urine WBC 11-25 H Ur Squamous Epith Cells MANY Squamous H Urine Bacteria Moderate H Urine Casts 3-5 Granular Casts Urine Culture Comments NOT INDICATED Nasal Influenza B PCR NOT DETECTED Nasal Influenza A PCR NOT DETECTED Nasal RSV (PCR) NOT DETECTED Nasal SARS-CoV-2 (PCR) NOT DETECTED 08/15/24 08/15/24 13:08 17:00 WBC RBC Hgb Hct MCV MCH MCHC RDW Plt Count MPV Neut # (Auto) Lymph # (Auto) [place] # (Auto) Eos # (Auto) Baso # (Auto) Absolute Nucleated RBC Nucleated RBC % ESR Sodium Potassium Chloride Carbon Dioxide Anion Gap BUN Creatinine Estimated GFR (MDRD) Glucose Lactic Acid 0.9 Calcium Total Bilirubin AST ALT Alkaline Phosphatase Troponin I High Sens 107.3 H* C-Reactive Protein Total Protein Albumin Globulin Albumin/Globulin Ratio Lipase Urine Color Urine Clarity Urine pH Ur Specific [place] Urine Protein Urine Glucose (UA) Urine Ketones Urine Occult Blood Urine Nitrite Urine Bilirubin Urine Urobilinogen Ur Leukocyte Esterase Urine RBC Urine WBC Ur Squamous Epith Cells Urine Bacteria Urine Casts Urine Culture Comments Nasal Influenza B PCR Nasal Influenza A PCR Nasal RSV (PCR) Nasal SARS-CoV-2 (PCR) PD Medical Decision Making ED course ED course: This patients presentation is concerning for sepsis from multiple potential sources, with the potential for worsening C. difficile enteritis, toxic megacolon, pneumonia, viral syndrome, pyelonephritis, infected hardware at right ankle, among others in a broad differential have considered including not limited to these. I am obtaining broad and aggressive septic workup and starting oral antibiotics. Patient has penicillin allergy. She has been on oral vancomycin. She has sulfa allergy. She has cephalosporin allergy. I am starting linezolid and meropenem. I am giving fluids. I am obtaining chest x- ray, viral swab, CT abdomen pelvis, urine, blood cultures, inflammatory markers, CBC, CMP, lipase, EKG, troponin, ankle x-ray and will closely reassess. Note recent urine culture from August 04 showed Klebsiella resistant to ampicillin, intermediate to nitrofurantoin but otherwise sensitive. Note while I am giving initial 1 L fluid bolus, I am holding 30 cc/kg initially to assess response, given the potential for causing pulmonary edema with crackles in lungs on my exam. Note patient is unlikely to have crossover reaction with meropenem for penicillin allergy. EKG: NSR without acute ischemia or immediately concerning interval prolongation. Morphology overall similar to 08/04/24 EKG. Labs: CBC with neutrophilic leukocytosis, similar anemia to prior, no thrombocytopenia. Note eGFR borderline for contrast, however contrast will be important to assess potential infectious etiologies for her; Cr is also at baseline. Benefit of appropriate assessment for life-threatening pathology outweighs risk of contrast associated nephropathy at this time. Accordingly, I am giving contrast, expanding to CT C/A/P. Family at bedside consented for this and agrees with contrast administration. CMP also shows borderline hyperkalemia, mildly elevated alk phos, CRP elevated to 18.7, ESR at 78, lipase within normal limits. Troponin elevated, with no chest pain; on reassessment of patient, she notes some mild chest pain possibly 3d ago. This could be NSTEMI II in setting of suspected sepsis. We will trend. I agree with radiology reads of imaging on my independent review of imaging. XR ankle: "FINDINGS: Bones: Stable hardware can be seen, with plate and screw fixation of the distal fibula and 2 screws through the medial malleolus. No skin change can be seen of the hardware compared to the prior. Remote fractures are seen. Generalized degenerative changes are seen. Soft tissues: Mild soft tissue swelling is seen. IMPRESSION: Stable hardware. No carin plain film findings of infection can be seen. Mild stable soft tissue swelling. Reviewed by: Sreekanth Ennis MD on 08/15/2024 10:39 AM AKDT" CXR: "FINDINGS: Surgical changes and devices: A percutaneously placed aortic valve prosthesis can be seen. Left humeral hardware is partially seen. Lungs and pleura: There is persistent blunting of the left costophrenic angle. No focal infiltrates are seen. Mediastinum: Mediastinal contours appear normal. Heart size is mildly enlarged. Calcification is seen of the aortic arch. Bones and chest wall: No suspicious bony lesions. Age-appropriate degenerative changes are seen. Overlying soft tissues appear unremarkable. IMPRESSION: No focal infiltrates are seen. There is persistent blunting of the left costophrenic angle. Given the appearance on the prior CT, this is attributed to a left pericardial fat pad. Postoperative and degenerative changes are seen. Reviewed by: Sreekanth Ennis MD on 08/15/2024 10:37 AM AKDT" Urine with contamination but probable infection as well. I am requesting urine culture. CT chest: "FINDINGS: Image quality: There is artifact associated with the metallic hardware. Chest wall and lower neck: No thyroid nodule which requires sonographic follow up. No breast mass. No axillary or supraclavicular adenopathy by size. Lungs and pleura: No consolidation. No pleural effusions. No pneumothorax. No suspicious pulmonary nodules which require follow up. Mediastinum: Heart size is at the upper limits of normal. No pericardial effusion. A percutaneously placed aortic valve prosthesis can be seen. No large vessel abnormality. No mediastinal adenopathy by size criteria. Bones: No aggressive osseous abnormality. Left humeral hardware is partially seen. Age-appropriate degenerative changes are seen. There is accentuated thoracic kyphosis. Upper Abdomen: Unremarkable. IMPRESSION: No focal infiltrates are seen. No source of sepsis identified. Additional findings: Prosthetic aortic valve Left humeral hardware There is accentuated thoracic kyphosis. Reviewed by: Sreekanth Ennis MD on 08/15/2024 11:25 AM AKDT" CT A/P: "FINDINGS: Image quality: Diagnostic. Lower chest: A percutaneously placed aortic valve prosthesis can be seen. Liver: No solid mass. Gallbladder: Cholecystectomy. Biliary tree: No intrahepatic or extrahepatic dilation, accounting for age. Spleen: No splenomegaly. Pancreas: No pancreatic ductal dilation. Adrenals: No adrenal nodule. Kidneys and ureters: There is mild right-sided hydronephrosis and hydroureter, which is similar to prior examination. No renal cystic lesion which requires follow up. No solid mass. Stomach, bowel and peritoneum: Prior partial colectomy change can be seen. Generalized dilatation can be seen of the small bowel, without a focal transition point seen. In the stomach staple lines can be seen involving the rectosigmoid region as well as within the mid small bowel. The stomach is relatively decompressed at the time of this study, limiting its evaluation. Lymph nodes: No central or retroperitoneal adenopathy. Vessels: No infrarenal aortic aneurysm. Patent portal vein. There is an IVC filter in place. PELVIS Reproductive organs: This patient is status post hysterectomy. No adnexal masses can be seen. Bladder: No abnormal wall thickening, accounting for underdistention. Pelvic lymph nodes: No pelvic adenopathy by size criteria. Bones: No aggressive osseous abnormality. Multifocal lumbar spine degenerative change can be seen, which is overall worst inferiorly. Incidental note is made of vertebral body hemangiomas. Irregularity is seen of the initial tuberosities. Please correlate with prior avulsions. Other: Rectus diastasis can be seen, with small bowel seen within it. IMPRESSION: Generalized dilatation of the small bowel can be seen, which is worse on the recent prior CT. Ileus is suspected. Small bowel obstruction is possible, yet no transition point can be seen. Prior partial colectomy. Rectus diastases is seen, with herniated small bowel. No transition point can be seen involving the herniation. Mild stable right-sided hydronephrosis and hydroureter. Additional findings: Prosthetic aortic valve Cholecystectomy IVC filter Vertebral body hemangiomas Lumbar spine degenerative change, worst inferiorly. Hysterectomy Reviewed by: Sreekanth Ennis MD on 08/15/2024 11:33 AM AKDT" At this juncture, I am most concerned for pyelonephritis given imaging and urine findings with back pain, nausea and vomiting. However, patient also has concerning ankle findings regarding hardware, as well as elevated troponin. She will require transfer to facility that has orthopedics at minimum, potentially cardiology. Repeat troponin pending. Note at this time, inflammatory marker elevations are most likely due to underlying pyelonephritis as opposed to hardwa re infection, though this is also possible. I am requesting transfer process be initiated at roughly 1250. Note I have placed order for urine culture. Swab: negative. Repeat troponin: mildly increased but grossly stable with clinical context arguing against ACS as primary etiology for presentation. No chest pain. Repeat EKG: normal sinus rhythm without acute ischemia or immediately concerning interval prolongation, with morphology similar to prior today. I updated patient, spouse, and on phone daughter; they understand work up and plan for transfer specifically for potential Orthopedic needs; awaiting Ortho consult. I spoke with [facility] pharmacist at 1530 regarding scheduling antibiotics in setting of low eGFR. Home medications: In case of potential orthopedic intervention, I am holding patient's home Eliquis. I am ordering 100 mcg levothyroxine daily, gabapentin 600 mg p.o. twice daily in case patient continues boarding in the ER. I confirmed with her she finished her PO vancomycin course a few days ago; no diarrhea here. Patient's BP dropped briefly to 70s/40s; giving remainder of 30cc/kg IVF. She had been normotensive prior to this; she remains well perfused appearing clinically. Lactate added. Note patient was initially hypertensive, well perfused, with lactate on arrival unlikely to be clinically helpful at that time. Fluids, aggressive antibiotics were ordered early. At roughly 1525, I spoke with JOLIE Crespo of [facility], reviewing case. She reviewed case and states that if patient can be treated here, this can be addressed outpatient. I confirmed with Dr. White we do NOT have Orthopedics anticipated at all inpatient. JOLIE Crespo spoke with me at 1732 again who stated Orthopedic ankle issue is NOT emergent but can be addressed outpatient after treatment inpatient here for unrelated sepsis. It can be covered with dressing. No other treatment needed currently. I spoke with Dr. White at 1733, who reviewed case with me and kindly accepts. Lactate returned WNL. Third troponin pending. At this point, NSTEMI II secondary to sepsis seems most likely. No chest pain. BP 120/60s currently. Patient comfortable, well perfused, not requiring pressors. Admitting in stable condition. Discharge Plan Discharge Patient Disposition: [facility] DC/Xfer Condition: Stable Clinical Impression: Sepsis Prescriptions: No Action vancomycin 125 mg capsule 125 mg PO QID 14 Days Qty: 56 0RF glipizide 5 MG tablet extended release 24hr 10 mg PO DAILY Rx Instructions: AM rosuvastatin [Crestor] 40 MG tablet 20 mg PO QPM latanoprost 40 DROPS/2.5 ML drops 1 drp LEFTEYE QPM trazodone 50 MG tablet 100 mg PO HS cholecalciferol (vitamin D3) 50 MCG capsule 1 cap PO DAILY cyanocobalamin (vitamin B-12) 1,000 MCG capsule 1 cap PO DAILY latanoprost 40 DROPS/2.5 ML drops 1 drp EACHEYE QPM methocarbamol 500 MG tablet 1 tab PO QID PRN (Reason: Moderate Pain (Level 4-6)) Rx Instructions: PRN MUSCLE RELAXATION acetaminophen-codeine 1 EACH tablet 1 tab PO TID Rx Instructions: APAP/CODEINE 300MG-60MG timolol maleate (PF) [Timoptic Ocudose (PF)] 1 EACH dropperette 1 drp EACHEYE DAILY Nystatin [Klayesta] 15 GM Powder 1 appful topical BID allopurinol 100 MG tablet 100 mg PO DAILY 0RF acetaminophen 500 MG tablet 1,000 mg PO Q6H 0RF levothyroxine 100 MCG tablet 100 mcg PO QDAC 0RF apixaban [Eliquis] 2.5 MG tablet 2.5 mg PO BID 0RF gabapentin 300 MG capsule 600 mg PO BID Qty: 60 0RF dulaglutide [Trulicity] 3 MG/0.5 ML pen injector 3 mg SQ OAW cephalexin 500 MG capsule 500 mg PO Q6H Qty: 28 0RF Rx Instructions: X 7 DAYS vancomycin 125 MG capsule 125 mg PO QID 10 Days Qty: 40 0RF clotrimazole [3-Day Vaginal] 21 GM cream 1 applic vaginal QPM Qty: 21 0RF cephalexin 500 MG capsule 500 mg PO Q6H Qty: 28 0RF Rx Instructions: X 7 DAYS Print Language: Tajik Stand Alone Forms: PCP List
[2024-08-15 11:15] LABS: BASOPHILS % (AUTO) 0.2 %; EOSINOPHILS # (AUTO) 0.1 10^3/uL (0.0-0.7); EOSINOPHILS % (AUTO) 0.6 %; HGB - HEMOGLOBIN 9.3 g/dL (12.0-16.0); LYMPHOCYTES # (AUTO) 0.9 10^3/uL (1.5-3.5); LYMPHOCYTES % (AUTO) 5.3 %; MEAN CORPUSCULAR HEMOGLOBIN 25.6 pg (27.0-31.0); MEAN CORPUSCULAR HGB CONC 29.1 g/dL (32.0-36.0); MEAN CORPUSCULAR VOLUME 88.2 fL (81.0-99.0); MEAN PLATELET VOLUME 9.5 fL (7.9-10.8); MONOCYTES % (AUTO) 6.1 %; NEUTROPHILS # (AUTO) 14.1 10^3/uL (1.5-6.6); NEUTROPHILS % (AUTO) 87.2 %; PLT - PLATELET COUNT 245 10^3/uL (130-450); RED BLOOD COUNT 3.63 10^6/uL (4.20-5.40); RED CELL DISTRIBUTION WIDTH 15.8 % (12.0-15.0); WHITE BLOOD COUNT 16.1 x10^3/uL (4.8-10.8)
[2024-08-15] MEDS: MEROPENEM 1 GM in SODIUM CHLORIDE 0.9% MINIBAG 100 ML IV STA (11:27)
[2024-08-15] MEDS: SODIUM CHLORIDE 0.9% 1,000 ML IV STA (11:28)
[2024-08-15 11:33] LABS: ALBUMIN 3.1 g/dL (3.2-5.5); BILIRUBIN,TOTAL 0.5 mg/dL (0.2-1.0); CALCIUM 9.5 mg/dL (8.5-10.3); CREATININE 1.7 mg/dL (0.6-1.3); CRP - C-REACTIVE PROTEIN 18.7 mg/dL (<0.5); POTASSIUM 4.7 mmol/L (3.5-4.5); TOTAL PROTEIN 6.3 g/dL (6.4-8.9)
[2024-08-15] MEDS ORDERED: iohexoL-300 100 ML VIAL ONE (11:38)
--- NOTE | 2024-08-15 11:39 | XRAY Report ---
PROCEDURE: XR Chest 1V INDICATIONS: assess for PNA TECHNIQUE: One view of the chest was acquired. COMPARISON: 06/17/2024. Correlation is made with abdomen and pelvis CT, 08/04/2024. FINDINGS: Surgical changes and devices: A percutaneously placed aortic valve prosthesis can be seen. Left june ral hardware is partially seen. Lungs and pleura: There is persistent blunting of the left costophrenic angle. No focal infiltrates are seen. Mediastinum: Mediastinal contours appear normal. Heart size is mildly enlarged. Calcification is se en of the aortic arch. Bones and chest wall: No suspicious bony lesions. Age-appropriate degenerative changes are seen. Overlying soft tissues appear unremarkable. IMPRESSION: No focal infiltrates are seen. There is persistent blunting of the left costophrenic angle. Given the appearance on the prior CT, th is is attributed to a left pericardial fat pad. Postoperative and degenerative changes are seen. Reviewed by: Sreekanth Ennis MD on 08/15/2024 10:37 AM PHILIP Approved by: Sreekanth Ennis MD on 08/15/2024 10:37 AM PHILIP Station ID: [id number]
--- NOTE | 2024-08-15 11:40 | XRAY Report ---
PROCEDURE: XR Ankle 1-2V RT INDICATIONS: concern for infected hardware TECHNIQUE: 2 views of the ankle were acquired. COMPARISON: 07/31/2024, 07/20/2024 FINDINGS: Bones: Stable hardware can be seen, with plate and screw fixation of the distal fibula and 2 screws through the medial malleolus. No skin change can be seen of the hardware compared to the prior. Remote fractures are seen. Generalized degenerative changes are seen. Soft tissues: Mild soft tissue swelling is seen. IMPRESSION: Stable hardware. No carin plain film findings of infection can be seen. Mild stable soft tissue swelling. Reviewed by: Sreekanth Ennis MD on 08/15/2024 10:39 AM PHILIP Approved by: Sreekanth Ennis MD on 08/15/2024 10:39 AM PHILIP Station ID: [id number]
[2024-08-15 12:23] LABS: BILIRUBIN,URINE NEGATIVE (NEGATIVE); GLUCOSE, URINE (UA) NEGATIVE (NEGATIVE); KETONES,URINE (UA) NEGATIVE (NEGATIVE); LEUKOCYTE ESTERASE, URINE MODERATE (NEGATIVE); NITRITE,URINE NEGATIVE (NEGATIVE); OCCULT BLOOD,URINE TRACE-INTA (NEGATIVE); PROTEIN,URINE 100 mg/dL (NEGATIVE); UROBILINOGEN,URINE 0.2 (NORMAL) E.U./dL (NORMAL)
--- NOTE | 2024-08-15 12:26 | CT Report ---
PROCEDURE: CT Chest W INDICATIONS: septic work up, N/V/D, recent Cdiff CONTRAST: omni 300, 100 cc TECHNIQUE: After the administration of intravenous contrast, a CT scan of the chest was performed. Images were recorded and evaluated at appropriate window settings. Reformats: axial MIP of the chest, coronal and sagittal. For radiation dose reduction, the following was used: automated exposure control, adjustme nt of mA and/or kV according to patient size. COMPARISON: Correlation is made with the accompanying imaging. Correlation is made with prior thorac ic spine CT, 05/20/2024 FINDINGS: Image quality: There is artifact associated with the metallic hardware. Chest wall and lower neck: No thyroid nodule which requires sonographic follow up. No breast mass. No axillary or supraclavicular adenopathy by size. Lungs and pleura: No consolidation. No pleural effusions. No pneumothorax. No suspicious pulmonary n odules which require follow up. Mediastinum: Heart size is at the upper limits of normal. No pericardial effusion. A percutaneously p laced aortic valve prosthesis can be seen. No large vessel abnormality. No mediastinal adenopathy by size criteria. Bones: No aggressive osseous abnormality. Left humeral hardware is partially seen. Age-appropriate de generative changes are seen. There is accentuated thoracic kyphosis. Upper Abdomen: Unremarkable. IMPRESSION: No focal infiltrates are seen. No source of sepsis identified. Additional findings: Prosthetic aortic valve Left humeral hardware There is accentuated thoracic kyphosis. Reviewed by: Sreekanth Ennis MD on 08/15/2024 11:25 AM PHILIP Approved by: Sreekanth Ennis MD on 08/15/2024 11:25 AM [email or web address] Station ID: [id number]
[2024-08-15 12:31] LABS: BACTERIA,URINE Moderate /HPF (None Seen); CASTS, URINE 3-5 Granular Casts /LPF; CLARITY,URINE SL. CLOUDY (CLEAR); SQUAMOUS EPITHELIAL CELL,UR MANY Squamous (<= Few)
--- NOTE | 2024-08-15 12:34 | CT Report ---
PROCEDURE: CT Abdomen/Pelvis W INDICATIONS: septic work up, N/V/D, recent Cdiff CONTRAST: omni 300, 100 cc TECHNIQUE: After the administration of intravenous contrast, a CT scan of the abdomen and pelvis was performed. Images were recorded and evaluated at appropriate window settings. Reformats: coronal and sagittal. F or radiation dose reduction, the following was used: automated exposure control, adjustment of mA and /or kV according to patient size. COMPARISON: 08/04/2024. Correlation is made with the accompanying imaging. FINDINGS: Image quality: Diagnostic. Lower chest: A percutaneously placed aortic valve prosthesis can be seen. Liver: No solid mass. Gallbladder: Cholecystectomy. Biliary tree: No intrahepatic or extrahepatic dilation, accounting for age. Spleen: No splenomegaly. Pancreas: No pancreatic ductal dilation. Adrenals: No adrenal nodule. Kidneys and ureters: There is mild right-sided hydronephrosis and hydroureter, which is similar to pr ior examination. No renal cystic lesion which requires follow up. No solid mass. Stomach, bowel and peritoneum: Prior partial colectomy change can be seen. Generalized dilatation can be seen of the small bowel, without a focal transition point seen. In the stomach staple lines can be seen involving the rectosigmoid region as well as within the mid s mall bowel. The stomach is relatively decompressed at the time of this study, limiting its evaluation. Lymph nodes: No central or retroperitoneal adenopathy. Vessels: No infrarenal aortic aneurysm. Patent portal vein. There is an IVC filter in place. PELVIS Reproductive organs: This patient is status post hysterectomy. No adnexal masses can be seen. Bladder: No abnormal wall thickening, accounting for underdistention. Pelvic lymph nodes: No pelvic adenopathy by size criteria. Bones: No aggressive osseous abnormality. Multifocal lumbar spine degenerative change can be seen, which is overall worst inferiorly. Incidental note is made of vertebral body hemangiomas. Irregularity is seen of the initial tuberosities. Please correlate with prior avulsions. Other: Rectus diastasis can be seen, with small bowel seen within it. IMPRESSION: Generalized dilatation of the small bowel can be seen, which is worse on the recent prior CT. Ileus is suspected. Small bowel obstruction is possible, yet no transition point can be seen. Prior partial colectomy. Rectus diastases is seen, with herniated small bowel. No transition point can be seen involving the h erniation. Mild stable right-sided hydronephrosis and hydroureter. Additional findings: Prosthetic aortic valve Cholecystectomy IVC filter Vertebral body hemangiomas Lumbar spine degenerative change, worst inferiorly. Hysterectomy Reviewed by: Sreekanth Ennis MD on 08/15/2024 11:33 AM AKEYAD Approved by: Sreekanth Ennis MD on 08/15/2024 11:33 AM PHILIP Station ID: [id number]
[2024-08-15] MEDS: LINEZOLID 600 MG/300 ML 600 MG/300 ML BAG IV SCH (12:35)
[2024-08-15] MEDS: oxyCODONE 5 MG TABLET PO STA ×2 (13:02→18:04)
[2024-08-15] MEDS: iohexoL-300 100 ML VIAL IVP ONE (13:06)
[2024-08-15 13:11] LABS: INFLUENZA A- RESP PCR PANEL NOT DETECTED; INFLUENZA B - RESP PCR PANEL NOT DETECTED; RSV- RESP PCR PANEL NOT DETECTED; SARS-CoV-2 -RESP PCR PANEL NOT DETECTED
[2024-08-15] MEDS ORDERED: VANCOMYCIN 125 MG CAPSULE PO SCH (17:00)
[2024-08-15] MEDS: SODIUM CHLORIDE 0.9% 1,500 ML IV STA (17:27)
--- NOTE | 2024-08-15 18:02 | HISTORY & PHYSICAL EXAMINATION ---
Chief Complaint Chief Complaint Chief Complaint: back pain History of Present Illness Admitted From Admitted From:: home History Obtained From Records Reviewed: Expanse History obtained from: Dr. Tsang Exam Limitations: none History of Present Illness HPI Comment/Other: This is an 89-year-old female who fell June 19 and x-ray showed a displaced grade 1 open right bimalleolar ankle fracture. She is on Eliquis for prophylaxis for a mechanical aortic valve replacement. She also has a history of a PE. She was taken to the operating room and had irrigation and debridement of an open wound, and open reduction internal fixation of a right bimalleolar ankle fracture that day. She was seen during that admission for chest pain. Troponins were assessed, EKG was assessed and it was not felt to be cardiac chest pain. Because she was on Eliquis she was felt to have a low risk of pulmonary embolism. And she was transferred to a half-way facility for rehab. She returned to the emergency room August 04 with 3 to 4 days of feeling weaker. She was still in a boot and using crutches. Complaining of diarrhea and stool analysis found her to have C. difficile diarrhea. Also found to have a UTI. She was treated as a UTI and sent home. She now returns with back pain, nausea vomiting and diarrhea, and a sensation of fever. She tells me that her right flank pain is terrible. It started slowly a few days ago and 2 days ago it was a 10 out of a 10 and she was screaming with that. It is not constant. It comes and goes like a cramping sensation. She had had the diarrhea with the C. difficile at the beginning of August. After being treated with vancomycin her diarrhea went away and she actually was constipated for a few days. But the diarrhea came back a couple of days ago. She was carefully examined by the ER provider. Her vital signs were documented as normal when I read them but Dr. Tsang shares with me that she dropped her pressure into the 70s systolic over 40s. She had a low-grade fever of 37.7. Pulse rate varied between 89-93. She has been saturating well on room air. Dr. Pedro found her to have another UTI with moderate leukocyte Estrace, negative for nitrates but it is contaminated with squamous cells. CT scan was done of the abdomen and she does have slight right hydronephrosis, about the same as it was with the previous CT scan. Unfortunately the urine was contaminated with squamous cells even though she had moderate bacteria, white cells and red cells culture is not can be done. She has stable chronic kidney disease. Creatinine is 1.7 and GFR is 33. Comparable to August 04 and June 17 labs. Her white cell count in the ER August 04 was 8.4. Today at 16.1. Lactic acid is normal at 0.9. Dr. Tsang also found her to have the screws of her ankle fracture are now breaking through the skin. He spoke at length to orthopedics on-call at [facility]. They said that as long as the wound is not infected, it can be covered with a bandage and does not need urgent/inpatient care. Since the patient has a low-grade fever, elevated white cell count, dehydration on exam, with a low BP at one point, we feel it would be prudent to bring her in to treat the UTI that is possible. And make sure she does well before we return her back home. After discussion with Dr. Tsang, I will be placing the patient in observation status. Meds/Allgy Home Medications Ambulatory Orders Medication Instructions Recorded Confirmed glipizide 5 mg tablet, extended 10 mg PO DAILY 06/29/19 07/20/24 release 24 hr rosuvastatin 40 mg tablet (Crestor) 20 mg PO QPM 06/29/19 07/20/24 latanoprost 0.005 % eye drops 1 drp LEFTEYE QPM 07/04/19 07/20/24 Nystatin [Klayesta] 1 appful topical BID 06/19/24 07/20/24 acetaminophen 300 mg-codeine 60 mg 1 tab PO TID 06/19/24 07/20/24 tablet cholecalciferol (vitamin D3) 50 1 cap PO DAILY 06/19/24 07/20/24 mcg (2,000 unit) capsule cyanocobalamin (vitamin B-12) 1 cap PO DAILY 06/19/24 07/20/24 1,000 mcg capsule latanoprost 0.005 % eye drops 1 drp EACHEYE QPM 06/19/24 07/20/24 methocarbamol 500 mg tablet 1 tab PO QID PRN Moderate Pain 06/19/24 07/20/24 (Level 4-6) timolol maleate (PF) 0.5 % eye 1 drp EACHEYE DAILY 06/19/24 07/20/24 drops in a dropperette (Timoptic Ocudose (PF)) trazodone 50 mg tablet 100 mg PO HS 06/19/24 07/20/24 acetaminophen 500 mg tablet 1,000 mg (2 x 500 mg) PO Q6H 06/20/24 07/20/24 allopurinol 100 mg tablet 100 mg PO DAILY 06/20/24 07/20/24 apixaban 2.5 mg tablet (Eliquis) 2.5 mg PO BID 06/20/24 07/20/24 gabapentin 300 mg capsule 600 mg (2 x 300 mg) PO BID #60 caps 06/20/24 07/20/24 levothyroxine 100 mcg tablet 100 mcg PO QDAC 06/20/24 07/20/24 cephalexin 500 mg capsule 500 mg PO Q6H ##28 07/20/24 cephalexin 500 mg capsule 500 mg PO Q6H #28 caps 07/20/24 clotrimazole 2 % vaginal cream 1 applic vaginal QPM #21 grams 07/20/24 (3-Day Vaginal) dulaglutide 3 mg/0.5 mL 3 mg SQ OAW 07/20/24 07/20/24 subcutaneous pen injector ([facility]) vancomycin 125 mg capsule 125 mg PO QID 10 days #40 caps 07/20/24 vancomycin 125 mg capsule 125 mg PO QID 14 days #56 caps 08/11/24 Allergies Allergies Allergy/AdvReac Type Severity Reaction Status Date / Time Penicillins Allergy Severe Hives Verified 08/15/24 10:53 vancomycin Allergy Severe chest pain Verified 08/15/24 10:53 sulfamethoxazole (From Allergy Hives Verified 08/15/24 10:53 Bactrim) trimethoprim (From Bactrim) Allergy Hives Verified 08/15/24 10:53 oxycodone (From OxyContin) AdvReac Intermediate Hallucinati Verified 08/15/24 10:53 ons aspartame AdvReac Diarrhea Verified 08/15/24 10:53 cefepime AdvReac Itching Verified 08/15/24 10:53 clindamycin AdvReac Unknown Verified 08/15/24 10:53 doxycycline AdvReac Nausea Verified 08/15/24 10:53 saccharin AdvReac Diarrhea Verified 08/15/24 10:53 stevioside (From Stevia) AdvReac Diarrhea Verified 08/15/24 10:53 sucralose AdvReac Diarrhea Verified 08/15/24 10:53 PFSH Medical History Medical History (Updated 08/15/24 @ 18:42 by Karine White MD) History of ESBL E. 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 (03/05/24) Hypothyroidism (06/04/23) Tinea cruris (07/16/23) Presbycusis, bilateral (12/30/23) GI bleeding (03/05/24) Balance problem (02/21/24) Surgical History Surgical History (Updated 08/15/24 @ 18:25 by Karine White MD) Hx of tonsillectomy H/O hysterectomy with oophorectomy Tubal ligation status Knee joint replacement status History of appendectomy History of cholecystectomy Status post open reduction with internal fixation (ORIF) of fracture of ankle Hx of aortic valve replacement (07/16/23) done 11/2018, last echo 05/05/2024 EF 60%, PASP 36 mmHg, well seated valve Family History Family History (Updated 08/15/24 @ 19:53 by Karine White MD) Mother Cancer Father Cancer Daughter Healthy adult on routine physical examination Social History Social History (Updated 08/15/24 @ 19:52 by Karine White MD) Smoking Status: Never smoker Second hand tobacco smoke exposure: No Do you dip or chew tobacco?: No Do you vape?: No Patient requests smoking cessation consult: No Initiate information on smoking cessation: No Living arrangement: At home Living Condition: With spouse/s.o. and With family Support Person: Yes Relationship: Spouse Living Situation Details: one daughter in [place] and another across the street in [place], lives w her as well Physical Activity: Bedfast and None Level: Assisted Home Mobility Equipment: Walker and Wheelchair Do you feel safe in your home environment?: Yes Suffered physical, verbal, emotional, or financial abuse?: No History of Abuse: No Frequency: Occasional Substance Use: denies use Are you sexually active?: No POLST Patient has POLST: Yes POLST Status: DNR (Polst provided by and copied) Review of Systems Said she is miserable on a daily basis at a 4 out of a 10. This week it is caught up to a 10 out of a 10. Everything hurts. The right flank hurts. No appetite. Abdominal pain and cramping. Constitutional Reports: Fatigue, Fever, Chills, Malaise, Weakness and Poor appetite Eyes Denies: Pain, Amaurosis or Blurry vision Ears, nose, mouth, and throat Denies: Ear pain, Ear discharge, Nasal discharge, Nasal congestion or Difficulty swallowing Cardiovascular Reports: swelling of feet/ankles and Decreased exercise tolerance; Denies: Irregular heart rate, chest pain, palpitations, edema, Syncope or shortness of breath with exertion Respiratory Denies: Shortness of breath, Cough, Sputum production, Change in phlegm color or Wheezing Gastrointestinal Reports: Abdominal pain (Generalized, mild. Worse over the right flank.), Abdominal distention (Feels bloated), Vomiting (so quickly and so fiercely this morning that the vomit came out of her), Poor appetite, Heartburn and Diarrhea (Again for the last few days, no blood); Denies: Torey blood emesis, Coffee grounds in vomit or Difficulty swallowing Genitourinary Reports: Urinary frequency, Urinary urgency and Urinary incontinence Musculoskeletal Reports: Back pain, Extremity pain, Joint pain, Muscle aches and Muscle weakness Integumentary/Breast Denies: Rash, Changes in skin color, Nipple discharge or Breast mass Neurological Reports: General weakness and Weakness in extremities Psychiatric Reports: Depression and Anxiety Endocrine Reports: Fatigue Hematologic/Lymphatic Reports: Anemia and Blood clots; Denies: Easy bruising or Petechiae Allergic/Immunologic Denies: Wheezing Prior Level of Functionality: Using crutches. Minimally weightbearing on the operated ankle. Able to feed herself. Needs help with dressing. Dependent on other people right now for dressing and bathing due to the ankle wound and hardware Exam Exam Ill-appearing elderly female who appears fatigued, but alert, oriented and able to converse normally. and daughter in the room. Short statured with lots of her weight in her belly Constitutional alert HENMT normocephalic, head/scalp atraumatic and hearing grossly normal bilaterally Oral mucosa is dry. Lips are slightly cracked. Eyes PERRL and EOMs intact bilaterally Neck/C-Spine cervical full ROM noted Lymph no lymphadenopathy noted Chest inspection of chest normal Respiratory breath sounds equal bilaterally, normal respiratory effort and clear to auscultation bilaterally Cardiovascular normal heart rate noted, regular rhythm noted and no JVD Systolic murmur Gastrointestinal abdomen soft to palpation, normoactive bowel sounds and no masses Large, nondistended pannus, mild generalized achiness when I palpate. Nothing severe. Back/Pelvis Right flank aches when I gently pound Extremities Both knees deformed. Right knee has anterior surface scar that is old and healed. Left knee appears to have possible gouty deformity. Osteoarthritic deformities of the fingers. But no joint effusions, warmth or tenosynovitis. The ankle has the hardware coming through but no surrounding cellulitis Neurology glaze carrier II-XII intact, no focal motor deficit noted and speech normal She has generalized weakness and needs the nurse to be able to reposition her, sit her up. At home they move her with her board to get her to a wheelchair Psychiatry mental status grossly normal, oriented x3 and thought process normal Depressed, slightly tearful at how measurable she is Skin skin color normal Sepsis Event Note (H) Evaluation Current Stage of Sepsis: Ruled out Sepsis Criteria Sepsis Criteria: WBC count greater than 12,000 or less than 4000 and SBP drop more than 40mHg Conclusion/Plan Problem List (1) Urinary tract infection: Plan: This unfortunate female has a history of multiple, multiple admissions for UTI. She also has chronic diarrhea as well as a history of C. difficile colitis that is resulted in bowel rupture and bowel resection. She was recently diagnosed with another episode of C. difficile diarrhea, and presents with back pain, nausea, vomiting, diarrhea and subjective fever. We have not been able to document she has a fever here. She reports having a UTI on the urinary constituents in the UA and although contaminated by squamous cells.CT is also confirming mild right hydronephrosis. She has had this in the past and it is unclear, because of her flank pain, if this is pyelonephritis or not. While she is obviously ill and looks chronically ill, it is unclear to me if she will respond to IV antibiotics and IV fluids and be able to be discharged tomorrow or if she get any longer stay. As such and placing her in observation and I will be treating her with meropenem on the basis of a previous history of ESBL E. coli. I will also recheck her CBC tomorrow. Qualifiers: Hematuria presence: without hematuria Urinary tract infection type: a cute cystitis Qualified Code(s): N30.00 - Acute cystitis without hematuria (2) Dehydration: Plan: Baseline creatinine varies between 1.2-1.7. She is 1.7 today. GFR 33. She has dry oral mucosa. She dropped her pressure to 70s in the ER. I will give her 1 L of fluid on the floor. She is already received 2 L in the ER. Will recheck BMP in the morning. (3) C. difficile diarrhea: Plan: Not clear if she is a carrier or truly infected. This woman seems to have had a terrible course of C. difficile diarrhea in the past resulting in bowel rupture. She has nausea, vomiting and diarrhea but no abdominal pain.Diarrhea is chronic for her. I will continue continued on p.o. vancomycin. Also make sure she gets Zofran 4 mg IV push every 6 hours as needed plus Compazine 10 mg IV push every 6 hours as needed. She has chronic diarrhea and we will make sure we push p.o. fluids. (4) Elevated troponin: Plan: Without chest pain, and EKG was reportedly neck negative. Troponins are 103, 107, and 92. At this time I think they are a flat leveling of someone who is very ill, but not having an NSTEMI. I will not anticoagulate with heparin. (5) DM2 (diabetes mellitus, type 2): Plan: At home she takes Trulicity, glipizide. Plan: Check A1c I will start Lantus 10 units at night Add short acting sliding scale insulin before each meal Qualifiers: Diabetes mellitus complication status: without complication Diabetes mellitus detention insulin use: without detention use Qualified Code(s): E11.9 - Type 2 diabetes mellitus without complications (6) History of aortic valve replacement: Plan: For aortic stenosis. Done in November 2018. Most recent echo in May 2024 shows the valve to be well-seated. Ejection fraction 60%. I will continue her Eliquis while she is here. Time no evidence of congestive heart failure. (7) Post-operative complication: Plan: Has the hardware from her open reduction internal fixation sticking through her skin. The emergency room doctor documents a very detailed note with regards to conversation with orthopedics on-call at [facility]. They do not feel this is an urgent surgical problem. They recommend just covering bandages and making sure the area stays clean and dry and changing the bandages. She can be followed up in the outpatient setting. Qualifiers: Surgical complication system/body Area: musculoskeletal system Surgical complication type: unspecified Lab Results 08/15/24 11:00 08/15/24 11:00
[2024-08-15] MEDS ORDERED: ONDANSETRON ODT 4 MG TABLET TL PRN (18:42)
[2024-08-15] MEDS ORDERED: SODIUM CHLORIDE FLUSH 0.9% 10 ML SYRINGE IVP PRN (18:42)
[2024-08-15] MEDS: SODIUM CHLORIDE 0.9% 1,000 ML IV SCH (19:31)
[2024-08-15] MEDS: MEROPENEM 500 MG in SODIUM CHLORIDE 0.9% MINIBAG 100 ML IV SCH (19:37)
[2024-08-15] MEDS: HYDROmorphone 0.5 MG/0.5 ML SYRINGE IVP PRN (19:42)
[2024-08-15] MEDS ORDERED: MEROPENEM 1 GM VIAL IVP SCH (20:00)
[2024-08-15] MEDS: INSULIN LISPRO 300 UNIT/3 ML PEN SUBQ SCH (21:55)
[2024-08-15] MEDS: traZODone 50 MG TABLET PO SCH (21:55)
[2024-08-15] MEDS: GABAPENTIN 300 MG CAPSULE PO SCH (21:55)
[2024-08-15] MEDS: APIXABAN 2.5 MG TABLET PO SCH (21:55)
[2024-08-15] MEDS: VANCOMYCIN 125 MG CAPSULE PO SCH (21:55)
[2024-08-15] MEDS: NYSTATIN CREAM 15 GM TUBE TOP SCH (21:55)
[2024-08-15] MEDS: INSULIN GLARGINE-YFGN 300 UNIT/3 ML PEN SUBQ SCH (21:56)
[2024-08-15] MEDS: ACETAMINOPHEN 325 MG TABLET PO PRN (22:02)
[2024-08-15] MEDS: SODIUM CHLORIDE FLUSH 0.9% 10 ML SYRINGE IVP SCH (23:30)
[2024-08-16 05:43] LABS: BASOPHILS % (AUTO) 0.4 %; EOSINOPHILS # (AUTO) 0.5 10^3/uL (0.0-0.7); EOSINOPHILS % (AUTO) 4.7 %; HCT - HEMATOCRIT 27.7 % (37.0-47.0); HGB - HEMOGLOBIN 7.9 g/dL (12.0-16.0); LYMPHOCYTES # (AUTO) 1.4 10^3/uL (1.5-3.5); LYMPHOCYTES % (AUTO) 12.5 %; MEAN CORPUSCULAR HEMOGLOBIN 25.7 pg (27.0-31.0); MEAN CORPUSCULAR HGB CONC 28.5 g/dL (32.0-36.0); MEAN CORPUSCULAR VOLUME 90.2 fL (81.0-99.0); MEAN PLATELET VOLUME 9.9 fL (7.9-10.8); MONOCYTES # (AUTO) 1.1 10^3/uL (0.0-1.0); MONOCYTES % (AUTO) 10.3 %; NEUTROPHILS # (AUTO) 7.7 10^3/uL (1.5-6.6); NEUTROPHILS % (AUTO) 71.5 %; PLT - PLATELET COUNT 231 10^3/uL (130-450); RED BLOOD COUNT 3.07 10^6/uL (4.20-5.40); WHITE BLOOD COUNT 10.8 x10^3/uL (4.8-10.8)
[2024-08-16 05:48] LABS: SLIDE REVIEW? Indicated
[2024-08-16 06:01] LABS: CALCIUM 8.3 mg/dL (8.5-10.3); CREATININE 1.4 mg/dL (0.6-1.3); POTASSIUM 3.9 mmol/L (3.5-4.5)
[2024-08-16] MEDS: LEVOTHYROXINE 25 MCG TABLET PO SCH (06:06)
[2024-08-16 06:07] LABS: PLATELET ESTIMATE, MANUAL NORMAL (130-450,000) (NORMAL); PLATELET MORPHOLOGY NORMAL APPEARANCE (NORMAL); RBC MORPHOLOGY (MULTIPLE) 1+ HYPOCHROMASIA (NORMAL); WBC MORPHOLOGY (MULTIPLE) NORMAL APPEARANCE (NORMAL)
[2024-08-16] MEDS: oxyCODONE 5 MG TABLET PO PRN (08:08)
[2024-08-16] MEDS: methocarbamoL 500 MG TABLET PO PRN (08:09)
[2024-08-16] MEDS: allopurinoL 100 MG TABLET PO SCH (08:11)
--- NOTE | 2024-08-16 08:49 | PHARMACY PROGRESS NOTE ---
Best Possible Medication History Admit Date and Time: 08/15/24 7448 Processed by: Pharmacy Medications reviewed in ED?: Yes Medication History completed: Yes Patient Interview: Completed Secondary Source(s): Pharmacy records and Insurance records [facility] Statement: As the person ultimately responsible for medication therapy, providers are able to order a medication from an existing home medication list in [facility] via the "Reconcile Routine" prior to Confirmation of that medication by care support representative. Such practice is discouraged except when the physician, in their clinical judgment, deems that a medical need exists for a medication without regard to previous use.
[2024-08-16 09:30] LABS: ESTIMATED AVERAGE GLUCOSE 180 mg/dL (70-100); HEMOGLOBIN A1c% 7.9 % (4.27-6.07)
[2024-08-16] MEDS ORDERED: SODIUM CHLORIDE FLUSH 0.9% 10 ML SYRINGE IVP PRN (13:24)
[2024-08-16] MEDS: DULAGLUTIDE 3 MG/0.5 ML SUBQ SCH (15:07)
--- NOTE | 2024-08-16 15:58 | PROVIDER PROGRESS NOTE ---
Subjective Prog Note Date Prog Note Date: 08/16/24 Prog Note Time: 15:42 Subjective Pt reports feeling: Improved Subjective: Yesterday, she felt incredibly weak in addition to the abdominal pain, nausea and diarrhea. That has improved. She still needs help to get out of bed. She does not like she had diarrhea today. She notes he had a bowel movement this morning but does not know if it was diarrhea. Slightly nauseated but no emesis. But continues to hurt is her right flank. Overnight there were no fevers. Tmax was 37.6 yesterday. Today she is 36.6. Oxygen saturations are stable on room air. Her second daughter (I met first daughter last night) and are in the room. They had many questions for me and I updated them on her problems and our treatment. Current Medications Current Medications Current Medications: Current Medications Generic Name Dose Route Start Last Admin Trade Name Freq PRN Reason Stop Dose Admin Acetaminophen 650 mg 08/15/24 18:42 08/15/24 22:02 Acetaminophen 325 Mg Tablet PO 650 mg Q4HR PRN Administration Pain 1 to 4, or Fever Allopurinol 100 mg 08/16/24 09:00 08/16/24 08:11 Allopurinol 100 Mg Tablet PO 100 mg DAILY JUNE Administration Apixaban 2.5 mg 08/15/24 21:00 08/16/24 08:11 Apixaban 2.5 Mg Tablet PO 2.5 mg BID JUNE Administration Gabapentin 600 mg 08/15/24 21:00 08/16/24 08:08 Gabapentin 300 Mg Capsule PO 600 mg BID JUNE Administration Hydromorphone HCl 0.5 mg 08/15/24 18:42 08/16/24 03:20 Hydromorphone 0.5 Mg/0.5 Ml Syringe IVP 0.5 mg Q2H PRN Administration Pain 8 to 10 Meropenem 500 mg/ Sodium 100 mls @ 200 mls/hr 08/15/24 19:00 08/16/24 06:41 Chloride IV Infused Q12H JUNE Infusion Insulin Glargine-yfgn 10 unit 08/15/24 21:00 08/15/24 21:56 Insulin Glargine-Yfgn 300 Unit/3 Ml Pen SUBQ 10 unit QPM JUNE Administration Insulin Human Lispro 1 - 9 unit 08/15/24 21:00 08/16/24 11:53 Insulin Lispro 300 Unit/3 Ml Pen SUBQ 1 unit 0800,1200,1700,2100 JUNE Administration Protocol Levothyroxine Sodium 100 mcg 08/16/24 07:00 08/16/24 06:06 Levothyroxine 25 Mcg Tablet PO 100 mcg QDAC JUNE Administration Methocarbamol 500 mg 08/15/24 19:47 08/16/24 08:09 Methocarbamol 500 Mg Tablet PO 500 mg Q6HR PRN Administration Spasms Nystatin 1 applic 08/15/24 21:00 08/16/24 09:19 Nystatin Cream 15 Gm Tube TOP 1 applic BID JUNE Administration Ondansetron HCl 4 mg 08/15/24 18:42 Ondansetron Odt 4 Mg Tablet TL Q6HR PRN Nausea / Vomiting Ondansetron HCl 4 mg 08/15/24 18:42 Ondansetron 4 Mg/2 Ml Vial IVP Q6HR PRN Nausea / Vomiting Oxycodone HCl 5 mg 08/15/24 18:42 08/16/24 08:08 Oxycodone 5 Mg Tablet PO 5 mg Q4HR PRN Administration Pain 5 to 7 Patient Own Refrig 1 each 08/16/24 15:00 08/16/24 15:07 Med (Trulicity 3mg/0 SUBQ 1 each .5ml) Q7D JUNE Administration Sodium Chloride 10 ml 08/15/24 18:42 Sodium Chloride Flush 0.9% 10 Ml Syringe IVP PRN PRN NEEDED PER PROVIDER ORDERS Sodium Chloride 10 ml 08/16/24 01:00 08/16/24 08:12 Sodium Chloride Flush 0.9% 10 Ml Syringe IVP 10 ml 0100,0900,1700 JUNE Administration Sodium Chloride 10 ml 08/16/24 13:24 Sodium Chloride Flush 0.9% 10 Ml Syringe IVP PRN PRN NEEDED PER PROVIDER ORDERS Sodium Chloride 10 ml 08/16/24 17:00 Sodium Chloride Flush 0.9% 10 Ml Syringe IVP 0100,0900,1700 JUNE Trazodone HCl 100 mg 08/15/24 21:00 08/15/24 21:55 Trazodone 50 Mg Tablet PO 100 mg QPM JUNE Administration Vancomycin HCl 125 mg 08/15/24 21:00 08/16/24 13:04 Vancomycin 125 Mg Capsule PO 125 mg QID JUNE Administration Objective Vital Signs/Intake & Output Reviewed Vital Signs: Yes Vital Signs: Vital Signs x48h Temp Pulse Pulse Pulse Resp BP BP 08/16/24 12:11 36.6 C 76 20 129/58 L 08/16/24 10:50 79 73 129/58 L BP Pulse Ox 08/16/24 12:11 97 08/16/24 10:50 120/55 L Intake & Output: Intake & Output 08/14/24 08/15/24 08/16/24 08/17/24 05:59 05:59 05:59 05:59 Intake Total 4208 / 4208 1652 / 1652 Output Total 100 / 100 1600 / 1600 Balance 4108 / 4108 52 / 52 Weight (kg) 71 kg Objective General Appearance: positive Alert, Mild distress (Her right flank pain bothers her. She feels like "there is a bar against my back and I am laying on it") and Other (Fatigued appearing, elderly female, up in chair after working with PT) Eyes Bilateral: positive PERRL and EOMI ENT: positive Pharynx nml and No signs of dehydration (Last night lips are dry and cracked. So dehydration has improved) Neck: positive Thyroid nml and No JVD Respiratory: positive Chest non-tender, No respiratory distress and Breath sounds nml Cardiovascular: positive Regular rate & rhythm and No murmur Abdomen: positive Non-tender, No organomegaly and Nml bowel sounds Skin: positive Color nml, Warm and Dry Extremities: positive Other (Right ankle covered in a bandage because of the hardware poking through her skin.); negative Nml appearance (Except for the right ankle, Gouty left knee deformity) or Calf tenderness Neurologic/Psychiatric: positive Oriented x3, CN's nml (2-12), Motor nml and Other (Because her left knee hurts her, it is difficult to do full weightbearing on the left leg. But she is only allowed toe-touch 25% weight on the right foot. Daughter has brought in the brace to wear on the ankle.) Lab Results 08/16/24 05:30 08/16/24 05:30 Other Labs: Lab Results x24hrs 08/16/24 08/16/24 08/16/24 Range/Units 11:27 07:28 05:30 WBC 10.8 (4.8-10.8) x10^3/uL RBC 3.07 L (4.20-5.40) 10^6/uL Hgb 7.9 L (12.0-16.0) g/dL Hct 27.7 L (37.0-47.0) % MCV 90.2 (81.0-99.0) fL MCH 25.7 L (27.0-31.0) pg MCHC 28.5 L (32.0-36.0) g/dL RDW 16.0 H (12.0-15.0) % Plt Count 231 (130-450) 10^3/uL MPV 9.9 (7.9-10.8) fL Neut # (Auto) 7.7 H (1.5-6.6) 10^3/uL Lymph # (Auto) 1.4 L (1.5-3.5) 10^3/uL [place] # (Auto) 1.1 H (0.0-1.0) 10^3/uL Eos # (Auto) 0.5 (0.0-0.7) 10^3/uL Baso # (Auto) 0.0 (0.0-0.1) 10^3/uL Absolute Nucleated RBC 0.00 x10^3/uL Nucleated RBC % 0.0 /100WBC Manual Slide Review Indicated WBC Morphology NORMAL APPEARANCE (NORMAL) Platelet Estimate NORMAL (130-450,000) (NORMAL) Platelet Morphology NORMAL APPEARANCE (NORMAL) RBC Morph Micro Appear 1+ HYPOCHROMASIA (NORMAL) Sodium 135 (135-145) mmol/L Potassium 3.9 (3.5-4.5) mmol/L Chloride 107 (101-111) mmol/L Carbon Dioxide 21 (21-32) mmol/L Anion Gap 7.0 (6-13) BUN 24 H (6-20) mg/dL Creatinine 1.4 H (0.6-1.3) mg/dL Estimated GFR (MDRD) 36 L (>89) Glucose 102 (74-104) mg/dL POC Whole Bld Glucose 161 118 (70-100) mg/dL Estimat Average Glucose 180 H (70-100) mg/dL Hemoglobin A1c % 7.9 H (4.27-6.07) % Lactic Acid (0.5-2.2) mmol/L Calcium 8.3 L (8.5-10.3) mg/dL Troponin I High Sens (2.3-14.8) ng/L 08/15/24 08/15/24 08/15/24 Range/Units 21:16 21:14 17:00 WBC (4.8-10.8) x10^3/uL RBC (4.20-5.40) 10^6/uL Hgb (12.0-16.0) g/dL Hct (37.0-47.0) % MCV (81.0-99.0) fL MCH (27.0-31.0) pg MCHC (32.0-36.0) g/dL RDW (12.0-15.0) % Plt Count (130-450) 10^3/uL MPV (7.9-10.8) fL Neut # (Auto) (1.5-6.6) 10^3/uL Lymph # (Auto) (1.5-3.5) 10^3/uL [place] # (Auto) (0.0-1.0) 10^3/uL Eos # (Auto) (0.0-0.7) 10^3/uL Baso # (Auto) (0.0-0.1) 10^3/uL Absolute Nucleated RBC x10^3/uL Nucleated RBC % /100WBC Manual Slide Review WBC Morphology (NORMAL) Platelet Estimate (NORMAL) Platelet Morphology (NORMAL) RBC Morph Micro Appear (NORMAL) Sodium (135-145) mmol/L Potassium (3.5-4.5) mmol/L Chloride (101-111) mmol/L Carbon Dioxide (21-32) mmol/L Anion Gap (6-13) BUN (6-20) mg/dL Creatinine (0.6-1.3) mg/dL Estimated GFR (MDRD) (>89) Glucose (74-104) mg/dL POC Whole Bld Glucose 142 135 (70-100) mg/dL Estimat Average Glucose (70-100) mg/dL Hemoglobin A1c % (4.27-6.07) % Lactic Acid 0.9 (0.5-2.2) mmol/L Calcium (8.5-10.3) mg/dL Troponin I High Sens (2.3-14.8) ng/L 08/15/24 Range/Units 16:54 WBC (4.8-10.8) x10^3/uL RBC (4.20-5.40) 10^6/uL Hgb (12.0-16.0) g/dL Hct (37.0-47.0) % MCV (81.0-99.0) fL MCH (27.0-31.0) pg MCHC (32.0-36.0) g/dL RDW (12.0-15.0) % Plt Count (130-450) 10^3/uL MPV (7.9-10.8) fL Neut # (Auto) (1.5-6.6) 10^3/uL Lymph # (Auto) (1.5-3.5) 10^3/uL [place] # (Auto) (0.0-1.0) 10^3/uL Eos # (Auto) (0.0-0.7) 10^3/uL Baso # (Auto) (0.0-0.1) 10^3/uL Absolute Nucleated RBC x10^3/uL Nucleated RBC % /100WBC Manual Slide Review WBC Morphology (NORMAL) Platelet Estimate (NORMAL) Platelet Morphology (NORMAL) RBC Morph Micro Appear (NORMAL) Sodium (135-145) mmol/L Potassium (3.5-4.5) mmol/L Chloride (101-111) mmol/L Carbon Dioxide (21-32) mmol/L Anion Gap (6-13) BUN (6-20) mg/dL Creatinine (0.6-1.3) mg/dL Estimated GFR (MDRD) (>89) Glucose (74-104) mg/dL POC Whole Bld Glucose (70-100) mg/dL Estimat Average Glucose (70-100) mg/dL Hemoglobin A1c % (4.27-6.07) % Lactic Acid (0.5-2.2) mmol/L Calcium (8.5-10.3) mg/dL Troponin I High Sens 92.5 H* (2.3-14.8) ng/L ABX Reporting Has patient been on IV antibiotics over the past 48 hours?: Yes Sepsis Event Note (H) Evaluation Current Stage of Sepsis: Ruled out Sepsis Criteria Sepsis Criteria: WBC count greater than 12,000 or less than 4000 and SBP drop more than 40mHg Assessment/Plan Problem List (1) Urinary tract infection: Impression: Yesterday I felt that her problem may be more musculoskeletal pain. But she is having pain at rest in the bed and is now very localized behind her right flank when she puts weight on it. She may have pyelonephritis after all. With antibiotics the white cell count has gone from 16.1-10.8. She does not have a fever. Urine culture was not done because of squamous cells present in the urine. But she has a history of ESBL E. coli. Plan: Change diagnosis to pyelonephritis With a small right kidney stone in the right kidney. Because of right flank pain, and a small stone with mild hydronephrosis, I will consult urology tomorrow. They are not present here on the weekends and today is Saturday. I will change the patient from observation status to inpatient status. I now treating an ESBL E. coli UTI that cannot be treated with oral antibiotics and she will need at least 3 days of IV antibiotics in the urology consult. Continue meropenem since it is ESBL E. coli that I am treating. Think of using fosfomycin but it is not adequately concentrated in kidneys. Qualifiers: Urinary tract infection type: acute pyelonephritis Qualified Code(s): N 10 - Acute pyelonephritis (2) Dehydration: Impression: Her baseline creatinine in 2018 was 0.8. By March 2024 she was 1.6. On admission she was 1.7. After being hydrated her creatinine has come down to 1.4. And her oral mucosa is much improved. I will Continue IV fluids for 1 more liter (3) C. difficile diarrhea: Impression: When she was in her primary care provider's office, she was told that treatment should continue for an entire month. Family wanted to make sure I sat her back on her vancomycin orally. I reassured the family that she is in fact back on vancomycin oral. Patient has no diarrhea today. (4) Elevated troponin: Impression: In June, her troponins were mildly elevated at 15, and 36. In the ER she started at 103, they went up to 107 and then came down to 92. EKG does not show any acute changes. My suspicion is that she has elevated troponin with her chronic kidney disease, and type I cause. Not be starting a heparin drip, statin or beta-amer[place] for this (5) DM2 (diabetes mellitus, type 2): Impression: Glucose in the ER was 189 yesterday. has brought her Trulicity in from home would like her home Trulicity resumed. Glucose this morning was 102. I will stop her Lantus and use only sliding scale insulin and the Trulicity Qualifiers: Diabetes mellitus custodial insulin use: without long term care phlebotomist use Diabetes mellitus complication status: without complication Qualified Code(s): E11.9 - Type 2 diabetes mellitus without complications (6) History of aortic valve replacement: Impression: Has had a TAVR and is on Eliquis. Eliquis has been resumed. No signs or symptoms of congestive heart failure. Echo shows a well-seated valve with her last echo done in the last 6 months (7) Post-operative complication: Impression: Hardware is now up working through the skin where she had her ORIF. I will be consulting orthopedics tomorrow. They are not on-call this weekend. I have asked PT to work with her. They were able to get her up to a chair today. But we need to establish with orthopedics what her weightbearing status is on the right ankle. I am very grateful that her daughter brought in the brace from home. Qualifiers: Surgical complication system/body Area: musculoskeletal system Surgical complication type: unspecified
[2024-08-16] MEDS ORDERED: DULAGLUTIDE 3 MG/0.5 ML SQ SCH (16:00)
[2024-08-16] MEDS: SODIUM CHLORIDE FLUSH 0.9% 10 ML SYRINGE IVP SCH (17:24)
[2024-08-16] MEDS: LATANOPROST 0.005% OPHTH DROPS LEFTEYE SCH (20:25)
[2024-08-17 05:26] LABS: BASOPHILS % (AUTO) 0.5 %; EOSINOPHILS # (AUTO) 0.5 10^3/uL (0.0-0.7); EOSINOPHILS % (AUTO) 6.8 %; HCT - HEMATOCRIT 27.1 % (37.0-47.0); HGB - HEMOGLOBIN 8.1 g/dL (12.0-16.0); LYMPHOCYTES # (AUTO) 1.1 10^3/uL (1.5-3.5); LYMPHOCYTES % (AUTO) 14.1 %; MEAN CORPUSCULAR HEMOGLOBIN 26.1 pg (27.0-31.0); MEAN CORPUSCULAR HGB CONC 29.9 g/dL (32.0-36.0); MEAN CORPUSCULAR VOLUME 87.4 fL (81.0-99.0); MEAN PLATELET VOLUME 9.7 fL (7.9-10.8); MONOCYTES # (AUTO) 0.9 10^3/uL (0.0-1.0); MONOCYTES % (AUTO) 12.1 %; NEUTROPHILS # (AUTO) 4.9 10^3/uL (1.5-6.6); NEUTROPHILS % (AUTO) 65.8 %; PLT - PLATELET COUNT 235 10^3/uL (130-450); RED CELL DISTRIBUTION WIDTH 15.7 % (12.0-15.0); WHITE BLOOD COUNT 7.5 x10^3/uL (4.8-10.8)
[2024-08-17 05:41] LABS: CALCIUM 8.7 mg/dL (8.5-10.3); CREATININE 1.6 mg/dL (0.6-1.3)
[2024-08-17] MEDS: CYANOCOBALAMIN 500 MCG TABLET PO SCH (08:12)
[2024-08-17] MEDS: CHOLECALCIFEROL 25 MCG TABLET PO SCH (08:12)
[2024-08-17] MEDS: TIMOLOL 0.5% OPHTH DROPS EACHEYE SCH (08:14)
[2024-08-17] MEDS: SACCHAROMYCES BOULARDII 250 MG CAPSULE PO SCH (11:52)
[2024-08-17] MEDS: MULTIVITAMIN W/MINERALS TABLET PO SCH (16:39)
--- NOTE | 2024-08-17 16:57 | HISTORY & PHYSICAL EXAMINATION ---
Chief Complaint Chief Complaint Chief Complaint: Right ankle prominent screws History of Present Illness History of Present Illness HPI Comment/Other: DOI: 06/19/24 SABI: Fall DOS: 06/19/24 Surgery: I & D with ORIF of a Grade I R bimalleolar ankle fracture by Dr. Ramirez. 89 yo F admitted to the hospital with pyelonephritis. It was noted on her physical exam that her medial malleolar screws were visible through a medial ankle wound and orthopedics was consulted. She reports minimal pain at the ankle. She denies joint irritability. She has been ambulating assisted partially weightbearing. She has been treated by wound care over the last several weeks for a medial ankle wound. She denies f/c/ns. Meds/Allgy Home Medications Ambulatory Orders Medication Instructions Recorded Confirmed glipizide 5 mg tablet, extended 10 mg PO DAILY 06/29/19 08/16/24 release 24 hr rosuvastatin 40 mg tablet (Crestor) 20 mg PO QPM 06/29/19 08/16/24 latanoprost 0.005 % eye drops 1 drp LEFTEYE QPM 07/04/19 08/16/24 Nystatin [Klayesta] 1 appful topical BID 06/19/24 08/16/24 acetaminophen 300 mg-codeine 60 mg 1 tab PO TID 06/19/24 08/16/24 tablet cholecalciferol (vitamin D3) 50 1 cap PO DAILY 06/19/24 08/16/24 mcg (2,000 unit) capsule cyanocobalamin (vitamin B-12) 1 cap PO DAILY 06/19/24 08/16/24 1,000 mcg capsule timolol maleate (PF) 0.5 % eye 1 drp EACHEYE DAILY 06/19/24 08/16/24 drops in a dropperette (Timoptic Ocudose (PF)) trazodone 50 mg tablet 100 mg PO HS 06/19/24 08/16/24 allopurinol 100 mg tablet 100 mg PO DAILY 06/20/24 08/16/24 apixaban 2.5 mg tablet (Eliquis) 2.5 mg PO BID 06/20/24 08/16/24 gabapentin 300 mg capsule 600 mg (2 x 300 mg) PO BID #60 caps 06/20/24 08/16/24 levothyroxine 100 mcg tablet 100 mcg PO QDAC 06/20/24 08/16/24 cephalexin 500 mg capsule 500 mg PO Q6H ##28 07/20/24 08/16/24 dulaglutide 3 mg/0.5 mL 3 mg SQ OAW 07/20/24 08/16/24 subcutaneous pen injector (Trulicity) vancomycin 125 mg capsule 125 mg PO QID 10 days #40 caps 07/20/24 08/16/24 Allergies Allergies Allergy/AdvReac Type Severity Reaction Status Date / Time Penicillins Allergy Severe Hives Verified 08/15/24 10:53 sulfamethoxazole (From Allergy Hives Verified 08/15/24 10:53 Bactrim) trimethoprim (From Bactrim) Allergy Hives Verified 08/15/24 10:53 aspartame AdvReac Diarrhea Verified 08/15/24 10:53 cefepime AdvReac Itching Verified 08/15/24 10:53 clindamycin AdvReac Unknown Verified 08/15/24 10:53 doxycycline AdvReac Nausea Verified 08/15/24 10:53 saccharin AdvReac Diarrhea Verified 08/15/24 10:53 stevioside (From Stevia) AdvReac Diarrhea Verified 08/15/24 10:53 sucralose AdvReac Diarrhea Verified 08/15/24 10:53 PFSH Medical History Medical History History of ESBL E. 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 (03/05/24) Hypothyroidism (06/04/23) Tinea cruris (07/16/23) Presbycusis, bilateral (12/30/23) GI bleeding (03/05/24) Balance problem (02/21/24) Surgical History Surgical History Hx of tonsillectomy H/O hysterectomy with oophorectomy Tubal ligation status Knee joint replacement status History of appendectomy History of cholecystectomy Status post open reduction with internal fixation (ORIF) of fracture of ankle Hx of aortic valve replacement (07/16/23) done 11/2018, last echo 05/05/2024 EF 60%, PASP 36 mmHg, well seated valve Family History Family History Mother Cancer Father Cancer Daughter Healthy adult on routine physical examination Social History Social History Smoking Status: Never smoker Second hand tobacco smoke exposure: No Do you dip or chew tobacco?: No Do you vape?: No Patient requests smoking cessation consult: No Initiate information on smoking cessation: No Living arrangement: At home Living Condition: With spouse/s.o. and With family Support Person: Yes Relationship: Spouse Living Situation Details: one daughter in [place] and another across the street in [place], lives w her as well Physical Activity: Bedfast and None Level: Assisted Home Mobility Equipment: Wheelchair Do you feel safe in your home environment?: Yes Suffered physical, verbal, emotional, or financial abuse?: No History of Abuse: No Frequency: Occasional Substance Use: denies use Are you sexually active?: No POLST Patient has POLST: Yes POLST Status: DNR (Polst provided by and copied) Exam Exam PE: R ankle: 1 cm wound medial ankle with palpable and visible screw head. No surrounding erythema, warmth or drainage. SOme scant granulation tissue over the screw head. Lateral incision is well healed. NO erythema or warmth. NTTP fibula. SILT s/s/t/dp/sp. FIres ta/gs/ehl/fhl. No joint irritability. KNee is nttp with well healed surgical scar. 2+ DP and brisk cap refill. 2 v of the ankle obtained: Fracture lines still evident with hardware in place. Sepsis Event Note (H) Evaluation Current Stage of Sepsis: Ruled out Sepsis Criteria Sepsis Criteria: WBC count greater than 12,000 or less than 4000 and SBP drop more than 40mHg Conclusion/Plan Problem List (1) Urinary tract infection: Plan: This unfortunate female has a history of multiple, multiple admissions for UTI. She also has chronic diarrhea as well as a history of C. difficile colitis that is resulted in bowel rupture and bowel resection. She was recently diagnosed with another episode of C. difficile diarrhea, and presents with back pain, nausea, vomiting, diarrhea and subjective fever. We have not been able to document she has a fever here. She reports having a UTI on the urinary constituents in the UA and although contaminated by squamous cells.CT is also confirming mild right hydronephrosis. She has had this in the past and it is unclear, because of her flank pain, if this is pyelonephritis or not. While she is obviously ill and looks chronically ill, it is unclear to me if she will respond to IV antibiotics and IV fluids and be able to be discharged tomorrow or if she get any longer stay. As such and placing her in observation and I will be treating her with meropenem on the basis of a previous history of ESBL E. coli. I will also recheck her CBC tomorrow. Qualifiers: Urinary tract infection type: acute pyelonephritis Qualified Code(s): N 10 - Acute pyelonephritis (2) Dehydration: Plan: Baseline creatinine varies between 1.2-1.7. She is 1.7 today. GFR 33. She has dry oral mucosa. She dropped her pressure to 70s in the ER. I will give her 1 L of fluid on the floor. She is already received 2 L in the ER. Will recheck BMP in the morning. (3) C. difficile diarrhea: Plan: Not clear if she is a carrier or truly infected. This woman seems to have had a terrible course of C. difficile diarrhea in the past resulting in bowel rupture. She has nausea, vomiting and diarrhea but no abdominal pain.Diarrhea is chronic for her. I will continue continued on p.o. vancomycin. Also make sure she gets Zofran 4 mg IV push every 6 hours as needed plus Compazine 10 mg IV push every 6 hours as needed. She has chronic diarrhea and we will make sure we push p.o. fluids. (4) Elevated troponin: Plan: Without chest pain, and EKG was reportedly neck negative. Troponins are 103, 107, and 92. At this time I think they are a flat leveling of someone who is very ill, but not having an NSTEMI. I will not anticoagulate with heparin. (5) DM2 (diabetes mellitus, type 2): Plan: At home she takes Trulicity, glipizide. Plan: Check A1c I will start Lantus 10 units at night Add short acting sliding scale insulin before each meal Qualifiers: Diabetes mellitus complication status: without complication Diabetes mellitus assisted insulin use: without bed bug exterminator use Qualified Code(s): E11.9 - Type 2 diabetes mellitus without complications (6) History of aortic valve replacement: Plan: For aortic stenosis. Done in November 2018. Most recent echo in May 2024 shows the valve to be well-seated. Ejection fraction 60%. I will continue her Eliquis while she is here. Time no evidence of congestive heart failure. (7) Post-operative complication: Plan: Has the hardware from her open reduction internal fixation sticking through her skin. The emergency room doctor documents a very detailed note with regards to conversation with orthopedics on-call at [facility]. They do not feel this is an urgent surgical problem. They recommend just covering bandages and making sure the area stays clean and dry and changing the bandages. She can be followed up in the outpatient setting. Qualifiers: Surgical complication system/body Area: musculoskeletal system Surgical complication type: unspecified Plan I discussed different options with patient and she would like the screws removed. I will take them out on 08/19 and she will likely need a post op CAM boot for ambulation after the surgery. SHe would like her to present for the consent process so we will defer consent until the day of surgery. Until then, she should continue PT and OT with 25% weightbearing precautions. SHe is currently being treated with Vancomycin which is protecting her ankle as well. I will see her again on 08/19 to consent her for removal of hardware. NPO after midnight for surgery. Lab Results 08/17/24 05:03 08/17/24 05:03
--- NOTE | 2024-08-17 19:21 | PROVIDER PROGRESS NOTE ---
Subjective Prog Note Date Prog Note Date: 08/17/24 Prog Note Time: 19:14 Subjective Pt reports feeling: Improved Subjective: Seen at 830 this morning and later this evening. She feels weak, tired. Continues to have flank pain. The ankle is not painful. She denies fever, chills, chest pain, and has not had diarrhea since the day of admission. There is issues eating more food. She managed to eat 100% of her dinner. But not drinking very much fluids. Current Medications Current Medications Current Medications: Current Medications Generic Name Dose Route Start Last Admin Trade Name Freq PRN Reason Stop Dose Admin Acetaminophen 650 mg 08/15/24 18:42 08/15/24 22:02 Acetaminophen 325 Mg Tablet PO 650 mg Q4HR PRN Administration Pain 1 to 4, or Fever Allopurinol 100 mg 08/16/24 09:00 08/17/24 08:13 Allopurinol 100 Mg Tablet PO 100 mg DAILY JUNE Administration Apixaban 2.5 mg 08/15/24 21:00 08/17/24 08:13 Apixaban 2.5 Mg Tablet PO 2.5 mg BID JUNE Administration Cholecalciferol 50 mcg 08/17/24 09:00 08/17/24 08:12 Cholecalciferol 25 Mcg Tablet PO 50 mcg DAILY JUNE Administration Cyanocobalamin 1,000 mcg 08/17/24 09:00 08/17/24 08:12 Cyanocobalamin 500 Mcg Tablet PO 1,000 mcg DAILY JUNE Administration Gabapentin 600 mg 08/15/24 21:00 08/17/24 08:12 Gabapentin 300 Mg Capsule PO 600 mg BID JUNE Administration Hydromorphone HCl 0.5 mg 08/15/24 18:42 08/17/24 13:22 Hydromorphone 0.5 Mg/0.5 Ml Syringe IVP 0.5 mg Q2H PRN Administration Pain 8 to 10 Meropenem 500 mg/ Sodium 100 mls @ 200 mls/hr 08/15/24 19:00 08/17/24 18:33 Chloride IV 200 mls/hr Q12H JUNE Administration Insulin Human Lispro 1 - 9 unit 08/15/24 21:00 08/17/24 16:44 Insulin Lispro 300 Unit/3 Ml Pen SUBQ Not Given 0800,1200,1700,2100 [facility] Protocol Latanoprost 1 drops 08/16/24 21:00 08/16/24 20:25 Latanoprost 0.005% Ophth Drops LEFTEYE 1 drops QPM JUNE Administration Levothyroxine Sodium 100 mcg 08/16/24 07:00 08/17/24 06:17 Levothyroxine 25 Mcg Tablet PO 100 mcg QDAC JUNE Administration Methocarbamol 500 mg 08/15/24 19:47 08/17/24 08:12 Methocarbamol 500 Mg Tablet PO 500 mg Q6HR PRN Administration Spasms Multi-Ingredient Ointment 1 applic 08/17/24 15:08 Zinc Oxide 20% Oint 30 Gm Tube TOP PRN PRN Skin Care Multivitamins/Minerals 1 tab 08/17/24 17:00 08/17/24 16:39 Multivitamin W/Minerals Tablet PO 1 tab DAILYWM JUNE Administration Nystatin 1 applic 08/15/24 21:00 08/17/24 09:41 Nystatin Cream 15 Gm Tube TOP 1 applic BID JUNE Administration Ondansetron HCl 4 mg 08/15/24 18:42 Ondansetron Odt 4 Mg Tablet TL Q6HR PRN Nausea / Vomiting Ondansetron HCl 4 mg 08/15/24 18:42 Ondansetron 4 Mg/2 Ml Vial IVP Q6HR PRN Nausea / Vomiting Oxycodone HCl 5 mg 08/15/24 18:42 08/17/24 12:10 Oxycodone 5 Mg Tablet PO 5 mg Q4HR PRN Administration Pain 5 to 7 Patient Own Refrig 1 each 08/16/24 15:00 08/16/24 15:07 Med (Trulicity 3mg/0 SUBQ 1 each .5ml) Q7D JUNE Administration Saccharomyces Boulardii 500 mg 08/17/24 10:00 08/17/24 16:39 Saccharomyces Boulardii 250 Mg Capsule PO 500 mg BIDWM JUNE Administration Sodium Chloride 10 ml 08/15/24 18:42 Sodium Chloride Flush 0.9% 10 Ml Syringe IVP PRN PRN NEEDED PER PROVIDER ORDERS Sodium Chloride 10 ml 08/16/24 01:00 08/17/24 16:40 Sodium Chloride Flush 0.9% 10 Ml Syringe IVP 10 ml 0100,0900,1700 JUNE Administration Sodium Chloride 10 ml 08/16/24 13:24 Sodium Chloride Flush 0.9% 10 Ml Syringe IVP PRN PRN NEEDED PER PROVIDER ORDERS Sodium Chloride 10 ml 08/16/24 17:00 08/17/24 16:40 Sodium Chloride Flush 0.9% 10 Ml Syringe IVP Not Given 0100,0900,1700 JUNE Timolol Maleate 1 drops 08/17/24 09:00 08/17/24 08:14 Timolol 0.5% Ophth Drops EACHEYE 1 drops DAILY JUNE Administration Trazodone HCl 100 mg 08/15/24 21:00 08/16/24 20:25 Trazodone 50 Mg Tablet PO 100 mg QPM JUNE Administration Vancomycin HCl 125 mg 08/15/24 21:00 08/17/24 16:39 Vancomycin 125 Mg Capsule PO 125 mg QID JUNE Administration Objective Vital Signs/Intake & Output Reviewed Vital Signs: Yes Vital Signs: Vital Signs x48h Temp Pulse Resp BP Pulse Ox O2 Flow Rate 08/17/24 16:24 36.5 C 83 20 134/66 H 95 08/17/24 11:26 95 Intake & Output: Intake & Output 08/15/24 08/16/24 08/17/24 08/18/24 05:59 05:59 05:59 05:59 Intake Total 4208 / 4208 2292 / 2292 556 / 556 Output Total 100 / 100 2800 / 2800 1150 / 1150 Balance 4108 / 4108 -508 / -508 -594 / -594 Weight (kg) 71 kg 71.5 kg Objective General Appearance: positive No acute distress and Other (Pale, fatigued appearing, looks stated age but less tearful and less miserable than on admission) Eyes Bilateral: positive No scleral icterus ENT: positive No signs of dehydration Neck: positive Thyroid nml and No JVD; negative Thyromegaly, Lymphadenopathy (R) or Lymphadenopathy (L) Respiratory: positive Chest non-tender and No respiratory distress; negative Breath sounds nml (Diminished at the bases. Slow, shallow, unlabored. No shortness of breath or use of accessory muscles) Cardiovascular: positive Regular rate & rhythm; negative No murmur or No gallop Abdomen: positive Non-tender, No organomegaly, Nml bowel sounds and Tenderness (For her flank) Back: positive CVA tenderness (R) Skin: positive Warm, Dry, Pallor and Other (The surrounding skin around the hardware is not red or swollen or infected) Extremities: positive Full ROM and Other (Tender right ankle with hardware. Left knee warm and deformed but that is chronic) Neurologic/Psychiatric: positive Oriented x3, CN's nml (2-12) and Motor nml Lab Results 08/17/24 05:03 08/17/24 05:03 Other Labs: Lab Results x24hrs 08/17/24 08/17/24 08/17/24 Range/Units 16:44 11:52 07:50 WBC (4.8-10.8) x10^3/uL RBC (4.20-5.40) 10^6/uL Hgb (12.0-16.0) g/dL Hct (37.0-47.0) % MCV (81.0-99.0) fL MCH (27.0-31.0) pg MCHC (32.0-36.0) g/dL RDW (12.0-15.0) % Plt Count (130-450) 10^3/uL MPV (7.9-10.8) fL Neut # (Auto) (1.5-6.6) 10^3/uL Lymph # (Auto) (1.5-3.5) 10^3/uL [place] # (Auto) (0.0-1.0) 10^3/uL Eos # (Auto) (0.0-0.7) 10^3/uL Baso # (Auto) (0.0-0.1) 10^3/uL Absolute Nucleated RBC x10^3/uL Nucleated RBC % /100WBC Sodium (135-145) mmol/L Potassium (3.5-4.5) mmol/L Chloride (101-111) mmol/L Carbon Dioxide (21-32) mmol/L Anion Gap (6-13) BUN (6-20) mg/dL Creatinine (0.6-1.3) mg/dL Estimated GFR (MDRD) (>89) Glucose (74-104) mg/dL POC Whole Bld Glucose 130 143 118 (70-100) mg/dL Calcium (8.5-10.3) mg/dL 08/17/24 08/16/24 Range/Units 05:03 20:48 WBC 7.5 (4.8-10.8) x10^3/uL RBC 3.10 L (4.20-5.40) 10^6/uL Hgb 8.1 L (12.0-16.0) g/dL Hct 27.1 L (37.0-47.0) % MCV 87.4 (81.0-99.0) fL MCH 26.1 L (27.0-31.0) pg MCHC 29.9 L (32.0-36.0) g/dL RDW 15.7 H (12.0-15.0) % Plt Count 235 (130-450) 10^3/uL MPV 9.7 (7.9-10.8) fL Neut # (Auto) 4.9 (1.5-6.6) 10^3/uL Lymph # (Auto) 1.1 L (1.5-3.5) 10^3/uL [place] # (Auto) 0.9 (0.0-1.0) 10^3/uL Eos # (Auto) 0.5 (0.0-0.7) 10^3/uL Baso # (Auto) 0.0 (0.0-0.1) 10^3/uL Absolute Nucleated RBC 0.00 x10^3/uL Nucleated RBC % 0.0 /100WBC Sodium 134 L (135-145) mmol/L Potassium 4.0 (3.5-4.5) mmol/L Chloride 106 (101-111) mmol/L Carbon Dioxide 22 (21-32) mmol/L Anion Gap 6.0 (6-13) BUN 24 H (6-20) mg/dL Creatinine 1.6 H (0.6-1.3) mg/dL Estimated GFR (MDRD) 30 L (>89) Glucose 105 H (74-104) mg/dL POC Whole Bld Glucose 223 (70-100) mg/dL Calcium 8.7 (8.5-10.3) mg/dL ABX Reporting Has patient been on IV antibiotics over the past 48 hours?: Yes Sepsis Event Note (H) Evaluation Current Stage of Sepsis: Ruled out Sepsis Criteria Sepsis Criteria: WBC count greater than 12,000 or less than 4000 and SBP drop more than 40mHg Assessment/Plan Problem List (1) Urinary tract infection: Impression: on admission, I felt that her problem may be more musculoskeletal pain. but she continues having flank pain at rest in the bed and the pain is very localized behind her right flank when she puts weight on it when she lays. It feels "like a hard metal bar" is pressing into her flank. I do feel I am treating pyelonephritis. I spoke to Urology Dr. Martin and he reviewed the CT. Feels that there is no stone. And that after looking at the CT he really feels this is chronic due to her infection and does not need a stent or urology follow-up. With antibiotics the white cell count has gone from 16.1>>10.8>>7.5. So she is responding to abx. She does not have a fever. Urine culture was not done because of squamous cells present in the urine. But she has a history of ESBL E. coli. Plan: Change diagnosis to pyelonephritis With a small right kidney stone in the right kidney per CT radiology but Dr. Martin doesn't feel is a correct read. So no stent for now and I will focus on abx for 3-5 days. Today is day #3 Qualifiers: Urinary tract infection type: acute pyelonephritis Qualified Code(s): N 10 - Acute pyelonephritis (2) Post-operative complication: Impression: Hardware is now up working through the skin where she had her ORIF. Dr. Dia today. And she does feel that the patient needs her hardware removed. As such surgery is planned for August 19. Patient needs to be n.p.o. after midnight on the evening of the . She feels the patient could be discharged either later that night or the morning of the . I am having PT work with this patient. She is understandably very fearful of putting full weight on that involved ankle. Right now we are working with only 25% weightbearing. The daughter has wonderfully brought in a brace from home. We will work with her again postop to make sure she can safely ambulate when she goes home. She has made it very clear that she is not going to a senior living facility for rehab. Family supports that decision. She is on home health. It is signature. So at discharge we will resume signature home health with PT/OT/wound care Qualifiers: Surgical complication system/body Area: musculoskeletal system Surgical complication type: unspecified (3) DM2 (diabetes mellitus, type 2): Impression: A1c is 7.9%. With infection goal will be below 7% but this lady is 89 years old. Tight control of glucose can sometimes result in increased mortality in elderly patients. I initially had her on Lantus with sliding scale insulin. brought in her home Trulicity and she started taking it August 16. Glucose today is 105. 118. 143. 130. These are on Trulicity and SS insulin which she has not needed. Plan: I will continue same managment Qualifiers: Diabetes mellitus penitentiary insulin use: without penitentiary use Diabetes mellitus complication status: without complication Qualified Code(s): E11.9 - Type 2 diabetes mellitus without complications (4) History of aortic valve replacement: Impression: Has had a TAVR and is on Eliquis. Eliquis has been resumed. No signs or symptoms of congestive heart failure. Echo shows a well-seated valve with her last echo done in the last 6 months. Stop Eliquis on August 18 in preparation for surgery (5) Elevated troponin: Impression: In June, her troponins were mildly elevated at 15, and 36. In the ER she started at 103, they went up to 107 and then came down to 92. EKG does not show any acute changes. My suspicion is that she has elevated troponin with her chronic kidney disease, and type I cause. Not be starting a heparin drip, statin or beta-[place] for this (6) C. difficile diarrhea: Impression: When she was in her primary care provider's office, she was told that treatment should continue for an entire month. Family wanted to make sure I had her back on her vancomycin orally. I reassured the family that she is in fact back on vancomycin oral. Patient has not had diarrhea since admission I am adding florastor today. . (7) Dehydration: Impression: REsolved. Her baseline creatinine in 2018 was 0.8. By March 2024 she was 1.6. On admission she was 1.7. After being hydrated her creatinine went down to 1.4 but today back up to 1.6 On exam, her oral mucosa went from dry and cracked lips to normal exam. I will Continue IV fluids for 1 more liter
[2024-08-18 05:29] LABS: BASOPHILS % (AUTO) 0.3 %; EOSINOPHILS # (AUTO) 0.3 10^3/uL (0.0-0.7); EOSINOPHILS % (AUTO) 5.9 %; HCT - HEMATOCRIT 26.2 % (37.0-47.0); HGB - HEMOGLOBIN 7.9 g/dL (12.0-16.0); LYMPHOCYTES % (AUTO) 17.5 %; MEAN CORPUSCULAR HGB CONC 30.2 g/dL (32.0-36.0); MEAN CORPUSCULAR VOLUME 86.2 fL (81.0-99.0); MEAN PLATELET VOLUME 8.8 fL (7.9-10.8); MONOCYTES # (AUTO) 0.8 10^3/uL (0.0-1.0); MONOCYTES % (AUTO) 13.2 %; NEUTROPHILS # (AUTO) 3.6 10^3/uL (1.5-6.6); NEUTROPHILS % (AUTO) 62.4 %; PLT - PLATELET COUNT 220 10^3/uL (130-450); RED BLOOD COUNT 3.04 10^6/uL (4.20-5.40); RED CELL DISTRIBUTION WIDTH 15.6 % (12.0-15.0); WHITE BLOOD COUNT 5.8 x10^3/uL (4.8-10.8)
[2024-08-18 06:00] LABS: CALCIUM 8.7 mg/dL (8.5-10.3); CREATININE 1.4 mg/dL (0.6-1.3)
--- NOTE | 2024-08-18 12:38 | PROVIDER PROGRESS NOTE ---
Subjective Prog Note Date Prog Note Date: 08/18/24 Prog Note Time: 12:33 Subjective Subjective: This is an 89-year-old female who fell June 19 and x-ray showed a displaced grade 1 open right bimalleolar ankle fracture. She is on Eliquis for prophylaxis for a mechanical aortic valve replacement. She also has a history of a PE. She was taken to the operating room and had irrigation and debridement of an open wound, and open reduction internal fixation of a right bimalleolar ankle fracture that day. She was seen during that admission for chest pain. Troponins were assessed, EKG was assessed and it was not felt to be cardiac chest pain. Because she was on Eliquis she was felt to have a low risk of pulmonary embolism. And she was transferred to a residential facility for rehab. She returned to the emergency room August 04 with 3 to 4 days of feeling weaker. She was still in a boot and using crutches. Complaining of diarrhea and stool analysis found her to have C. difficile diarrhea. Also found to have a UTI. She was treated as a UTI and sent home. She now returns with back pain, nausea vomiting and diarrhea, and a sensation of fever. She tells me that her right flank pain is terrible. It started slowly a few days ago and 2 days ago it was a 10 out of a 10 and she was screaming with that. It is not constant. It comes and goes like a cramping sensation. She had had the diarrhea with the C. difficile at the beginning of August. After being treated with vancomycin her diarrhea went away and she actually was constipated for a few days. But the diarrhea came back a couple of days ago. She was carefully examined by the ER provider. Her vital signs were documented as normal when I read them but Dr. Tsang shares with me that she dropped her pressure into the 70s systolic over 40s. She had a low-grade fever of 37.7. Pulse rate varied between 89-93. She has been saturating well on room air. Dr. Pedro found her to have another UTI with moderate leukocyte Estrace, negative for nitrates but it is contaminated with squamous cells. CT scan was done of the abdomen and she does have slight right hydronephrosis, about the same as it was with the previous CT scan. Unfortunately the urine was contaminated with squamous cells even though she had moderate bacteria, white cells and red cells culture is not can be done. She has stable chronic kidney disease. Creatinine is 1.7 and GFR is 33. Comparable to August 04 and June 17 labs. Her white cell count in the ER August 04 was 8.4. Today at 16.1. Lactic acid is normal at 0.9. Dr. Tsang also found her to have the screws of her ankle fracture are now breaking through the skin. He spoke at length to orthopedics on-call at [place]. They said that as long as the wound is not infected, it can be covered with a bandage and does not need urgent/inpatient care. Since the patient has a low-grade fever, elevated white cell count, dehydration on exam, with a low BP at one point, we feel it would be prudent to bring her in to treat the UTI that is possible. And make sure she does well before we return her back home. After discussion with Dr. Tsang, I will be placing the patient in observation status. 08/18/2024: Pt is doing well. Complaints of back/flank pain, which seems to be chronic. thinks that this may related to her kidney stone. Pt is scheduled for Ortho surgery to remove hardware from R ankle fracture. Current Medications Current Medications Current Medications: Current Medications Generic Name Dose Route Start Last Admin Trade Name Freq PRN Reason Stop Dose Admin Acetaminophen 650 mg 08/15/24 18:42 08/18/24 06:04 Acetaminophen 325 Mg Tablet PO 650 mg Q4HR PRN Administration Pain 1 to 4, or Fever Allopurinol 100 mg 08/16/24 09:00 08/17/24 08:13 Allopurinol 100 Mg Tablet PO 100 mg DAILY JUNE Administration Cholecalciferol 50 mcg 08/17/24 09:00 08/17/24 08:12 Cholecalciferol 25 Mcg Tablet PO 50 mcg DAILY JUNE Administration Cyanocobalamin 1,000 mcg 08/17/24 09:00 08/17/24 08:12 Cyanocobalamin 500 Mcg Tablet PO 1,000 mcg DAILY JUNE Administration Gabapentin 600 mg 08/15/24 21:00 08/17/24 20:38 Gabapentin 300 Mg Capsule PO 600 mg BID JUNE Administration Hydromorphone HCl 0.5 mg 08/15/24 18:42 08/18/24 06:02 Hydromorphone 0.5 Mg/0.5 Ml Syringe IVP 0.5 mg Q2H PRN Administration Pain 8 to 10 Meropenem 500 mg/ Sodium 100 mls @ 200 mls/hr 08/15/24 19:00 08/18/24 06:46 Chloride IV Infused Q12H JUNE Infusion Insulin Human Lispro 1 - 9 unit 08/15/24 21:00 08/17/24 21:29 Insulin Lispro 300 Unit/3 Ml Pen SUBQ 1 unit 0800,1200,1700,2100 JUNE Administration Protocol Latanoprost 1 drops 08/16/24 21:00 08/17/24 20:38 Latanoprost 0.005% Ophth Drops LEFTEYE 1 drops QPM JUNE Administration Levothyroxine Sodium 100 mcg 08/16/24 07:00 08/18/24 06:03 Levothyroxine 25 Mcg Tablet PO 100 mcg QDAC JUNE Administration Methocarbamol 500 mg 08/15/24 19:47 08/17/24 08:12 Methocarbamol 500 Mg Tablet PO 500 mg Q6HR PRN Administration Spasms Multi-Ingredient Ointment 1 applic 08/17/24 15:08 Zinc Oxide 20% Oint 30 Gm Tube TOP PRN PRN Skin Care Multivitamins/Minerals 1 tab 08/17/24 17:00 08/17/24 16:39 Multivitamin W/Minerals Tablet PO 1 tab DAILYWM JUNE Administration Nystatin 1 applic 08/15/24 21:00 08/17/24 21:30 Nystatin Cream 15 Gm Tube TOP 1 applic BID JUNE Administration Ondansetron HCl 4 mg 08/15/24 18:42 Ondansetron Odt 4 Mg Tablet TL Q6HR PRN Nausea / Vomiting Ondansetron HCl 4 mg 08/15/24 18:42 Ondansetron 4 Mg/2 Ml Vial IVP Q6HR PRN Nausea / Vomiting Oxycodone HCl 5 mg 08/15/24 18:42 08/17/24 12:10 Oxycodone 5 Mg Tablet PO 5 mg Q4HR PRN Administration Pain 5 to 7 Patient Own Refrig 1 each 08/16/24 15:00 08/16/24 15:07 Med (Trulicity 3mg/0 SUBQ 1 each .5ml) Q7D JUNE Administration Saccharomyces Boulardii 500 mg 08/17/24 10:00 08/17/24 16:39 Saccharomyces Boulardii 250 Mg Capsule PO 500 mg BIDWM JUNE Administration Sodium Chloride 10 ml 08/15/24 18:42 Sodium Chloride Flush 0.9% 10 Ml Syringe IVP PRN PRN NEEDED PER PROVIDER ORDERS Sodium Chloride 10 ml 08/16/24 01:00 08/18/24 02:58 Sodium Chloride Flush 0.9% 10 Ml Syringe IVP 10 ml 0100,0900,1700 JUNE Administration Sodium Chloride 10 ml 08/16/24 13:24 Sodium Chloride Flush 0.9% 10 Ml Syringe IVP PRN PRN NEEDED PER PROVIDER ORDERS Sodium Chloride 10 ml 08/16/24 17:00 08/18/24 02:58 Sodium Chloride Flush 0.9% 10 Ml Syringe IVP 10 ml 0100,0900,1700 JUNE Administration Timolol Maleate 1 drops 08/17/24 09:00 08/17/24 08:14 Timolol 0.5% Ophth Drops EACHEYE 1 drops DAILY JUNE Administration Trazodone HCl 100 mg 08/15/24 21:00 08/17/24 20:38 Trazodone 50 Mg Tablet PO 100 mg QPM JUNE Administration Vancomycin HCl 125 mg 08/15/24 21:00 08/17/24 20:38 Vancomycin 125 Mg Capsule PO 125 mg QID JUNE Administration Objective Vital Signs/Intake & Output Vital Signs: Vital Signs x48h Temp Pulse Resp BP Pulse Ox 08/18/24 08:18 36.4 C L 78 20 118/52 L 96 Intake & Output: Intake & Output 08/16/24 08/17/24 08/18/24 08/19/24 05:59 05:59 05:59 05:59 Intake Total 4208 / 4208 2292 / 2292 1056 / 1056 100 / 100 Output Total 100 / 100 2800 / 2800 1950 / 1950 750 / 750 Balance 4108 / 4108 -508 / -508 -894 / -894 -650 / -650 Weight (kg) 71 kg 71.5 kg 72.5 kg Objective General Appearance: positive No acute distress and Alert Eyes Bilateral: positive Normal inspection and PERRL ENT: positive ENT inspection nml and No signs of dehydration Neck: positive Nml inspection and Trachea midline Respiratory: positive Chest non-tender and No respiratory distress Cardiovascular: positive Regular rate & rhythm, No murmur and No gallop Abdomen: positive Non-tender Back: positive CVA tenderness (R) and CVA tenderness (L) Skin: positive Color nml and No rash Extremities: positive Non-tender ( (Tender right ankle with hardware. Left knee warm and deformed but that is chronic)) Neurologic/Psychiatric: positive Oriented x3 and CN's nml (2-12) Lab Results 08/18/24 05:20 08/18/24 05:20 Other Labs: Lab Results x24hrs 08/18/24 08/18/24 08/17/24 Range/Units 07:54 05:20 20:57 WBC 5.8 (4.8-10.8) x10^3/uL RBC 3.04 L (4.20-5.40) 10^6/uL Hgb 7.9 L (12.0-16.0) g/dL Hct 26.2 L (37.0-47.0) % MCV 86.2 (81.0-99.0) fL MCH 26.0 L (27.0-31.0) pg MCHC 30.2 L (32.0-36.0) g/dL RDW 15.6 H (12.0-15.0) % Plt Count 220 (130-450) 10^3/uL MPV 8.8 (7.9-10.8) fL Neut # (Auto) 3.6 (1.5-6.6) 10^3/uL Lymph # (Auto) 1.0 L (1.5-3.5) 10^3/uL [place] # (Auto) 0.8 (0.0-1.0) 10^3/uL Eos # (Auto) 0.3 (0.0-0.7) 10^3/uL Baso # (Auto) 0.0 (0.0-0.1) 10^3/uL Absolute Nucleated RBC 0.00 x10^3/uL Nucleated RBC % 0.0 /100WBC Sodium 137 (135-145) mmol/L Potassium 4.0 (3.5-4.5) mmol/L Chloride 108 (101-111) mmol/L Carbon Dioxide 23 (21-32) mmol/L Anion Gap 6.0 (6-13) BUN 24 H (6-20) mg/dL Creatinine 1.4 H (0.6-1.3) mg/dL Estimated GFR (MDRD) 36 L (>89) Glucose 133 H (74-104) mg/dL POC Whole Bld Glucose 113 151 (70-100) mg/dL Calcium 8.7 (8.5-10.3) mg/dL 08/17/24 08/17/24 Range/Units 16:44 11:52 WBC (4.8-10.8) x10^3/uL RBC (4.20-5.40) 10^6/uL Hgb (12.0-16.0) g/dL Hct (37.0-47.0) % MCV (81.0-99.0) fL MCH (27.0-31.0) pg MCHC (32.0-36.0) g/dL RDW (12.0-15.0) % Plt Count (130-450) 10^3/uL MPV (7.9-10.8) fL Neut # (Auto) (1.5-6.6) 10^3/uL Lymph # (Auto) (1.5-3.5) 10^3/uL [place] # (Auto) (0.0-1.0) 10^3/uL Eos # (Auto) (0.0-0.7) 10^3/uL Baso # (Auto) (0.0-0.1) 10^3/uL Absolute Nucleated RBC x10^3/uL Nucleated RBC % /100WBC Sodium (135-145) mmol/L Potassium (3.5-4.5) mmol/L Chloride (101-111) mmol/L Carbon Dioxide (21-32) mmol/L Anion Gap (6-13) BUN (6-20) mg/dL Creatinine (0.6-1.3) mg/dL Estimated GFR (MDRD) (>89) Glucose (74-104) mg/dL POC Whole Bld Glucose 130 143 (70-100) mg/dL Calcium (8.5-10.3) mg/dL ABX Reporting Has patient been on IV antibiotics over the past 48 hours?: Yes Sepsis Event Note (H) Evaluation Current Stage of Sepsis: Ruled out Sepsis Criteria Sepsis Criteria: WBC count greater than 12,000 or less than 4000 and SBP drop more than 40mHg Assessment/Plan Problem List (1) Urinary tract infection: Impression: Patient has a history of ESBL back in 2019. Patient was started on meropenem. Urine culture indicated E. coli and Klebsiella robert sensitivity. Meropenem was DC'd and patient was started on Rocephin. Patient has recurrent UTIs which may be related to a calculus in the right kidney.Furthermore patient complains of right, left flank pain. Plan: Consult urology, For possible pyelonephritis, obtain retroperitoneal ultrasound. Qualifiers: Urinary tract infection type: acute pyelonephritis Qualified Code(s): N 10 - Acute pyelonephritis (2) Post-operative complication: Impression: Hardware is now up working through the skin where she had her ORIF. Dr. Dia today. And she does feel that the patient needs her hardware removed. As such surgery is planned for August 19. Patient needs to be n.p.o. after midnight on the evening of the . She feels the patient could be discharged either later that night or the morning of the . I am having PT work with this patient. She is understandably very fearful of putting full weight on that involved ankle. Right now we are working with only 25% weightbearing. The daughter has wonderfully brought in a brace from home. We will work with her again postop to make sure she can safely ambulate when she goes home. She has made it very clear that she is not going to a residential facility for rehab. Family supports that decision. She is on home health. It is signature. So at discharge we will resume signature home health with PT/OT/wound care Plan to remove hardware on 08/19/2024. Keep patient n.p.o. after midnight. Follow-up with PT OT. Qualifiers: Surgical complication system/body Area: musculoskeletal system Surgical complication type: unspecified (3) DM2 (diabetes mellitus, type 2): Impression: A1c is 7.9%. With infection goal will be below 7% but this lady is 89 years old. Tight control of glucose can sometimes result in increased mortality in elderly patients. Continue current insulin regimen, Lantus with sliding scale. Blood glucose has been much better controlled in the low 150s. Plan: I will continue same managment Qualifiers: Diabetes mellitus exterminator helper termite insulin use: without exterminator helper termite use Diabetes mellitus complication status: without complication Qualified Code(s): E11.9 - Type 2 diabetes mellitus without complications (4) History of aortic valve replacement: Impression: Has had a TAVR and is on Eliquis. Eliquis has been resumed. No signs or symptoms of congestive heart failure. Echo shows a well-seated valve with her last echo done in the last 6 months. Stop Eliquis on August 18 in preparation for surgery (5) Elevated troponin: Impression: In June, her troponins were mildly elevated at 15, and 36. In the ER she started at 103, they went up to 107 and then came down to 92. EKG does not show any acute changes. My suspicion is that she has elevated troponin with her chronic kidney disease, and type I cause. (6) C. difficile diarrhea: Impression: When she was in her primary care provider's office, she was told that treatment should continue for an entire month. Family wanted to make sure I had her back on her vancomycin orally. I reassured the family that she is in fact back on vancomycin oral. Patient has not had diarrhea since admission Patient Nurse reports formed stools, continue oral vancomycin, DC ESBL and C. difficile precautions. (7) Dehydration: Impression: Resolved Patient's creatinine is back at baseline at 1.4.Patient made adequate urine. Monitor urine output, avoid nephrotoxic drugs.
--- NOTE | 2024-08-18 23:16 | Ultrasound Report ---
PROCEDURE: US Renal (Retroperitoneal) INDICATIONS: l and r flank pain, hydronephrosis TECHNIQUE: Real-time scanning was performed of the retroperitoneal organs, with image documentation. COMPARISON: CT abdomen pelvis with contrast 08/15/2024 FINDINGS: Limited exam due to body habitus. Kidneys: The kidneys are atrophic in size. The right kidney measures 8.7 cm with a cortical thickness of 1.0 cm. The left kidney measures 8.6 cm with a cortical thickness of 1.2 cm. There is no hydronep hrosis or urolithiasis. Bladder: The bladder is decompressed with a Lira catheter. Miscellaneous: No free abdominal fluid. IMPRESSION: 1.No sonographic evidence of hydronephrosis or urolithiasis. 2.Atrophic appearance of the kidneys. Reviewed by: Nigel Elkins MD on 08/18/2024 11:15 PM PDT Approved by: Nigel Elkins MD on 08/18/2024 11:15 PM PDT Station ID: [id number]
[2024-08-19 05:44] LABS: BASOPHILS % (AUTO) 0.6 %; EOSINOPHILS # (AUTO) 0.4 10^3/uL (0.0-0.7); EOSINOPHILS % (AUTO) 7.3 %; HCT - HEMATOCRIT 28.8 % (37.0-47.0); HGB - HEMOGLOBIN 8.7 g/dL (12.0-16.0); LYMPHOCYTES # (AUTO) 1.4 10^3/uL (1.5-3.5); LYMPHOCYTES % (AUTO) 27.4 %; MEAN CORPUSCULAR HGB CONC 30.2 g/dL (32.0-36.0); MEAN PLATELET VOLUME 9.1 fL (7.9-10.8); MONOCYTES # (AUTO) 0.8 10^3/uL (0.0-1.0); NEUTROPHILS # (AUTO) 2.5 10^3/uL (1.5-6.6); NEUTROPHILS % (AUTO) 48.7 %; PLT - PLATELET COUNT 241 10^3/uL (130-450); RED BLOOD COUNT 3.35 10^6/uL (4.20-5.40); RED CELL DISTRIBUTION WIDTH 15.7 % (12.0-15.0); WHITE BLOOD COUNT 5.1 x10^3/uL (4.8-10.8)
[2024-08-19 05:58] LABS: CREATININE 1.4 mg/dL (0.6-1.3); POTASSIUM 3.8 mmol/L (3.5-4.5)
--- NOTE | 2024-08-19 09:19 | PROVIDER PROGRESS NOTE ---
Subjective Prog Note Date Prog Note Date: 08/19/24 Prog Note Time: 09:07 Subjective Pt reports feeling: No change Subjective: This is an 89-year-old female who fell June 19 and x-ray showed a displaced grade 1 open right bimalleolar ankle fracture. She is on Eliquis for prophylaxis for a mechanical aortic valve replacement. She also has a history of a PE. She was taken to the operating room and had irrigation and debridement of an open wound, and open reduction internal fixation of a right bimalleolar ankle fracture that day. She was seen during that admission for chest pain. Troponins were assessed, EKG was assessed and it was not felt to be cardiac chest pain. Because she was on Eliquis she was felt to have a low risk of pulmonary embolism. And she was transferred to a residential facility for rehab. She returned to the emergency room August 04 with 3 to 4 days of feeling weaker. She was still in a boot and using crutches. Complaining of diarrhea and stool analysis found her to have C. difficile diarrhea. Also found to have a UTI. She was treated as a UTI and sent home. She now returns with back pain, nausea vomiting and diarrhea, and a sensation of fever. She tells me that her right flank pain is terrible. It started slowly a few days ago and 2 days ago it was a 10 out of a 10 and she was screaming with that. It is not constant. It comes and goes like a cramping sensation. She had had the diarrhea with the C. difficile at the beginning of August. After being treated with vancomycin her diarrhea went away and she actually was constipated for a few days. But the diarrhea came back a couple of days ago. She was carefully examined by the ER provider. Her vital signs were documented as normal when I read them but Dr. Tsang shares with me that she dropped her pressure into the 70s systolic over 40s. She had a low-grade fever of 37.7. Pulse rate varied between 89-93. She has been saturating well on room air. Dr. Pedro found her to have another UTI with moderate leukocyte Estrace, negative for nitrates but it is contaminated with squamous cells. CT scan was done of the abdomen and she does have slight right hydronephrosis, about the same as it was with the previous CT scan. Unfortunately the urine was contaminated with squamous cells even though she had moderate bacteria, white cells and red cells culture is not can be done. She has stable chronic kidney disease. Creatinine is 1.7 and GFR is 33. Comparable to August 04 and June 17 labs. Her white cell count in the ER August 04 was 8.4. Today at 16.1. Lactic acid is normal at 0.9. Dr. Tsang also found her to have the screws of her ankle fracture are now breaking through the skin. He spoke at length to orthopedics on-call at [place]. They said that as long as the wound is not infected, it can be covered with a bandage and does not need urgent/inpatient care. Since the patient has a low-grade fever, elevated white cell count, dehydration on exam, with a low BP at one point, we feel it would be prudent to bring her in to treat the UTI that is possible. And make sure she does well before we return her back home. After discussion with Dr. Tsang, I will be placing the patient in observation status. 08/18/2024: Pt is doing well. Complaints of back/flank pain, which seems to be chronic. thinks that this may related to her kidney stone. Pt is scheduled for Ortho surgery to remove hardware from R ankle fracture. 08/19/2024: Plan for surgery today to remove ankle hardware.. Patient feels fine no complaints. Current Medications Current Medications Current Medications: Current Medications Generic Name Dose Route Start Last Admin Trade Name Freq PRN Reason Stop Dose Admin Acetaminophen 650 mg 08/15/24 18:42 08/18/24 17:40 Acetaminophen 325 Mg Tablet PO 650 mg Q4HR PRN Administration Pain 1 to 4, or Fever Allopurinol 100 mg 08/16/24 09:00 08/18/24 08:47 Allopurinol 100 Mg Tablet PO 100 mg DAILY JUNE Administration Cholecalciferol 50 mcg 08/17/24 09:00 08/18/24 08:47 Cholecalciferol 25 Mcg Tablet PO 50 mcg DAILY JUNE Administration Cyanocobalamin 1,000 mcg 08/17/24 09:00 08/18/24 08:48 Cyanocobalamin 500 Mcg Tablet PO 1,000 mcg DAILY JUNE Administration Gabapentin 600 mg 08/15/24 21:00 08/18/24 20:27 Gabapentin 300 Mg Capsule PO 600 mg BID JUNE Administration Hydromorphone HCl 0.5 mg 08/15/24 18:42 08/18/24 19:18 Hydromorphone 0.5 Mg/0.5 Ml Syringe IVP 0.5 mg Q2H PRN Administration Pain 8 to 10 Ceftriaxone Sodium 1 gm/ 100 mls @ 200 mls/hr 08/19/24 12:00 Sodium Chloride IV DAILY [facility] Insulin Human Lispro 1 - 9 unit 08/15/24 21:00 08/18/24 20:28 Insulin Lispro 300 Unit/3 Ml Pen SUBQ 5 unit 0800,1200,1700,2100 [facility] Administration Protocol Latanoprost 1 drops 08/16/24 21:00 08/18/24 15:52 Latanoprost 0.005% Ophth Drops LEFTEYE 1 drops QPM JUNE Administration Levothyroxine Sodium 100 mcg 08/16/24 07:00 08/19/24 06:23 Levothyroxine 25 Mcg Tablet PO 100 mcg QDAC JUNE Administration Methocarbamol 500 mg 08/15/24 19:47 08/19/24 06:23 Methocarbamol 500 Mg Tablet PO 500 mg Q6HR PRN Administration Spasms Multi-Ingredient Ointment 1 applic 08/17/24 15:08 Zinc Oxide 20% Oint 30 Gm Tube TOP PRN PRN Skin Care Multivitamins/Minerals 1 tab 08/17/24 17:00 08/18/24 08:47 Multivitamin W/Minerals Tablet PO 1 tab DAILYWM JUNE Administration Nystatin 1 applic 08/15/24 21:00 08/18/24 20:31 Nystatin Cream 15 Gm Tube TOP 1 applic BID JUNE Administration Ondansetron HCl 4 mg 08/15/24 18:42 Ondansetron Odt 4 Mg Tablet TL Q6HR PRN Nausea / Vomiting Ondansetron HCl 4 mg 08/15/24 18:42 Ondansetron 4 Mg/2 Ml Vial IVP Q6HR PRN Nausea / Vomiting Oxycodone HCl 5 mg 08/15/24 18:42 08/18/24 13:17 Oxycodone 5 Mg Tablet PO 5 mg Q4HR PRN Administration Pain 5 to 7 Patient Own Refrig 1 each 08/16/24 15:00 08/16/24 15:07 Med (Trulicity 3mg/0 SUBQ 1 each .5ml) Q7D JUNE Administration Saccharomyces Boulardii 500 mg 08/17/24 10:00 08/18/24 17:14 Saccharomyces Boulardii 250 Mg Capsule PO 500 mg BIDWM JUNE Administration Sodium Chloride 10 ml 08/15/24 18:42 Sodium Chloride Flush 0.9% 10 Ml Syringe IVP PRN PRN NEEDED PER PROVIDER ORDERS Sodium Chloride 10 ml 08/16/24 01:00 08/19/24 01:00 Sodium Chloride Flush 0.9% 10 Ml Syringe IVP 10 ml 0100,0900,1700 JUNE Administration Sodium Chloride 10 ml 08/16/24 13:24 Sodium Chloride Flush 0.9% 10 Ml Syringe IVP PRN PRN NEEDED PER PROVIDER ORDERS Sodium Chloride 10 ml 08/16/24 17:00 08/19/24 02:05 Sodium Chloride Flush 0.9% 10 Ml Syringe IVP Not Given 0100,0900,1700 JUNE Timolol Maleate 1 drops 08/17/24 09:00 08/18/24 08:50 Timolol 0.5% Ophth Drops EACHEYE 1 drops DAILY JUNE Administration Trazodone HCl 100 mg 08/15/24 21:00 08/18/24 20:27 Trazodone 50 Mg Tablet PO 100 mg QPM JUNE Administration Vancomycin HCl 125 mg 08/15/24 21:00 08/18/24 20:27 Vancomycin 125 Mg Capsule PO 125 mg QID JUNE Administration Objective Vital Signs/Intake & Output Vital Signs: Vital Signs x48h Temp Pulse Resp BP Pulse Ox 08/19/24 07:26 36.4 C L 77 20 164/77 H 96 Intake & Output: Intake & Output 08/17/24 08/18/24 08/19/24 08/20/24 05:59 05:59 05:59 05:59 Intake Total 2292 / 2292 1056 / 1056 1350 / 1350 Output Total 2800 / 2800 1950 / 1950 2650 / 2650 Balance -508 / -508 -894 / -894 -1300 / -1300 Weight (kg) 71.5 kg 72.5 kg Lab Results 08/19/24 05:31 08/19/24 05:31 Other Labs: Lab Results x24hrs 08/19/24 08/19/24 08/18/24 Range/Units 07:24 05:31 20:19 WBC 5.1 (4.8-10.8) x10^3/uL RBC 3.35 L (4.20-5.40) 10^6/uL Hgb 8.7 L (12.0-16.0) g/dL Hct 28.8 L (37.0-47.0) % MCV 86.0 (81.0-99.0) fL MCH 26.0 L (27.0-31.0) pg MCHC 30.2 L (32.0-36.0) g/dL RDW 15.7 H (12.0-15.0) % Plt Count 241 (130-450) 10^3/uL MPV 9.1 (7.9-10.8) fL Neut # (Auto) 2.5 (1.5-6.6) 10^3/uL Lymph # (Auto) 1.4 L (1.5-3.5) 10^3/uL [place]ford # (Auto) 0.8 (0.0-1.0) 10^3/uL Eos # (Auto) 0.4 (0.0-0.7) 10^3/uL Baso # (Auto) 0.0 (0.0-0.1) 10^3/uL Absolute Nucleated RBC 0.00 x10^3/uL Nucleated RBC % 0.0 /100WBC Sodium 138 (135-145) mmol/L Potassium 3.8 (3.5-4.5) mmol/L Chloride 107 (101-111) mmol/L Carbon Dioxide 27 (21-32) mmol/L Anion Gap 4.0 L (6-13) BUN 24 H (6-20) mg/dL Creatinine 1.4 H (0.6-1.3) mg/dL Estimated GFR (MDRD) 36 L (>89) Glucose 134 H (74-104) mg/dL POC Whole Bld Glucose 130 239 (70-100) mg/dL Calcium 9.0 (8.5-10.3) mg/dL 08/18/24 08/18/24 Range/Units 16:26 11:18 WBC (4.8-10.8) x10^3/uL RBC (4.20-5.40) 10^6/uL Hgb (12.0-16.0) g/dL Hct (37.0-47.0) % MCV (81.0-99.0) fL MCH (27.0-31.0) pg MCHC (32.0-36.0) g/dL RDW (12.0-15.0) % Plt Count (130-450) 10^3/uL MPV (7.9-10.8) fL Neut # (Auto) (1.5-6.6) 10^3/uL Lymph # (Auto) (1.5-3.5) 10^3/uL Radford # (Auto) (0.0-1.0) 10^3/uL Eos # (Auto) (0.0-0.7) 10^3/uL Baso # (Auto) (0.0-0.1) 10^3/uL Absolute Nucleated RBC x10^3/uL Nucleated RBC % /100WBC Sodium (135-145) mmol/L Potassium (3.5-4.5) mmol/L Chloride (101-111) mmol/L Carbon Dioxide (21-32) mmol/L Anion Gap (6-13) BUN (6-20) mg/dL Creatinine (0.6-1.3) mg/dL Estimated GFR (MDRD) (>89) Glucose (74-104) mg/dL POC Whole Bld Glucose 200 174 (70-100) mg/dL Calcium (8.5-10.3) mg/dL Sepsis Event Note (H) Evaluation Current Stage of Sepsis: Ruled out Sepsis Criteria Sepsis Criteria: WBC count greater than 12,000 or less than 4000 and SBP drop more than 40mHg Assessment/Plan Problem List (1) Urinary tract infection: Impression: Patient has a history of ESBL back in 2019. Patient was started on meropenem. Urine culture indicated E. coli and Klebsiella robert sensitivity. Meropenem was DC'd and patient was started on Rocephin. Patient has recurrent UTIs which may be related to a calculus in the right kidney.Furthermore patient complains of right, left flank pain. Plan: Retroperitoneal ultrasound indicated no sonographic evidence of hydronephrosis or urinalysis. It did indicate atrophic appearance of the kidneys. I had a conversation with urologist who confirmed the absence of kidney stones. Recommendation was to continue patient on antibiotics for pyelonephritis. Patient has been on antibiotics 02/08, Meropenem from 08/15 to 08/18 and Rocephin from 08/18 to current. Qualifiers: Urinary tract infection type: acute pyelonephritis Qualified Code(s): N 10 - Acute pyelonephritis (2) Post-operative complication: Impression: Hardware is now up working through the skin where she had her ORIF. Dr. Dia today. And she does feel that the patient needs her hardware removed. As such surgery is planned for August 19. Patient needs to be n.p.o. after midnight on the evening of the . She feels the patient could be discharged either later that night or the morning of the . I am having PT work with this patient. She is understandably very fearful of putting full weight on that involved ankle. Right now we are working with only 25% weightbearing. The daughter has wonderfully brought in a brace from home. We will work with her again postop to make sure she can safely ambulate when she goes home. She has made it very clear that she is not going to a residential facility for rehab. Family supports that decision. She is on home health. It is signature. So at discharge we will resume signature home health with PT/OT/wound care Patient queued up for surgery today. Follow-up with PT OT For physical therapy recommendations. Qualifiers: Surgical complication system/body Area: musculoskeletal system Surgical complication type: unspecified (3) DM2 (diabetes mellitus, type 2): Impression: A1c is 7.9%. With infection goal will be below 7% but this lady is 89 years old. Tight control of glucose can sometimes result in increased mortality in elderly patients. Continue current insulin regimen, Lantus with sliding scale. Blood glucose has been much better controlled in the low 150s. Plan: I will continue same managment Qualifiers: Diabetes mellitus usp insulin use: without manager intermediate use Diabetes mellitus complication status: without complication Qualified Code(s): E11.9 - Type 2 diabetes mellitus without complications (4) History of aortic valve replacement: Impression: Has had a TAVR and is on Eliquis. Eliquis has been resumed. No signs or symptoms of congestive heart failure. Echo shows a well-seated valve with her last echo done in the last 6 months. Stop Eliquis on August 18 in preparation for surgery Restart Eliquis post surgery. (5) Elevated troponin: Impression: In June, her troponins were mildly elevated at 15, and 36. In the ER she started at 103, they went up to 107 and then came down to 92. EKG does not show any acute changes. Most likely chronic elevation due to chronic kidney disease and Demand ischemia (6) C. difficile diarrhea: Impression: When she was in her primary care provider's office, she was told that treatment should continue for an entire month. Family wanted to make sure I had her back on her vancomycin orally. I reassured the family that she is in fact back on vancomycin oral. Patient has not had diarrhea since admission Patient Nurse reports formed stools, continue oral vancomycin, DC ESBL and C. difficile precautions. (7) Dehydration: Impression: Resolved Patient's creatinine is back at baseline at 1.4.Patient made adequate urine. Monitor urine output, avoid nephrotoxic drugs. (8) Pyelonephritis due to Escherichia coli: Impression: Patient reports right and left flank pain, in the background of atrophic kidneys and recurrent UTIs. Urine culture resolved to pansensitive E. coli and Klebsiella. Patient was started on meropenem, then de-escalated to Rocephin. Rtroperitoneal ultrasound did not show any calculus but was positive for atrophic kidneys. Urology was consulted with recommendation to continue antibiotics for 7 days. Currently patient on Rocephin.
[2024-08-19] MEDS: cefTRIAXone 1 GM in SODIUM CHLORIDE 0.9% MINIBAG 100 ML IV SCH (12:22)
--- NOTE | 2024-08-19 12:53 | POST OP PROGRESS NOTE ---
Subjective General Admit Date: 08/16/24 Procedure Date: 06/19/24 Post Op Days: 61 Other Other Information/Narrative: 89 yo F with prominent medial malleolus screws after ORIF of a GRade I bimalleolar ankle fracture completed in June 2024. She is admitted for acute pyelonephritis currently. I discussed with her and her the risks, beneftis and alternatives of surgical vs nonsurgical treatment to include but not limited to damage to arteries, veins nerves, need for additional surgery. I discussed the risks of not preforming surgery including continued pain, infection and osteomyelitis. All questions were answered by her and her . We will proceed with irrigation and debridement of the right ankle and removal of medial malleolus screws. Her most recent radiographs from 08/2024 demonstrate a well healed medial malleolus fracture. She will be placed in a CAM boot after the operation and may advance her weightbearing as tolerated. Ortho Surgical Progress Note Problem List Discharge Instructions: * Always ambulate with front wheeled walker until instructed otherwise by your surgeon. Please refer to the booklet provided at [facility] for instructions for ambulation. You can weight-bear as tolerated on the affected extremity. * Avoid crossing your legs when sitting in low chairs to reduce chance of hip dislocation * Follow the pre-operatively agreed upon pain regimen described in the [facility] booklet. As a reminder, the discussed medications include using acetaminophen, ibuprofen, oxycodone and tramadol. * Ice area to decrease pain and swelling * Take Aspirin 81 mg twice daily for 6 weeks for blood clot prevention * Leave dressing in place until follow up in office. You can shower with the dressing in place if it is kept dry and neat * Please call the office if you experience fever, chills, chest pain, shortness of breath, nausea, vomiting, drainage or bleeding * You are scheduled for follow-up with the orthopedic clinic in 5 days * Appreciate input from hospitalist team for management of chronic medical conditions Exam Exam PE: R ankle: 1 cm wound medial ankle with palpable and visible screw head. No surrounding erythema, warmth or drainage. SOme scant granulation tissue over the screw head. Lateral incision is well healed. NO erythema or warmth. NTTP fibula. SILT s/s/t/dp/sp. FIres ta/gs/ehl/fhl. No joint irritability. KNee is nttp with well healed surgical scar. 2+ DP and brisk cap refill. 2 v of the ankle obtained: well healed medial malleolus
[2024-08-19] MEDS ORDERED: MORPHINE 2 MG/ML CARPUJECT IVP PRN (13:51)
[2024-08-19] MEDS ORDERED: NALOXONE 0.4 MG/ML VIAL IVP PRN (13:51)
[2024-08-19] MEDS ORDERED: METOCLOPRAMIDE 10 MG/2 ML VIAL IVP PRN (13:51)
[2024-08-19] MEDS ORDERED: ePHEDrine 50 MG/ML VIAL IVP PRN (13:51)
[2024-08-19] MEDS ORDERED: ATROPINE ABBOJECT 1 MG/10 ML SYRINGE IVP PRN (13:51)
--- NOTE | 2024-08-19 13:51 | ANESTHESIA PROCEDURE NOTE ---
Pre-Anesthesia VS, & Labs Diagnosis Surgical Diagnosis:: retained right ankle hardware Procedure Procedure: removal of right ankle hardware Vitals Vital Signs: Temp Pulse Resp BP Pulse Ox O2 Flow Rate 36.4 C L 77 20 164/77 H 96 95 08/19/24 07:26 08/19/24 07:26 08/19/24 07:26 08/19/24 07:26 08/19/24 07:26 08/17/24 11:26 Height (in): 5 ft 2 in Weight (kg): 72.5 kg Body Mass Index: 29.2 BMI Classification: Overweight NPO NPO: >8 hours Is Patient ?: No Lab Results Current Lab Results: Laboratory Tests 08/19/24 11:06: POC Whole Bld Glucose 137 08/19/24 07:24: POC Whole Bld Glucose 130 08/19/24 05:31: WBC 5.1, RBC 3.35 L, Hgb 8.7 L, Hct 28.8 L, MCV 86.0, MCH 26.0 L , MCHC 30.2 L, RDW 15.7 H, Plt Count 241, MPV 9.1, Neut # (Auto) 2.5, Lymph # (Auto) 1.4 L, Hettinger # (Auto) 0.8, Eos # (Auto) 0.4, Baso # (Auto) 0.0, Absolute Nucleated RBC 0.00, Nucleated RBC % 0.0, Sodium 138, Potassium 3.8, Chloride 107, Carbon Dioxide 27, Anion Gap 4.0 L, BUN 24 H, Creatinine 1.4 H, Estimated GFR (MDRD) 36 L, Glucose 134 H, Calcium 9.0 08/18/24 20:19: POC Whole Bld Glucose 239 08/18/24 16:26: POC Whole Bld Glucose 200 08/18/24 11:18: POC Whole Bld Glucose 174 08/18/24 07:54: POC Whole Bld Glucose 113 08/18/24 05:20: WBC 5.8, RBC 3.04 L, Hgb 7.9 L, Hct 26.2 L, MCV 86.2, MCH 26.0 L , MCHC 30.2 L, RDW 15.6 H, Plt Count 220, MPV 8.8, Neut # (Auto) 3.6, Lymph # (Auto) 1.0 L, Hettinger # (Auto) 0.8, Eos # (Auto) 0.3, Baso # (Auto) 0.0, Absolute Nucleated RBC 0.00, Nucleated RBC % 0.0, Sodium 137, Potassium 4.0, Chloride 108, Carbon Dioxide 23, Anion Gap 6.0, BUN 24 H, Creatinine 1.4 H, Estimated GFR (MDRD) 36 L, Glucose 133 H, Calcium 8.7 08/17/24 20:57: POC Whole Bld Glucose 151 08/17/24 16:44: POC Whole Bld Glucose 130 08/17/24 11:52: POC Whole Bld Glucose 143 08/17/24 07:50: POC Whole Bld Glucose 118 08/17/24 05:03: WBC 7.5, RBC 3.10 L, Hgb 8.1 L, Hct 27.1 L, MCV 87.4, MCH 26.1 L , MCHC 29.9 L, RDW 15.7 H, Plt Count 235, MPV 9.7, Neut # (Auto) 4.9, Lymph # (Auto) 1.1 L, Hettinger # (Auto) 0.9, Eos # (Auto) 0.5, Baso # (Auto) 0.0, Absolute Nucleated RBC 0.00, Nucleated RBC % 0.0, Sodium 134 L, Potassium 4.0, Chloride 106, Carbon Dioxide 22, Anion Gap 6.0, BUN 24 H, Creatinine 1.6 H, Estimated GFR (MDRD) 30 L, Glucose 105 H, Calcium 8.7 08/16/24 20:48: POC Whole Bld Glucose 223 08/16/24 16:34: POC Whole Bld Glucose 177 08/16/24 11:27: POC Whole Bld Glucose 161 08/16/24 07:28: POC Whole Bld Glucose 118 08/16/24 05:30: WBC 10.8, RBC 3.07 L, Hgb 7.9 L, Hct 27.7 L, MCV 90.2, MCH 25.7 L, MCHC 28.5 L, RDW 16.0 H, Plt Count 231, MPV 9.9, Neut # (Auto) 7.7 H, Lymph # (Auto) 1.4 L, Hettinger # (Auto) 1.1 H, Eos # (Auto) 0.5, Baso # (Auto) 0.0, Absolute Nucleated RBC 0.00, Nucleated RBC % 0.0, Manual Slide Review Indicated, WBC Morphology NORMAL APPEARANCE, Platelet Estimate NORMAL (130-450,000), Platelet Morphology NORMAL APPEARANCE, RBC Morph Micro Appear 1+ HYPOCHROMASIA, Sodium 135, Potassium 3.9, Chloride 107, Carbon Dioxide 21, Anion Gap 7.0, BUN 24 H, C reatinine 1.4 H, Estimated GFR (MDRD) 36 L, Glucose 102, Estimat Average Glucose 180 H, Hemoglobin A1c % 7.9 H, Calcium 8.3 L 08/15/24 21:16: POC Whole Bld Glucose 142 08/15/24 21:14: POC Whole Bld Glucose 135 08/15/24 17:00: Lactic Acid 0.9 08/15/24 16:54: Troponin I High Sens 92.5 H* 08/15/24 13:08: Troponin I High Sens 107.3 H* 08/15/24 11:00: WBC 16.1 H, RBC 3.63 L, Hgb 9.3 L, Hct 32.0 L, MCV 88.2, MCH 25.6 L, MCHC 29.1 L, RDW 15.8 H, Plt Count 245, MPV 9.5, Neut # (Auto) 14.1 H, L ymph # (Auto) 0.9 L, Hettinger # (Auto) 1.0, Eos # (Auto) 0.1, Baso # (Auto) 0.0, Absolute Nucleated RBC 0.00, Nucleated RBC % 0.0, ESR 78 H, Sodium 135, P otassium 4.7 H, Chloride 104, Carbon Dioxide 22, Anion Gap 9.0, BUN 33 H, C reatinine 1.7 H, Estimated GFR (MDRD) 28 L, Glucose 189 H, Calcium 9.5, Total Bilirubin 0.5, AST 32, ALT 18, Alkaline Phosphatase 125 H, Troponin I High Sens 103.1 H*, C-Reactive Protein 18.7 H, Total Protein 6.3 L, Albumin 3.1 L, Globulin 3.2, Albumin/Globulin Ratio 1.0, Lipase 37 Lab results reviewed: Yes 08/19/24 05:31 08/19/24 05:31 Meds/Allgy Home Medications Ambulatory Orders Medication Instructions Recorded Confirmed glipizide 5 mg tablet, extended 10 mg PO DAILY 06/29/19 08/16/24 release 24 hr rosuvastatin 40 mg tablet (Crestor) 20 mg PO QPM 06/29/19 08/16/24 latanoprost 0.005 % eye drops 1 drp LEFTEYE QPM 07/04/19 08/16/24 Nystatin [Klayesta] 1 appful topical BID 06/19/24 08/16/24 acetaminophen 300 mg-codeine 60 mg 1 tab PO TID 06/19/24 08/16/24 tablet cholecalciferol (vitamin D3) 50 1 cap PO DAILY 06/19/24 08/16/24 mcg (2,000 unit) capsule cyanocobalamin (vitamin B-12) 1 cap PO DAILY 06/19/24 08/16/24 1,000 mcg capsule timolol maleate (PF) 0.5 % eye 1 drp EACHEYE DAILY 06/19/24 08/16/24 drops in a dropperette (Timoptic Ocudose (PF)) trazodone 50 mg tablet 100 mg PO HS 06/19/24 08/16/24 allopurinol 100 mg tablet 100 mg PO DAILY 06/20/24 08/16/24 apixaban 2.5 mg tablet (Eliquis) 2.5 mg PO BID 06/20/24 08/16/24 gabapentin 300 mg capsule 600 mg (2 x 300 mg) PO BID #60 caps 06/20/24 08/16/24 levothyroxine 100 mcg tablet 100 mcg PO QDAC 06/20/24 08/16/24 cephalexin 500 mg capsule 500 mg PO Q6H ##28 07/20/24 08/16/24 dulaglutide 3 mg/0.5 mL 3 mg SQ OAW 07/20/24 08/16/24 subcutaneous pen injector (Trulicity) vancomycin 125 mg capsule 125 mg PO QID 10 days #40 caps 07/20/24 08/16/24 Allergies Allergies Allergy/AdvReac Type Severity Reaction Status Date / Time Penicillins Allergy Severe Hives Verified 08/15/24 10:53 sulfamethoxazole (From Allergy Hives Verified 08/15/24 10:53 Bactrim) trimethoprim (From Bactrim) Allergy Hives Verified 08/15/24 10:53 aspartame AdvReac Diarrhea Verified 08/15/24 10:53 cefepime AdvReac Itching Verified 08/15/24 10:53 clindamycin AdvReac Unknown Verified 08/15/24 10:53 doxycycline AdvReac Nausea Verified 08/15/24 10:53 saccharin AdvReac Diarrhea Verified 08/15/24 10:53 stevioside (From Stevia) AdvReac Diarrhea Verified 08/15/24 10:53 sucralose AdvReac Diarrhea Verified 08/15/24 10:53 PFSH Medical History Medical History History of ESBL E. coli infection numerous uti Pulmonary embolism IVC filter 06/2019 Skin cancer Gout Osteoarthritis CKD (chronic kidney disease) stage 3, GFR 30-59 ml/min Endometriosis Chronic diarrhea w hx of C dif in the past as well causing bowel rupture and resection residential (current) use of anticoagulants (03/05/24) Hypothyroidism (06/04/23) Tinea cruris (07/16/23) Presbycusis, bilateral (12/30/23) GI bleeding (03/05/24) Balance problem (02/21/24) Surgical History Surgical History Hx of tonsillectomy H/O hysterectomy with oophorectomy Tubal ligation status Knee joint replacement status History of appendectomy History of cholecystectomy Status post open reduction with internal fixation (ORIF) of fracture of ankle Hx of aortic valve replacement (07/16/23) done 11/2018, last echo 05/05/2024 EF 60%, PASP 36 mmHg, well seated valve Family History Family History Mother Cancer Father Cancer Daughter Healthy adult on routine physical examination Social History Social History Smoking Status: Never smoker Second hand tobacco smoke exposure: No Do you dip or chew tobacco?: No Do you vape?: No Patient requests smoking cessation consult: No Initiate information on smoking cessation: No Living arrangement: At home Living Condition: With spouse/s.o. and With family Support Person: Yes Relationship: Spouse Living Situation Details: one daughter in [place] and another across the street in [place], lives w her as well Physical Activity: Bedfast and None Level: Assisted Home Mobility Equipment: Wheelchair Do you feel safe in your home environment?: Yes Suffered physical, verbal, emotional, or financial abuse?: No History of Abuse: No Frequency: Occasional Substance Use: denies use Are you sexually active?: No POLST Patient has POLST: Yes POLST Status: DNR (Polst provided by and copied) Results EKG Results EKG Comparison: Reviewed EKG Echo Results Echo Results: Report reviewed Anesthesia Exam (Expanded) Exam General: Alert and No acute distress Dental: WNL (upper perm bridge) Mouth Openin Fingerbreadth Neck Mobility: Reduced Mallampati classification: II Thyromental Distance: 4-6 cm Respiratory: Lungs clear Cardiovascular: Regular rate Plan Plan Anesthesia Type: General Consent for Procedure(s) Verified and Reviewed: Yes Code Status: Attempt Resuscitation ASA Classification ASA classification: 3-Severe systemic disease Is this case an emergency?: No
[2024-08-19] MEDS: LACTATED RINGERS 1,000 ML IV SCH (14:13)
[2024-08-19] MEDS ORDERED: PROPOFOL 200 MG/20 ML VIAL IVP ONE (14:18)
[2024-08-19] MEDS ORDERED: LIDOCAINE-PF 2% 10 ML AMP SUBQ ONE (14:18)
[2024-08-19] MEDS ORDERED: fentaNYL 100 MCG/2 ML VIAL ONE ×3 (14:18→15:55)
[2024-08-19] MEDS ORDERED: HYDROmorphone 1 MG/ML CARPUJECT ONE ×2 (14:56→15:44)
[2024-08-19] MEDS: BUPIVACAINE 0.25% PF 30 ML VIAL ONE (15:11)
[2024-08-19] MEDS: fentaNYL 100 MCG/2 ML VIAL IVP PRN (15:28)
--- NOTE | 2024-08-19 15:33 | OPERATIVE REPORT ---
Operative Report General Admit Date: 08/16/24 Procedure Data: Operation Date: 08/19/24 13:25 Proposed Procedures p Hardware Removal- RIGHT ANKLE(Right) - Mayte Coleman DO Actual Procedures p Hardware Removal(Right) - Mayte Coleman DO Pre-Op Diagnosis: open symptomatic right ankle hardware Anesthesia Type General Case Staff Anesthesia Provider: Thomas Valdez Anesthesia Provider: Mela Lopez Assisting Provider: Arlene Gordon Case Times Procedure Start: 08/19/24 14:56 Procedure End: 08/19/24 15:15 Time out: 08/19/24 14:54 Tourniquet Tourniquet #: Tourniquet Site Padding: Pressure: Applied by: Time up #1: Time Down #1: Time Up #2: Time Down #2: Pre-Op Diagnosis: Symptomatic hardware right ankle Post Op Diagnosis: same as above Procedure Note Estimated Blood Loss (ml): 1 Indications: Symptomatic hardware right ankle - medial malleolar screws backing out of her skin. Findings: 2 medial malleolus screws removed in their entirety Complications: none Other Other Information/Narrative: This patient is an 89-year-old female with symptomatic hardware right medial malleolus. Preoperative diagnosis: Right hardware medial malleolus symptomatic postoperative diagnosis same as above Procedure performed removal of hardware right medial malleolus Total blood loss: 1 cc Total tourniquet time: 17 minutes Operative report in detail: The patient was brought back to the operating room and placed in the supine position. Anesthesia was induced. A well-padded tourniquet was placed the patient's right thigh. The patient was already receiving vancomycin and Rocephin regularly. A timeout was performed confirming the correct patient correct procedure correct extremity initials on the operative site and administration of IV antibiotics. The tourniquet was inflated to 250 mmHg after an Esmarch was used to exsanguinate the right lower extremity. A 15 blade was used to incise the skin over the anterior medial malleolus screw. The screw was removed in its entirety. The screw hole was curetted. And found to be bleeding. A second 1 cm incision was made over the posterior medial malleoli screw head. The screw head was cleared of debris and the posterior screw was removed. The screw hole was curetted. All unhealthy tissue was debrided. Copious amounts of fluid were used to irrigate the wounds. The wounds were then closed with 3-0 nylon in a horizontal mattress fashion. A sterile dressing is applied consisting of Xeroform plain gauze sterile web roll and an Mike wrap. The patient should start to advance her weight the patient was awoken and taken to the PACU in stable condition. The patient will be readmitted to internal medicine for further treatment. The patient is able to advance her weightbearing as tolerated. I will see the patient back in 2 weeks for suture removal or sooner if needed. All counts were correct at the end of the case. There were no complications.
--- NOTE | 2024-08-19 15:46 | ANESTHESIA POST OP EVALUATION ---
Anesthesia Post Eval Post Anesthesia Eval Vitals: Last Vital Signs Temp 36.0 C L 08/19/24 15:40 Pulse 80 08/19/24 15:40 Resp 23 08/19/24 15:40 BP 145/80 H 08/19/24 15:40 Pulse Ox 100 08/19/24 15:40 O2 Flow Rate 95 08/17/24 11:26 CV Function Including HR & BP: Stable Pain Control: Satisfactory Nausea & Vomiting: Negative Mental Status: Baseline Respiratory Status: Airway Patent Hydration Status: Satisfactory Anesthesia Complications: None
[2024-08-19] MEDS ORDERED: HYDROmorphone 0.5 MG/0.5 ML SYRINGE ONE (15:47)
[2024-08-19] MEDS: HYDROmorphone 0.5 MG/0.5 ML SYRINGE IVP PRN (15:48)
[2024-08-19] MEDS: ZINC OXIDE 20% OINT 30 GM TUBE TOP PRN (20:47)
[2024-08-20 05:08] VITALS: O2SAT 96
[2024-08-20] MEDS: ONDANSETRON 4 MG/2 ML VIAL IVP PRN (05:12)
[2024-08-20 05:38] LABS: BASOPHILS % (AUTO) 0.8 %; EOSINOPHILS # (AUTO) 0.4 10^3/uL (0.0-0.7); EOSINOPHILS % (AUTO) 8.9 %; HCT - HEMATOCRIT 25.1 % (37.0-47.0); HGB - HEMOGLOBIN 7.3 g/dL (12.0-16.0); LYMPHOCYTES # (AUTO) 1.3 10^3/uL (1.5-3.5); MEAN CORPUSCULAR HGB CONC 29.1 g/dL (32.0-36.0); MEAN PLATELET VOLUME 8.9 fL (7.9-10.8); MONOCYTES # (AUTO) 0.6 10^3/uL (0.0-1.0); MONOCYTES % (AUTO) 12.1 %; NEUTROPHILS # (AUTO) 2.5 10^3/uL (1.5-6.6); NEUTROPHILS % (AUTO) 50.2 %; PLT - PLATELET COUNT 207 10^3/uL (130-450); RED BLOOD COUNT 2.92 10^6/uL (4.20-5.40); RED CELL DISTRIBUTION WIDTH 15.6 % (12.0-15.0)
[2024-08-20 05:59] LABS: CALCIUM 8.5 mg/dL (8.5-10.3); POTASSIUM 3.6 mmol/L (3.5-4.5)
[2024-08-20] MEDS: APIXABAN 2.5 MG TABLET PO SCH (08:31)
--- NOTE | 2024-08-20 11:30 | Discharge Summary ---
"Discharge Summary Admit Date: 08/16/24 Discharge Date: 08/20/24 Discharging Provider: Dalia Primary Care Provider: karin Code Status: Do Not Attempt Resuscitation Discharge Facility Name: [facility] DIAGNOSES Admission Diagnoses: Urinary tract infection Ankle fracture with surgical complication Diabetes type 2 Aortic valve replacement, on Eliquis C. difficile diarrhea Pyelonephritis Discharge Diagnoses with Status of Each Condition: Urinary tract infection, pansensitive Klebsiella, E. 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 for home Pyelonephritis -- resolved HPI History of Present Illness: This is an 89-year-old female who fell June 19 and x-ray showed a displaced grade 1 open right bimalleolar ankle fracture. She is on Eliquis for prophylaxis for a mechanical aortic valve replacement. She also has a history of a PE. She was taken to the operating room and had irrigation and debridement of an open wound, and open reduction internal fixation of a right bimalleolar ankle fracture that day. She was seen during that admission for chest pain. Troponins were assessed, EKG was assessed and it was not felt to be cardiac chest pain. Because she was on Eliquis she was felt to have a low risk of pulmonary embolism. And she was [facility] to a [facility] facility for [facility]hab. She returned to the emergency room August 04 with 3 to 4 days of feeling weaker. She was still in a boot and using crutches. Complaining of diarrhea and stool analysis found her to have C. difficile diarrhea. Also found to have a UTI. She was treated as a UTI and sent home. She now returns with back pain, nausea vomiting and diarrhea, and a sensation of fever. She tells me that her right flank pain is terrible. It started slowly a few days ago and 2 days ago it was a 10 out of a 10 and she was screaming with that. It is not constant. It comes and goes like a cramping sensation. She had had the diarrhea with the C. difficile at the beginning of August. After being treated with vancomycin her diarrhea went away and she actually was constipated for a few days. But the diarrhea came back a couple of days ago. She was carefully examined by the ER provider. Her vital signs were documented as normal when I read them but Dr. Tsang shares with me that she dropped her pressure into the 70s systolic over 40s. She had a low-grade fever of 37.7. Pulse rate varied between 89-93. She has been saturating well on room air. Dr. Pedro found her to have another UTI with moderate leukocyte Estrace, negative for nitrates but it is contaminated with squamous cells. CT scan was done of the abdomen and she does have slight right hydronephrosis, about the same as it was with the previous CT scan. Unfortunately the urine was contaminated with squamous cells even though she had moderate bacteria, white cells and red cells culture is not can be done. She has stable chronic kidney disease. Creatinine is 1.7 and GFR is 33. Comparable to August 04 and June 17 labs. Her white cell count in the ER August 04 was 8.4. Today at 16.1. Lactic acid is normal at 0.9. Dr. Tsang also found her to have the screws of her ankle fracture are now breaking through the skin. He spoke at length to orthopedics on-call at [facility]. They said that as long as the wound is not infected, it can be covered with a bandage and does not need urgent/inpatient care. Since the patient has a low-grade fever, elevated white cell count, dehydration on exam, with a low BP at one point, we feel it would be prudent to bring her in to treat the UTI that is possible. And make sure she does well before we return her back home. After discussion with Dr. Tsang, I will be placing the patient in observation status. CONSULTS | PROCEDURES Consultations: Orthopedics Procedures: Fixation of ankle fracture and removal of hardware HOSPITAL COURSE Hospital Course: Patient was admitted for urinary tract infection. Patient has a history of ESBL infection. Patient was started on meropenem which was de-escalated to Rocephin. UA indicated pansensitive E. coli and Klebsiella. Patient indicated right and left flank pain. Retroperitoneal ultrasound was ordered which indicated atrophic kidneys but no calculus. Urology was consulted who recommended a treatment for pyelonephritis. During the hospital stay Patient was continued on Eliquis for her aortic valve replacement (TAVR). Eliquis Stopped for surgery and was restarted the day after. Diabetes was well-controlled during hospital stay. Patient was placed on insulin sliding scale Patient was started on p.o. vancomycin for C. difficile diarrhea.. This will be continued for as a pulse vancomycin for at home. Patient had formed stools upon discharge. Patient was taken to surgery to fixate her ankle fracture with hardware complications. Patient hardware was removed and PT evaluated patient Post surgery. Patient will go home with home care and PT. ALLERGIES Allergies Allergy/AdvReac Type Severity Reaction Status Date / Time Penicillins Allergy Severe Hives Verified 08/15/24 10:53 sulfamethoxazole (From Allergy Hives Verified 08/15/24 10:53 Bactrim) trimethoprim (From Bactrim) Allergy Hives Verified 08/15/24 10:53 aspartame AdvReac Diarrhea Verified 08/15/24 10:53 cefepime AdvReac Itching Verified 08/15/24 10:53 clindamycin AdvReac Unknown Verified 08/15/24 10:53 doxycycline AdvReac Nausea Verified 08/15/24 10:53 saccharin AdvReac Diarrhea Verified 08/15/24 10:53 stevioside (From Stevia) AdvReac Diarrhea Verified 08/15/24 10:53 sucralose AdvReac Diarrhea Verified 08/15/24 10:53 MEDICATIONS Ambulatory Orders Medication Instructions Recorded Confirmed glipizide 5 mg tablet, extended 10 mg PO DAILY 06/29/19 08/16/24 release 24 hr rosuvastatin 40 mg tablet (Crestor) 20 mg PO QPM 06/29/19 08/16/24 latanoprost 0.005 % eye drops 1 drp LEFTEYE QPM 07/04/19 08/16/24 Nystatin [Klayesta] 1 appful topical BID 06/19/24 08/16/24 acetaminophen 300 mg-codeine 60 mg 1 tab PO TID 06/19/24 08/16/24 tablet cholecalciferol (vitamin D3) 50 1 cap PO DAILY 06/19/24 08/16/24 mcg (2,000 unit) capsule cyanocobalamin (vitamin B-12) 1 cap PO DAILY 06/19/24 08/16/24 1,000 mcg capsule timolol maleate (PF) 0.5 % eye 1 drp EACHEYE DAILY 06/19/24 08/16/24 drops in a dropperette (Timoptic Ocudose (PF)) trazodone 50 mg tablet 100 mg PO HS 06/19/24 08/16/24 allopurinol 100 mg tablet 100 mg PO DAILY 06/20/24 08/16/24 apixaban 2.5 mg tablet (Eliquis) 2.5 mg PO BID 06/20/24 08/16/24 gabapentin 300 mg capsule 600 mg (2 x 300 mg) PO BID #60 caps 06/20/24 08/16/24 levothyroxine 100 mcg tablet 100 mcg PO QDAC 06/20/24 08/16/24 dulaglutide 3 mg/0.5 mL 3 mg SQ OAW 07/20/24 08/16/24 subcutaneous pen injector (Trulicity) vancomycin 125 mg capsule 125 mg PO QID #75 caps 08/20/24 PHYSICAL EXAM AT DISCHARGE General Appearance: positive No acute distress and Alert Eyes Bilateral: positive Normal inspection and PERRL ENT: positive ENT inspection nml and No signs of dehydration Neck: positive Nml inspection and Trachea midline Respiratory: positive Chest non-tender and No respiratory distress Cardiovascular: positive Regular rate & rhythm and Systolic murmur Abdomen: positive Non-tender, No organomegaly and No distention Skin: positive Color nml and No rash Extremities: positive Other (Status post ankle fracture with Hardware removal. Wrapping is clean and dry) Neurologic/Psychiatric: positive Oriented x3 and CN's nml (2-12) LABS 08/20/24 05:26 08/20/24 05:26 DIAGNOSTIC IMAGING Diagnostic Imaging Results: Prelim report reviewed and Final report reviewed SEPSIS Current Stage of Sepsis: Ruled out Sepsis Criteria: WBC count greater than 12,000 or less than 4000 and SBP drop more than 40mHg QUALITY (Female Hip Fx Only) Was patient sent home on osteoporosis medication?: No TIME SPENT Time Spent in Discharge (Minutes): 35 Discharge Plan Discharge Patient Disposition: 06 Home Health Service Condition: Stable Prescriptions: New vancomycin 125 mg capsule 125 mg PO QID Qty: 75 0RF Rx Instructions: take 4 caps per day for 14 days (q6 hrs) then take 2 caps per day for 7 days (q12 hrs) then take 1 cap per day for 7 days then take 1 cap every other day for 28 days Continued glipizide 5 MG tablet extended release 24hr 10 mg PO DAILY Rx Instructions: AM rosuvastatin [Crestor] 40 MG tablet 20 mg PO QPM latanoprost 40 DROPS/2.5 ML drops 1 drp LEFTEYE QPM trazodone 50 MG tablet 100 mg PO HS cholecalciferol (vitamin D3) 50 MCG capsule 1 cap PO DAILY cyanocobalamin (vitamin B-12) 1,000 MCG capsule 1 cap PO DAILY acetaminophen-codeine 1 EACH tablet 1 tab PO TID Rx Instructions: APAP/CODEINE 300MG-60MG timolol maleate (PF) [Timoptic Ocudose (PF)] 1 EACH dropperette 1 drp EACHEYE DAILY Nystatin [Klayesta] 15 GM Powder 1 appful topical BID allopurinol 100 MG tablet 100 mg PO DAILY 0RF levothyroxine 100 MCG tablet 100 mcg PO QDAC 0RF Eliquis 2.5 MG tablet 2.5 mg PO BID 0RF gabapentin 300 MG capsule 600 mg PO BID Qty: 60 0RF Trulicity 3 MG/0.5 ML pen injector 3 mg SQ OAW Discontinued cephalexin 500 MG capsule 500 mg PO Q6H Qty: 28 0RF Rx Instructions: X 7 DAYS vancomycin 125 MG capsule 125 mg PO QID 10 Days Qty: 40 0RF Activity Restrictions: Wt Bearing as Tolerated Activity Restrictions/Additional Instructions: Please continue vancomycin p.o. as instructed. ORTHOPEDIC DISCHARGE INSTRUCTIONS PER DR. DILLARD: - Follow up at [facility] with Dr Dillard 2 weeks after surgery. Call [phone] to schedule your appointment - Leave all dressings in place until 5 days after surgery (Saturday08/23/24). You can then remove the soft dressing and jamil wrap and use band-aids to cover your sutures about the inside of the right ankle - Use your CAM boot walker at all times when weight bearing. You can place as much weight as feels comfortable on the right foot in the boot. - Monitor for fever, chills, redness and drainage from incision site. Call our office if you notice these problems for further guidance. Diet: Diabetic Print Language: Telugu Patient Instructions: Surgery Anesthesia After, Diabetes Kidney Disease, Clostridium Difficile Infec Stand Alone Forms: PCP List Follow-up Care: Dorene Lisa MD [Primary Care Provider] -"
[2024-08-20 13:40] VITALS: TEMP 97.7
[2024-08-20 13:47] VITALS: BP 121/54
== END 2024-08-20 14:10 | disposition home health service (06) | DRG 988 ==
LOC: ED 10:42 → MS2 10:42
PROVIDERS: ADMIT Specialist; ATTEND Specialist
PROC: [UNRECOGNIZED PROCEDURE] (2024-08-19 13:25)
DX: M54.9 Dorsalgia, unspecified; Z88.5 Allergy status to narcotic agent; R94.31 Abnormal electrocardiogram [ECG] [EKG]; Z88.0 Allergy status to penicillin; Z95.2 Presence of prosthetic heart valve; E03.9 Hypothyroidism, unspecified; N13.6 Pyonephrosis; N18.30 Chronic kidney disease, stage 3 unspecified; Z86.19 Personal history of other infectious and parasitic diseases; I10 Essential (primary) hypertension; Z79.84 Long term (current) use of oral hypoglycemic drugs; T84.89XA Other specified complication of internal orthopedic prosthetic devices, implants and grafts, initial encounter; Z86.711 Personal history of pulmonary embolism; Z20.828 Contact with and (suspected) exposure to other viral communicable diseases; Y83.1 Surgical operation with implant of artificial internal device as the cause of abnormal reaction of the patient, or of later complication, without mention of misadventure at the time of the procedure; Z20.822 Contact with and (suspected) exposure to COVID-19; Z79.01 Long term (current) use of anticoagulants; Z85.828 Personal history of other malignant neoplasm of skin; Z79.899 Other long term (current) drug therapy; Z79.890 Hormone replacement therapy; R03.1 Nonspecific low blood-pressure reading; N39.0 Urinary tract infection, site not specified; Z88.2 Allergy status to sulfonamides; E11.22 Type 2 diabetes mellitus with diabetic chronic kidney disease; Z88.8 Allergy status to other drugs, medicaments and biological substances; A41.9 Sepsis, unspecified organism; Z88.1 Allergy status to other antibiotic agents; M10.9 Gout, unspecified; B96.20 Unspecified Escherichia coli [E. coli] as the cause of diseases classified elsewhere; R11.2 Nausea with vomiting, unspecified; E86.0 Dehydration; Z66 Do not resuscitate; A04.72 Enterocolitis due to Clostridium difficile, not specified as recurrent; Z79.85 Long-term (current) use of injectable non-insulin antidiabetic drugs; R79.89 Other specified abnormal findings of blood chemistry; K52.9 Noninfective gastroenteritis and colitis, unspecified

== ENCOUNTER 2025-10-16 13:25 | Inpatient (IN) ==
--- NOTE | 2025-10-16 13:35 | ED Physician Documentation ---
PD HPI ALTERED MENTAL STATUS Stated complaint Stated Complaint: UNRESPONSIVE Chief complaint Chief Complaint: Neuro History obtained from History obtained from: Patient (Minimal response from the patient, information mainly from EMS, reporting that the patient's daughter found her on the floor in her trailer. Last seen last evening at dinnertime. Diarrheal stool around the patient and on the floor.), Family and EMS History of Present Illness Timing - onset: Today Timing - details: Abrupt onset (The patient was reportedly at baseline last evening when she went back to her trailer after dinner with her daughter. Found on the kitchen floor this is shortly before arrival today.) Quality / character: Unresponsive Contributing factors: Anticoagulated; No Diabetic Basline status: Alert and oriented X 3 and Ambulatory Similar symptoms before: Has not had sx before Meds/Allgy Home Medications Ambulatory Orders Medication Instructions Recorded Confirmed cholecalciferol (vitamin D3) 50 1 cap PO DAILY 4 10/16/25 mcg (2,000 unit) capsule cyanocobalamin (vitamin B-12) 1 cap PO DAILY 06/19/24 10/16/25 1,000 mcg capsule apixaban 2.5 mg tablet (Eliquis) 2.5 mg PO BID 4 10/16/25 Permanent Disabled Placard 09/01/24 10/16/25 blood-glucose,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 events coordinator,cont 09/01/24 10/16/25 (FreeStyle Blanca 3 [place]) blood-glucose sensor (FreeStyle #2 ea 09/02/24 5 Blanca 3 Sensor device) hydrocortisone acetate 25 mg 25 mg [place] QDAY hemorrhoids #3 ea 04/05/25 10/16/25 rectal suppository food supplemt, lactose-reduced 1 ea PO QDAY #5,688 mL 04/09/25 10/16/25 (Ensure oral liquid) allopurinol 100 mg tablet 200 mg (2 x 100 mg) PO DAILY gout 05/04/25 10/16/25 #180 tabs latanoprost 0.005 % eye drops 1 drp LEFTEYE BID glauco ma #7.5 mL 05/04/25 10/16/25 dorzolamide (PF) 2 % (PF) eye drops 1 drp ophthalmic ( eye) TID 05/18/25 10/16/25 glaucoma #10 mL Saccharomyces boulardii 250 mg 250 mg PO HS 05/25/25 1 12/17/24 capsule (Daily Probiotic (S. boulardii)) estradiol 0.01% (0.1 mg/gram) 1 g vaginal Q3D vaginal atrophy 06/15/25 10/16/25 vaginal cream (Estrace) #42.5 grams diphenoxylate-atropine 2.5 1 tab PO QID #20 tabs 06/2310/16/25 mg-0.025 mg tablet rosuvastatin 20 mg tablet 10 mg PO QDAY 07/08/2510/16 colchicine 0.6 mg tablet 0.6 mg PO QDAY gout 07/11/25 10/16/25 folic acid 1 mg tablet 1 mg PO QDAY #30 tabs 10/16/25 gabapentin 300 mg capsule 600 mg (2 x 300 mg) PO BID # 360 07/21/25 10/16/25 caps glipizide 5 mg tablet, extended 5 - 15 mg (1 - 3 x 5 m g) PO QDAY 08/12/25 10/16/25 release 24 hr #270 tabs levothyroxine 100 mcg tablet 100 mcg PO QDAC #90 tabs 08/19/25 10/16/25 trazodone 50 mg tablet 25 mg (1/2 x 50 mg) PO HS #4 5 tabs 08/19/25 10/16/25 dulaglutide 4.5 mg/0.5 mL 3 mg (0.3333 mL) subcut QWEE K 08/23/25 10/16/25 subcutaneous pen injector diabetes #2 mL (Trulicity) acetaminophen 300 mg-codeine 60 mg 1 tab PO TID PRN pa in #90 tabs 09/13/25 10/16/25 tablet allopurinol 200 mg tablet 200 mg PO QDAY gout #30 tabs 09/13/25 10/16/25 diphenoxylate-atropine 2.5 1 tab PO QDAY PRN diarrhea #30 tabs 10/14/25 10/16/25 mg-0.025 mg tablet (Lomotil) Allergies Allergies Allergy/AdvReac Type Severity Reaction Status Date / Time Iodinated Contrast Media Allergy Severe Unknown Verified 10/16/25 14:27 meropenem Allergy Severe Rash Verified 10/16/25 14:27 oxycodone (From OxyContin) Allergy Severe Unknown Verified 10/16/25 14:27 Penicillins Allergy Severe Hives Verified 10/16/25 14:27 sulfamethoxazole (From Allergy Hives Verified 10/16/25 14:27 Bactrim) trimethoprim (From Bactrim) Allergy Hives Verified 10/16/25 14:27 ferumoxytol (From Feraheme) AdvReac Unknown Weakness & Verified 10/16/25 14:27 Shakiness aspartame AdvReac Diarrhea Verified 10/16/25 14:27 cefepime AdvReac Itching Verified 10/16/25 14:27 clindamycin AdvReac Unknown Verified 10/16/25 14:27 doxycycline AdvReac Nausea Verified 10/16/25 14:27 saccharin AdvReac Diarrhea Verified 10/16/25 14:27 stevioside (From Stevia) AdvReac Diarrhea Verified 10/16/25 14:27 sucralose AdvReac Diarrhea Verified 10/16/25 14:27 PFSH Active Problems All Active Problems (Updated 10/16/25 @ 17:05 by Antonio Alexis MD) Acute on chronic kidney failure (Acute) Acute hypotension (Acute) Acute kidney injury (Acute) Septic shock (Acute) Anticoagulant long-term use (Chronic) Intestinal bleeding (Acute) Aspiration pneumonia (Acute) AMS (altered mental status) (Acute) Healthcare maintenance (Acute) Anemia (Acute) Osteoarthritis of left knee (Acute) Trigger finger of right hand (Acute) Anemia in chronic kidney disease (Acute) Nausea and vomiting (Acute) History of pulmonary embolism (Acute) Pancytopenia (Acute) Hematuria (Acute) Hemorrhoids that prolapse with straining and require manual replacement back inside anal canal (Acute) Cough (Acute) Medical History Medical History (Updated 10/16/25 @ 17:05 by Antonio Alexis MD) Iron deficiency anemia Anxiety Gastric reflux Diastasis of rectus abdominis CT abdomen: 01/2025 - with non-obstructed herniation Colitis Vaginal atrophy Diabetes mellitus type 2, controlled, with complications (07/16/23) Primary chronic pain (07/16/23) Recurrent cystitis Chronic anticoagulation Glaucoma Urinary retention Infectious colitis, enteritis and gastroenteritis Acute kidney injury superimposed on chronic kidney disease Full code status Hypothyroidism Ventral hernia Lactic acid increased Partial small bowel obstruction Diarrhea History of DVT (deep vein thrombosis) (08/15/23) Polyarthralgia (02/21/24) Carcinoma in situ of skin, unspecified (07/16/23) Back pain (06/04/23) Sepsis UTI w sepsis07/2019 ESBL E Coli Elevated troponin Dehydration Urinary tract infection History of ESBL E. 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 (03/05/24) Hypothyroidism (06/04/23) Tinea cruris (07/16/23) Presbycusis, bilateral (12/30/23) Balance problem (02/21/24) Surgical History Surgical History History of aortic valve replacement Hx of tonsillectomy H/O hysterectomy with oophorectomy Tubal ligation status Knee joint replacement status History of appendectomy History of cholecystectomy Status post open reduction with internal fixation (ORIF) of fracture of ankle Hx of aortic valve replacement (07/16/23) done 11/2018, last echo 05/05/2024 EF 60%, PASP 36 mmHg, well seated valve Family History Family History Mother Cancer Father Cancer Daughter Healthy adult on routine physical examination Social History Social History (Updated 10/16/25 @ 13:56 by Shiela Rosado RN) Smoking Status: Never smoker Second hand tobacco smoke exposure: Yes (Mom and Dad) Do you dip or chew tobacco?: No Do you vape?: No Patient requests smoking cessation consult: No Initiate information on smoking cessation: No Living arrangement: At home Marital Status: Single Living Condition: With spouse/s.o. and With family Support Person: Yes Living Situation Details: one daughter in [place] and another across the street in [place], lives w her as well Physical Activity: Bedfast and None Level: Assisted Do you feel safe in your home environment?: No (unobtainable) Frequency: Occasional Substance Use: denies use Are you sexually active?: No POLST Patient has POLST: Yes POLST CPR Status: Attempt Resuscitation (CPR) Level of Medical Intervention: Full Treatment Exam Exam Vital Signs: Vital Signs x48h Temp Pulse Resp BP Pulse Ox O2 Flow Rate 10/16/25 15:30 87 16 81/33 L 97 2 10/16/25 15:10 89 21 93/36 L 95 2 10/16/25 14:49 82 16 77/42 L 95 2 10/16/25 14:18 89 16 73/38 L 100 15 10/16/25 14:13 91 20 73/52 L 100 15 10/16/25 13:57 102 H 20 59/33 L 100 15 10/16/25 13:40 15 10/16/25 13:39 90 14 81/36 L 87 L 15 10/16/25 13:26 35.9 C L 92 19 89/41 L 96 15 Constitutional normal general appearance (She is covered with watery brown stool consistent with diarrhea. It does n) and average body habitus Neck/C-Spine supple and no carotid bruits Respiratory wheezing noted (scattered wheezes) and rales noted (base) Cardiovascular normal heart rate noted and rhythm abnormal (irregular) Gastrointestinal abdomen soft to palpation, nondistended and abnormal bowel sounds noted (hypoactive bowel sounds) Rectal exam showed some redness and superficial skin breakdown on the right perirectal area. Sorry left perirectal. There is a near continuous flow of watery brown diarrhea out. Initially this was brown and tested guaiac negative but soon after arrival became more current jelly obviously red blood appearance. Psychiatry mental status abnormal (obtunded) Skin skin color abnormal (pale) Results Vitals Vitals: Vital Signs - 24 hr 10/16/25 13:26 10/16/25 13:39 10/16/25 13:40 Temperature 35.9 C L Temperature Source Temporal Artery Scan Pulse Rate 92 90 Respiratory Rate 19 14 Blood Pressure 89/41 L 81/36 L O2 Saturation 96 87 L Oxygen Delivery Method Non-Rebreather O2 Source Non-rebreather mask Non-rebreather mask Oxygen Flow Rate If not protocol: Oxygen Flow, liters/minute 15 15 15 Pain Intensity 0 0 10/16/25 13:57 10/16/25 14:13 10/16/25 14:18 Temperature Temperature Source Pulse Rate 102 H 91 89 Respiratory Rate 20 20 16 Blood Pressure 59/33 L 73/52 L 73/38 L O2 Saturation 100 100 100 Oxygen Delivery Method O2 Source Non-rebreather mask Non-rebreather mask Non-rebreather mask Oxygen Flow Rate If not protocol: Oxygen Flow, liters/minute 15 15 15 Pain Intensity 0 0 0 10/16/25 14:49 10/16/25 14:52 10/16/25 15:10 Temperature Temperature Source Pulse Rate 82 89 Respiratory Rate 16 21 Blood Pressure 77/42 L 93/36 L O2 Saturation 95 95 Oxygen Delivery Method Nasal Cannula O2 Source Nasal cannula Nasal cannula Oxygen Flow Rate 2 If not protocol: Oxygen Flow, liters/minute 2 2 Pain Intensity 0 8 10/16/25 15:17 10/16/25 15:30 Temperature Temperature Source Pulse Rate 87 Respiratory Rate 16 Blood Pressure 81/33 L O2 Saturation 97 Oxygen Delivery Method O2 Source Room air Oxygen Flow Rate If not protocol: Oxygen Flow, liters/minute 2 Pain Intensity 7 Oxygen O2 Source Room air Oxygen Flow Rate 2 Labs Labs: Microbiology 10/16/25 13:31 Occult Blood - Final Stool Laboratory Tests 10/16/25 10/16/25 10/16/25 13:35 13:35 13:35 WBC 7.7 RBC 3.12 L Hgb 8.4 L Hct 30.2 L MCV 96.8 MCH 26.9 L MCHC 27.8 L RDW 17.0 H Plt Count 134 MPV 11.2 H Neut # (Auto) 6.4 Lymph # (Auto) 0.4 L [place] # (Auto) 0.8 Eos # (Auto) 0.0 Baso # (Auto) 0.0 Absolute Nucleated RBC 0.00 Nucleated RBC % 0.0 RBC Morph Micro Appear 2+ HYPOCHROMASIA 1+ ANISOCYTOSIS 1+ SCHISTOCYTES Bld Gas Analysis Time Sample Site ABG pH ABG pCO2 ABG pO2 ABG HCO3 ABG Total CO2 ABG O2 Saturation ABG Base Excess Kavon Test O2 Delivery Device O2 Liters/Min Sodium 138 Potassium 6.7 H* Chloride 107 Carbon Dioxide 17 L Anion Gap 14.0 H BUN 55 H Creatinine 3.0 H Estimated GFR (MDRD) 15 L Glucose 147 H POC Whole Bld Glucose Lactic Acid 5.9 H* Calcium 7.9 L Magnesium 1.7 Total Bilirubin 0.5 AST 48 H ALT 22 Alkaline Phosphatase 132 H Total Protein 5.2 L Albumin 3.1 L Globulin 2.1 Albumin/Globulin Ratio 1.5 Lipase 75 Stl C. diff Tox B Gene Urine Opiates Screen Ur Buprenorphine Scrn Ur Oxycodone Screen Urine Methadone Screen Urine Fentanyl Screen Ur Barbiturates Screen Ur Tricyclics Screen Ur Phencyclidine Scrn Ur Amphetamine Screen U Methamphetamines Scrn U Benzodiazepines Scrn Urine Cocaine Screen U Cannabinoids Screen Ur Drug Screen Comment Blood Type Antibody Screen Crossmatch IS Only 10/16/25 10/16/25 10/16/25 14:15 14:20 14:23 WBC RBC Hgb Hct MCV MCH MCHC RDW Plt Count MPV Neut # (Auto) Lymph # (Auto) [place] # (Auto) Eos # (Auto) Baso # (Auto) Absolute Nucleated RBC Nucleated RBC % RBC Morph Micro Appear Bld Gas Analysis Time 14:29 Sample Site LEFT RADIAL ABG pH 7.19 L* ABG pCO2 32 L ABG pO2 268 H ABG HCO3 12.4 L ABG Total CO2 13.4 L ABG O2 Saturation 100 H ABG Base Excess -15.9 L Kavon Test POSITIVE O2 Delivery Device NON REBREATHER MASK O2 Liters/Min 15.00 Sodium Potassium Chloride Carbon Dioxide Anion Gap BUN Creatinine Estimated GFR (MDRD) Glucose POC Whole Bld Glucose 138 Lactic Acid Calcium Magnesium Total Bilirubin AST ALT Alkaline Phosphatase Total Protein Albumin Globulin Albumin/Globulin Ratio Lipase Stl C. diff Tox B Gene NEGATIVE Urine Opiates Screen POSITIVE H Ur Buprenorphine Scrn NEGATIVE Ur Oxycodone Screen NEGATIVE Urine Methadone Screen NEGATIVE Urine Fentanyl Screen Negative Ur Barbiturates Screen NEGATIVE Ur Tricyclics Screen NEGATIVE Ur Phencyclidine Scrn NEGATIVE Ur Amphetamine Screen NEGATIVE U Methamphetamines Scrn NEGATIVE U Benzodiazepines Scrn NEGATIVE Urine Cocaine Screen NEGATIVE U Cannabinoids Screen NEGATIVE Ur Drug Screen Comment CUTOFF CONC BELOW: Blood Type Antibody Screen Crossmatch IS Only 10/16/25 14:58 WBC RBC Hgb Hct MCV MCH MCHC RDW Plt Count MPV Neut # (Auto) Lymph # (Auto) [place] # (Auto) Eos # (Auto) Baso # (Auto) Absolute Nucleated RBC Nucleated RBC % RBC Morph Micro Appear Bld Gas Analysis Time Sample Site ABG pH ABG pCO2 ABG pO2 ABG HCO3 ABG Total CO2 ABG O2 Saturation ABG Base Excess Kavon Test O2 Delivery Device O2 Liters/Min Sodium Potassium Chloride Carbon Dioxide Anion Gap BUN Creatinine Estimated GFR (MDRD) Glucose POC Whole Bld Glucose Lactic Acid Calcium Magnesium Total Bilirubin AST ALT Alkaline Phosphatase Total Protein Albumin Globulin Albumin/Globulin Ratio Lipase Stl C. diff Tox B Gene Urine Opiates Screen Ur Buprenorphine Scrn Ur Oxycodone Screen Urine Methadone Screen Urine Fentanyl Screen Ur Barbiturates Screen Ur Tricyclics Screen Ur Phencyclidine Scrn Ur Amphetamine Screen U Methamphetamines Scrn U Benzodiazepines Scrn Urine Cocaine Screen U Cannabinoids Screen Ur Drug Screen Comment Blood Type O POSITIVE Antibody Screen NEGATIVE Crossmatch IS Only See Detail Rads (name of study) head CT: Relevant Findings:: Final report received and EMP independent interpretation of test (no ICH) Interpretation: EXAM: [id number] CT/HEADWO ([id number]) PROCEDURE: CT Head WO INDICATIONS: AMS, on Eliquis TECHNIQUE: CT of the head was performed, without intravenous contrast. Reformats: Coronal and sagittal. For radiation dose reduction, the following was used: automated exposure control, adjustment of mA and/or kV according to patient size. COMPARISON: CT head on 06/19/2024 FINDINGS: Image quality: Diagnostic. CSF spaces: Basal cisterns are patent. No extra-axial fluid collections. Ventricles are normal in size and shape. Brain: No midline shift. No intracranial mass effect or hemorrhage. Chronic encephalomalacia of the left frontal superior gyrus, corresponding to a left RUBIO territory chronic infarct, unchanged from 2023. [place]-white matter interface is normal. Age appropriate volume loss and periventricular white matter hypoattenuation, likely chronic ischemic change. Skull and face: Calvarium and visualized facial bones are intact, without suspicious lesions. Sinuses: Visualized sinuses and mastoids are clear. IMPRESSION: 1. No acute intracranial pathology. 2. Chronic left RUBIO territory infarct, unchanged from June 2024. Reviewed by: Erlin Maldonado MD on 10/16/2025 1:[address]: Relevant Findings:: Final report received Interpretation: EXAM: [id number] CT/HEADWO ([id number]) PROCEDURE: CT Head WO INDICATIONS: AMS, on Eliquis TECHNIQUE: CT of the head was performed, without intravenous contrast. Reformats: Coronal and sagittal. For radiation dose reduction, the following was used: automated exposure control, adjustment of mA and/or kV according to patient size. COMPARISON: CT head on 06/19/2024 FINDINGS: Image quality: Diagnostic. CSF spaces: Basal cisterns are patent. No extra-axial fluid collections. Ventricles are normal in size and shape. Brain: No midline shift. No intracranial mass effect or hemorrhage. Chronic encephalomalacia of the left frontal superior gyrus, corresponding to a left RUBIO territory chronic infarct, unchanged from 2023. Fairchild-white matter interface is normal. Age appropriate volume loss and periventricular white matter hypoattenuation, likely chronic ischemic change. Skull and face: Calvarium and visualized facial bones are intact, without suspicious lesions. Sinuses: Visualized sinuses and mastoids are clear. IMPRESSION: 1. No acute intracranial pathology. 2. Chronic left RUBIO territory infarct, unchanged from June 2024. Reviewed by: Erlin Maldonado MD on 10/16/2025 1:[address]: Relevant Findings:: Final report received and EMP independent interpretation of test (likely aspiration pneumonia) Interpretation: EXAM: [id number] CT/CHTWO ([id number]) PROCEDURE: CT Chest WO INDICATIONS: dyspnea, AMS, ? aspiration TECHNIQUE: A CT scan of the chest was performed. Intravenous contrast media was not administered. Images were recorded and evaluated at appropriate window settings. Reformats: axial MIP of the chest, coronal and sagittal. For radiation dose reduction, the following was used: automated exposure control, adjustment of mA and/or kV according to patient size. COMPARISON: CT chest on 08/15/2024 FINDINGS: Image quality: Diagnostic. Chest wall and lower neck: No thyroid nodule which requires sonographic follow up. No axillary or supraclavicular adenopathy by size. Lungs and pleura: Posterior right upper lobe and bilateral lower lobe dependent consolidations with scattered groundglass opacities in the bilateral more dependent lower lobes and perihilar right upper lobe, and bilateral lower lobes.. No pleural effusions. No pneumothorax. Mediastinum: Heart size is enlarged. With changes of aortic valve replacement. Chronic enlargement of the pulmonary trunk, which can be seen with chronic pulmonary hypertension. Moderate calcifications of the thoracic aorta. The thoracic aorta is normal in caliber. No pericardial effusion. Bilateral prominent, but not enlarged by CT criteria, perihilar lymph nodes, likely reactive. Bones: No aggressive osseous abnormality. Healed fractures of the left anterior third, fourth, and lateral sixth ribs. No acute displaced rib fracture. Changes of intramedullary nail fixation of the left humerus. 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 No vertebral compression deformity. Upper Abdomen: Post cholecystectomy. Partially visualized IVC filter. IMPRESSION: 1. Posterior right upper lobe and bilateral posterior lower lobe dependent consolidations are concerning for aspiration pneumonia. 2. Chronic enlargement of the pulmonary trunk, which can be seen with chronic pulmonary hypertension. Reviewed by: Erlin Maldonado MD on 10/16/2025 2:[address]: Relevant Findings:: Final report received Interpretation: EXAM: [id number] CT/ABPEWO ([id number]) PROCEDURE: CT Abdomen/Pelvis WO INDICATIONS: diarrhea, unresponsive TECHNIQUE: A CT scan of the abdomen and pelvis was performed without the use of intravenous contrast. Images were recorded and evaluated at appropriate window settings. Reformats: coronal and sagittal. For radiation dose reduction, the following was used: automated exposure control, adjustment of mA and/or kV according to patient size. COMPARISON: CT abdomen pelvis on 08/15/2024. FINDINGS: Image quality: Diagnostic. Lower chest: Separately dictated. Liver: No contour-deforming mass. Gallbladder: Surgically absent. Biliary tree: No intrahepatic or extrahepatic dilation, accounting for age. Spleen: No splenomegaly. Pancreas: No pancreatic ductal dilation. Adrenals: No adrenal nodule. Kidneys and ureters: No hydronephrosis. Nonobstructive left intrarenal 5 mm nephrolithiasis (4/60). No contour-deforming mass. Stomach, bowel and peritoneum: Changes of colectomy. No proximal bowel dilatation or findings suggestive of obstruction.. No pathologic free fluid. Lymph nodes: No central or retroperitoneal adenopathy. Vessels: No infrarenal aortic aneurysm. IVC filter in the infrarenal IVC. Reproductive organs: Post hysterectomy. Bladder: The bladder is decompressed by Lira catheter. Pelvic lymph nodes: No adenopathy by size criteria. Bones: No aggressive osseous abnormality. Diffuse osseous demineralization. Multilevel degenerative changes of the spine. Other: Broad-based diastases recti with multiple loops of bowel extending into the abdominal wall ventral diastases. IMPRESSION: 1. Changes of colectomy without findings of bowel obstruction. 2. Nonobstructive left intrarenal 5 mm nephrolithiasis. Reviewed by: Erlin Maldonado MD on 10/16/2025 2:19 PM GIGI MERINO Medical Decision Making ED course Complexity details: reviewed results (Initial critical results with elevated lactate 5.9, potassium 6.7 and creatinine of 3.0, ALT elevated. Repeat test after fluid and albuterol and sodium HCO3 showed an improvement of the potassium to 5.4 and the lactate slightly increased at 5.4. Chest x-ray concerning for aspiration pneumonia.), considered differential (12 lactate of 6.1 prolactin of 61 the patient was found by her daughter unresponsive or poorly responsive on the floor of the kitchen with gurgling breathing and covered in very watery diarrhea. Last seen in the evening going back to her trailer in normal condition.), d/w patient and d/w family ED course: The patient was brought by EMS and critical condition. They found her to be very hypoxic with labored breathing and gurgling sounds concerning for aspiration. She was placed on a facemask in order to get saturations up from the 70s to the 90s. She was minimally responsive just to tactile stimulus with groaning and minimal eye opening. Blood pressure was low in the 70s. Peripheral IV was started and fluids were given en route along with supplemental oxygen by facemask. She does have a POLST form which was DNR and DNI and limited interventions. The daughter was following them by private vehicle. On arrival the patient does have coarse lung sounds bilaterally in the lower pretty. There is some wheezing noted. There is some emesis noted around her mouth. Her oximetry is showing low 90s on the facemask nonrebreather breather. Her blood pressure is reading in the 70s systolic. She was minimally responsive to eye-opening. She did not follow commands. I affirmed her POLST form. At this point we would start a second IV and give fluids as was started by EMS. 2 L of IV fluids were given with very slight improvement in the blood pressure to about 90 systolic. She did have a lot of watery brown stool around her and her rectum. The appearance was nonmelanotic and the initial guaiac test was negative. However soon after she started to have of output a very watery current jelly red stool that was obviously bloody. She did not appear to be in pain per se and the abdomen was soft and nondistended with hypoactive bowel sounds. Initial labs showed a lactic acid elevated at 5.9. The initial creatinine was 3.0 with 1 just 2 days ago of 1.6. Potassium was 6.7 with a recent 1 of 4.8. CBC showed hemoglobin of 8.4 with recent 1 2 days ago of 9.2. The combination of symptoms along with her presentation was concerning for ischemia bowel. Alternatively we can test for C. difficile as well. The patient has had prior colectomy's for diverticulitis I believe. The hospitalist was familiar with the patient and her family as her had recently in the hospital just 2 months ago. I talked with the patient's daughter when she arrived and conveyed the criticality of the patient's condition. With the daughter we affirmed that she would not want CPR or intubation and would not be a surgical candidate. With continued IV fluids and oxygen and nebulizer treatment the patient did have improved alertness and was able to answer questions. She had improved color as well. Her oxygenation improved and was able to come down to a nasal cannula maintaining over 90% saturations. Blood pressure however did not really improve and remained hypotensive. The hospitalist came down and talked with the daughter and patient and at this point we would not be looking at central lines or pressors. Blood transfusion would be appropriate and I did order 2 units of blood. Even though her CBC was above the 7.0 typical transfusion threshold, she was having active blood loss and hypotension and would be appropriate treatment. The patient remained in critical condition though she was more alert and her oxygenation was improving. The patient was admitted to the ICU by the hospitalist service in guarded condition. Critical Care Time Includes: Direct patient care, Reassess patient, Document care, Coordinate care and Family consult for tx dec Data interpretation: Labs, Pulse ox, ABG and CXR Discharge Plan Discharge Patient Disposition: 68 [facility] DC/Xfer Condition: Stable Clinical Impression: AMS (altered mental status), Aspiration pneumonia, Intestinal bleeding, Anticoagulant long-term use, Acute hypotension, Acute on chronic kidney failure
--- OUTSIDE RECORDS SUMMARY | 2025-10-16 13:45 | EXTERNAL MEDICAL SUMMARY RPT | Continuity of Care Document ---
Author Organization [facility] Address [address] [place] [id number] Phone Allergies and Intolerances date description facility reaction severity 2025-02-16 10:00 [id number]^Iodinated Contrast Media^^Iodinated Contrast Media^^allergy.id [facility] Unknown (no severity) 2025-02-16 10:00 [id number]^Penicillins ^^Penicillins^^allergy .id [facility] H[facility] (no severity) 2025-02-16 10:00 [id number]^oxycodone^^ From OxyContin^^allergy.id [facility] Unknown (no severity) 2025-02-16 10:00 [id number]^saccharin^^ saccharin^^allergy.id [facility] Diarrhea (no severity) 2025-02-16 10:00 [id number]^aspartame^^ aspartame^^allergy.id [facility] Diarrhea (no severity) 2025-02-16 10:00 [id number]^doxycycline ^^doxycycline^^allergy .id [facility] Nausea (no severity) 2025-02-16 10:00 [id number]^clindamycin ^^clindamycin^^allergy .id [facility] Unknown (no severity) 2025-02-16 10:00 [id number]^sulfamethox azole^^From Bactrim^^allergy.id [facility] Hives (no severity) 2025-02-16 10:00 [id number]^trimethopri m^^From Bactrim^^allergy.id [facility] Hives (no severity) 2025-02-16 10:00 [id number]^cefepime^^c efepime^^allergy.id American Board of Addiction Medicine (ABAM) Health Itching (no severity) 2025-02-16 10:00 [id number]^meropenem^^ meropenem^^[facility].id [facility] Rash (no severity) 2025-02-16 10:00 [id number]^stevioside^ ^From Stevia^^allergy.id [facility] Diarrhea (no severity) 2025-02-16 10:00 [id number]^sucralose^^ sucralose^^allergy.id [facility] Diarrhea (no severity) 2025-04-16 10:00 [id number]^ferumoxytol ^^From Feraheme^^allergy.id [facility] Weakness \T\ Shakiness (no severity) Problems date description facility 2025-07-30 07:41 Anemia, unspecified [facility] 2025-07-30 07:41 Encounter for genera l adult medical examination without abnormal findings [facility] 2025-07-30 07:41 Personal history of pulmonary e mbolism Cap That 2025-08-02 13:12 Noninfective gastroenteritis an d colitis, unspecified [facility] 2025-08-04 10:41 Noninfective gastroenteritis an d colitis, unspecified [employer] 2025-08-04 10:42 Noninfective gastroenteritis an d colitis, unspecified [facility] 2025-08-04 10:50 Noninfective gastroenteritis an d colitis, unspecified [employer] 2025-08-05 00:06 Noninfective gastroenteritis an d colitis, unspecified [facility] 2025-08-05 10:03 Chronic kidney disease, stage 3 b [facility] 2025-08-06 11:04 Noninfective gastroenteritis an d colitis, unspecified [facility] 2025-08-06 11:08 Noninfective gastroenteritis an d colitis, unspecified [facility] 2025-08-07 00:04 Noninfective gastroenteritis an d colitis, unspecified [facility] 2025-09-13 12:12 Pain in left knee [facility] 2025-09-13 12:13 [facility] in left knee 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) [facility] 2025-09-14 00:01 Other fracture of ri t lower leg, initial encounter for open fracture type I or II [facility] 2025-09-14 00:03 Pain in left knee [facility] 2025-09-20 20:54 Renal tubulo-interstitial disea ses (N10-N16) [facility] 2025-09-22 10:17 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) [facility] 2025-09-27 12:51 Iron deficiency anemia, [facility] 2025-09-27 13:05 Iron deficiency anemia, unspeci [facility] 2025-09-27 13:05 Anemia, unspecified [facility] 2025-09-27 13:49 Iron deficiency anemia, [facility] 2025-09-27 13:49 Anemia, unspecified [facility] 2025-09-27 14:40 Iron deficiency anemia, [facility] 2025-09-27 14:40 Anemia, unspecified [facility] 2025-09-27 14:42 Iron deficiency anemia, [facility] 2025-09-27 14:42 Anemia, unspecified [facility] 2025-10-04 16:17 Anemia, unspecified [facility] 2025-10-12 08:12 Anemia, unspecified [facility] 2025-10-14 12:00 Anemia, unspecified [facility] 2025-10-14 12:20 Anemia, unspecified [facility] 2025-10-14 12:57 Anemia, unspecified [facility] Results/Labs test date facility value unit notes Result panel 1 CREATININE 2025-08-03 14:39 [facility] 1.6 mg/dl As of May 2023 testing method has changed, this may include reference ranges. MAGNESIUM 2025-08-03 14:39 [facility] 1.8 mg/dl As of May 2023 testing method has changed, this may include reference ranges. CHLORIDE 2025-08-03 14:39 [facility] 108 mmol/l As of May 2023 testing method has changed, this may include reference ranges. GLUCOSE 2025-08-03 14:39 [facility] 110 mg/dl As of May 2023 testing method has changed, this may include reference ranges. PLT - PLATELET COUNT 2025-08-03 14:39 [facility] 131 10 3/ul (missing) SODIUM 2025-08-03 14:39 [facility] 137 mmol/l (missing) RED CELL DISTRIBUTION WIDTH 2025-08-03 14:39 [employer] Board of Addiction Medicine (ABAM) [facility] 14.9 % (mi ssing) TRANSFERRIN 2025-08-03 14:39 [facility] 156 mg/dl As of May 2023 testing method has changed, this may include reference ranges. % IRON SATURATION 2025-08-03 14:39 Cap That 18 % (missing) RED BLOOD COUNT 2025-08-03 14:39 Cap That 2.95 10 6/ul (missing) CARBON DIOXIDE - CO2 2025-08-03 14:39 [facility] 21 mmol/l As of May 2023 testing method has changed, this may include reference ranges. TOTAL IRON BINDING CAPACITY 2025-08-03 14:39 [facility] 218 ug/dl (missing) HCT - HEMATOCRIT 2025-08-03 14:39 [employer] of Addiction Medicine (ABAM) [facility] 28.8 % (missing) FERRITIN 2025-08-03 14:39 [facility] 288.7 ng/ml (missing) MEAN CORPUSCULAR HEMOGLOBIN 2025-08-03 14:39 [facility] 29.5 pg (missing) ALBUMIN 2025-08-03 14:39 [facility] 3.9 g/dl As of May 2023 testing method has changed, this may include reference ranges. GFR - MDRD 2025-08-03 14:39 [facility] 30 (in g) The IDMS-traceable MDRD Study Equation has been validated extensively in and populations between the ages of 18 and 70 with impaired kidney function (eGFR < 60 mL/min/1.73m2) and has shown good performance for patients with all common causes of kidney disease. Although this equation has not been validated for patients older than 70, an MDRD-derived eGFR may still be a useful tool for providers caring for patients older than 70. References: http://www.nkdep.n ih.gov/lab-evaluat ion/gfr/creatinine -stand ardization, last updated January 2012. MEAN CORPUSCULAR HGB CONC 2025-08-03 14:39 [facility] 30.2 g/dl (missing) BUN - BLOOD UREA NITROGEN 2025-08-03 14:39 Cap That 33 mg/dl As of May testing method has changed, this may include reference ranges. IRON 2025-08-03 14:39 Cap That 39 ug/dl As of May 2023 testing method has changed, this may include reference ranges. PHOSPHORUS 2025-08-03 14:39 Cap That 4.2 mg/dl As of May 2023 testing method has changed, this may include reference ranges. POTASSIUM 2025-08-03 14:39 Cap That 4.3 mmol/l As of May 2023 testing method has changed, this may include reference ranges. WHITE BLOOD COUNT 2025-08-03 14:39 Cap That 4.7 x10 3/ul (missing) ANION GAP 2025-08-03 14:39 [facility] 8.0 (missing ) (missing) HGB - HEMOGLOBIN 2025-08-03 14:39 [facility] 8.7 g /dl (missing) MEAN PLATELET VOLUME 2025-08-03 14:39 [facility] 8.9 fl (missing) PARATHYROID HORMONE, INTACT 2025-08-03 14:39 Cap That 81 pg/ml (missing) CALCIUM 2025-08-03 14:39 Cap That 9.0 mg/dl As of May 2023 testing method has changed, this may include reference ranges. MEAN CORPUSCULAR VOLUME 2025-08-03 14:39 [employer] of Addiction Medicine (ABAM) [facility] 97.6 fl (missing) Result panel 2 PROTEIN/CREATININE RATIO,URINE 2025-08-03 20:00 [facility] 1.4 (missing) (missing) CREATININE,URINE 2025-08-03 20:00 [facility] 103.5 mg/dl As of May 2023 testing method has changed, this may include reference ranges. TOTAL PROTEIN,URINE TIMED 2025-08-03 20:00 [facility] 150 mg/dl As of May 2023 testing method has changed, this may include reference ranges. Result panel 3 CALPROTECTIN FECAL 2025-08-05 17:42 [facility] 33 ug/g Concentration Interpretation Follow-Up < 5 - 50 ug/g Normal None >50 -120 ug/g Borderline Re-evaluate in 4-6 weeks >120 ug/g Abnormal Repeat as clinically indicated Performed at: [facility] [address], [place], [place] [id number] Analytical Statistician: Rani Cortes MD, Phone: [phone] Result panel 4 WBC,URINE 2025-09-20 08:00 [facility] >25 /hpf (missing) RBC,URINE 2025-09-20 08:00 [facility] 0-5 /hpf (missing) UROBILINOGEN,URIN E 2025-09-20 08:00 [facility] 0.2 (NORMAL) e.u./dl (missing) SPECIFIC GRAVITY,URINE 2025-09-20 08:00 [facility] 1.010 (missing) (missing) PROTEIN,URINE 2025-09-20 08:00 [facility] 30 mg/dl (missing) PH,URINE 2025-09-20 08:00 [facility] 6.5 ph (missing) CLARITY,URINE 2025-09-20 08:00 [facility] HAZY (missing) (missing) URINE MICROSCOPIC INDICATED? 2025-09-20 08:00 [facility] INDICATED (missing) (missing) SQUAMOUS EPITHELIAL CELL,UR 2025-09-20 08:00 [facility] MANY Squamous (missing) (missing) LEUKOCYTE ESTERASE, URINE 2025-09-20 08:00 [facility] MODERATE (missing) (missing) BACTERIA,URINE 2025-09-20 08:00 [facility] Many /hpf (missing) NITRITE,URINE 2025-09-20 08:00 [facility] NEGATIVE (missing) (missing) OCCULT BLOOD,URINE 2025-09-20 08:00 [facility] NEGATIVE (missing) (missing) BILIRUBIN,URINE 2025-09-20 08:00 [facility] NEGATIVE (missing) Bilirubin can be influenced by color interference. Please correlate positive results with clinical presentation GLUCOSE, URINE (UA) 2025-09-20 08:00 [facility] NEGATIVE mg/dl (missing) KETONES,URINE (UA) 2025-09-20 08:00 [facility] NEGATIVE mg/dl (missing) UR CULTURE IF IND 2025-09-20 08:00 [facility] NOT INDICATED (missing) A culture is not indicated on urine samples contaminated with greater than a few Squamous Epithelial cells/HPF. A mid-stream clean catch urine for culture is recommended. WBC CLUMPS,URINE 2025-09-20 08:00 [facility] PRESENT (missing) (missing) COLOR,URINE 2025-09-20 08:00 [facility] YELLOW (missing) (missing) Result panel 5 NUCLEATED RED BLOOD CELLS AUTO 2025-09-27 13:01 [facility] 0.0 /100wbc (missing) BASOPHILS # (AUTO) 2025-09-27 13:01 [facility] 0.0 10 3/ul (missing) NRBC ABSOLUTE COUNT (AUTO) 2025-09-27 13:01 [facility] 0.00 x10 3/ul (missing) EOSINOPHILS # (AUTO) 2025-09-27 13:01 [facility] 0.3 10 3/ul (missing) BILIRUBIN,TOTAL 2025-09-27 13:01 [facility] 0.4 mg/dl As of May 2023 testing method has changed, this may include reference ranges. MONOCYTES # (AUTO) 2025-09-27 13:01 [facility] 0.7 10 3/ul (missing) LYMPHOCYTES # (AUTO) 2025-09-27 13:01 [facility] 1.1 10 3/ul (missing) ALBUMIN/GLOBULIN RATIO 2025-09-27 13:01 [facility] 1.5 (missing) (missing) CREATININE 2025-09-27 13:01 [facility] 1.5 mg/dl As of May 2023 testing method has changed, this may include reference ranges. MEAN PLATELET VOLUME 2025-09-27 13:01 [facility] 10.4 fl (missing) ALKALINE PHOSPHATASE 2025-09-27 13:01 [facility] 106 iu/l As of May 2023 testing method has changed, this may include reference ranges. CHLORIDE 2025-09-27 13:01 [facility] 107 mmol/l As of May 2023 testing method has changed, this may include reference ranges. % IRON SATURATION 2025-09-27 13:01 Cap That 11 % (missing) AST ASPARTATE AMINOTRANSFERASE 2025-09-27 13:01 Cap That 11 iu/l As of May 2023 testing method has changed, this may include reference ranges. PLT - PLATELET COUNT 2025-09-27 13:01 [facility] 139 10 3/ul (missing) SODIUM 2025-09-27 13:01 [facility] 139 mmol/l Unknown RED CELL DISTRIBUTION WIDTH 2025-09-27 13:01 [facility] 15.2 % (missing) LDH - LACTATE DEHYDROGENASE 2025-09-27 13:01 [facility] 150 iu/l As of May 2023 testing method has changed, this may include reference ranges. TRANSFERRIN 2025-09-27 13:01 [facility] 150 mg/dl As of May 2023 testing method has changed, this may include reference ranges. GLUCOSE 2025-09-27 13: Cap That 166 mg/dl As of May 2023 testing method has changed, this may include reference ranges. HAPTOGLOBIN 2025-09-27 13:01 Cap That 198 mg/dl Performed at: - [facility] [address], [address], [place], [place] [id number] Analytical Statistician: Jamir Pearce MD, Phone: [phone] GLOBULIN 2025-09-27 13:01 [facility] 2.2 g/dl (missing) RED BLOOD COUNT 2025-09-27 13:01 [facility] 2.52 10 6/ul (missing) TOTAL IRON BINDING CAPACITY 2025-09-27 13:01 [facility] 210 ug/dl (missing) IRON 2025-09-27 13:01 Cap That 23 ug/dl As of May 2023 testing method has changed, this may include reference ranges. CARBON DIOXIDE - CO2 2025-09-27 13: Cap That 24 mmol/l As of May 2023 testing method has changed, this may include reference ranges. HEMATOCRIT 2025-09-27 13: Cap That 24.1 % (missing) FERRITIN 2025-09-27 13: Cap That 249.1 ng/ml (missing) FOLATE RBC 2025-09-27 13:01 Cap That 2498 ng/ml Performed at: [facility] [address], [place], [place] [id number] Analytical Statistician: Rani Cortes MD, Phone: [phone] Performed at: [facility] [address], [place], [place] [id number] Analytical Statistician: Jamir Pearce MD, Phone: [phone] HCT - HEMATOCRIT 2025-09-27 13: Cap That 25.0 % (missing) VITAMIN B12 2025-09-27 13: Cap That 271 pg/ml VITAMIN B12 RANGES: NORMAL 180 - 914 INDETERMINATE 145 -180 DEFICIENT < 145 MEAN CORPUSCULAR HEMOGLOBIN 2025-09-27 13: Cap That 28.6 pg (missing) MEAN CORPUSCULAR HGB CONC 2025-09-27 13:01 [facility] 28.8 g/dl (missing) BUN - BLOOD UREA NITROGEN 2025-09-27 13:01 Cap That 29 mg/dl As of May 2023 testing method has changed, this may include reference ranges. NEUTROPHILS # (AUTO) 2025-09-27 13: Cap That 3.0 10 3/ul (missing) ALBUMIN 2025-09-27 13: Cap That 3.4 g/dl As of May 2023 testing method has changed, this may include reference ranges. GFR - MDRD 2025-09-27 13: Cap That 33 (missing) The IDMS-traceable MDRD Study Equation has been validated extensively in and populations between the ages of 18 and 70 with impaired kidney function (eGFR < 60 mL/min/1.73m2) and has shown good performance for patients with all common causes of kidney disease. Although this equation has not been validated for patients older than 70, an MDRD-derived eGFR may still be a useful tool for providers caring for patients older than 70. References: http://www.nkdep.n ih.gov/lab-evaluat ion/gfr/creatinine -stand ardization, last updated January 2012. POTASSIUM 2025-09-27 13:01 Cap That 4.4 mmol/l As of May 2023 testing method has changed, this may include reference ranges. WHITE BLOOD COUNT 2025-09-27 13:01 Cap That 5.1 x10 3/ul (missing) TOTAL PROTEIN 2025-09-27 13:01 Cap That 5.6 g/dl As of May 2023 testing method has changed, this may include reference ranges. FOLATE HEMOLYSATE 2025-09-27 13:01 Cap That 602.0 ng/ml (missing) HGB - HEMOGLOBIN 2025-09-27 13:01 Cap That 7.2 g/dl (missing) ANION GAP 2025-09-27 13:01 Cap That 8.0 (missing) (missing) CALCIUM 2025-09-27 13:01 Cap That 8.2 mg/dl As of May 2023 testing method has changed, this may include reference ranges. ALT ALANINE AMINOTRANSFERASE 2025-09-27 13:01 Cap That 9 iu/l As of May 2023 testing method has changed, this may include reference ranges. MEAN CORPUSCULAR VOLUME 2025-09-27 13:01 Cap That 99.2 fl (missing) Result panel 6 NUCLEATED RED BLOOD CELLS AUTO 2025-10-14 12:08 Cap That 0.0 /100wbc (missing) BASOPHILS # (AUTO) 2025-10-14 12:08 Cap That 0.0 10 3/ul (missing) NRBC ABSOLUTE COUNT (AUTO) 2025-10-14 12:08 Cap That 0.00 x10 3/ul (missing) EOSINOPHILS # (AUTO) 2025-10-14 12:08 [facility] 0.1 10 3/ul (missing) BILIRUBIN,TOTAL 2025-10-14 12:08 [facility] 0.3 mg/dl As of May 2023 testing method has changed, this may include reference ranges. MONOCYTES # (AUTO) 2025-10-14 12:08 [facility] 0.7 10 3/ul (missing) ALBUMIN/GLOBULIN RATIO 2025-10-14 12:08 [facility] 1.6 (missing) (missing) LYMPHOCYTES # (AUTO) 2025-10-14 12:08 [facility] 1.6 10 3/ul (missing) CREATININE 2025-10-14 12:08 Cap That 1.6 mg/dl As of May 2023 testing method has changed, this may include reference ranges. CHLORIDE 2025-10-14 12:08 [facility] 107 mmol/l As of May 2023 testing method has changed, this may include reference ranges. AST ASPARTATE AMINOTRANSFERASE 2025-10-14 12:08 Cap That 11 iu/l As of May 2023 testing method has changed, this may include reference ranges. SODIUM 2025-10-14 12:08 Cap That 137 mmol/l Unknown PLT - PLATELET COUNT 2025-10-14 12:08 Cap That 144 10 3/ul (missing) GLUCOSE 2025-10-14 12:08 Cap That 144 mg/dl As of May 2023 testing method has changed, this may include reference ranges. ALKALINE PHOSPHATASE 2025-10-14 12:08 Cap That 150 iu/l As of May 2023 testing method has changed, this may include reference ranges. RED CELL DISTRIBUTION WIDTH 2025-10-14 12:08 Cap That 16.8 % (missing) GLOBULIN 2025-10-14 12:08 Cap That 2.4 g/dl (missing) CARBON DIOXIDE - CO2 2025-10-14 12:08 Cap That 23 mmol/l As of May 2023 testing method has changed, this may include reference ranges. MEAN CORPUSCULAR HEMOGLOBIN 2025-10-14 12:08 Cap That 26.8 pg (missing) MEAN CORPUSCULAR HGB CONC 2025-10-14 12:08 Cap That 29.0 g/dl (missing) NEUTROPHILS # (AUTO) 2025-10-14 12:08 Cap That 3.3 10 3/ul (missing) RED BLOOD COUNT 2025-10-14 12:08 Cap That 3.43 10 6/ul (missing) ALBUMIN 2025-10-14 12:08 Cap That 3.8 g/dl As of May 2023 testing method has changed, this may include reference ranges. GFR - MDRD 2025-10-14 12:08 Cap That 30 (missing) The IDMS-traceable MDRD Study Equation has been validated extensively in and populations between the ages of 18 and 70 with impaired kidney function (eGFR < 60 mL/min/1.73m2) and has shown good performance for patients with all common causes of kidney disease. Although this equation has not been validated for patients older than 70, an MDRD-derived eGFR may still be a useful tool for providers caring for patients older than 70. References: http://www.nkdep. nih.gov/lab-evalu ation/gfr/creatin ine-stand ardization, last updated January 2012. HCT - HEMATOCRIT 2025-10-14 12:08 Cap That 31.7 % (missing) BUN - BLOOD UREA NITROGEN 2025-10-14 12:08 Cap That 36 mg/dl As of May 2023 testing method has changed, this may include reference ranges. POTASSIUM 2025-10-14 12:08 Cap That 4.8 mmol/l As of May 2023 testing method has changed, this may include reference ranges. WHITE BLOOD COUNT 2025-10-14 12:08 Cap That 5.6 x10 3/ul (missing) TOTAL PROTEIN 2025-10-14 12:08 Cap That 6.2 g/dl As of May 2023 testing method has changed, this may include reference ranges. ALT ALANINE AMINOTRANSFERASE 2025-10-14 12:08 Cap That 7 iu/l As of May 2023 testing method has changed, this may include reference ranges. ANION GAP 2025-10-14 12:08 Cap That 7.0 (missing) (missing) CALCIUM 2025-10-14 12:08 Cap That 8.7 mg/dl As of May 2023 testing method has changed, this may include reference ranges. HGB - HEMOGLOBIN 2025-10-14 12:08 Cap That 9.2 g/dl (missing) MEAN PLATELET VOLUME 2025-10-14 12:08 [facility] fl (missing) MEAN CORPUSCULAR VOLUME 2025-10-14 12:08 Cap That 92.4 fl (missing) Social History date description facility
[2025-10-16 13:46] LABS: HCT - HEMATOCRIT 30.2 % (37.0-47.0); HGB - HEMOGLOBIN 8.4 g/dL (12.0-16.0); MEAN PLATELET VOLUME 11.2 fL (7.9-10.8); NRBC ABSOLUTE COUNT (AUTO) 0.00 x10^3/uL; NUCLEATED RED BLOOD CELLS AUTO 0.0 /100WBC; PLT - PLATELET COUNT 134 10^3/uL (130-450); RED CELL DISTRIBUTION WIDTH 17.0 % (12.0-15.0)
[2025-10-16 13:57] LABS: ALT ALANINE AMINOTRANSFERASE 22.0 IU/L (10-60); AST ASPARTATE AMINOTRANSFERASE 48.0 IU/L (10-42); BUN - BLOOD UREA NITROGEN 55.0 mg/dL (6-20); CARBON DIOXIDE - CO2 17.0 mmol/L (21-32); CREATININE 3.0 mg/dL (0.6-1.3); GFR - MDRD 15.0 (>89)
[2025-10-16] MEDS: SODIUM CHLORIDE 0.9% 1,000 ML IV STA ×4 (14:12→16:46)
[2025-10-16] MEDS: SODIUM BICARBONATE ABBOJECT 50 MEQ/50 ML SYRINGE IVP STA (14:21)
[2025-10-16 14:30] LABS: ABG OXYGEN SATURATION 100 % (95-98); ABG PCO2 32 mmHg (34-45); ABG PO2 268 mmHg (83-108)
[2025-10-16 14:31] LABS: ABG BASE EXCESS -15.9 mmol/L (-2.0-3.0); ABG HCO3 12.4 mmol/L (22.0-26.0); ABG TCO2 13.4 mmol/L (21.0-29.0)
[2025-10-16 14:33] LABS: ABG PH 7.19 (7.35-7.45)
[2025-10-16] MEDS: ALBUTEROL NEB 2.5 MG/3 ML INH STA (14:35)
[2025-10-16 14:37] LABS: AMPHETAMINE SCREEN,URINE NEGATIVE (NEGATIVE); BARBITURATE SCREEN,UR NEGATIVE (NEGATIVE); BENZODIAZEPINES SCREEN, URINE NEGATIVE (NEGATIVE); COCAINE SCREEN URINE NEGATIVE (NEGATIVE); METHADONE SCREEN, URINE NEGATIVE (NEGATIVE); METHAMPHETAMINES SCREEN, URINE NEGATIVE (NEGATIVE); THC CANNABINOID SCREEN, URINE NEGATIVE (NEGATIVE)
[2025-10-16 14:38] LABS: BUPRENORPHINE SCREEN, URINE NEGATIVE (NEGATIVE); OPIATE SCREEN, URINE POSITIVE (NEGATIVE)
--- NOTE | 2025-10-16 15:02 | CT Report ---
PROCEDURE: CT Head WO INDICATIONS: AMS, on Eliquis TECHNIQUE: CT of the head was performed, without intravenous contrast. Reformats: Coronal and sagittal. For radiation dose reduction, the following was used: automated exposure control, adjustment of mA and/or kV according to patient size. COMPARISON: CT head on 06/19/2024 FINDINGS: Image quality: Diagnostic. CSF spaces: Basal cisterns are patent. No extra-axial fluid collections. Ventricles are normal in size and shape. Brain: No midline shift. No intracranial mass effect or hemorrhage. Chronic encephalomalacia of the left frontal superior gyrus, corresponding to a left RUBIO territory chronic infarct, unchanged from 2023. Fairchild-white matter interface is normal. Age appropriate volume loss and periventricular white matter hypoattenuation, likely chronic ischemic change. Skull and face: Calvarium and visualized facial bones are intact, without suspicious lesions. Sinuses: Visualized sinuses and mastoids are clear. IMPRESSION: 1. No acute intracranial pathology. 2. Chronic left RUBIO territory infarct, unchanged from June 2024. Reviewed by: Erlin Maldonado MD on 10/16/2025 1:59 PM [place] Approved by: Erlin Maldonado MD on 10/16/2025 1:59 PM [place] Station ID: [id number]
--- NOTE | 2025-10-16 15:06 | CT Report ---
PROCEDURE: CT Cervical Spine WO INDICATIONS: apparent fall; AMS TECHNIQUE: Noncontrast images acquired from the skull base to the T4 level. Sagittal and coronal reformats were then constructed. For radiation dose reduction, the following was used: automated exposure control, adjustment of mA and/or kV according to patient size. COMPARISON: CT cervical spine on 06/19/2024 FINDINGS: Image quality: Excellent. Bones: No fractures or dislocations. Visualized superior ribs are intact. Congenitally nonfused posterior arch of C1, unchanged. Degenerated disc osteophyte complexes at C3-4 through C6-7 which resulted in multilevel mild spinal canal stenosis. Multilevel facet arthrosis in the right greater than left facet joints. Soft tissues: Prevertebral soft tissues are normal in thickness. No paravertebral hematomas. No apical pneumothoraxes. Calcifications of the cervical carotids. IMPRESSION: No acute, displaced fracture or traumatic subluxation. Reviewed by: Erlin Maldonado MD on 10/16/2025 2:03 PM [facility] Approved by: Eriln Maldonado MD on 10/16/2025 2:03 PM [facility] Station ID: [id number]
--- NOTE | 2025-10-16 15:18 | CT Report ---
PROCEDURE: CT Chest WO INDICATIONS: dyspnea, AMS, ? aspiration TECHNIQUE: A CT scan of the chest was performed. Intravenous contrast media was not administered. Images were recorded and evaluated at appropriate window settings. Reformats: axial MIP of the chest, coronal and sagittal. For radiation dose reduction, the following was used: automated exposure control, adjustment of mA and/or kV according to patient size. COMPARISON: CT chest on 08/15/2024 FINDINGS: Image quality: Diagnostic. Chest wall and lower neck: No thyroid nodule which requires sonographic follow up. No axillary or supraclavicular adenopathy by size. Lungs and pleura: Posterior right upper lobe and bilateral lower lobe dependent consolidations with scattered groundglass opacities in the bilateral more dependent lower lobes and perihilar right upper lobe, and bilateral lower lobes.. No pleural effusions. No pneumothorax. Mediastinum: Heart size is enlarged. With changes of aortic valve replacement. Chronic enlargement of the pulmonary trunk, which can be seen with chronic pulmonary hypertension. Moderate calcifications of the thoracic aorta. The thoracic aorta is normal in caliber. No pericardial effusion. Bilateral pr ominent, but not enlarged by CT criteria, perihilar lymph nodes, likely reactive. Bones: No aggressive osseous abnormality. Healed fractures of the left anterior third, fourth, and lateral sixth ribs. No acute displaced rib fracture. Changes of intramedullary nail fixation of the left humerus. 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 No vertebral compression deformity. Upper Abdomen: Post cholecystectomy. Partially visualized IVC filter. IMPRESSION: 1. Posterior right upper lobe and bilateral posterior lower lobe dependent consolidations are concerning for aspiration pneumonia. 2. Chronic enlargement of the pulmonary trunk, which can be seen with chronic pulmonary hypertension. Reviewed by: Erlin Maldonado MD on 10/16/2025 2:14 PM [facility] Approved by: Erlin Maldonado MD on 10/16/2025 2:14 PM [facility] Station ID: [id number]
--- NOTE | 2025-10-16 15:22 | CT Report ---
PROCEDURE: CT Abdomen/Pelvis WO INDICATIONS: diarrhea, unresponsive TECHNIQUE: A CT scan of the abdomen and pelvis was performed without the use of intravenous contrast. Images were recorded and evaluated at appropriate window settings. Reformats: coronal and sagittal. For radiation dose reduction, the following was used: automated exposure control, adjustment of mA and/or kV according to patient size. COMPARISON: CT abdomen pelvis on 08/15/2024. FINDINGS: Image quality: Diagnostic. Lower chest: Separately dictated. Liver: No contour-deforming mass. Gallbladder: Surgically absent. Biliary tree: No intrahepatic or extrahepatic dilation, accounting for age. Spleen: No splenomegaly. Pancreas: No pancreatic ductal dilation. Adrenals: No adrenal nodule. Kidneys and ureters: No hydronephrosis. Nonobstructive left intrarenal 5 mm nephrolithiasis (4/60). No contour-deforming mass. Stomach, bowel and peritoneum: Changes of colectomy. No proximal bowel dilatation or findings suggestive of obstruction.. No pathologic free fluid. Lymph nodes: No central or retroperitoneal adenopathy. Vessels: No infrarenal aortic aneurysm. IVC filter in the infrarenal IVC. Reproductive organs: Post hysterectomy. Bladder: The bladder is decompressed by Lira catheter. Pelvic lymph nodes: No adenopathy by size criteria. Bones: No aggressive osseous abnormality. Diffuse osseous demineralization. Multilevel degenerative changes of the spine. Other: Broad-based diastases recti with multiple loops of bowel extending into the abdominal wall ventral diastases. IMPRESSION: 1. Changes of colectomy without findings of bowel obstruction. 2. Nonobstructive left intrarenal 5 mm nephrolithiasis. Reviewed by: Erlin Maldonado MD on 10/16/2025 2:19 PM [facility] Approved by: Erlin Maldonado MD on 10/16/2025 2:19 PM [facility] Station ID: [id number]
[2025-10-16] MEDS ORDERED: cefTRIAXone 1 GM in SODIUM CHLORIDE 0.9% MINIBAG 100 ML IV SCH (16:09)
[2025-10-16] MEDS: CALAMINE/ZINC OXIDE 177 ML BOTTLE TOP SCH (16:14)
--- NOTE | 2025-10-16 16:21 | HISTORY & PHYSICAL EXAMINATION ---
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 She lives in an RV on her daughter's property. She was last seen normal yesterday evening when she ate dinner around 5 PM. She was found on the floor for travel trailer covered in diarrhea and vomit. She has had some bloody stool since she has arrived in the emergency department. She is intermittently awake and able to give some history. However, the majority the history is obtained by her daughter. She has been experiencing some anemia got a blood transfusion as an outpatient on 09/23/2025. She has a history of partial colectomy and therefore always has diarrhea and loose stools. She is on empiric budesonide for presumed chronic colitis. Last EGD and colonoscopy in June of this year significant for some chronic gastritis. In speaking with her daughter Analia there is no thought that the patient is having chronic GI blood loss. She has however had nausea and vomiting as well as dizziness for the last 2 weeks. She has not been feeling well in general. She has a DNR, selective interventions POLST on the chart. Her daughter Analia is her surrogate medical decision maker. I spoke with Analia about Alcira briefly. She has actually been doing quite well since Gael, her , on 08/22. Analia relates to me that Gael had a really nice , and a good send off (I was in attendance at Gael's ). Analia reaffirms the status on the POLST as DNR/selective. I do not feel that Alcira would be a surgical candidate. Analia agrees with this and has been told this by surgeons in the past. We will treat her medical conditions fully with all measures short of intubation and CPR. Meds/Allgy Home Medications Ambulatory Orders Medication Instructions Recorded Confirmed cholecalciferol (vitamin D3) 50 1 cap PO DAILY 4 10/16/25 mcg (2,000 unit) capsule cyanocobalamin (vitamin B-12) 1 cap PO DAILY 06/19/24 10/16/25 1,000 mcg capsule apixaban 2.5 mg tablet (Eliquis) 2.5 mg PO BID 4 10/16/25 Permanent Disabled Placard 09/01/24 10/16/25 blood-glucose,maternal child nurse,cont 09/01/24 10/16/25 (FreeStyle [place] 3 [place]) blood-glucose sensor (FreeStyle #2 ea 09/02/24 5 Blanca 3 Sensor device) hydrocortisone acetate 25 mg 25 mg CA QDAY hemorrhoids #3 ea 04/05/25 10/16/25 rectal suppository food supplemt, lactose-reduced 1 ea PO QDAY #5,688 mL 04/09/25 10/16/25 (Ensure oral liquid) allopurinol 100 mg tablet 200 mg (2 x 100 mg) PO DAILY gout 05/04/25 10/16/25 #180 tabs latanoprost 0.005 % eye drops 1 drp LEFTEYE BID glauco ma #7.5 mL 05/04/25 10/16/25 dorzolamide (PF) 2 % (PF) eye drops 1 drp ophthalmic ( eye) TID 05/18/25 10/16/25 glaucoma #10 mL Saccharomyces boulardii 250 mg 250 mg PO HS 05/25/25 1 12/17/24 capsule (Daily Probiotic (S. boulardii)) estradiol 0.01% (0.1 mg/gram) 1 g vaginal Q3D vaginal atrophy 06/15/25 10/16/25 vaginal cream (Estrace) #42.5 grams diphenoxylate-atropine 2.5 1 tab PO QID #20 tabs 06/2310/16/25 mg-0.025 mg tablet rosuvastatin 20 mg tablet 10 mg PO QDAY 07/08/2510/16 colchicine 0.6 mg tablet 0.6 mg PO QDAY gout 07/11/25 10/16/25 folic acid 1 mg tablet 1 mg PO QDAY #30 tabs 10/16/25 gabapentin 300 mg capsule 600 mg (2 x 300 mg) PO BID # 360 07/21/25 10/16/25 caps glipizide 5 mg tablet, extended 5 - 15 mg (1 - 3 x 5 m g) PO QDAY 08/12/25 10/16/25 release 24 hr #270 tabs levothyroxine 100 mcg tablet 100 mcg PO QDAC #90 tabs 08/19/25 10/16/25 trazodone 50 mg tablet 25 mg (1/2 x 50 mg) PO HS #4 5 tabs 08/19/25 10/16/25 dulaglutide 4.5 mg/0.5 mL 3 mg (0.3333 mL) subcut QWEE K 08/23/25 10/16/25 subcutaneous pen injector diabetes #2 mL (Trulicity) acetaminophen 300 mg-codeine 60 mg 1 tab PO TID PRN pa in #90 tabs 09/13/25 10/16/25 tablet allopurinol 200 mg tablet 200 mg PO QDAY gout #30 tabs 09/13/25 10/16/25 diphenoxylate-atropine 2.5 1 tab PO QDAY PRN diarrhea #30 tabs 10/14/25 10/16/25 mg-0.025 mg tablet (Lomotil) Allergies Allergies Allergy/AdvReac Type Severity Reaction Status Date / Time Iodinated Contrast Media Allergy Severe Unknown Verified 10/16/25 14:27 meropenem Allergy Severe Rash Verified 10/16/25 14:27 oxycodone (From OxyContin) Allergy Severe Unknown Verified 10/16/25 14:27 Penicillins Allergy Severe Hives Verified 10/16/25 14:27 sulfamethoxazole (From Allergy Hives Verified 10/16/25 14:27 Bactrim) trimethoprim (From Bactrim) Allergy Hives Verified 10/16/25 14:27 ferumoxytol (From Feraheme) AdvReac Unknown Weakness & Verified 10/16/25 14:27 Shakiness aspartame AdvReac Diarrhea Verified 10/16/25 14:27 cefepime AdvReac Itching Verified 10/16/25 14:27 clindamycin AdvReac Unknown Verified 10/16/25 14:27 doxycycline AdvReac Nausea Verified 10/16/25 14:27 saccharin AdvReac Diarrhea Verified 10/16/25 14:27 stevioside (From Stevia) AdvReac Diarrhea Verified 10/16/25 14:27 sucralose AdvReac Diarrhea Verified 10/16/25 14:27 PFSH Active Problems All Active Problems (Updated 10/16/25 @ 17:55 by JOLIE Zarco) Hyperkalemia (Acute) Acute on chronic kidney failure (Acute) Acute hypotension (Acute) Acute kidney injury (Acute) Septic shock (Acute) Anticoagulant long-term use (Chronic) Intestinal bleeding (Acute) Aspiration pneumonia (Acute) AMS (altered mental status) (Acute) Healthcare maintenance (Acute) Anemia (Acute) Osteoarthritis of left knee (Acute) Trigger finger of right hand (Acute) Anemia in chronic kidney disease (Acute) Nausea and vomiting (Acute) History of pulmonary embolism (Acute) Pancytopenia (Acute) Hematuria (Acute) Hemorrhoids that prolapse with straining and require manual replacement back inside anal canal (Acute) Cough (Acute) Medical History Medical History (Updated 10/16/25 @ 17:55 by JOLIE Zarco) Iron deficiency anemia Anxiety Gastric reflux Diastasis of rectus abdominis CT abdomen: 01/2025 - with non-obstructed herniation Colitis Vaginal atrophy Diabetes mellitus type 2, controlled, with complications (07/16/23) Primary chronic pain (07/16/23) Recurrent cystitis Chronic anticoagulation Glaucoma Urinary retention Infectious colitis, enteritis and gastroenteritis Acute kidney injury superimposed on chronic kidney disease Full code status Hypothyroidism Ventral hernia Lactic acid increased Partial small bowel obstruction Diarrhea History of DVT (deep vein thrombosis) (08/15/23) Polyarthralgia (02/21/24) Carcinoma in situ of skin, unspecified (07/16/23) Back pain (06/04/23) Sepsis UTI w sepsis07/2019 ESBL E Coli Elevated troponin Dehydration Urinary tract infection History of ESBL E. 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 (03/05/24) Hypothyroidism (06/04/23) Tinea cruris (07/16/23) Presbycusis, bilateral (12/30/23) Balance problem (02/21/24) Surgical History Surgical History History of aortic valve replacement Hx of tonsillectomy H/O hysterectomy with oophorectomy Tubal ligation status Knee joint replacement status History of appendectomy History of cholecystectomy Status post open reduction with internal fixation (ORIF) of fracture of ankle Hx of aortic valve replacement (07/16/23) done 11/2018, last echo 05/05/2024 EF 60%, PASP 36 mmHg, well seated valve Family History Family History Mother Cancer Father Cancer Daughter Healthy adult on routine physical examination Social History Social History (Updated 10/16/25 @ 13:56 by Shiela Rosado RN) Smoking Status: Never smoker Second hand tobacco smoke exposure: Yes (Mom and Dad) Do you dip or chew tobacco?: No Do you vape?: No Patient requests smoking cessation consult: No Initiate information on smoking cessation: No Living arrangement: At home Marital Status: Single Living Condition: With spouse/s.o. and With family Support Person: Yes Living Situation Details: one daughter in [place] and another across the street in [place], lives w her as well Physical Activity: Bedfast and None Level: Dependent Home Mobility Equipment: Walker Do you feel safe in your home environment?: Yes Frequency: Occasional Substance Use: denies use Are you sexually active?: No POLST Patient has POLST: Yes POLST CPR Status: Do Not Attempt Resuscitation (DNAR) / Allow Natural Review of Systems Status of ROS: unobtainable due to mental status Prior Level of Functionality: Walks with a walker, does not drive, lives on her daughter's property with some assistance Exam Exam Vital Signs: Vital Signs x48h Temp Pulse Pulse Resp BP BP Pulse Ox 10/16/25 17:36 35.9 C L 92 12 75/36 L 94 10/16/25 17:20 36.3 C L 116 H 21 159/72 H 97 10/16/25 16:34 85 15 72/28 L 96 10/16/25 15:30 87 16 81/33 L 97 10/16/25 15:10 89 21 93/36 L 95 10/16/25 14:49 82 16 77/42 L 95 10/16/25 14:18 89 16 73/38 L 100 10/16/25 14:13 91 20 73/52 L 100 10/16/25 13:57 102 H 20 59/33 L 100 10/16/25 13:40 10/16/25 13:39 90 14 81/36 L 87 L 10/16/25 13:26 35.9 C L 92 19 89/41 L 96 O2 Flow Rate 10/16/25 17:36 2 10/16/25 17:20 2 10/16/25 16:34 2 10/16/25 15:30 2 10/16/25 15:10 2 10/16/25 14:49 2 10/16/25 14:18 15 10/16/25 14:13 15 10/16/25 13:57 15 10/16/25 13:40 15 10/16/25 13:39 15 10/16/25 13:26 15 Constitutional Appears ill HENMT normocephalic and head/scalp atraumatic Vomitus on her teeth, Mucous membranes dry Eyes conjunctivae normal Neck/C-Spine visual inspection normal, trachea midline and cervical spine nontender Lymph no lymphadenopathy noted Chest inspection of chest normal Respiratory breath sounds equal bilaterally and normal respiratory effort RML rhonchi Cardiovascular normal heart rate noted not tachycardic Gastrointestinal Her abdomen is soft and nondistended. Left-sided hernia is easily reducible. She has no tenderness on palpation. Extremities normal to inspection and normal to palpation Neurology no focal motor deficit noted and speech normal oriented to self and place but not time. [email or web address] [] Psychiatry cooperative and affect normal Recognizes me Skin skin color normal Skin is cool to the touch Sepsis Event Note (H) Evaluation Current Stage of Sepsis: Septic shock Possible source of Sepsis: positive Pulmonary and GI tract/intra-abdominal Sepsis Criteria Sepsis Criteria: MAP less than 65 mmHg and Metabolic: lactate > 2 mmol/L Conclusion/Plan Problem List (1) Septic shock: Plan: Presents to the ED after being found down covered in stool and emesis. She has not been feeling well for about 2 weeks. no known hx of GI bleeding recently, but has chronic diarrhea s/p subtotal colectomy in 2006. She has had n/v over the last 2 weeks that is new. She has been treated with iron and blood transfusions as an OP. most recent transfusion was 09/27. She has been noted to have some currant jelly stools since arrival to the ED. Her blood pressure is very low, 80/30. Dr Alexis has ordered blood in the ED for her. We will give her one unit. She has a lactic acidosis of 5.9 which has only come down to 5.4 with 2 liters of IVF. I am trending this again in several hours. 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 CT A/P (non contrast) read as unremarkable It is remarkable to me in that there are dilated bowel loops, and a fair amount of material in her stomach despite not having eaten for many hours. but her abdomen is not tender or distended on exam and her hernia is very easily reducible. The primary cause of her sepsis could be pulmonary, imaging seems suspicious for aspiration PNA, and hx is consistent with this. She is mildly hypoxic with a 2L oxygen requirement, that is coming down as she is hydrated in the ED. (2) Aspiration pneumonia: Plan: She has been having nausea and vomiting for 2 weeks. She has also been dizzy. She has chronic loose stools after colectomy in 2006. I do not know the cause of her vomiting, but it has resulted in an aspiration PNA. no obstruction seen on CT. CT chest: 1. Posterior right upper lobe and bilateral posterior lower lobe dependent consolidations are concerning for aspiration pneumonia. 2. Chronic enlargement of the pulmonary trunk, which can be seen with chronic pulmonary hypertension. I am treating her with azithromycin, and rocephin. She got one dose of flagyl in the ED. Her hypoxia is minimal- she is needing 2L via NC (3) Acute kidney injury: Plan: Her Cr has doubled from that of 2 days ago. This may be due to acute dehydration. She has gotten 4L NS in the ED. I am running her on maintenance NS here in the ICU. I will watch for signs of volume overload and diurese PRN. I am following her BMPs carefully, for potassium. I have not treated her yet with insulin, glucose and albuterol. no T wave abnormalities on EKG 08/03/25 09/27/25 10/14/25 14:39 13:01 12:08 Creatinine 1.6 H 1.5 H 1.6 H 10/16/25 10/16/25 13:35 16:04 Creatinine 3.0 H 2.7 H (4) Anticoagulant long-term use: Plan: She is on Eliquis. She has a hx of DVT/PE, on Eliquis 2.5mg BID. She does have an IVF filter in place. I am not giving her chemoprophy for DVT given GI bleeding. (5) Intestinal bleeding: Plan: I do not see the endoscopy note in the chart from june of this year, however, in the oncology note from 10/14: Colonoscopy (06/09/2025): Patient end-to-end ileocolonic anastomosis, characterized by healthy-appearing mucosa. Subtotal colectomy would explain frequent BMs and diarrhea. The examined portion of the ileum was normal. Biopsied. Normal mucosa in the rectum and in the rectosigmoid colon. Biopsied. The examination was otherwise normal on direct and retroflexion views. Recommendation: No further colonoscopy. Resume Eliquis (apixaban) at prior dose tomorrow. Pathology: No Helicobacter pylori. No evidence of intestinal metaplasia, dysplasia or malignancy. Gastric body and antral mucosa with mild chronic inflammation. Upper GI endoscopy (06/09/2025): Z-line regular. No cause for iron deficiency anemia seen. Gastritis, characterized by erosions. Biopsied. Normal examined duodenum. Biopsied. Recommendation: Follow an antireflux regimen indefinitely. Use OTC famotidine daily. Pathology only notable for focal acute inflammation. No evidence of granulomatous inflammation architectural disorder, dysplasia or malignancy. I have placed the patient on BID PPI. She is geting one unit of blood right now. (6) Hyperkalemia: Plan: Laboratory Tests 10/14/25 10/16/25 10/16/25 12:08 13:35 16:04 Potassium 4.8 H 6.7 H* 5.4 H This is likely due to her JOHNATHON. Alcira is not a candidate for HD (7) Diabetes mellitus type 2, controlled, with complications: Plan: last A1C several months ago. I am starting SSI, low dose. I am allowing Alcira to have clears for now until clinical situation is more stable. She does not have any appetite right now. A1C w AM labs. Plan I have spent 90 minutes in the care of this patient today. This includes time [id number], review and ordering of diagnostic imaging and laboratory studies and consultation with other providers. Monitoring the patient's signs symptoms, evaluation of medication effectiveness and patient's response to treatment. Lab Results 10/16/25 13:35 10/16/25 16:04
[2025-10-16 16:24] LABS: BUN - BLOOD UREA NITROGEN 53.0 mg/dL (6-20); CARBON DIOXIDE - CO2 14.0 mmol/L (21-32); CREATININE 2.7 mg/dL (0.6-1.3); GFR - MDRD 17.0 (>89)
[2025-10-16] MEDS: cefTRIAXone 1 GM VIAL IVP SCH (16:29)
--- OUTSIDE RECORDS SUMMARY | 2025-10-16 16:30 | EXTERNAL MEDICAL SUMMARY RPT | Continuity of Care Document ---
Author Organization [facility] Address [address] [place] [id number] Phone Allergies and Intolerances date description facility reaction severity 2025-02-16 10:00 [id number]^Iodinated Contrast Media^^Iodinated Contrast Media^^allergy.id [facility] Unknown (no severity) 2025-02-16 10:00 [id number]^Penicillins ^^Penicillins^^allergy .id [facility] Hives (no severity) 2025-02-16 10:00 [id number]^oxycodone^^ From OxyContin^^allergy.id [facility] Unknown (no severity) 2025-02-16 10:00 [id number]^saccharin^^ saccharin^^allergy.id [facility] Diarrhea (no severity) 2025-02-16 10:00 [id number]^aspartame^^ aspartame^^allergy.id [facility] Diarrhea (no severity) 2025-02-16 10:00 [id number]^doxycycline ^^doxycycline^^allergy .id [facility] Nausea (no severity) 2025-02-16 10:00 [id number]^clindamycin ^^clindamycin^^allergy .id [facility] Unknown (no severity) 2025-02-16 10:00 [id number]^sulfamethox azole^^From Bactrim^^allergy.id [facility] Hives (no severity) 2025-02-16 10:00 [id number]^trimethopri m^^From Bactrim^^allergy.id [facility] Hives (no severity) 2025-02-16 10:00 [id number]^cefepime^^c efepime^^allergy.id [facility] Itching (no severity) 2025-02-16 10:00 [id number]^meropenem^^ meropenem^^[facility] Rash (no severity) 2025-02-16 10:00 [id number]^stevioside^ ^From Stevia^^allergy.id [facility] Diarrhea (no severity) 2025-02-16 10:00 [id number]^sucralose^^ sucralose^^allergy.id [facility] Diarrhea (no severity) 2025-04-16 10:00 [id number]^ferumoxytol ^^From Feraheme^^allergy.id [facility] Weakness \T\ Shakiness (no severity) Problems date description facility 2025-07-30 07:41 Anemia, unspecified [facility] 2025-07-30 07:41 Encounter for genera l adult medical examination without abnormal findings [facility] 2025-07-30 07:41 Personal history of pulmonary e mbolism [facility] 2025-08-02 13:12 Noninfective gastroenteritis an d colitis, unspecified [facility] 2025-08-04 10:41 Noninfective gastroenteritis an d colitis, unspecified [facility] 2025-08-04 10:42 Noninfective gastroenteritis an d colitis, unspecified [facility] 2025-08-04 10:50 Noninfective gastroenteritis an d colitis, unspecified [facility] 2025-08-05 00:06 Noninfective gastroenteritis an d colitis, unspecified [facility] 2025-08-05 10:03 Chronic kidney disease, stage 3 b [facility] 2025-08-06 11:04 Noninfective gastroenteritis an d colitis, unspecified [facility] 2025-08-06 11:08 Noninfective gastroenteritis an d colitis, unspecified [facility] 2025-08-07 00:04 Noninfective gastroenteritis an d colitis, unspecified [facility] 2025-09-13 12:12 Pain in left [facility] 2025-09-13 12:13 Pain in left knee [facility] 2025-09-14 00:01 An[facility], [facility] 2025-09-14 00:01 Chronic gout, unspecified, with out tophus (tophi) [facility] 2025-09-14 00:01 Trigger finger, unspecified fin dimitrios [facility] 2025-09-14 00:01 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 2025-09-27 13:05 Iron deficiency anemia, unspeci [facility] 2025-09-27 13:05 Anemia, unspecified [facility] 2025-09-27 13:49 Iron deficiency anemia, [facility] 2025-09-27 13:49 Anemia, unspecified [facility] 2025-09-27 14:40 Iron deficiency anemia, [facility] 2025-09-27 14:40 Anemia, unspecified [facility] 2025-09-27 14:42 Iron deficiency anemia, [facility] 2025-09-27 14:42 Anemia, unspecified [place] [facility] 2025-10-04 16:17 Anemia, unspecified [place] 2025-10-12 08:12 Anemia, unspecified [place] [facility] 2025-10-14 12:00 Anemia, unspecified [place] [facility] 2025-10-14 12:20 Anemia, unspecified [place] [facility] 2025-10-14 12:57 Anemia, unspecified [place] [facility] Results/Labs test date facility value unit notes Result panel 1 CREATININE 2025-08-03 14:[address] [facility] [facility] 1.6 mg/dl As of May 2023 testing method has changed, this may include reference ranges. MAGNESIUM 2025-08-03 14:[address] [facility] 1.8 mg/dl As of May 2023 testing method has changed, this may include reference ranges. CHLORIDE 2025-08-03 14:39 [facility] 108 mmol/l As of May 2023 testing method has changed, this may include reference ranges. GLUCOSE 2025-08-03 14:[address] [facility] 110 mg/dl As of May 2023 testing method has changed, this may include reference ranges. PLT - PLATELET COUNT 2025-08-03 14:39 [facility] 131 10 3/ul (missing) SODIUM 2025-08-03 14:[address] [facility] 137 mmol/l (missing) RED CELL DISTRIBUTION WIDTH 2025-08-03 14:[address] [facility] 14.9 % (mi ssing) TRANSFERRIN 2025-08-03 14:[address] [facility] 156 mg/dl As of May 2023 testing method has changed, this may include reference ranges. % IRON SATURATION 2025-08-03 14:39 [facility] 18 % (missing) RED BLOOD COUNT 2025-08-03 14:39 [facility] 2.95 10 6/ul (missing) CARBON DIOXIDE - CO2 2025-08-03 14:[address] [facility] 21 mmol/l As of May 2023 testing method has changed, this may include reference ranges. TOTAL IRON BINDING CAPACITY 2025-08-03 14:39 [facility] 218 ug/dl (missing) HCT - HEMATOCRIT 2025-08-[address] [facility] 28.8 % (missing) FERRITIN 2025-08-03 14:39 [facility] 288.7 ng/ml (missing) MEAN CORPUSCULAR HEMOGLOBIN 2025-08-03 14:[address] [facility] 29.5 pg (missing) ALBUMIN 2025-08-03 14:[address] [facility] 3.9 g/dl As of May 2023 testing method has changed, this may include reference ranges. GFR - MDRD 2025-08-03 14:39 [facility] 30 (in g) The IDMS-traceable MDRD Study [...] 2012. MEAN CORPUSCULAR HGB CONC 2025-08-03 14:39 [facility] 30.2 g/dl (missing) BUN - BLOOD UREA NITROGEN 2025-08-03 14:39 [facility] 33 mg/dl As of May testing method has changed, this may include reference ranges. IRON 2025-08-03 14:39 [facility] 39 ug/dl As of May 2023 testing method has changed, this may include reference ranges. PHOSPHORUS 2025-08-03 14:39 [facility] 4.2 mg/dl As of May 2023 testing method has changed, this may include reference ranges. POTASSIUM 2025-08-03 14:39 [facility] 4.3 mmol/l As of May 2023 testing method has changed, this may include reference ranges. WHITE BLOOD COUNT 2025-08-03 14:39 [facility] 4.7 x10 3/ul (missing) ANION GAP 2025-08-03 14:39 [facility] 8.0 (missing ) (missing) HGB - HEMOGLOBIN 2025-08-03 14:39 [facility] 8.7 g /dl (missing) MEAN PLATELET VOLUME 2025-08-03 14:39 [facility] 8.9 fl (missing) PARATHYROID HORMONE, INTACT 2025-08-03 14:39 [facility] 81 pg/ml (missing) CALCIUM 2025-08-03 14:39 [facility] 9.0 mg/dl As of May 2023 testing method has changed, this may include reference ranges. MEAN CORPUSCULAR VOLUME 2025-08-03 14:39 [facility] 97.6 fl (missing) Result panel 2 PROTEIN/CREATININE RATIO,URINE 2025-08-03 20:00 [facility] 1.4 (missing) (missing) CREATININE,URINE 2025-08-03 20:00 [facility] 103.5 mg/dl As of May 2023 testing method has changed, this may include reference ranges. TOTAL PROTEIN,URINE TIMED 2025-08-03 20:00 [facility] 150 mg/dl As of May 2023 testing method has changed, this may include reference ranges. Result panel 3 CALPROTECTIN FECAL 2025-08-05 17:42 [facility] 33 ug/g Concentration Interpretation Follow-Up < 5 - 50 ug/g Normal None >50 -120 ug/g Borderline Re-evaluate in 4-6 weeks >120 ug/g Abnormal Repeat as clinically indicated Performed at: [facility] [address], [place], [place] [id number] [employer]: Rani Cortes MD, Phone: [phone] Result panel 4 WBC,URINE 2025-09-20 08:00 [facility] >25 /hpf (missing) RBC,URINE 2025-09-20 08:00 [facility] 0-5 /hpf (missing) UROBILINOGEN,URIN E 2025-09-20 08:00 [facility] 0.2 (NORMAL) e.u./dl (missing) SPECIFIC GRAVITY,URINE 2025-09-20 08:00 [facility] 1.010 (missing) (missing) PROTEIN,URINE 2025-09-20 08:00 [facility] 30 mg/dl (missing) PH,URINE 2025-09-20 08:00 [facility] 6.5 ph (missing) CLARITY,URINE 2025-09-20 08:00 [facility] HAZY (missing) (missing) URINE MICROSCOPIC INDICATED? 2025-09-20 08:00 [facility] INDICATED (missing) (missing) SQUAMOUS EPITHELIAL CELL,UR 2025-09-20 08:00 [facility] MANY Squamous (missing) (missing) LEUKOCYTE ESTERASE, URINE 2025-09-20 08:00 [facility] MODERATE (missing) (missing) BACTERIA,URINE 2025-09-20 08:00 [...] culture is recommended. WBC CLUMPS,URINE 2025-09-20 08:00 [facility] PRESENT (missing) (missing) COLOR,URINE 2025-09-20 08:00 [facility] YELLOW (missing) (missing) Result panel 5 NUCLEATED RED BLOOD CELLS AUTO 2025-09-27 13:01 [facility] 0.0 /100wbc (missing) BASOPHILS # (AUTO) 2025-09-27 13:01 [facility] 0.0 10 3/ul (missing) NRBC ABSOLUTE COUNT (AUTO) 2025-09-27 13:01 [facility] 0.00 x10 3/ul (missing) EOSINOPHILS # (AUTO) 2025-09-27 13:01 [facility] 0.3 10 3/ul (missing) BILIRUBIN,TOTAL 2025-09-27 13:01 [facility] 0.4 mg/dl As of May 2023 testing method has changed, this may include reference ranges. MONOCYTES # (AUTO) 2025-09-27 13:01 [facility] 0.7 10 3/ul (missing) LYMPHOCYTES # (AUTO) 2025-09-27 13:01 [facility] 1.1 10 3/ul (missing) ALBUMIN/GLOBULIN RATIO 2025-09-27 13:01 [facility] 1.5 (missing) (missing) CREATININE 2025-09-27 13:01 [facility] 1.5 mg/dl As of May 2023 testing method has changed, this may include reference ranges. MEAN PLATELET VOLUME 2025-09-27 13:01 [facility] 10.4 fl (missing) ALKALINE PHOSPHATASE 2025-09-27 13:01 [facility] 106 iu/l As of May 2023 testing method has changed, this may include reference ranges. CHLORIDE 2025-09-27 13:01 [facility] 107 mmol/l As of May 2023 testing method has changed, this may include reference ranges. % IRON SATURATION 2025-09-27 13:01 [facility] 11 % (missing) AST ASPARTATE AMINOTRANSFERASE 2025-09-27 13:01 [facility] 11 iu/l As of May 2023 testing method has changed, this may include reference ranges. PLT - PLATELET COUNT 2025-09-27 13:01 [facility] 139 10 3/ul (missing) SODIUM 2025-09-27 13:01 [facility] 139 mmol/l Unknown RED CELL DISTRIBUTION WIDTH 2025-09-27 13:01 [facility] 15.2 % (missing) LDH - LACTATE DEHYDROGENASE 2025-09-27 13:01 [facility] 150 iu/l As of May 2023 testing method has changed, this may include reference ranges. TRANSFERRIN 2025-09-27 13:01 [facility] 150 mg/dl As of May 2023 testing method has changed, this may include reference ranges. GLUCOSE 2025-09-27 13: [facility] 166 mg/dl As of May 2023 testing method has changed, this may include reference ranges. HAPTOGLOBIN 2025-09-27 13:01 [facility] 198 mg/dl Performed at: - [facility] [address], [place], [place] [id number] [employer]: Jamir Pearce MD, Phone: [phone] GLOBULIN 2025-09-27 13:01 [facility] 2.2 g/dl (missing) RED BLOOD COUNT 2025-09-27 13:01 [facility] 2.52 10 6/ul (missing) TOTAL IRON BINDING CAPACITY 2025-09-27 13:01 [facility] 210 ug/dl (missing) IRON 2025-09-27 13:01 [facility] 23 ug/dl As of May 2023 testing method has changed, this may include reference ranges. CARBON DIOXIDE - CO2 2025-09-27 13: [facility] 24 mmol/l As of May 2023 testing method has changed, this may include reference ranges. HEMATOCRIT 2025-09-27 13: [facility] 24.1 % (missing) FERRITIN 2025-09-27 13: [facility] 249.1 ng/ml (missing) FOLATE RBC 2025-09-27 13:01 [facility] 2498 ng/ml Performed at: [facility] [address], [place], [place] [id number] [employer]: Rani Cortes MD, Phone: [phone] Performed at: [facility] [address], [place], [place] [id number] [employer]: Jamir Pearce MD, Phone: [phone] HCT - HEMATOCRIT 2025-09-27 13: [facility] 25.0 % (missing) VITAMIN B12 2025-09-27 13: [facility] 271 pg/ml VITAMIN B12 RANGES: NORMAL 180 - 914 INDETERMINATE 145 -180 DEFICIENT < 145 MEAN CORPUSCULAR HEMOGLOBIN 2025-09-27 13: [facility] 28.6 pg (missing) MEAN CORPUSCULAR HGB CONC 2025-09-27 13:01 [facility] 28.8 g/dl (missing) BUN - BLOOD UREA NITROGEN 2025-09-27 13:01 [facility] 29 mg/dl As of May 2023 testing method has changed, this may include reference ranges. NEUTROPHILS # (AUTO) 2025-09-27 13: [facility] 3.0 10 3/ul (missing) ALBUMIN 2025-09-27 13: [facility] 3.4 g/dl As of May 2023 testing method has changed, this may include reference ranges. GFR - MDRD 2025-09-27 13: [facility] 33 (missing) The IDMS-traceable MDRD Study Equation [...] last updated January 2012. POTASSIUM 2025-09-27 13:01 [facility] 4.4 mmol/l As of May 2023 testing method has changed, this may include reference ranges. WHITE BLOOD COUNT 2025-09-27 13:01 [facility] 5.1 x10 3/ul (missing) TOTAL PROTEIN 2025-09-27 13:01 [facility] 5.6 g/dl As of May 2023 testing method has changed, this may include reference ranges. FOLATE HEMOLYSATE 2025-09-27 13:01 [facility] 602.0 ng/ml (missing) HGB - HEMOGLOBIN 2025-09-27 13:01 [facility] 7.2 g/dl (missing) ANION GAP 2025-09-27 13:01 [facility] 8.0 (missing) (missing) CALCIUM 2025-09-27 13:01 [facility] 8.2 mg/dl As of May 2023 testing method has changed, this may include reference ranges. ALT ALANINE AMINOTRANSFERASE 2025-09-27 13:01 [facility] 9 iu/l As of May 2023 testing method has changed, this may include reference ranges. MEAN CORPUSCULAR VOLUME 2025-09-27 13:01 [facility] 99.2 fl (missing) Result panel 6 NUCLEATED RED BLOOD CELLS AUTO 2025-10-14 12:08 [facility] 0.0 /100wbc (missing) BASOPHILS # (AUTO) 2025-10-14 12:08 [facility] 0.0 10 3/ul (missing) NRBC ABSOLUTE COUNT (AUTO) 2025-10-14 12:08 [facility] 0.00 x10 3/ul (missing) EOSINOPHILS # (AUTO) 2025-10-14 12:08 [facility] 0.1 10 3/ul (missing) BILIRUBIN,TOTAL 2025-10-14 12:08 [facility] 0.3 mg/dl As of May 2023 testing method has changed, this may include reference ranges. MONOCYTES # (AUTO) 2025-10-14 12:08 [facility] 0.7 10 3/ul (missing) ALBUMIN/GLOBULIN RATIO 2025-10-14 12:08 [facility] 1.6 (missing) (missing) LYMPHOCYTES # (AUTO) 2025-10-14 12:08 [facility] 1.6 10 3/ul (missing) CREATININE 2025-10-14 12:08 [facility] 1.6 mg/dl As of May 2023 testing method has changed, this may include reference ranges. CHLORIDE 2025-10-14 12:08 [facility] 107 mmol/l As of May 2023 testing method has changed, this may include reference ranges. AST ASPARTATE AMINOTRANSFERASE 2025-10-14 12:08 [facility] 11 iu/l As of May 2023 testing method has changed, this may include reference ranges. SODIUM 2025-10-14 12:08 [facility] 137 mmol/l Unknown PLT - PLATELET COUNT 2025-10-14 12:08 [facility] 144 10 3/ul (missing) GLUCOSE 2025-10-14 12:08 [facility] 144 mg/dl As of May 2023 testing method has changed, this may include reference ranges. ALKALINE PHOSPHATASE 2025-10-14 12:08 [facility] 150 iu/l As of May 2023 testing method has changed, this may include reference ranges. RED CELL DISTRIBUTION WIDTH 2025-10-14 12:08 [facility] 16.8 % (missing) GLOBULIN 2025-10-14 12:08 [facility] 2.4 g/dl (missing) CARBON DIOXIDE - CO2 2025-10-14 12:08 [facility] 23 mmol/l As of May 2023 testing method has changed, this may include reference ranges. MEAN CORPUSCULAR HEMOGLOBIN 2025-10-14 12:08 [facility] 26.8 pg (missing) MEAN CORPUSCULAR HGB CONC 2025-10-14 12:08 [facility] 29.0 g/dl (missing) NEUTROPHILS # (AUTO) 2025-10-14 12:08 [facility] 3.3 10 3/ul (missing) RED BLOOD COUNT 2025-10-14 12:08 [facility] 3.43 10 6/ul (missing) ALBUMIN 2025-10-14 12:08 [facility] 3.8 g/dl As of May 2023 testing method has changed, this may include reference ranges. GFR - MDRD 2025-10-14 12:08 [facility] 30 (missing) The IDMS-traceable MDRD Study Equation [...] January 2012. HCT - HEMATOCRIT 2025-10-14 12:08 [facility] 31.7 % (missing) BUN - BLOOD UREA NITROGEN 2025-10-14 12:08 [facility] 36 mg/dl As of May 2023 testing method has changed, this may include reference ranges. POTASSIUM 2025-10-14 12:08 [facility] 4.8 mmol/l As of May 2023 testing method has changed, this may include reference ranges. WHITE BLOOD COUNT 2025-10-14 12:08 [facility] 5.6 x10 3/ul (missing) TOTAL PROTEIN 2025-10-14 12:08 [facility] 6.2 g/dl As of May 2023 testing method has changed, this may include reference ranges. ALT ALANINE AMINOTRANSFERASE 2025-10-14 12:08 [facility] 7 iu/l As of May 2023 testing method has changed, this may include reference ranges. ANION GAP 2025-10-14 12:08 [facility] 7.0 (missing) (missing) CALCIUM 2025-10-14 12:08 [facility] 8.7 mg/dl As of May 2023 testing method has changed, this may include reference ranges. HGB - HEMOGLOBIN 2025-10-14 12:08 [facility] 9.2 g/dl (missing) MEAN PLATELET VOLUME 2025-10-14 12:08 [facility] 9.6 fl (missing) MEAN CORPUSCULAR VOLUME 2025-10-14 12:08 [facility] 92.4 fl (missing) Social History date description facility
[2025-10-16] MEDS ORDERED: SODIUM CHLORIDE FLUSH 0.9% 10 ML SYRINGE IVP PRN (17:00)
[2025-10-16] MEDS: NOREPINEPHRINE/0.9 % NS 8 MG/250 ML BAG IV SCH (17:01)
[2025-10-16] MEDS: AZITHROMYCIN INJ 500 MG in SODIUM CHLORIDE 0.9% 250 ML IV SCH (17:02)
[2025-10-16] MEDS: SODIUM CHLORIDE FLUSH 0.9% 10 ML SYRINGE IVP SCH (17:29)
[2025-10-16] MEDS: SODIUM CHLORIDE 0.9% 1,000 ML IV SCH (17:30)
[2025-10-16] MEDS: HYDROmorphone 0.5 MG/0.5 ML SYRINGE IVP PRN (17:35)
[2025-10-16] MEDS: INSULIN LISPRO 300 UNIT/3 ML PEN SUBQ SCH (17:45)
[2025-10-16 18:28] LABS: GLUCOSE, URINE (UA) Negative (NEGATIVE); KETONES,URINE (UA) Trace mg/dL (NEGATIVE); OCCULT BLOOD,URINE Moderate (NEGATIVE)
[2025-10-16 18:31] LABS: SQUAMOUS EPITHELIAL CELL,UR FEW Squamous (<= Few)
[2025-10-16 21:43] LABS: HCT - HEMATOCRIT 34.4 % (37.0-47.0); HGB - HEMOGLOBIN 9.6 g/dL (12.0-16.0); MEAN PLATELET VOLUME 10.2 fL (7.9-10.8); PLT - PLATELET COUNT 151 10^3/uL (130-450); RED CELL DISTRIBUTION WIDTH 16.5 % (12.0-15.0)
[2025-10-16] MEDS: PANTOPRAZOLE 40 MG VIAL IVP SCH (21:45)
[2025-10-16 21:49] LABS: ABNORMAL LYMPHS % (MANUAL) 0 %; BASOPHILS # (MANUAL) 0.0 10^3/uL (0-0.1); EOSINOPHILS # (MANUAL) 0.0 10^3/uL (0-0.7)
[2025-10-16 21:56] LABS: BUN - BLOOD UREA NITROGEN 56.0 mg/dL (6-20); CARBON DIOXIDE - CO2 14.0 mmol/L (21-32); CREATININE 2.8 mg/dL (0.6-1.3); GFR - MDRD 16.0 (>89)
[2025-10-16 22:40] LABS: BAND NEUTROPHILS % (MANUAL) 24 %; LYMPHOCYTES # (MANUAL) 1.7 10^3/uL (1.5-3.5); LYMPHOCYTES % (MANUAL) 9 %; METAMYELOCYTES % (MANUAL) 11 %; MONOCYTES # (MANUAL) 0.8 10^3/uL (0.0-1.0); NEUTROPHILS # (MANUAL) 12.5 10^3/uL (1.5-6.6); RBC MORPHOLOGY (MULTIPLE) NORMAL APPEARANCE (NORMAL); REACTIVE LYMPHS % (MANUAL) 1 %
[2025-10-16 22:41] LABS: PLATELET ESTIMATE, MANUAL NORMAL (130-450,000) (NORMAL); PLATELET MORPHOLOGY NORMAL APPEARANCE (NORMAL)
[2025-10-16] MEDS ORDERED: SODIUM ZIRCONIUM CYCLOSILICATE 5 GM PACKET PO ONE (23:18)
--- NOTE | 2025-10-16 23:31 | PROVIDER PROGRESS NOTE ---
Hospitalist Cross-cover Note Cross-Cover Note Cross-Cover Note: pt with K 5.5 aspiration pna, cannot tolerate PO amp d50 x 1 now, followed by 10 units regular insulin IV hypoglycemia protocol also ordered continue close mointoring
[2025-10-16] MEDS: DEXTROSE 50% ABBOJECT 25 GM/50 ML SYRINGE IVP ONE (23:44)
[2025-10-16] MEDS: INSULIN REGULAR, HUMAN 300 UNIT/3 ML PEN IVP ONE (23:44)
[2025-10-17] MEDS ORDERED: SODIUM CHLORIDE 0.9% 500 ML IV ONE (03:31)
[2025-10-17 04:34] LABS: NRBC ABSOLUTE COUNT (AUTO) 0.00 x10^3/uL; NUCLEATED RED BLOOD CELLS AUTO 0.0 /100WBC
[2025-10-17 04:36] LABS: HCT - HEMATOCRIT 32.8 % (37.0-47.0); HGB - HEMOGLOBIN 9.3 g/dL (12.0-16.0); MEAN PLATELET VOLUME 11.0 fL (7.9-10.8); PLT - PLATELET COUNT 156 10^3/uL (130-450); RED CELL DISTRIBUTION WIDTH 16.8 % (12.0-15.0)
[2025-10-17 04:43] LABS: VBG PH 7.113 (7.31-7.41)
[2025-10-17 04:47] LABS: BUN - BLOOD UREA NITROGEN 56.0 mg/dL (6-20); CARBON DIOXIDE - CO2 15.0 mmol/L (21-32); CREATININE 2.8 mg/dL (0.6-1.3); GFR - MDRD 16.0 (>89); PHOSPHORUS 6.0 mg/dL (2.5-5.0)
--- NOTE | 2025-10-17 05:08 | PROVIDER PROGRESS NOTE ---
Hospitalist Cross-cover Note Cross-Cover Note Cross-Cover Note: k 5.3 will repeat hyperkalemia protocol as per prior regimen amp d50 x 1 regular insulin iv 5 units
[2025-10-17] MEDS: DEXTROSE 50% ABBOJECT 25 GM/50 ML SYRINGE IVP ONE (05:30)
[2025-10-17] MEDS: INSULIN REGULAR, HUMAN 300 UNIT/3 ML PEN IVP ONE (05:32)
[2025-10-17] MEDS: MAGNESIUM SULFATE 2 GRAM 2 GM/50 ML BAG IV ONE (05:59)
[2025-10-17] MEDS: SODIUM CHLORIDE 0.9% 500 ML IV ONE (08:32)
[2025-10-17] MEDS: INSULIN REGULAR, HUMAN 300 UNIT/3 ML PEN SUBQ ONE (09:50)
[2025-10-17 12:04] LABS: ESTIMATED AVERAGE GLUCOSE 128 mg/dL (70-100); HEMOGLOBIN A1c% 6.1 % (4.27-6.07)
--- NOTE | 2025-10-17 12:10 | PROVIDER PROGRESS NOTE ---
Subjective Prog Note Date Prog Note Date: 10/17/25 Subjective Subjective: intermittently responsive. no increasing oxygen requirements. Current Medications Current Medications Current Medications: Current Medications Generic Name Dose Route Start Last Admin Trade Name Freq PRN Reason Stop Dose Admin Calamine 1 applic 10/16/25 15:22 10/17/25 11:53 Calamine/Zinc Oxide 177 Ml Bottle TOP 1 applic Q6HR JUNE Administration Ceftriaxone Sodium 1 gm 10/16/25 17:00 10/17/25 08:12 Ceftriaxone 1 Gm Vial IVP 1 gm DAILY JUNE Administration Gabapentin 600 mg 10/17/25 13:00 Gabapentin 300 Mg Capsule PO BID JUNE Hydromorphone HCl 0.5 mg 10/16/25 17:28 10/16/25 17:35 Hydromorphone 0.5 Mg/0.5 Ml Syringe IVP 0.5 mg Q2H PRN Administration Severe Pain (Level 7-10) Azithromycin 500 mg/ Sodium 250 mls @ 250 mls/hr 10/16/25 16:09 10/17/25 09:12 Chloride IV Infused DAILY JUNE Infusion Norepinephrine/Sodium Chloride 8 mg in 250 mls @ 15 mls/hr 10/16/25 17:00 10/17/25 11:30 Levophed 8 Mg/250-0.9% Nacl IV 11 mcg/min .[id number] JUNE 20.63 mls/hr Protocol Titration 8 MCG/MIN Sodium Chloride 1,000 mls @ 100 mls/hr 10/16/25 17:00 10/17/25 11:53 Normal Saline 0.9% IV 100 mls/hr .Q10H JUNE Administration Acetaminophen 1,000 mg in 100 mls @ 400 mls/hr 10/16/25 17:00 Acetaminophen IV Q6HR PRN Moderate Pain (Level 4-6) Metronidazole 500 mg in 100 mls @ 100 mls/hr 10/17/25 11:00 10/17/25 11:51 Flagyl 500 Mg/100 Ml IV 100 mls/hr Q8H JUNE Administration Insulin Human Lispro 1 - 5 unit 10/16/25 17:00 10/17/25 11:52 Insulin Lispro 300 Unit/3 Ml Pen SUBQ 1 unit 0800,1200,1700,2100 JUNE Administration Protocol Pantoprazole Sodium 40 mg 10/16/25 21:00 10/17/25 08:12 Pantoprazole 40 Mg Vial IVP 40 mg BID JUNE Administration Sodium Chloride 10 ml 10/16/25 17:00 10/17/25 08:12 Sodium Chloride Flush 0.9% 10 Ml Syringe IVP 10 ml 0100,0900,1700 JUNE Administration Sodium Chloride 10 ml 10/16/25 17:00 Sodium Chloride Flush 0.9% 10 Ml Syringe IVP PRN PRN NEEDED PER PROVIDER ORDERS Sterile Water 10 ml 10/16/25 09:00 10/17/25 08:12 Water For Injection,Sterile 10 Ml Vial MC 10 ml DAILY JUNE Administration Objective Vital Signs/Intake & Output Reviewed Vital Signs: Yes Vital Signs: Vital Signs x48h Temp Pulse Resp BP Pulse Ox O2 Flow Rate 10/17/25 11:00 99 18 95/41 L 96 2 10/17/25 10:00 96 16 102/40 L 99 2 10/17/25 09:45 96 105/41 L 10/17/25 09:30 96 107/42 L 10/17/25 09:24 2 10/17/25 09:15 96 116/43 L 10/17/25 09:00 92 12 93/35 L 98 2 10/17/25 08:30 93 97/39 L 10/17/25 08:00 37.1 C 94 21 97/39 L 93 2 10/17/25 07:30 93 95/39 L 10/17/25 07:00 95 20 104/57 L 96 2 10/17/25 06:00 96 10 L 110/32 L 98 2 10/17/25 05:00 98 20 107/46 L 98 2 Intake & Output: Intake & Output 10/14/25 10/15/25 10/16/25 10/17/25 23:59 23:59 23:59 23:59 Intake Total 4744 / 4744 2844 / 2844 Output Total 106 / 106 94 / 94 Balance 4638 / 4638 2750 / 2750 Weight (kg) 64 kg 64 kg Objective General Appearance: positive Lethargic Eyes Bilateral: positive Conjunctivae nml Neck: positive Nml inspection Respiratory: positive No respiratory distress and Rhonchi (occasional on the right. ) Cardiovascular: positive Tachycardia Abdomen: positive Tenderness (very mild tenderness to deep palpation on the right. abodmen is soft. hernia easily reduced. ) Skin: positive Color nml and No rash Extremities: positive No pedal edema Neurologic/Psychiatric: positive Other (occasionally wakes, minimally verbal, not oriented) Lab Results 10/17/25 04:26 10/17/25 09:18 Other Labs: Lab Results x24hrs 10/17/25 10/17/25 10/17/25 Range/Units 11:44 09:18 07:57 WBC (4.8-10.8) x10^3/uL RBC (4.20-5.40) 10^6/uL Hgb (12.0-16.0) g/dL Hct (37.0-47.0) % MCV (81.0-99.0) fL MCH (27.0-31.0) pg MCHC (32.0-36.0) g/dL RDW (12.0-15.0) % Plt Count (130-450) 10^3/uL MPV (7.9-10.8) fL Neut # (Auto) (1.5-6.6) 10^3/uL Lymph # (Auto) (1.5-3.5) 10^3/uL Ness # (Auto) (0.0-1.0) 10^3/uL Eos # (Auto) (0.0-0.7) 10^3/uL Baso # (Auto) (0.0-0.1) 10^3/uL Absolute Nucleated RBC x10^3/uL Total Counted Band Neuts % (Manual) (0 - 10) % Reactive Lymphs % (Man) % Abnorm Lymph % (Manual) % Metamyelocytes % ( - 0) % Nucleated RBC % /100WBC Neutrophils # (Manual) (1.5-6.6) 10^3/uL Lymphocytes # (Manual) (1.5-3.5) 10^3/uL Monocytes # (Manual) (0.0-1.0) 10^3/uL Eosinophils # (Manual) (0-0.7) 10^3/uL Basophils # (Manual) (0-0.1) 10^3/uL Differential Comment Platelet Estimate (NORMAL) Platelet Morphology (NORMAL) RBC Morph Micro Appear (NORMAL) Bld Gas Analysis Time Sample Site ABG pH (7.35-7.45) ABG pCO2 (34-45) mmHg ABG pO2 (83-108) mmHg ABG HCO3 (22.0-26.0) mmol/L ABG Total CO2 (21.0-29.0) mmol/L ABG O2 Saturation (95-98) % ABG Base Excess (-2.0-3.0) mmol/L Kavon Test VBG pH (7.31-7.41) Ionized Calcium (1.09-1.30) mmol/L O2 Delivery Device O2 Liters/Min LPM Sodium (135-145) mmol/L Potassium 5.1 H (3.5-4.5) mmol/L Chloride (101-111) mmol/L Carbon Dioxide (21-32) mmol/L Anion Gap (6-13) BUN (6-20) mg/dL Creatinine (0.6-1.3) mg/dL Estimated GFR (MDRD) (>89) Glucose (74-104) mg/dL POC Whole Bld Glucose 145 157 (70-100) mg/dL Lactic Acid (0.5-2.2) mmol/L Calcium (8.5-10.3) mg/dL Phosphorus (2.5-5.0) mg/dL Magnesium 2.2 (1.7-2.3) mg/dL Total Bilirubin (0.2-1.0) mg/dL AST (10-42) IU/L ALT (10-60) IU/L Alkaline Phosphatase (42-121) IU/L Total Protein (6.4-8.9) g/dL Albumin (3.2-5.5) g/dL Globulin (2.1-4.2) g/dL Albumin/Globulin Ratio (1.0-2.2) Lipase (11-82) U/L Urine Color Urine Clarity (CLEAR) Urine pH (5.0-7.5) PH Ur Specific [place] (1.002-1.030) Urine Protein (NEGATIVE) mg/dL Urine Glucose (UA) (NEGATIVE) mg/dL Urine Ketones (NEGATIVE) mg/dL Urine Occult Blood (NEGATIVE) Urine Nitrite (NEGATIVE) Urine Bilirubin (NEGATIVE) Urine Urobilinogen (NORMAL) E.U./dL Ur Leukocyte Esterase (NEGATIVE) Urine RBC (0-5) /HPF Urine WBC (0-5) /HPF Ur Squamous Epith Cells (<= Few) Urine Bacteria (None Seen) /HPF Ur Microscopic Review Urine Culture Comments Nasal Screen MRSA (PCR) (NEGATIVE) Stl C. diff Tox B Gene (NEGATIVE) Urine Opiates Screen (NEGATIVE) Ur Buprenorphine Scrn (NEGATIVE) Ur Oxycodone Screen (NEGATIVE) Urine Methadone Screen (NEGATIVE) Urine Fentanyl Screen (NEGATIVE) Ur Barbiturates Screen (NEGATIVE) Ur Tricyclics Screen (NEGATIVE) Ur Phencyclidine Scrn (NEGATIVE) Ur Amphetamine Screen (NEGATIVE) U Methamphetamines Scrn (NEGATIVE) U Benzodiazepines Scrn (NEGATIVE) Urine Cocaine Screen (NEGATIVE) U Cannabinoids Screen (NEGATIVE) Ur Drug Screen Comment Blood Type Antibody Screen Crossmatch IS Only 10/17/25 10/16/25 10/16/25 Range/Units 04:26 21:28 21:19 WBC 11.6 H 16.9 H (4.8-10.8) x10^3/uL RBC 3.39 L 3.51 L (4.20-5.40) 10^6/uL Hgb 9.3 L 9.6 L (12.0-16.0) g/dL Hct 32.8 L 34.4 L (37.0-47.0) % MCV 96.8 98.0 (81.0-99.0) fL MCH 27.4 27.4 (27.0-31.0) pg MCHC 28.4 L 27.9 L (32.0-36.0) g/dL RDW 16.8 H 16.5 H (12.0-15.0) % Plt Count 156 151 (130-450) 10^3/uL MPV 11.0 H 10.2 (7.9-10.8) fL Neut # (Auto) 9.2 H Not Reportable (1.5-6.6) 10^3/uL Lymph # (Auto) 1.2 L Not Reportable (1.5-3.5) 10^3/uL Ness # (Auto) 1.2 H Not Reportable (0.0-1.0) 10^3/uL Eos # (Auto) 0.0 Not Reportable (0.0-0.7) 10^3/uL Baso # (Auto) 0.0 Not Reportable (0.0-0.1) 10^3/uL Absolute Nucleated RBC 0.00 Not Reportable x10^3/uL Total Counted 100 Band Neuts % (Manual) 24 H (0 - 10) % Reactive Lymphs % (Man) 1 % Abnorm Lymph % (Manual) 0 % Metamyelocytes % 11 H ( - 0) % Nucleated RBC % 0.0 Not Reportable /100WBC Neutrophils # (Manual) 12.5 H (1.5-6.6) 10^3/uL Lymphocytes # (Manual) 1.7 (1.5-3.5) 10^3/uL Monocytes # (Manual) 0.8 (0.0-1.0) 10^3/uL Eosinophils # (Manual) 0.0 (0-0.7) 10^3/uL Basophils # (Manual) 0.0 (0-0.1) 10^3/uL Differential Comment MANUAL DIFFERENTIAL Platelet Estimate NORMAL (130-450,000) (NORMAL) Platelet Morphology NORMAL APPEARANCE (NORMAL) RBC Morph Micro Appear NORMAL APPEARANCE (NORMAL) Bld Gas Analysis Time Sample Site ABG pH (7.35-7.45) ABG pCO2 (34-45) mmHg ABG pO2 (83-108) mmHg ABG HCO3 (22.0-26.0) mmol/L ABG Total CO2 (21.0-29.0) mmol/L ABG O2 Saturation (95-98) % ABG Base Excess (-2.0-3.0) mmol/L Kavon Test VBG pH 7.113 L* (7.31-7.41) Ionized Calcium 1.09 (1.09-1.30) mmol/L O2 Delivery Device O2 Liters/Min LPM Sodium 142 141 (135-145) mmol/L Potassium 5.3 H 5.5 H (3.5-4.5) mmol/L Chloride 117 H 113 H (101-111) mmol/L Carbon Dioxide 15 L 14 L (21-32) mmol/L Anion Gap 10.0 14.0 H (6-13) BUN 56 H 56 H (6-20) mg/dL Creatinine 2.8 H 2.8 H (0.6-1.3) mg/dL Estimated GFR (MDRD) 16 L 16 L (>89) Glucose 201 H 251 H (74-104) mg/dL POC Whole Bld Glucose (70-100) mg/dL Lactic Acid 2.6 H 4.6 H* (0.5-2.2) mmol/L Calcium 7.1 L 7.5 L (8.5-10.3) mg/dL Phosphorus 6.0 H (2.5-5.0) mg/dL Magnesium 1.6 L (1.7-2.3) mg/dL Total Bilirubin (0.2-1.0) mg/dL AST (10-42) IU/L ALT (10-60) IU/L Alkaline Phosphatase (42-121) IU/L Total Protein (6.4-8.9) g/dL Albumin (3.2-5.5) g/dL Globulin (2.1-4.2) g/dL Albumin/Globulin Ratio (1.0-2.2) Lipase (11-82) U/L Urine Color Urine Clarity (CLEAR) Urine pH (5.0-7.5) PH Ur Specific [place] (1.002-1.030) Urine Protein (NEGATIVE) mg/dL Urine Glucose (UA) (NEGATIVE) mg/dL Urine Ketones (NEGATIVE) mg/dL Urine Occult Blood (NEGATIVE) Urine Nitrite (NEGATIVE) Urine Bilirubin (NEGATIVE) Urine Urobilinogen (NORMAL) E.U./dL Ur Leukocyte Esterase (NEGATIVE) Urine RBC (0-5) /HPF Urine WBC (0-5) /HPF Ur Squamous Epith Cells (<= Few) Urine Bacteria (None Seen) /HPF Ur Microscopic Review Urine Culture Comments Nasal Screen MRSA (PCR) (NEGATIVE) Stl C. diff Tox B Gene (NEGATIVE) Urine Opiates Screen (NEGATIVE) Ur Buprenorphine Scrn (NEGATIVE) Ur Oxycodone Screen (NEGATIVE) Urine Methadone Screen (NEGATIVE) Urine Fentanyl Screen (NEGATIVE) Ur Barbiturates Screen (NEGATIVE) Ur Tricyclics Screen (NEGATIVE) Ur Phencyclidine Scrn (NEGATIVE) Ur Amphetamine Screen (NEGATIVE) U Methamphetamines Scrn (NEGATIVE) U Benzodiazepines Scrn (NEGATIVE) Urine Cocaine Screen (NEGATIVE) U Cannabinoids Screen (NEGATIVE) Ur Drug Screen Comment Blood Type Antibody Screen Crossmatch IS Only 10/16/25 10/16/25 10/16/25 Range/Units 20:34 18:17 17:33 WBC (4.8-10.8) x10^3/uL RBC (4.20-5.40) 10^6/uL Hgb (12.0-16.0) g/dL Hct (37.0-47.0) % MCV (81.0-99.0) fL MCH (27.0-31.0) pg MCHC (32.0-36.0) g/dL RDW (12.0-15.0) % Plt Count (130-450) 10^3/uL MPV (7.9-10.8) fL Neut # (Auto) (1.5-6.6) 10^3/uL Lymph # (Auto) (1.5-3.5) 10^3/uL Ness # (Auto) (0.0-1.0) 10^3/uL Eos # (Auto) (0.0-0.7) 10^3/uL Baso # (Auto) (0.0-0.1) 10^3/uL Absolute Nucleated RBC x10^3/uL Total Counted Band Neuts % (Manual) (0 - 10) % Reactive Lymphs % (Man) % Abnorm Lymph % (Manual) % Metamyelocytes % ( - 0) % Nucleated RBC % /100WBC Neutrophils # (Manual) (1.5-6.6) 10^3/uL Lymphocytes # (Manual) (1.5-3.5) 10^3/uL Monocytes # (Manual) (0.0-1.0) 10^3/uL Eosinophils # (Manual) (0-0.7) 10^3/uL Basophils # (Manual) (0-0.1) 10^3/uL Differential Comment Platelet Estimate (NORMAL) Platelet Morphology (NORMAL) RBC Morph Micro Appear (NORMAL) Bld Gas Analysis Time Sample Site ABG pH (7.35-7.45) ABG pCO2 (34-45) mmHg ABG pO2 (83-108) mmHg ABG HCO3 (22.0-26.0) mmol/L ABG Total CO2 (21.0-29.0) mmol/L ABG O2 Saturation (95-98) % ABG Base Excess (-2.0-3.0) mmol/L Kavon Test VBG pH (7.31-7.41) Ionized Calcium (1.09-1.30) mmol/L O2 Delivery Device O2 Liters/Min LPM Sodium (135-145) mmol/L Potassium (3.5-4.5) mmol/L Chloride (101-111) mmol/L Carbon Dioxide (21-32) mmol/L Anion Gap (6-13) BUN (6-20) mg/dL Creatinine (0.6-1.3) mg/dL Estimated GFR (MDRD) (>89) Glucose (74-104) mg/dL POC Whole Bld Glucose 211 163 (70-100) mg/dL Lactic Acid (0.5-2.2) mmol/L Calcium (8.5-10.3) mg/dL Phosphorus (2.5-5.0) mg/dL Magnesium (1.7-2.3) mg/dL Total Bilirubin (0.2-1.0) mg/dL AST (10-42) IU/L ALT (10-60) IU/L Alkaline Phosphatase (42-121) IU/L Total Protein (6.4-8.9) g/dL Albumin (3.2-5.5) g/dL Globulin (2.1-4.2) g/dL Albumin/Globulin Ratio (1.0-2.2) Lipase (11-82) U/L Urine Color Yellow Urine Clarity Cloudy (CLEAR) Urine pH 5.5 (5.0-7.5) PH Ur Specific [place] >=1.030 H (1.002-1.030) Urine Protein >=300 H (NEGATIVE) mg/dL Urine Glucose (UA) Negative (NEGATIVE) mg/dL Urine Ketones Trace (NEGATIVE) mg/dL Urine Occult Blood Moderate (NEGATIVE) Urine Nitrite Negative (NEGATIVE) Urine Bilirubin Small (NEGATIVE) Urine Urobilinogen 1 (NORMAL) (NORMAL) E.U./dL Ur Leukocyte Esterase Large (NEGATIVE) Urine RBC 6-10 H (0-5) /HPF Urine WBC >25 H (0-5) /HPF Ur Squamous Epith Cells FEW Squamous (<= Few) Urine Bacteria Moderate H (None Seen) /HPF Ur Microscopic Review INDICATED Urine Culture Comments INDICATED Nasal Screen MRSA (PCR) (NEGATIVE) Stl C. diff Tox B Gene (NEGATIVE) Urine Opiates Screen (NEGATIVE) Ur Buprenorphine Scrn (NEGATIVE) Ur Oxycodone Screen (NEGATIVE) Urine Methadone Screen (NEGATIVE) Urine Fentanyl Screen (NEGATIVE) Ur Barbiturates Screen (NEGATIVE) Ur Tricyclics Screen (NEGATIVE) Ur Phencyclidine Scrn (NEGATIVE) Ur Amphetamine Screen (NEGATIVE) U Methamphetamines Scrn (NEGATIVE) U Benzodiazepines Scrn (NEGATIVE) Urine Cocaine Screen (NEGATIVE) U Cannabinoids Screen (NEGATIVE) Ur Drug Screen Comment Blood Type Antibody Screen Crossmatch IS Only 10/16/25 10/16/25 10/16/25 Range/Units 17:00 16:04 14:58 WBC (4.8-10.8) x10^3/uL RBC (4.20-5.40) 10^6/uL Hgb (12.0-16.0) g/dL Hct (37.0-47.0) % MCV (81.0-99.0) fL MCH (27.0-31.0) pg MCHC (32.0-36.0) g/dL RDW (12.0-15.0) % Plt Count (130-450) 10^3/uL MPV (7.9-10.8) fL Neut # (Auto) (1.5-6.6) 10^3/uL Lymph # (Auto) (1.5-3.5) 10^3/uL Ness # (Auto) (0.0-1.0) 10^3/uL Eos # (Auto) (0.0-0.7) 10^3/uL Baso # (Auto) (0.0-0.1) 10^3/uL Absolute Nucleated RBC x10^3/uL Total Counted Band Neuts % (Manual) (0 - 10) % Reactive Lymphs % (Man) % Abnorm Lymph % (Manual) % Metamyelocytes % ( - 0) % Nucleated RBC % /100WBC Neutrophils # (Manual) (1.5-6.6) 10^3/uL Lymphocytes # (Manual) (1.5-3.5) 10^3/uL Monocytes # (Manual) (0.0-1.0) 10^3/uL Eosinophils # (Manual) (0-0.7) 10^3/uL Basophils # (Manual) (0-0.1) 10^3/uL Differential Comment Platelet Estimate (NORMAL) Platelet Morphology (NORMAL) RBC Morph Micro Appear (NORMAL) Bld Gas Analysis Time Sample Site ABG pH (7.35-7.45) ABG pCO2 (34-45) mmHg ABG pO2 (83-108) mmHg ABG HCO3 (22.0-26.0) mmol/L ABG Total CO2 (21.0-29.0) mmol/L ABG O2 Saturation (95-98) % ABG Base Excess (-2.0-3.0) mmol/L Kavon Test VBG pH (7.31-7.41) Ionized Calcium (1.09-1.30) mmol/L O2 Delivery Device O2 Liters/Min LPM Sodium 137 (135-145) mmol/L Potassium 5.4 H (3.5-4.5) mmol/L Chloride 108 (101-111) mmol/L Carbon Dioxide 14 L (21-32) mmol/L Anion Gap 15.0 H (6-13) BUN 53 H (6-20) mg/dL Creatinine 2.7 H (0.6-1.3) mg/dL Estimated GFR (MDRD) 17 L (>89) Glucose 153 H (74-104) mg/dL POC Whole Bld Glucose (70-100) mg/dL Lactic Acid 5.4 H* (0.5-2.2) mmol/L Calcium 7.3 L (8.5-10.3) mg/dL Phosphorus (2.5-5.0) mg/dL Magnesium (1.7-2.3) mg/dL Total Bilirubin (0.2-1.0) mg/dL AST (10-42) IU/L ALT (10-60) IU/L Alkaline Phosphatase (42-121) IU/L Total Protein (6.4-8.9) g/dL Albumin (3.2-5.5) g/dL Globulin (2.1-4.2) g/dL Albumin/Globulin Ratio (1.0-2.2) Lipase (11-82) U/L Urine Color Urine Clarity (CLEAR) Urine pH (5.0-7.5) PH Ur Specific [place] (1.002-1.030) Urine Protein (NEGATIVE) mg/dL Urine Glucose (UA) (NEGATIVE) mg/dL Urine Ketones (NEGATIVE) mg/dL Urine Occult Blood (NEGATIVE) Urine Nitrite (NEGATIVE) Urine Bilirubin (NEGATIVE) Urine Urobilinogen (NORMAL) E.U./dL Ur Leukocyte Esterase (NEGATIVE) Urine RBC (0-5) /HPF Urine WBC (0-5) /HPF Ur Squamous Epith Cells (<= Few) Urine Bacteria (None Seen) /HPF Ur Microscopic Review Urine Culture Comments Nasal Screen MRSA (PCR) NEGATIVE (NEGATIVE) Stl C. diff Tox B Gene (NEGATIVE) Urine Opiates Screen (NEGATIVE) Ur Buprenorphine Scrn (NEGATIVE) Ur Oxycodone Screen (NEGATIVE) Urine Methadone Screen (NEGATIVE) Urine Fentanyl Screen (NEGATIVE) Ur Barbiturates Screen (NEGATIVE) Ur Tricyclics Screen (NEGATIVE) Ur Phencyclidine Scrn (NEGATIVE) Ur Amphetamine Screen (NEGATIVE) U Methamphetamines Scrn (NEGATIVE) U Benzodiazepines Scrn (NEGATIVE) Urine Cocaine Screen (NEGATIVE) U Cannabinoids Screen (NEGATIVE) Ur Drug Screen Comment Blood Type O POSITIVE Antibody Screen NEGATIVE Crossmatch IS Only See Detail 10/16/25 10/16/25 10/16/25 Range/Units 14:23 14:20 14:15 WBC (4.8-10.8) x10^3/uL RBC (4.20-5.40) 10^6/uL Hgb (12.0-16.0) g/dL Hct (37.0-47.0) % MCV (81.0-99.0) fL MCH (27.0-31.0) pg MCHC (32.0-36.0) g/dL RDW (12.0-15.0) % Plt Count (130-450) 10^3/uL MPV (7.9-10.8) fL Neut # (Auto) (1.5-6.6) 10^3/uL Lymph # (Auto) (1.5-3.5) 10^3/uL Ness # (Auto) (0.0-1.0) 10^3/uL Eos # (Auto) (0.0-0.7) 10^3/uL Baso # (Auto) (0.0-0.1) 10^3/uL Absolute Nucleated RBC x10^3/uL Total Counted Band Neuts % (Manual) (0 - 10) % Reactive Lymphs % (Man) % Abnorm Lymph % (Manual) % Metamyelocytes % ( - 0) % Nucleated RBC % /100WBC Neutrophils # (Manual) (1.5-6.6) 10^3/uL Lymphocytes # (Manual) (1.5-3.5) 10^3/uL Monocytes # (Manual) (0.0-1.0) 10^3/uL Eosinophils # (Manual) (0-0.7) 10^3/uL Basophils # (Manual) (0-0.1) 10^3/uL Differential Comment Platelet Estimate (NORMAL) Platelet Morphology (NORMAL) RBC Morph Micro Appear (NORMAL) Bld Gas Analysis Time 14:29 Sample Site LEFT RADIAL ABG pH 7.19 L* (7.35-7.45) ABG pCO2 32 L (34-45) mmHg ABG pO2 268 H (83-108) mmHg ABG HCO3 12.4 L (22.0-26.0) mmol/L ABG Total CO2 13.4 L (21.0-29.0) mmol/L ABG O2 Saturation 100 H (95-98) % ABG Base Excess -15.9 L (-2.0-3.0) mmol/L Kavon Test POSITIVE VBG pH (7.31-7.41) Ionized Calcium (1.09-1.30) mmol/L O2 Delivery Device NON REBREATHER MASK O2 Liters/Min 15.00 LPM Sodium (135-145) mmol/L Potassium (3.5-4.5) mmol/L Chloride (101-111) mmol/L Carbon Dioxide (21-32) mmol/L Anion Gap (6-13) BUN (6-20) mg/dL Creatinine (0.6-1.3) mg/dL Estimated GFR (MDRD) (>89) Glucose (74-104) mg/dL POC Whole Bld Glucose 138 (70-100) mg/dL Lactic Acid (0.5-2.2) mmol/L Calcium (8.5-10.3) mg/dL Phosphorus (2.5-5.0) mg/dL Magnesium (1.7-2.3) mg/dL Total Bilirubin (0.2-1.0) mg/dL AST (10-42) IU/L ALT (10-60) IU/L Alkaline Phosphatase (42-121) IU/L Total Protein (6.4-8.9) g/dL Albumin (3.2-5.5) g/dL Globulin (2.1-4.2) g/dL Albumin/Globulin Ratio (1.0-2.2) Lipase (11-82) U/L Urine Color Urine Clarity (CLEAR) Urine pH (5.0-7.5) PH Ur Specific [place] (1.002-1.030) Urine Protein (NEGATIVE) mg/dL Urine Glucose (UA) (NEGATIVE) mg/dL Urine Ketones (NEGATIVE) mg/dL Urine Occult Blood (NEGATIVE) Urine Nitrite (NEGATIVE) Urine Bilirubin (NEGATIVE) Urine Urobilinogen (NORMAL) E.U./dL Ur Leukocyte Esterase (NEGATIVE) Urine RBC (0-5) /HPF Urine WBC (0-5) /HPF Ur Squamous Epith Cells (<= Few) Urine Bacteria (None Seen) /HPF Ur Microscopic Review Urine Culture Comments Nasal Screen MRSA (PCR) (NEGATIVE) Stl C. diff Tox B Gene NEGATIVE (NEGATIVE) Urine Opiates Screen POSITIVE H (NEGATIVE) Ur Buprenorphine Scrn NEGATIVE (NEGATIVE) Ur Oxycodone Screen NEGATIVE (NEGATIVE) Urine Methadone Screen NEGATIVE (NEGATIVE) Urine Fentanyl Screen Negative (NEGATIVE) Ur Barbiturates Screen NEGATIVE (NEGATIVE) Ur Tricyclics Screen NEGATIVE (NEGATIVE) Ur Phencyclidine Scrn NEGATIVE (NEGATIVE) Ur Amphetamine Screen NEGATIVE (NEGATIVE) U Methamphetamines Scrn NEGATIVE (NEGATIVE) U Benzodiazepines Scrn NEGATIVE (NEGATIVE) Urine Cocaine Screen NEGATIVE (NEGATIVE) U Cannabinoids Screen NEGATIVE (NEGATIVE) Ur Drug Screen Comment CUTOFF CONC BELOW: Blood Type Antibody Screen Crossmatch IS Only 10/16/25 10/16/25 10/16/25 Range/Units 13:35 13:35 13:35 WBC 7.7 (4.8-10.8) x10^3/uL RBC 3.12 L (4.20-5.40) 10^6/uL Hgb 8.4 L (12.0-16.0) g/dL Hct 30.2 L (37.0-47.0) % MCV 96.8 (81.0-99.0) fL MCH 26.9 L (27.0-31.0) pg MCHC 27.8 L (32.0-36.0) g/dL RDW 17.0 H (12.0-15.0) % Plt Count 134 (130-450) 10^3/uL MPV 11.2 H (7.9-10.8) fL Neut # (Auto) 6.4 (1.5-6.6) 10^3/uL Lymph # (Auto) 0.4 L (1.5-3.5) 10^3/uL Ness # (Auto) 0.8 (0.0-1.0) 10^3/uL Eos # (Auto) 0.0 (0.0-0.7) 10^3/uL Baso # (Auto) 0.0 (0.0-0.1) 10^3/uL Absolute Nucleated RBC 0.00 x10^3/uL Total Counted Band Neuts % (Manual) (0 - 10) % Reactive Lymphs % (Man) % Abnorm Lymph % (Manual) % Metamyelocytes % ( - 0) % Nucleated RBC % 0.0 /100WBC Neutrophils # (Manual) (1.5-6.6) 10^3/uL Lymphocytes # (Manual) (1.5-3.5) 10^3/uL Monocytes # (Manual) (0.0-1.0) 10^3/uL Eosinophils # (Manual) (0-0.7) 10^3/uL Basophils # (Manual) (0-0.1) 10^3/uL Differential Comment Platelet Estimate (NORMAL) Platelet Morphology (NORMAL) RBC Morph Micro Appear 1+ SCHISTOCYTES 1+ ANISOCYTOSIS 2+ HYPOCHROMASIA (NORMAL) Bld Gas Analysis Time Sample Site ABG pH (7.35-7.45) ABG pCO2 (34-45) mmHg ABG pO2 (83-108) mmHg ABG HCO3 (22.0-26.0) mmol/L ABG Total CO2 (21.0-29.0) mmol/L ABG O2 Saturation (95-98) % ABG Base Excess (-2.0-3.0) mmol/L Kavon Test VBG pH (7.31-7.41) Ionized Calcium (1.09-1.30) mmol/L O2 Delivery Device O2 Liters/Min LPM Sodium 138 (135-145) mmol/L Potassium 6.7 H* (3.5-4.5) mmol/L Chloride 107 (101-111) mmol/L Carbon Dioxide 17 L (21-32) mmol/L Anion Gap 14.0 H (6-13) BUN 55 H (6-20) mg/dL Creatinine 3.0 H (0.6-1.3) mg/dL Estimated GFR (MDRD) 15 L (>89) Glucose 147 H (74-104) mg/dL POC Whole Bld Glucose (70-100) mg/dL Lactic Acid 5.9 H* (0.5-2.2) mmol/L Calcium 7.9 L (8.5-10.3) mg/dL Phosphorus (2.5-5.0) mg/dL Magnesium 1.7 (1.7-2.3) mg/dL Total Bilirubin 0.5 (0.2-1.0) mg/dL AST 48 H (10-42) IU/L ALT 22 (10-60) IU/L Alkaline Phosphatase 132 H (42-121) IU/L Total Protein 5.2 L (6.4-8.9) g/dL Albumin 3.1 L (3.2-5.5) g/dL Globulin 2.1 (2.1-4.2) g/dL Albumin/Globulin Ratio 1.5 (1.0-2.2) Lipase 75 (11-82) U/L Urine Color Urine Clarity (CLEAR) Urine pH (5.0-7.5) PH Ur Specific [place] (1.002-1.030) Urine Protein (NEGATIVE) mg/dL Urine Glucose (UA) (NEGATIVE) mg/dL Urine Ketones (NEGATIVE) mg/dL Urine Occult Blood (NEGATIVE) Urine Nitrite (NEGATIVE) Urine Bilirubin (NEGATIVE) Urine Urobilinogen (NORMAL) E.U./dL Ur Leukocyte Esterase (NEGATIVE) Urine RBC (0-5) /HPF Urine WBC (0-5) /HPF Ur Squamous Epith Cells (<= Few) Urine Bacteria (None Seen) /HPF Ur Microscopic Review Urine Culture Comments Nasal Screen MRSA (PCR) (NEGATIVE) Stl C. diff Tox B Gene (NEGATIVE) Urine Opiates Screen (NEGATIVE) Ur Buprenorphine Scrn (NEGATIVE) Ur Oxycodone Screen (NEGATIVE) Urine Methadone Screen (NEGATIVE) Urine Fentanyl Screen (NEGATIVE) Ur Barbiturates Screen (NEGATIVE) Ur Tricyclics Screen (NEGATIVE) Ur Phencyclidine Scrn (NEGATIVE) Ur Amphetamine Screen (NEGATIVE) U Methamphetamines Scrn (NEGATIVE) U Benzodiazepines Scrn (NEGATIVE) Urine Cocaine Screen (NEGATIVE) U Cannabinoids Screen (NEGATIVE) Ur Drug Screen Comment Blood Type Antibody Screen Crossmatch IS Only Sepsis Event Note (H) Evaluation Current Stage of Sepsis: Septic shock Possible source of Sepsis: positive Pulmonary and GI tract/intra-abdominal Sepsis Criteria Sepsis Criteria: MAP less than 65 mmHg and Metabolic: lactate > 2 mmol/L Assessment/Plan Problem List (1) Septic shock: Impression: Presents to the ED after being found down covered in stool and emesis. She has not been feeling well for about 2 weeks. no known hx of GI bleeding recently, but has chronic diarrhea s/p subtotal colectomy in 2006. She has had n/v over the last 2 weeks that is new. She has been treated with iron and blood transfusions as an OP. most recent transfusion was 09/27. She has been noted to have some currant jelly stools since arrival to the ED. 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 CT A/P (non contrast) read as unremarkable It is remarkable to me in that there are dilated bowel loops, and a fair amount of material in her stomach despite not having eaten for many hours. but her abdomen is not tender or distended on exam and her hernia is very easily reducible. Overnight she has been on 8-12 mcg of levophed with poor urine output. Her pressor requirements have hovered in this range. Her lactic acidosis is resolving, but she continues to have altered mental status, her respiratory status is stable. The primary cause of her sepsis could be pulmonary, imaging seems suspicious for aspiration PNA, and hx is consistent with this. She is mildly hypoxic with a 2L oxygen requirement, that is coming down as she is hydrated in the ED. GOC discussions held today w family. See ACP note. She will be made comfort measures only. I have consulted social work, the goal will be to get her home to hospice. She needs a warm hand off to hospice services. I am planning to (2) Aspiration pneumonia: Impression: secondary to vomiting event. 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 Qualifiers: Aspiration pneumonia type: unspecified Laterality: unspecified laterality Lung location: lower lobe of lung Qualified Code(s): J69.0 - Pneumonitis due to inhalation of food and vomit (3) Acute kidney injury: Impression: stable since the time of admit to slightly improved. I am not checking her renal function again. 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 (5) Intestinal bleeding: Impression: has not had significant bleeding today. 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 I have spent 65 minutes in the care of this patient today. This includes time [id number], review and ordering of diagnostic imaging and laboratory studies, This is exclusive of time spent in advance care planning.. Monitoring the patient's signs symptoms, evaluation of medication effectiveness and patient's response to treatment.
--- NOTE | 2025-10-17 12:11 | ADVANCE CARE PLANNING NOTE ---
Advance Care Planning Planning Encounter Date: 10/17/25 Parties in Attendance: Preeti Hancock PA-C, Analia Candelario (daughter and POA), daughter Michelle. Decisional Capacity of the Patient: not able to participate Diagnosis for Encounter (1) Septic shock: (2) Aspiration pneumonia: Qualifiers: Aspiration pneumonia type: unspecified Laterality: unspecified laterality Lung location: lower lobe of lung Qualified Code(s): J69.0 - Pneumonitis due to inhalation of food and vomit (3) Acute kidney injury: (4) Anticoagulant long-term use: (5) Intestinal bleeding: (6) Hyperkalemia: (7) Diabetes mellitus type 2, controlled, with complications: Encounter Subjective/Patient's Story: Alcira and her Gael moved up from [place] several years ago to live close to their daughter. they were aging and needed more help. Gael here on 08/22. Analia reports that Alcira has been doing great since Gael . Gael was very ill and there were constant concerns about his health. 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 If Gael was alive, he never would have tolerated the expense or the nature of the decorations. Alcira was able to go to the [employer] with family just a few nights ago. her health concerns are constant, as well as the disability that comes with her age, but she is surrounded by family that loves her. Her family does not want her to suffer. Objective/Medical Story: 2 weeks of GI upset. She came in after being found down and clearly had an aspiration PNA. She had no findings on a non contrast CT of the abdomen and pelvis. She has been hypotensive on pressors (persistent hypotension despite IVF resusitation and blood) with poor urine output. Obvious aspiration PNA, with an oxygen requirement. She had a subtotal colectomy about 17 years ago, and suffers from chronic diarrhea. lots of arthritis and some chronic pain related to that CKD with anemia, DM2 in remission. Discussed this AM that this degree of critical illness will certainly end with Alcira being placed in a facility, should she survive this hospitalazation. She would NOT want this. This is something that she and her always promised each other. Would recommend against escalation of pressors. recommended against central line for pressor escalation. Family agrees. Goals of Care: agreed to continue with present course of care without escalation. Alcira has had brief periods of lucidity and been able to visit with family lazaro moralesEstelle Helms and the family agree that this is not what Alcira would want- that pressors are indeed life support, and that is not within her goals of care. This afternoon, Analia and her 2 sisters asked me to stop the pressors and abx. I did so immediately. Alcira would like to at home and will need hospice support to do so. Social work engaged immediately. I have placed hospice consult in the computer and will call them in the AM. Plan: Comfort measures only Code Status: Do Not Attempt Resuscitation Time spent on advance care plannin minutes
[2025-10-17] MEDS: GABAPENTIN 300 MG CAPSULE PO SCH (13:53)
[2025-10-17] MEDS: ACETAMINOPHEN 1,000 MG/100 ML 1,000 MG/100 ML BAG IV PRN (14:45)
[2025-10-17] MEDS ORDERED: ONDANSETRON 4 MG/2 ML VIAL IVP PRN (16:36)
[2025-10-17] MEDS ORDERED: MORPHINE SOL 10 MG/0.5 ML ORAL SYRINGE PO PRN (16:36)
[2025-10-17] MEDS ORDERED: HALOPERIDOL 5 MG/ML VIAL IVP PRN (16:36)
[2025-10-17] MEDS: MINERAL OIL/PETROLAT OPHTH OINT EACHEYE PRN (17:23)
[2025-10-17] MEDS: HYDROmorphone 0.5 MG/0.5 ML SYRINGE IVP PRN (17:40)
[2025-10-18] MEDS: COD LIVER OIL/ZINC OXIDE 113 GM TUBE TOP PRN (05:16)
--- NOTE | 2025-10-18 13:30 | PROVIDER PROGRESS NOTE ---
Subjective Prog Note Date Prog Note Date: 10/18/25 Subjective Subjective: Intermittent occasional grimmacing but overall has been comfortable. RN reports that stool frequency is slowing. She opens her eyes as I am leaving the bedside, and I am allowing the family this time with her should she become lucid. Current Medications Current Medications Current Medications: Current Medications Generic Name Dose Route Start Last Admin Trade Name Freq PRN Reason Stop Dose Admin Gabapentin 600 mg 10/17/25 13:00 10/18/25 09:34 Gabapentin 300 Mg Capsule PO Not Given BID JUNE Glycopyrrolate 0.2 mg 10/17/25 16:36 Glycopyrrolate 1 Mg/5 Ml Vial SUBQ Q4H PRN Excessive secretions Haloperidol 0.5 mg 10/17/25 16:36 Haloperidol 5 Mg/Ml Vial IVP Q6H PRN Nausea / Vomiting Hydromorphone HCl 0.5 mg 10/17/25 16:43 10/18/25 01:06 Hydromorphone 0.5 Mg/0.5 Ml Syringe IVP 0.5 mg Q1H PRN Administration Severe Pain (Level 7-10) Lorazepam 1 mg 10/17/25 16:36 Lorazepam 2 Mg/Ml Vial IVP Q2H PRN Anxiety/Agitation Multi-Ingred Cream/Lotion/Oil/Oint 1 applic 10/17/25 16:36 10/17/25 17:23 Mineral Oil/Petrolat Ophth Oint EACHEYE 1 applic QPM PRN Administration Dry Eye Ondansetron HCl 4 mg 10/17/25 16:36 Ondansetron 4 Mg/2 Ml Vial IVP Q8H PRN Nausea / Vomiting Zinc Oxide 113 gm 10/17/25 16:20 10/18/25 05:16 Cod Liver Oil/Zinc Oxide 113 Gm Tube TOP 1 applic PRN PRN Administration Skin Care Objective Vital Signs/Intake & Output Reviewed Vital Signs: Yes Vital Signs: Vital Signs x48h Temp Pulse Resp BP Pulse Ox 10/18/25 06:00 37.6 C 81 15 81/33 L 91 L Intake & Output: Intake & Output 10/15/25 10/16/25 10/17/25 10/18/25 23:59 23:59 23:59 23:59 Intake Total 4744 / 4744 3651 / 3651 Output Total 106 / 106 123 / 123 Balance 4638 / 4638 3528 / 3528 Weight (kg) 64 kg 64 kg Objective General Appearance: positive No acute distress and Other (obtunded, almost comatose. ) Eyes Bilateral: positive No lid inflammation ENT: positive ENT inspection nml Neck: positive Nml inspection Respiratory: positive No respiratory distress and Other (dimished,rhonchi that are greater on the right. ) Cardiovascular: positive Regular rate & rhythm Abdomen: positive Non-tender and No distention Skin: positive Color nml and Dry Extremities: positive No pedal edema Neurologic/Psychiatric: positive Other (not reponsive) Lab Results 10/17/25 04:26 10/17/25 09:18 Other Labs: Lab Results x24hrs 10/17/25 Range/Units 04:26 Estimat Average Glucose 128 H (70-100) mg/dL Hemoglobin A1c % 6.1 H (4.27-6.07) % Sepsis Event Note (H) Evaluation Current Stage of Sepsis: Septic shock Possible source of Sepsis: positive Pulmonary and GI tract/intra-abdominal Sepsis Criteria Sepsis Criteria: MAP less than 65 mmHg and Metabolic: lactate > 2 mmol/L Assessment/Plan Problem List (1) Septic shock: Impression: Presents to the ED after being found down covered in stool and emesis. She has not been feeling well for about 2 weeks. no known hx of GI bleeding recently, but has chronic diarrhea s/p subtotal colectomy in 2006. She has had n/v over the last 2 weeks that is new. She has been treated with iron and blood transfusions as an OP. most recent transfusion was 09/27. She has been noted to have some currant jelly stools since arrival to the ED. 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 CT A/P (non contrast) read as unremarkable It is remarkable to me in that there are dilated bowel loops, and a fair amount of material in her stomach despite not having eaten for many hours. but her abdomen is not tender or distended on exam and her hernia is very easily reducible. GOC discussions held w family 10/17. See ACP note. She is comfort measures only. I have consulted social work, the goal will be to get her home to hospice. She needs a warm hand off to hospice services. (2) Aspiration pneumonia: Impression: secondary to vomiting event. 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 Qualifiers: Aspiration pneumonia type: unspecified Laterality: unspecified laterality Lung location: lower lobe of lung Qualified Code(s): J69.0 - Pneumonitis due to inhalation of food and vomit (3) Acute kidney injury: Impression: stable since the time of admit to slightly improved. I am not checking her renal function again. 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 (5) Intestinal bleeding: Impression: has not had significant bleeding today. 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 I have spent 45 minutes in the care of this patient today. This includes time [id number], at bedside w the patient and her family. Monitoring the patient's signs symptoms, evaluation of medication effectiveness and patient's response to treatment, consulting with social work to develop a plan.
[2025-10-19] MEDS: GLYCOPYRROLATE 1 MG/5 ML VIAL SUBQ PRN (03:14)
--- NOTE | 2025-10-19 12:44 | PROVIDER PROGRESS NOTE ---
Subjective Prog Note Date Prog Note Date: 10/19/25 Subjective Subjective: comatose. She has been very comfortable per the RN. no family at bedside. Current Medications Current Medications Current Medications: Current Medications Generic Name Dose Route Start Last Admin Trade Name Freq PRN Reason Stop Dose Admin Gabapentin 600 mg 10/17/25 13:00 10/19/25 11:12 Gabapentin 300 Mg Capsule PO Not Given BID JUNE Glycopyrrolate 0.2 mg 10/17/25 16:36 10/19/25 03:14 Glycopyrrolate 1 Mg/5 Ml Vial SUBQ 0.2 mg Q4H PRN Administration Excessive secretions Haloperidol 0.5 mg 10/17/25 16:36 Haloperidol 5 Mg/Ml Vial IVP Q6H PRN Nausea / Vomiting Hydromorphone HCl 0.5 mg 10/17/25 16:43 10/19/25 06:43 Hydromorphone 0.5 Mg/0.5 Ml Syringe IVP 0.5 mg Q1H PRN Administration Severe Pain (Level 7-10) Lorazepam 1 mg 10/17/25 16:36 Lorazepam 2 Mg/Ml Vial IVP Q2H PRN Anxiety/Agitation Multi-Ingred Cream/Lotion/Oil/Oint 1 applic 10/17/25 16:36 10/17/25 17:23 Mineral Oil/Petrolat Ophth Oint EACHEYE 1 applic QPM PRN Administration Dry Eye Ondansetron HCl 4 mg 10/17/25 16:36 Ondansetron 4 Mg/2 Ml Vial IVP Q8H PRN Nausea / Vomiting Zinc Oxide 113 gm 10/17/25 16:20 10/19/25 06:43 Cod Liver Oil/Zinc Oxide 113 Gm Tube TOP 1 applic PRN PRN Administration Skin Care Objective Vital Signs/Intake & Output Reviewed Vital Signs: Yes Vital Signs: Vital Signs x48h Temp Pulse Resp BP Pulse Ox 10/19/25 08:47 37.1 C 82 17 107/45 L 91 L Intake & Output: Intake & Output 10/16/25 10/17/25 10/18/25 10/19/25 23:59 23:59 23:59 23:59 Intake Total 4744 / 4744 3651 / 3651 Output Total 106 / 106 123 / 123 Balance 4638 / 4638 3528 / 3528 Weight (kg) 64 kg 64 kg Objective General Appearance: positive No acute distress and Other (obtunded, almost comatose. ) Eyes Bilateral: positive No lid inflammation ENT: positive ENT inspection nml Neck: positive Nml inspection Respiratory: positive No respiratory distress and Other (dimished,no rhonchi appreciated today ) Cardiovascular: positive Regular rate & rhythm Abdomen: positive Non-tender and No distention Skin: positive Color nml and Dry Extremities: positive No pedal edema Neurologic/Psychiatric: positive Other (not reponsive) Lab Results 10/17/25 04:26 10/17/25 09:18 Other Labs: Lab Results x24hrs 10/17/25 Range/Units 04:26 Estimat Average Glucose 128 H (70-100) mg/dL Hemoglobin A1c % 6.1 H (4.27-6.07) % Sepsis Event Note (H) Evaluation Current Stage of Sepsis: Septic shock Possible source of Sepsis: positive Pulmonary and GI tract/intra-abdominal Sepsis Criteria Sepsis Criteria: MAP less than 65 mmHg and Metabolic: lactate > 2 mmol/L Assessment/Plan Problem List (1) Septic shock: Impression: Presents to the ED after being found down covered in stool and emesis. She has not been feeling well for about 2 weeks. no known hx of GI bleeding recently, but has chronic diarrhea s/p subtotal colectomy in 2006. She has had n/v over the last 2 weeks that is new. She has been treated with iron and blood transfusions as an OP. most recent transfusion was 09/27. She has been noted to have some currant jelly stools since arrival to the ED. 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 CT A/P (non contrast) read as unremarkable It is remarkable to me in that there are dilated bowel loops, and a fair amount of material in her stomach despite not having eaten for many hours. but her abdomen is not tender or distended on exam and her hernia is very easily reducible. GOC discussions held w family 10/17. See ACP note. She is comfort measures only. I have consulted social work, the goal will be to get her home to hospice. She needs a warm hand off to hospice services. She is needing some dilaudid, about 4 doses in 24 hours. one dose of glycop This AM, I am hearing that she will go to hospice on Oct 21 or . (2) Aspiration pneumonia: Impression: secondary to vomiting event. 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 Qualifiers: Aspiration pneumonia type: unspecified Laterality: unspecified laterality Lung location: lower lobe of lung Qualified Code(s): J69.0 - Pneumonitis due to inhalation of food and vomit (3) Acute kidney injury: Impression: stable since the time of admit to slightly improved. I am not checking her renal function again. 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 (5) Intestinal bleeding: Impression: has not had significant bleeding today. 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 I have spent 26 minutes in the care of this patient today. This includes time [id number], at bedside w the patient and her family. Monitoring the patient's signs symptoms, evaluation of medication effectiveness and patient's response to treatment, consulting with social work to develop a plan.
[2025-10-19] MEDS: SCOPOLAMINE PATCH TOP SCH (18:23)
--- NOTE | 2025-10-20 14:51 | PROVIDER PROGRESS NOTE ---
Subjective Prog Note Date Prog Note Date: 10/20/25 Subjective Pt reports feeling: No change Current Medications Current Medications Current Medications: Current Medications Generic Name Dose Route Start Last Admin Trade Name Freq PRN Reason Stop Dose Admin Gabapentin 600 mg 10/17/25 13:00 10/20/25 09:33 Gabapentin 300 Mg Capsule PO Not Given BID JUNE Glycopyrrolate 0.2 mg 10/17/25 16:36 10/19/25 03:14 Glycopyrrolate 1 Mg/5 Ml Vial SUBQ 0.2 mg Q4H PRN Administration Excessive secretions Haloperidol 0.5 mg 10/17/25 16:36 Haloperidol 5 Mg/Ml Vial IVP Q6H PRN Nausea / Vomiting Hydromorphone HCl 0.5 mg 10/17/25 16:43 10/20/25 13:50 Hydromorphone 0.5 Mg/0.5 Ml Syringe IVP 0.5 mg Q1H PRN Administration Severe Pain (Level 7-10) Lorazepam 1 mg 10/17/25 16:36 Lorazepam 2 Mg/Ml Vial IVP Q2H PRN Anxiety/Agitation Multi-Ingred Cream/Lotion/Oil/Oint 1 applic 10/17/25 16:36 10/17/25 17:23 Mineral Oil/Petrolat Ophth Oint EACHEYE 1 applic QPM PRN Administration Dry Eye Ondansetron HCl 4 mg 10/17/25 16:36 Ondansetron 4 Mg/2 Ml Vial IVP Q8H PRN Nausea / Vomiting Scopolamine HBr 1 patch 10/19/25 16:00 10/19/25 18:23 Scopolamine Patch TOP 1 patch Q3D JUNE Administration Zinc Oxide 113 gm 10/17/25 16:20 10/19/25 15:21 Cod Liver Oil/Zinc Oxide 113 Gm Tube TOP 1 applic PRN PRN Administration Skin Care Objective Vital Signs/Intake & Output Reviewed Vital Signs: Yes Vital Signs: Vital Signs x48h Pulse Resp BP Pulse Ox 10/20/25 09:00 87 24 136/54 H 95 Intake & Output: Intake & Output 10/17/25 10/18/25 10/19/25 10/20/25 23:59 23:59 23:59 23:59 Intake Total 3651 / 3651 Output Total 123 / 123 Balance 3528 / 3528 Weight (kg) 64 kg Objective General Appearance: positive No acute distress and Other (obtunded, almost comatose. ) Eyes Bilateral: positive No lid inflammation ENT: positive ENT inspection nml Neck: positive Nml inspection Respiratory: positive No respiratory distress and Other (dimished,no rhonchi appreciated today ) Cardiovascular: positive Regular rate & rhythm Abdomen: positive Non-tender and No distention Skin: positive Color nml and Dry Extremities: positive No pedal edema Neurologic/Psychiatric: positive Other (not reponsive) Lab Results 10/17/25 04:26 10/17/25 09:18 Other Labs: Lab Results x24hrs 10/16/25 Range/Units 14:58 Crossmatch IS Only See Detail Sepsis Event Note (H) Evaluation Current Stage of Sepsis: Septic shock Possible source of Sepsis: positive Pulmonary and GI tract/intra-abdominal Sepsis Criteria Sepsis Criteria: MAP less than 65 mmHg and Metabolic: lactate > 2 mmol/L Assessment/Plan Problem List (1) Septic shock: Impression: Presents to the ED after being found down covered in stool and emesis. She has not been feeling well for about 2 weeks. no known hx of GI bleeding recently, but has chronic diarrhea s/p subtotal colectomy in 2006. She has had n/v over the last 2 weeks that is new. She has been treated with iron and blood transfusions as an OP. most recent transfusion was 09/27. She has been noted to have some currant jelly stools since arrival to the ED. 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 CT A/P (non contrast) read as unremarkable It is remarkable to me in that there are dilated bowel loops, and a fair amount of material in her stomach despite not having eaten for many hours. but her abdomen is not tender or distended on exam and her hernia is very easily reducible. GOC discussions held w family 10/17. See ACP note. She is comfort measures only. I have consulted social work, the goal will be to get her home to hospice. She needs a warm hand off to hospice services. 10/20: Continuing to await hospice delivery of DME. Plan is still to leave tomorrow to go back home. [place] I have rerouted some of her more urgent medications to [facility] in [place] (2) Aspiration pneumonia: Impression: secondary to vomiting event. 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 Qualifiers: Aspiration pneumonia type: unspecified Laterality: unspecified laterality Lung location: lower lobe of lung Qualified Code(s): J69.0 - Pneumonitis due to inhalation of food and vomit (3) Acute kidney injury: Impression: stable since the time of admit to slightly improved. I am not checking her renal function again. (4) Anticoagulant long-term use: Impression: stopping due to NURSE ORTHOPEDIC. (5) Intestinal bleeding: Impression: has not had significant bleeding today. 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
[2025-10-20] MEDS: MORPHINE SOL 10 MG/0.5 ML ORAL SYRINGE PO PRN (15:30)
[2025-10-21] MEDS: LORazepam 2 MG/ML VIAL IVP PRN (09:12)
--- NOTE | 2025-10-21 11:23 | Discharge Summary ---
Discharge Summary Admit Date: 10/16/25 Discharge Date: 10/21/25 Discharging Provider: Eriberto Morales Primary Care Provider: Ruby Mckeon Code Status: Do Not Attempt Resuscitation DIAGNOSES Discharge Diagnoses with Status of Each Condition: Patient is comfort measures only and discharging on hospice. 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 She lives in an RV on her daughter's property. She was last seen normal yesterday evening when she ate dinner around 5 PM. She was found on the floor for travel trailer covered in diarrhea and vomit. She has had some bloody stool since she has arrived in the emergency department. She is intermittently awake and able to give some history. However, the majority the history is obtained by her daughter. She has been experiencing some anemia got a blood transfusion as an outpatient on 09/23/2025. She has a history of partial colectomy and therefore always has diarrhea and loose stools. She is on empiric budesonide for presumed chronic colitis. Last EGD and colonoscopy in June of this year significant for some chronic gastritis. In speaking with her daughter Analia there is no thought that the patient is having chronic GI blood loss. She has however had nausea and vomiting as well as dizziness for the last 2 weeks. She has not been feeling well in general. HOSPITAL COURSE Hospital Course: Patient was admitted to the hospital and on 10/17 goals of care discussion was held and decision was made to pursue hospice care. Patient was held here in the hospital on comfort measures only status, and today is discharging home with home hospice ALLERGIES Allergies Allergy/AdvReac Type Severity Reaction Status Date / Time Iodinated Contrast Media Allergy Severe Unknown Verified 10/16/25 14:27 meropenem Allergy Severe Rash Verified 10/16/25 14:27 oxycodone (From OxyContin) Allergy Severe Unknown Verified 10/16/25 14:27 Penicillins Allergy Severe Hives Verified 10/16/25 14:27 sulfamethoxazole (From Allergy Hives Verified 10/16/25 14:27 Bactrim) trimethoprim (From Bactrim) Allergy Hives Verified 10/16/25 14:27 ferumoxytol (From Feraheme) AdvReac Unknown Weakness & Verified 10/16/25 14:27 Shakiness aspartame AdvReac Diarrhea Verified 10/16/25 14:27 cefepime AdvReac Itching Verified 10/16/25 14:27 clindamycin AdvReac Unknown Verified 10/16/25 14:27 doxycycline AdvReac Nausea Verified 10/16/25 14:27 saccharin AdvReac Diarrhea Verified 10/16/25 14:27 stevioside (From Stevia) AdvReac Diarrhea Verified 10/16/25 14:27 sucralose AdvReac Diarrhea Verified 10/16/25 14:27 MEDICATIONS Ambulatory Orders Medication Instructions Recorded Confirmed bisacodyl 10 mg rectal suppository 10 mg MA DAILY PRN Constipation #3 10/19/25 (Dulcolax (bisacodyl)) ea olanzapine 5 mg disintegrating 5 mg PO DAILY PRN Agit ation, 10/19/25 tablet (Zyprexa Zydis) nausea and vomiting #10 tabs scopolamine base 1 mg over 3 days 1 patch transdermal Q3D PRN 10/19/25 transdermal patch secretions #4 ea lorazepam 0.5 mg tablet (Ativan) 0.5 mg PO Q6H PRN Anx iety #10 tabs 10/20/25 morphine concentrate 100 mg/5 mL 5 mg (0.25 mL) PO Q4H PRN pain or 10/20/25 (20 mg/mL) oral solution breathlessness #30 mL PHYSICAL EXAM AT DISCHARGE Vital Signs: Vital Signs x48h Temp Pulse Resp BP Pulse Ox 10/21/25 12:27 97.3 F L 68 17 119/41 L 97 10/21/25 08:33 98.1 F 64 14 136/54 H 99 Physical Exam Other/Comments: General Appearance: positive No acute distress and Other (obtunded, almost comatose. ) Eyes Bilateral: positive No lid inflammation ENT: positive ENT inspection nml Neck: positive Nml inspection Respiratory: positive No respiratory distress Cardiovascular: positive Regular rate & rhythm Abdomen: positive Non-tender and No distention Skin: positive Color nml and Dry Extremities: positive No pedal edema Neurologic/Psychiatric: positive Other (not reponsive) LABS 10/17/25 04:26 10/17/25 09:18 SEPSIS Current Stage of Sepsis: Septic shock Possible source of Sepsis: Pulmonary and GI tract/intra-abdominal Sepsis Criteria: MAP less than 65 mmHg and Metabolic: lactate > 2 mmol/L FOLLOW UP Follow Up: With hospice TIME SPENT Time Spent in Discharge (Minutes): 38 Discharge Plan Discharge Patient Disposition: 50 Hospice/Home DC/Xfer Condition: Stable Prescriptions: New bisacodyl [Dulcolax (bisacodyl)] 10 mg Suppository 10 mg MA DAILY PRN (Reason: Constipation) Qty: 3 0RF Rx Instructions: Unwrap and insert one suppository rectally daily, as needed for constipation. olanzapine [Zyprexa Zydis] 5 mg Tablet,Disintegrating 5 mg PO DAILY PRN (Reason: Agitation, nausea and vomiting) Qty: 10 0RF Rx Instructions: Dissolve one tablet, in mouth, twice daily as needed for agitation or nausea and/or vomiting. scopolamine base 1 mg over 3 days patch 3 day 1 patch transdermal Q3D PRN (Reason: secretions) Qty: 4 0RF morphine concentrate 100 mg/5 mL (20 mg/mL) Solution 5 mg PO Q4H PRN (Reason: pain or breathlessness) Qty: 30 0RF Rx Instructions: Take 0.25 ml (equal to 5 mg) by mouth, or under the tongue, every 4 hours as needed for moderate to severe pain. lorazepam [Ativan] 0.5 mg Tablet 0.5 mg PO Q6H PRN (Reason: Anxiety) Qty: 10 0RF Rx Instructions: Take one tablet, by mouth, every 6 hours as needed for anxiety. Discontinued Ensure Liquid 1 ea PO QDAY Qty: 5688 0RF dorzolamide (PF) 2 % drops 1 drp ophthalmic (eye) TID Qty: 10 2RF Rx Instructions: into both eyes estradiol [Estrace] 0.01 % (0.1 mg/gram) cream 1 g vaginal Q3D Qty: 42.5 3RF Rx Instructions: apply 1g twice weekly; Max TWICE WEEKLY diphenoxylate-atropine 2.5-0.025 mg tablet 1 tab PO QID Qty: 20 0RF colchicine 0.6 mg tablet 0.6 mg PO QDAY gabapentin 300 mg capsule 600 mg PO BID Qty: 360 3RF glipizide 5 mg tablet extended release 24hr 5 - 15 mg PO QDAY Qty: 270 3RF Rx Instructions: Take 2 tablets (10mg) in the AM and Take one tablet (5mg) in the evening levothyroxine 100 mcg tablet 100 mcg PO QDAC Qty: 90 0RF trazodone 50 mg tablet 25 mg PO HS Qty: 45 0RF Trulicity 4.5 mg/0.5 mL pen injector 3 mg subcut QWEEK Qty: 2 1RF cholecalciferol (vitamin D3) 50 MCG capsule 1 cap PO DAILY cyanocobalamin (vitamin B-12) 1,000 MCG capsule 1 cap PO DAILY Eliquis 2.5 MG tablet 2.5 mg PO BID 0RF (DME) Permanent Disabled Placard Misc See Rx Instructions .Route Rx Instructions: As directed (DME) FreeStyle Blanca 3 [place] Misc See Rx Instructions .Route Rx Instructions: As directed (DME) FreeStyle Blanca 3 Sensor Device See Rx Instructions .Route Qty: 2 12RF Rx Instructions: Apply 1 sensor every 14 days per package instruction folic acid 1 mg tablet 1 mg PO QDAY Qty: 30 2RF hydrocortisone acetate 25 mg suppository 25 mg MA QDAY Qty: 3 0RF allopurinol 100 mg tablet 200 mg PO DAILY Qty: 180 3RF latanoprost 0.005 % drops 1 drp LEFTEYE BID Qty: 7.5 3RF Saccharomyces boulardii [Daily Probiotic (S. boulardii)] 250 mg capsule 250 mg PO HS rosuvastatin 20 mg tablet 10 mg PO QDAY allopurinol 200 mg tablet 200 mg PO QDAY Qty: 30 0RF acetaminophen-codeine 300-60 mg tablet 1 tab PO TID PRN (Reason: pain) Qty: 90 0RF diphenoxylate-atropine [Lomotil] 2.5-0.025 mg tablet 1 tab PO QDAY PRN (Reason: diarrhea) Qty: 30 3RF Rx Instructions: Take 2 tabs with first watery stool, then 1 tab with each watery stool thereafter. Max 8 tabs daily. Activity Restrictions: No Restrictions Diet: Regular Health Concerns: You came in after you were found down. You have been feeling well for some time. Some concern was raised about mesenteric ischemia. Goals of care conference was held with your family, and hospice was elected at that time. I am sending you home with hospice resources. Some of your medications have been sent to [facility] due to power outage's, the rest are at [facility] and you can pick those up when the power comes back. Please feel free to reach out to your hospice provider with any concerns Print Language: Luxembourgish Patient Instructions: Hospice Managing Pain Stand Alone Forms: PCP List Follow-up Care: Ruby Mckeon FNP [Primary Care Provider, Family Practice] Vitals documented within 30 minutes of discharge?: Yes
[2025-10-21 12:28] VITALS: BP 119/41; TEMP 97.3; O2SAT 97
== END 2025-10-21 12:25 | disposition hospice, home (50) | DRG 871 ==
LOC: ED 13:25 → ICU 15:58
PROVIDERS: ADMIT Physician Assistant Medical; ATTEND Physician Assistant Medical
DX: E11.22 Type 2 diabetes mellitus with diabetic chronic kidney disease; Z86.718 Personal history of other venous thrombosis and embolism; Z95.2 Presence of prosthetic heart valve; I95.9 Hypotension, unspecified; K92.2 Gastrointestinal hemorrhage, unspecified; K52.9 Noninfective gastroenteritis and colitis, unspecified; D50.9 Iron deficiency anemia, unspecified; A41.9 Sepsis, unspecified organism; N17.9 Acute kidney failure, unspecified; R65.21 Severe sepsis with septic shock; Z98.0 Intestinal bypass and anastomosis status; Z79.01 Long term (current) use of anticoagulants; J18.9 Pneumonia, unspecified organism; Z79.85 Long-term (current) use of injectable non-insulin antidiabetic drugs; R41.82 Altered mental status, unspecified; Z51.5 Encounter for palliative care; N18.9 Chronic kidney disease, unspecified; E87.5 Hyperkalemia; Z66 Do not resuscitate; Z86.711 Personal history of pulmonary embolism; Z79.84 Long term (current) use of oral hypoglycemic drugs; N18.30 Chronic kidney disease, stage 3 unspecified; Z90.49 Acquired absence of other specified parts of digestive tract; J69.0 Pneumonitis due to inhalation of food and vomit; R19.7 Diarrhea, unspecified; R09.02 Hypoxemia